=== PATIENT | male | born 1950 | race Caucasian/White ===

== ENCOUNTER 2022-07-30 10:46 | Outpatient (CLI) | payer MEDICARE, BC, SELFPAY ==
[2022-07-30 13:00] LABS: Creatinine Urine 207.1 mg/dL
[2022-07-30 13:48] LABS: Microalbumin Creatinine Ratio 200 mg/g (0-30); Microalbumin Urine 42 mg/dL
[2022-07-30 14:51] LABS: Albumin* 3.8 g/dL (3.3-5.0); Chloride* 105 mmol/L (96-114); Sodium* 141 mmol/L (135-149)
[2022-07-30 14:52] LABS: Iron* 67 ug/dL (49-181)
[2022-07-30 14:53] LABS: Carbon Dioxide* 25 mmol/L (20-32); Cholesterol* 152 mg/dL (90-199); Creatinine* 1.4 mg/dL (0.5-1.5); Estimated Glomerular Filt Rate 53 ml/min
[2022-07-30 14:54] LABS: Alanine Aminotransferase* 35 U/L (4-50); Aspartate Amino Transferase* 30 U/L (12-35); Blood Urea Nitrogen* 26 mg/dL (7-30); Glucose* 149 mg/dL (60-115); Phosphorus* 2.9 mg/dL (2.5-4.5); Triglycerides* 275 mg/dL (40-149); Uric Acid* 10.1 mg/dL (2.2-8.4)
[2022-07-30 14:55] LABS: HDL Cholesterol* 28 mg/dL (>=40); LDL Cholesterol Calculated 69 mg/dL (<100)
[2022-07-30 15:09] LABS: Total Iron Binding Capacity 321 ug/dL (261-462)
[2022-07-30 15:33] LABS: Ferritin* 91.8 ng/mL (17.9-464.0)
[2022-07-30 15:57] LABS: Percent Iron Saturation 21 % (20-50)
== END 2022-07-30 10:47 | disposition home or self-care (01) ==
PROVIDERS: PCP Family Medicine; Visit Provider Internal Medicine Nephrology
DX: I10 Essential (primary) hypertension (principal); M10.9 Gout, unspecified; N18.9 Chronic kidney disease, unspecified
CPT/HCPCS: 80061; 80069; 82043; 82310; 82570; 82728; 83540; 83550; 83970; 84450; 84460; 84550

== ENCOUNTER 2022-10-16 10:52 | Outpatient (CLI) | payer MEDICARE, BC, SELFPAY ==
--- OUTSIDE RECORDS SUMMARY | 2022-10-16 10:55 | XMS_ITS | Encounter Summary ---
:1950 Author Organization [facility] Address [address] [place] [address] Care Team Providers Name Role Phone Unavailable Primary Care Provider Unavailable Reason for Visit Appointment Request (Routine) - Closed Specialty Diagnoses / Procedures Referred By Contact Refer red To Contact Nephrology and Hypertension Referral ID Status Reason Start Date Expiration Date Visits Requ ested Visits Authorized [id number] Closed 07/19/2022 07/19/2023 1 Encounter Details Date Type Department Care Team Description 07/30/2022 External Division of María, Chronic Kidney Disease (CKD), Stage 3a Glomerular Filtration Rate (GFR) 45 To 59 (HCC) (Primary Dx); Outreach Nephrology and Kyle Tirado Jr., Hypertensive Chronic Kidney Disease (CKD) Stage 3a Glomerular Filtration Rate (GFR) 45 To 59 (HCC); Hypertension in D.O. Atrial Fibrillation Unspecified; [place], [facility] Hyperparathyroidism Renal Secondary (HCC ) [place], [place] [address] [place] [address] [place], [place] [phone] (Work) [phone] Social History Tobacco Use Types Packs/Day Years Used Date Smoking Tobacco: Never Smokeless Tobacco: Never Sex Assigned at Date Recorded Not on file documented as of this encounter Last Filed Vital Signs Vital Sign Reading Time Taken Comments Blood Pressure 142/90 07/30/2022 11:17 AM CDT Pulse 76 07/30/2022 11:17 AM CDT Temperature - - Respiratory Rate - - Oxygen Saturation - - Inhaled Oxygen Concentration - - Weight 143 kg (315 lb 14.7 oz) 07/30/2022 11:17 AM CDT Height 177.8 cm (5' 10) 07/30/2022 11:17 AM CDT Body Mass Index 45.33 07/30/2022 11:17 AM CDT documented in this encounter Progress Notes Kyle Daniel Jr., D.O. - 07/30/2022 10:30 AM CDT Referring Provider: No primary care provider on file. SUBJECTIVE REASON FOR VISIT [facility] out reach [facility] Follow-up regards CKD HISTORY OF PRESENT ILLNESS Mr. Forte is a 71 y.o. 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 He has done well overall from the blood pressure perspective. He is hampered however by his severe knee pain, for which she is trying multiple agents. Specifically currently is requiring narcotic analgesics. He has had no orthostatic issues, his lower extremities remain swollen he is investigating new compressive devices. No complications from his oral anticoagulation fortunately. He is noting some substantial fatigue, we are looking forward to getting his labs today. His most recent serum creatinine was 2.3 mg/dL. He is had no chest pain shortness of breath. History reviewed. No pertinent past medical history. Current Outpatient Medications: allopurinoL (ZYLOPRIM) 100 mg tablet, Take 1 tablet (100 mg total) by mouth daily., Disp: 90 tablet, Rfl: 3 apixaban (ELIQUIS) 5 mg tablet, Take 5 mg by mouth 2 (two) times a day., Disp: , Rfl: biotin 300 mcg tablet, Take 300 mcg by mouth daily., Disp: , Rfl: cloNIDine (CATAPRES) 0.2 mg tablet, Take 1 tablet (0.2 mg total) by mouth 2 (two) times a day. (Patient taking differently: Take 0.3 mg by mouth 2 (two) times a day.), Disp: 180 tablet, Rfl: 3 docosahexaenoic acid-epa 120-180 mg capsule, Take 1 g by mouth., Disp: , Rfl: furosemide (LASIX) 20 mg tablet, Take 1 tablet (20 mg total) by mouth as directed. On fri (Patient taking differently: Take 20 mg by mouth as needed. On fri), Disp: 90 tablet, Rfl: 3 gabapentin (NEURONTIN) 600 mg tablet, Take 600 mg by mouth 2 (two) times a day., Disp: , Rfl: irbesartan (AVAPRO) 150 mg tablet, Take 1 tablet (150 mg total) by mouth daily., Disp: 90 tablet, Rfl: 3 omeprazole (PriLOSEC) [address] capsule, , Disp: , Rfl: oxybutynin (DITROPAN-XL) 10 mg 24 hr tablet, Take 1 tablet (10 mg total) by mouth 2 (two) times a day., Disp: 180 tablet, Rfl: 0 oxyCODONE-acetaminophen (PERCOCET) 5-325 mg per tablet, , Disp: , Rfl: pravastatin (PRAVACHOL) 20 mg tablet, TK 1 T PO HS, Disp: , Rfl: pregabalin (LYRICA) 100 mg capsule, , Disp: , Rfl: sotaloL (BETAPACE) 80 mg tablet, Take 80 mg by mouth daily., Disp: , Rfl: tamsulosin (FLOMAX) 0.4 mg 24 hr capsule, Take 0.8 mg by mouth daily., Disp: , Rfl: triamterene-hydroCHLOROthiazide (DYAZIDE) 37.5-25 mg per capsule, Take 1 capsule by mouth 2 (two) times a day., Disp: 180 capsule, Rfl: 3 REVIEW OF SYSTEMS All other systems reviewed and are negative. OBJECTIVE BP 142/90 Pulse 76 Ht 177.8 cm Wt (!) 143 kg BMI 45.33 kg/m?? PHYSICAL EXAMINATION General: Awake alert oriented HEENT: BETH, EOMI, Mucous membranes moist, no oral lesions Neck: No Masses, No Bruits Lungs: Clear to ascultation, distant Heart: Regular Rate and Rhythm, No ectopy Murmurs or rubs Abdomen: Soft, Non-tender, protuberant Extremities: No cyanosis, No clubbing: Indurated [place] hard lower extremity 2+ edema Neuro: Cranial Nerves intact, gait is antalgic he uses Skin: no suspicious lesions identified Psychiatric: Normal affect DIAGNOSTICS Prior creatinine 2.3 mg/dL ASSESSMENT / PLAN #1 Chronic Kidney Disease (CKD), Stage 3a Glomerular Filtration Rate (GFR) 45 To 59 (HCC) Anxious to check his GFR today, is having labs done I will contact him later at area code [phone] Advised him on no NSAIDs Advised he could try CBD gummies for his pain Discussed that his Lyrica doses approximately maximal given his GFR Goal blood pressure less than 130/80 at home-achieved at home. I will see him back in 4 months. #2 Hypertensive Chronic Kidney Disease (CKD) Stage 3a Glomerular Filtration Rate (GFR) 45 To 59 ([facility]) Goal blood pressures as noted above, he is being careful with the sodium. I asked him to keep a log of his blood pressures. #3 Atrial Fibrillation (HCC) His heart rate was regular today as I listened, he is on oral anticoagulation his rate is well controlled. #4 Hyperparathyroidism Renal Secondary (HCC) Anxious to see his calcium phosphorus and PTH level Total time: 50 minutes Counseling Time: 40 minutes Addendum: Contacted him at his own number, reviewed his labs his creatinine is 1.4 mg/dL, hemoglobin is normal, chemistries normal, reviewed his cholesterol. He has 200 milligrams/gram microalbuminuria which is slightly improved. Trino Garay Jr..Cornelius. documented in this encounter Plan of Treatment Not on filedocumented as of this encounter Visit Diagnoses Diagnosis Chronic Kidney Disease (CKD), Stage 3a G lomerular Filtration Rate (GFR) 45 To 59 (HCC) - Primary Hypertensive Chronic Kidney Disease (CKD ) Stage 3a Glomerular Filtration Rate (GFR) 45 To 59 (HCC) Atrial Fibrillation Unspecified Hyperparathyroidism Renal Secondary (HCC ) documented in this encounter
--- OUTSIDE RECORDS SUMMARY | 2022-10-16 10:55 | XMS_ITS | Encounter Summary ---
:1950 Author Organization [facility] Address [address] [place] [address] Care Team Providers Name Role Phone Unavailable Primary Care Provider Unavailable Reason for Visit Reason Comments Med Refill Encounter Details Date Type Department Care Team Description 07/24/2022 Refill Department of Urology in Lavelle Bass M.D. Med Refill [place], [place] [address] [place] [address] [place] [address] [phone] Social History Tobacco Use Types Packs/Day Years Used Date Smoking Tobacco: Never Smokeless Tobacco: Never Sex Assigned at Date Recorded Not on file documented as of this encounter Miscellaneous Notes Telephone Encounter - Toan Stewart - 07/25/2022 2:53 PM CDT New dosage was faxed 06-27-22 Telephone Encounter - Breonna Chicas R.N. - 07/25/2022 2:[address] Covington note from 06/27/22, pt is to increase Oxybutynin from 1 time a day to twice a day. Telephone Encounter - Delfina Dasilva - 07/24/2022 5:21 PM CDT Nurse review: Unable to forward request to provider; Discrepancy; Patient Med list shows 2 times daily, pharmacy is requesting 1 time daily Primary Provider: No primary care provider on file. Requested Prescriptions Pending Prescriptions Disp Refills oxybutynin (DITROPAN-XL) 10 mg 24 hr tablet [Pharmacy Med Name: OXYBUTYNIN ER 10MG TABLETS] 90 tablet 3 Sig: TAKE 1 TABLET(10 MG) BY MOUTH AT BEDTIME Pharmacy (include location): [id number] AT [facility] documented in this encounter Plan of Treatment Not on filedocumented as of this encounter Visit Diagnoses Not on filedocumented in this encounter
--- OUTSIDE RECORDS SUMMARY | 2022-10-16 10:55 | XMS_ITS | Encounter Summary ---
:1950 Author Organization [facility] Address [address] [place] [address] Care Team Providers Name Role Phone Unavailable Primary Care Provider Unavailable Reason for Referral Outpatient (Routine) - Closed Specialty Diagnoses / Procedures Referred By Contact Refer red To Contact Urology Lav[facility]. [facility] Region [address] [place] [address] Referral ID Status Reason Start Date Expiration Date Visits Requ ested Visits Authorized [id number] Closed 08/12/2022 08/11/2025 1 1 Reason for Visit Reason Comments Follow-up URGE incontinence Outpatient (Routine) - Closed Specialty Diagnoses / Procedures Referred By Contact Refer red To Contact Urology Lavelle Covington M.D. [facility] Region [address] [place] [address] Referral ID Status Reason Start Date Expiration Date Visits Requ ested Visits Authorized [id number] Closed 06/27/2022 06/27/2023 1 1 Encounter Details Date Type Department Care Team Description 08/12/2022 Office Visit Department of Urology Lavelle Covington Uri nary Urge in [place] M.[place]. Incontinence (Primary [address]) [place] [phone] Social History Tobacco Use Types Packs/Day Years Used Date Smoking Tobacco: Never Smokeless Tobacco: Never Tobacco Cessation: Counseling Given: Not Answered Sex Assigned at Date Recorded Not on file documented as of this encounter Progress Notes Lavelle Covington M.D. - 08/12/2022 1:45 PM CDT SUBJECTIVE CHIEF COMPLAINT / REASON FOR VISIT Urinary urgency HISTORY OF PRESENT ILLNESS Herson Forte is a 71 y.o. male who has a longstanding history of urinary urgency. Recent cystoscopy demonstrated no evidence of obstruction. As a result we decreased his tamsulosin from 0.8 down to 0.4 mg a day. We also increased his oxybutynin up to 10 mg twice a day. With this combination his stream remains strong and forceful, he is having less urgency and less urge incontinence. He does describe having a few episodes of orthostatic changes. He denies dry mouth or constipation. I-PSS Urinary Symptoms Score: 9 I-PSS Quality of Life Score: 4 The following portions of the patient's history were reviewed and updated as appropriate: allergies,current medications, family history, medical history, social history, surgical history and problem list. OBJECTIVE Electronic calibrated uroflow is performed. The patient voided 261 mL of urine in 23 seconds. Peak flow is 33 mL/sec with a mean flow of 18 mL/sec. The shape of the curve is NORMAL. Bladder scan postvoid residual is estimated to be 70 mL. ASSESSMENT / PLAN #1 Urinary Urge Incontinence PLAN: Given his ongoing urinary incontinence and his demonstration of an extremely strong stream we have elected to make the following changes: 1. Discontinue tamsulosin 2. Increase the dose of oxybutynin up to 15 mg XL twice a day. Potential side effects including constipation, confusion and mental status changes are reviewed. We discussed other alternatives including adding mirabegron to be used in conjunction with the oxybutynin, or giving consideration towards intravesical Botox injections. At this time the patient is disinclined towards invasive procedures. He will return to clinic in 6 to 8 weeks to follow-up after increasing the dose of the oxybutynin and discontinuation of the tamsulosin. Lavelle Covington M.D. 08/12/22 2:15 PM CDT documented in this encounter Plan of Treatment Scheduled Referrals Name Type Priority Associated Diagnoses Order S [facility] Urology office Outpatient Referral Routine Expect ed: visit (clinic) 10/09/2022 (Approximate), Expires: 11/11/2023 documented as of this encounter Visit Diagnoses Diagnosis Urinary Urge Incontinence - Primary documented in this encounter
--- OUTSIDE RECORDS SUMMARY | 2022-10-16 10:55 | XMS_ITS | Clinical Summary ---
:1950 Author Organization [facility] Address [address] [place] [address] Care Team Providers Name Role Phone Unavailable Primary Care Provider Unavailable Source Comments Patient records contain information from all sites at [facility]. For routine questions regarding patient records, call [phone] during business hours, M-F 8:00 AM - 5:00 PM Central Time. Record requests for emergency care only can be directed to [phone] at any time.[facility] Allergies Active Allergy Reactions Severity Noted Date Comments Adhesive Tape-Silicones Rash 07/16/2021 Foam tape used for pressure wrap after the pacemaker procedure Lisinopril Cough 11/13/2017 Cough Cough Cough Medications Medication Sig Dispensed Refills Start Date End Date Status furosemide (LASIX) 20 Take 1 tablet (20 90 tablet 3 12/22/2019 Active mg tablet mg total) by mouth as directed. On fri Additional Information Patient taking differently: 20 mg oral As needed, On fri, Reported on 04/25/2022 cloNIDine (CATAPRES) 0.2 mg Take 1 tablet (0.2 mg 180 tablet 3 12/22/2019 Active tablet total) by mouth 2 (two) times a day. Additional Information Patient taking differently: 0.3 mg oral 2 times daily, Reported on 04/25/2022 triamterene-hydroCHLOROthiazide Take 1 180 capsule 3 2019 Active (DYAZIDE) 37.5-25 mg per capsule capsule by mouth 2 (two) times a day. apixaban (ELIQUIS) 5 mg tablet Take 5 mg by 0 Active mouth 2 (two) times a day. biotin 300 mcg tablet Take 300 mcg 0 Active by mouth daily. irbesartan (AVAPRO) 150 mg tablet Take 1 90 tablet 3 2020 Active tablet (150 mg total) by mouth daily. allopurinoL (ZYLOPRIM) 100 mg tablet Take 1 90 tablet 3 07/2021 Active tablet (100 mg total) by mouth daily. gabapentin (NEURONTIN) 600 mg tablet Take 600 mg 0 0 01/28/2022 Active by mouth 2 (two) times a day. docosahexaenoic acid-epa 120-180 mg Take 1 g by 0 Active capsule mouth. omeprazole (PriLOSEC) [address] 0 2 Active capsule oxyCODONE-acetaminophen (PERCOCET) 0 04/25 Active 5-325 mg per tablet pravastatin (PRAVACHOL) 20 mg tablet TK 1 T PO HS 0 09/19/2020 Active sotaloL (BETAPACE) 80 mg tablet Take 80 mg 0 022 Active by mouth daily. pregabalin (LYRICA) 100 mg capsule 0 06/26 Active oxybutynin (DITROPAN XL) 15 mg 24 hr Take 1 180 tablet 3 08/12 Active tablet tablet (15 mg total) by mouth 2 (two) times a day. cloNIDine (CATAPRES) 0.3 mg tablet Take 1 180 tablet 3 08/24 Active tablet (0.3 /3 mg total) by mouth 2 (two) times a day. Additional Information Patient not taking. 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 09/05/2022 Refill Nephrology and William, Med Refill Hypertension Lindy Kelly APRN, C.N.P., D.N.P. 08/12/2022 Office Visit Urology Lavelle Covington, Urinary Urge Incontinence Ciaran (Primary Dx) 07/30/2022 External Nephrology and [place], Chronic Kidne y Disease (CKD), Stage 3a Glomerular Filtration Rate (GFR) 45 To 59 (HCC) (Primary Dx); Outreach Hypertension Kyle Tirado Jr., Hypertensive C hronic Kidney Disease (CKD) Stage 3a Glomerular Filtration Rate (GFR) 45 To 59 (HCC); D.O. Atrial Fibrilla tion Unspecified; Hyperparathyroi dism Renal Secondary (HCC) 07/24/2022 Refill Urology Lavelle Covington Med Refill Ciaran from Last 3 Months Immunizations Name Administration Dates Next Due Td, (Adult) Unspecified 01/22/2006 Social History Tobacco Use Types Packs/Day Years Used Date Smoking Tobacco: Never Smokeless Tobacco: Never Tobacco Cessation: Counseling Given: Not Answered Sex Assigned at Date Recorded Not on file Last Filed Vital Signs Vital Sign Reading Time Taken Comments Blood Pressure 142/90 07/30/2022 11:17 AM CDT Pulse 76 07/30/2022 11:17 AM CDT Temperature 36 ??C (96.8 ??F) 06/27/2022 3:27 PM CDT Respiratory Rate - - Oxygen Saturation - - Inhaled Oxygen Concentration - - Weight 143 kg (315 lb 14.7 oz) 07/30/2022 11:17 AM CDT Height 177.8 cm (5' 10) 07/30/2022 11:17 AM CDT Body Mass Index 45.33 07/30/2022 11:17 AM CDT Plan of Treatment Health Maintenance Due Date Last Done Comments CT Colonography 1950 Cologuard 1950 Colonoscopy 1950 Colorectal Cancer Screening 1950 FIT 1950 Hepatitis C Screening 1950 COVID-19 Vaccine (#1) 03/11/1951 Hepatitis A Vaccines (1 of 2 - 1951 Risk 2-dose series) Zoster Vaccines (1 of 2) 1968 Hepatitis B Vaccines (1 of 3 - 2009 Risk 3-dose series) Depression Screening (Annual 11/24/2021 PHQ-2) Fall Risk Screen (Annual) 11/24/2021 DTaP,Tdap,and Td Vaccines (2 - Td 04/06/2022 04/06/2012, , or Tdap) 01/22/2006 Creatinine Level 07/17/2022 07/17/2021, 07/13/2021, 07/09/2021, Additional history exists Sodium Level 07/17/2022 07/17/2021, 07/13/2021, 07/09/2021, Additional history exists Influenza Vaccine (#1) 2022 11/14/2020, 09/07/2017 Office Visit for Blood Pressure 10/29/2022 07/30/2022 Check / Re-check Potassium Level 03/26/2023 03/26/2022, 07/17/2021, 07/13/2021, Additional history exists Fasting Glucose for Diabetes 07/17/2024 07/17/2021, 021, Screening 07/03/2021, Additional history exists Abdominal Aortic Aneurysm (AAA) Discontinued 03/14/2010 Screen Pneumococcal vaccine (65+ years) Completed 09/18/2021, Insurance Payer Benefit Plan Subscriber ID Effective Phone Address Typ e / Group Dates MEDICARE MEDICARE A [id number] 2015-Pre [address] Medicare AND B [facility] [place] [address] [employer] [place] [id number] 2016-Pres [phone] [address] Cost Share BLUE [employer] BLUE COST ent [phone] [place] [address]
--- OUTSIDE RECORDS SUMMARY | 2022-10-16 10:55 | XMS_ITS | Encounter Summary ---
:1950 Author Organization [facility] Address [address] [place] [address] Care Team Providers Name Role Phone Unavailable Primary Care Provider Unavailable Reason for Referral Outpatient (Routine) - Authorized Specialty Diagnoses / Procedures Referred By Contact Refer red To Contact Nephrology and Lavelle Covington M.D. [facility] [address] [place], [place] [address] [address] [facility] [address] [place] [address] Phone: Fax: Referral ID Status Reason Start Date Expiration Date Visits V isits Requested Authorized [id number] Authorized 06/27/2022 06/27/2023 1 1 utpatient (Routine) - Closed Specialty Diagnoses / Procedures Referred By Contact Refer red To Contact Urology Lavelle Covington M.D. [facility] [address] [place] [phone] Referral ID Status Reason Start Date Expiration Date Visits Requ ested Visits Authorized [id number] Closed 06/27/2022 06/27/2023 1 1 Reason for Visit Reason Comments Benign Prostatic Hypertrophy Medication is not helping like he thought it was going too.. He is still having urg ency but only droplets come out. No difference in sympto ms since last seen. Urge Urinary Incontinence Overactive Bladder Medication Return Outpatient (Routine) - Closed Specialty Diagnoses / Procedures Referred By Contact Refer red To Contact Urology Lavelle Covington M.D. [facility] [place] [address] [place] [address] Referral ID Status Reason Start Date Expiration Date Visits Requ ested Visits Authorized [id number] Closed 04/25/2022 04/25/2023 1 1 Encounter Details Date Type Department Care Team Description 06/27/2022 Office Visit Department of Urology Lavelle Covington Uri nary Urge in [place] M.D. Incontinence (Primary [address]) [place] [phone] Social History Tobacco Use Types Packs/Day Years Used Date Smoking Tobacco: Never Smokeless Tobacco: Never Tobacco Cessation: Counseling Given: Not Answered Sex Assigned at Date Recorded Not on file documented as of this encounter Last Filed Vital Signs Vital Sign Reading Time Taken Comments Blood Pressure - - Pulse - - Temperature 36 ??C (96.8 ??F) 06/27/2022 3:27 PM CDT Respiratory Rate - - Oxygen Saturation - - Inhaled Oxygen Concentration - - Weight - - Height - - Body Mass Index - - documented in this encounter Progress Notes Lavelle Covington M.D. - 06/27/2022 3:15 PM CDT SUBJECTIVE CHIEF COMPLAINT / REASON FOR VISIT Lower urinary tract symptoms HISTORY OF PRESENT ILLNESS Herson Forte is a 71 y.o. male who was originally seen by myself on April 25, 2022. He is currentlytaking and has been taking tamsulosin 0.4 mg twice daily. He would like to increase this dose. I noted to the patient, that his cystoscopy was nonobstructing and relatively short. As a result increasing the dose of tamsulosin is not indicated. Prostate specific antigen was collected on May 09, 2022 and found to be 0.85. This supports the idea that he has a small prostate. The patient has not observed any clinical improvement with adding oxybutynin ER 10 mg daily. He is tolerating the medicine well without any undue side effects. The following portions of the patient's history were reviewed and updated as appropriate: allergies,current medications, family history, medical history, social history, surgical history and problem list. OBJECTIVE VITAL SIGNS Temp 36 ??C (Temporal) Electronic calibrated uroflow is performed. The patient voided 101 mL of urine in 15 seconds. Peak flow is 11.4 mL/sec with a mean flow of 6.8 mL/sec. The shape of the curve is round. Bladder scan postvoid residual is estimated to be 12 mL. ASSESSMENT / PLAN #1 Urinary Urge Incontinence PLAN: I would like to increase the dose of oxybutynin ER to 10 mg twice daily. For the time being, we havecompromised and agreed that he can continue on the tamsulosin. Again, I am inclined to say that we should be able to wean him off of the tamsulosin once we get his overactive bladder symptoms under better control. The patient asked for an order to return to Nephrology, this was placed. We will plan to see him back in 6 to 8 weeks to review his progress on the higher dose of oxybutynin. Lavelle Covington M.D. 06/27/22 5:09 PM CDT documented in this encounter Plan of Treatment Scheduled Referrals Name Type Priority Associated Diagnoses Order S [facility] Urology office Outpatient Referral Routine Expect ed: visit (clinic) 08/12/2022 (Approximate), Expires: 09/27/2023 Return to provider Outpatient Referral Routine Ex pected: in another 06/27/2022 specialty (Approximate), Expires: 09/27/2023 documented as of this encounter Visit Diagnoses Diagnosis Urinary Urge Incontinence - Primary documented in this encounter
--- OUTSIDE RECORDS SUMMARY | 2022-10-16 10:55 | XMS_ITS | Encounter Summary ---
:1950 Author Organization [facility] Address [address] [place] [address] Care Team Providers Name Role Phone Unavailable Primary Care Provider Unavailable Reason for Visit Reason Comments Follow-up Medication review Outpatient (Routine) - Closed Specialty Diagnoses / Procedures Referred By Contact Refer red To Contact Urology Lavelle Covington M.D. [facility] Region [address] [place] [address] Referral ID Status Reason Start Date Expiration Date Visits Requ ested Visits Authorized [id number] Closed 08/12/2022 08/11/2025 1 1 Encounter Details Date Type Department Care Team Description 10/09/2022 [facility] [place] [place] David DALEY [address] [place] [address] [place] [address] [phone] (Wo rk) Social History Tobacco Use Types Packs/Day Years Used Date Smoking Tobacco: Never Smokeless Tobacco: Never Sex Assigned at Date Recorded Not on file documented as of this encounter Plan of Treatment Not on filedocumented as of this encounter Visit Diagnoses Not on filedocumented in this encounter
--- OUTSIDE RECORDS SUMMARY | 2022-10-16 10:55 | XMS_ITS | Encounter Summary ---
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 [place] [address] [place] [address] Social History Tobacco Use Types Packs/Day Years Used Date Smoking Tobacco: Never Smokeless Tobacco: Never Sex Assigned at Date Recorded Not on file documented as of this encounter Plan of Treatment Not on filedocumented as of this encounter Visit Diagnoses Not on filedocumented in this encounter
--- OUTSIDE RECORDS SUMMARY | 2022-10-16 10:56 | XMS_ITS | Encounter Summary ---
:1950 Author Organization [facility] Address [address] [place] [address] Care Team Providers Name Role Phone Unavailable Primary Care Provider Unavailable Reason for Visit Reason Comments Medication Question Encounter Details Date Type Department Care Team Description 03/02/2020 Clinical Division of Zina Daniel Nephrology and Kyle Tirado Jr., Hypertension in .[place], [place] [address] [facility] [address] [place] [phone] [phone] Social History Tobacco Use Types Packs/Day Years Used Date Smoking Tobacco: Never Assessed Sex Assigned at Date Recorded Not on file documented as of this encounter Plan of Treatment Not on filedocumented as of this encounter Visit Diagnoses Not on filedocumented in this encounter
--- OUTSIDE RECORDS SUMMARY | 2022-10-16 10:56 | XMS_ITS | Encounter Summary ---
:1950 Author Organization [facility] Address [address] [place] [address] Care Team Providers Name Role Phone Unavailable Primary Care Provider Unavailable Reason for Visit Reason Comments Med Refill Encounter Details Date Type Department Care Team Description 12/15/2020 Refill Division of Nephrology and María, Valeriy Tirado Jr., Med Refill Hypertension in [facility] [address] [facility] [address] [place] [address] [place] [address] [phone] Social History Tobacco Use Types Packs/Day Years Used Date Smoking Tobacco: Never Assessed Sex Assigned at Date Recorded Not on file documented as of this encounter Miscellaneous Notes Telephone Encounter - Priya Catalan - 12/15/2020 11:59 AM CST Med refill request for Irbesartan 150 MG tab. Forwarded to nurses. 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
--- OUTSIDE RECORDS SUMMARY | 2022-10-16 10:56 | XMS_ITS | Encounter Summary ---
:1950 Author Organization [facility] Address [address] [place] [address] Care Team Providers Name Role Phone Unavailable Primary Care Provider Unavailable Reason for Visit Appointment Request (Routine) - Closed Specialty Diagnoses / Procedures Referred By Contact Refer red To Contact Nephrology and Trung Tucker, Hypertension [place] [address] [place] [address] Referral ID Status Reason Start Date Expiration Date Visits Requ ested Visits Authorized [id number] Closed 12/08/2019 12/07/2020 Encounter Details Date Type Department Care Team Description 12/22/2019 External Outreach Division of María, Grant Ki dney Disease Stage 3 Glomerular Filtration Rate 30 To 59 (HCC) (Primary Dx); Nephrology and Kyle Tirado Jr., Hypertension And Chronic Kidney Disease Stage 3 (HCC); Hypertension in D.O. Osteodystrophy Renal; [place], [place] [address] [facility] Atrial Fibrillation (HCC) [address] [place] [address] [phone] Social History Tobacco Use Types Packs/Day Years Used Date Smoking Tobacco: Never Assessed Sex Assigned at Date Recorded Not on file documented as of this encounter Consult Notes Kyle Daniel Jr., D.O. - 12/22/2019 3:30 PM CST Please see scanned in note under document viewer tab for the [facility] outreach visit from this date. 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
--- OUTSIDE RECORDS SUMMARY | 2022-10-16 10:56 | XMS_ITS | Encounter Summary ---
:1950 Author Organization [facility] Address [address] [place] [address] Care Team Providers Name Role Phone Unavailable Primary Care Provider Unavailable Encounter Details Date Type Department Care Team Description 05/09/2022 Hospital Encounter Department of Sneiders, Urinary Urge Laboratory Medicine Benoit Valderrama. Incontinence in [place], [address] [place] [phone] Social History Tobacco Use Types Packs/Day Years Used Date Smoking Tobacco: Never Smokeless Tobacco: Never Sex Assigned at Date Recorded Not on file documented as of this encounter Medications at Time of Discharge Medication Sig Dispensed Refills Start Date End Date allopurinoL (ZYLOPRIM) 100 Take 1 tablet 90 tablet 3 2020 mg tablet (100 mg total) by mouth daily. apixaban (ELIQUIS) 5 mg Take 5 mg by 0 tablet mouth 2 (two) times a day. biotin 300 mcg tablet Take 300 mcg by 0 mouth daily. cloNIDine (CATAPRES) 0.2 Take 1 tablet 180 tablet 3 12/22/19 20 mg tablet (0.2 mg total) by mouth 2 (two) times a day. docosahexaenoic acid-epa Take 1 g by 0 11/13/2017 120-180 mg capsule mouth. furosemide (LASIX) 20 mg Take 1 tablet (20 90 tablet 3 11/25 tablet mg total) by mouth as directed. On fri gabapentin (NEURONTIN) 600 Take 600 mg by 0 01/28 mg tablet mouth 2 (two) times a day. omeprazole (PriLOSEC) 20 0 04/19/[address] capsule oxyCODONE-acetaminophen 0 04/25/2022 (PERCOCET) 5-325 mg per tablet pravastatin (PRAVACHOL) 20 TK 1 T PO HS 0 020 mg tablet sotaloL (BETAPACE) 80 mg Take 80 mg by 0 03/02/20 22 tablet mouth daily. triamterene-hydroCHLOROthi Take 1 capsule by 180 capsule 3 0 12/22/2019 azide (DYAZIDE) 37.5-25 mg mouth 2 (two) per capsule times a day. oxybutynin (DITROPAN-XL) Take 1 tablet (10 90 tablet 0 01/202206/27/2022 10 mg 24 hr tablet mg total) by mouth at bedtime. tamsulosin (FLOMAX) 0.4 mg Take 0.8 mg by 0 01/2708/12/2022 24 hr capsule mouth daily. documented as of this encounter Plan of Treatment Not on filedocumented as of this encounter Procedures Procedure Name Priority Date/Time Associated Diagnosis Comme nts CYTOLOGY NON-C APPLICATION DEVELOPER Routine 05/09/2022 2:51 PM Urinary Urge Resul ts for this (SCHEDULED) CDT Incontinence procedure are i n the results section. documented in this encounter Results Cytology Non-C APPLICATION DEVELOPER (Scheduled) (05/09/2022 2:51 PM CDT) Component Value Ref Test Analysis Performed At [facility] gist Range Method Time Signature 05/10/2022 [facility] 10:39 AM CDT Report Marcus Perdomo MD 05/10/2022 [facility] electronically 10:39 AM signed by CDT I verify that I have examined all relevant slides/materials for the specimen(s) and rendered or confirmed the diagnosis. Gross Description Received 80 05/10/2022 [facility] ml of yellow 10:39 AM alcohol fixed CDT fluid. Source A. Urine, 05/10/2022 [facility] voided 10:39 AM CDT Interpretation A. Urine, voided (cytospin): Negative for High-Grade 05/10/2022 [facility] Urothelial Carcinoma. 10:39 AM CDT Specimen Anatomical Collection Method Collection Time Receive d Time (Source) Location / / Volume Laterality Varies (Urine, 05/09/2022 2:51 PM 022 7:32 Clean Catch) CDT AM CDT Narrative This result has an attachment that is no t available. Lavelle Covington M.D. LAB SURG PATH ORDERABLES Performing Organization Address City/State/[facility] Code Phon e Number [facility] [address] CYTOLOGY [facility] [address] Cytology [facility] documented in this encounter Visit Diagnoses Diagnosis Urinary Urge Incontinence documented in this encounter
--- OUTSIDE RECORDS SUMMARY | 2022-10-16 10:56 | XMS_ITS | Encounter Summary ---
:1950 Author Organization [facility] Address [address] [place] [address] Care Team Providers Name Role Phone Unavailable Primary Care Provider Unavailable Reason for Visit Reason Comments Irbesartan RX Encounter Details Date Type Department Care Team Description 12/19/2020 Clinical Communication Division of Nephrology María Irbesartan RX and Hypertension in [place], [place] D.O. [address] [facility] [address] [place] [phone] Social History Tobacco Use Types Packs/Day Years Used Date Smoking Tobacco: Never Assessed Sex Assigned at Date Recorded Not on file documented as of this encounter Miscellaneous Notes Telephone Encounter - Priya Vargas - 12/19/2020 10:54 AM CST Patient called and needs his prescription for Irbesartan 150 mg, quantity 90 and would like a year supply. He has two days left. He would like it sent to: [id number] - [place] [address] AT [facility] [place] [address] [facility] [address] ?? If you need to call him, his number is [phone]. 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
--- OUTSIDE RECORDS SUMMARY | 2022-10-16 10:56 | XMS_ITS | Encounter Summary ---
:1950 Author Organization [facility] Address [address] [place] [address] Care Team Providers Name Role Phone Unavailable Primary Care Provider Unavailable Reason for Referral Outpatient (Routine) - Closed Specialty Diagnoses / Procedures Referred By Contact Refer red To Contact Urology Lavelle Covington M.D. [facility] [address] [place] [address] Referral ID Status Reason Start Date Expiration Date Visits Requ ested Visits Authorized [id number] Closed 04/25/2022 04/25/2023 1 1 Reason for Visit Reason Comments Consult Urinary Frequency Nocturia Appointment Request (Routine) - Closed Specialty Diagnoses / Procedures Referred By Contact Refer red To Contact Urology Referral ID Status Reason Start Date Expiration Date Visits Requ ested Visits Authorized [id number] Closed 04/25/2022 04/25/2023 1 1 Encounter Details Date Type Department Care Team Description 04/25/2022 Comprehensive Visit Department of Ad[place], Benign Prostatic Hyperplasia Hypertrophy With Obstruction (Primary Dx); Urology in Lavelle Espinal M.D. Urinary Urge Incontinence; [place] [address] Overactive Bladder [address] [place] [phone] Social History Tobacco Use Types Packs/Day Years Used Date Smoking Tobacco: Never Smokeless Tobacco: Never Sex Assigned at Date Recorded Not on file documented as of this encounter Procedure Notes Lavelle Covington M.D. - 04/25/2022 3:15 PM CDT CHIEF COMPLAINT / REASON FOR VISIT Cystoscopy. The patient was appropriately identified with at least two separate identifiers and the correct procedure was confirmed. Verbal consent was obtained. INDICATION: Lower urinary tract symptoms not responsive to medical management INSTRUMENT: Flexible cystourethroscope. ANESTHESIA: 2% aqueous lidocaine jelly introduced into the urethra. PROCEDURE: The patient was placed in a supine position. The genitalia were prepped and draped sterilely. The urethra was anesthetized with 2% aqueous lidocaine jelly. The cystoscope was advanced into the urethra. FINDINGS: Meatus: Normal. Urethra: notable for wide bore urethral stricture not requiring dilation. Prostate: Length: 2.5 cm. Lateral Lobes: Mild hypertrophy with no visual obstruction. Middle Lobe: absent. Bladder Neck: Elevated median bar - mild. Residual Urine: Minimal (< 75 ml). Ureteral Orifices: Singular bilaterally, normal position on the trigone, slit- like in configuration and with clear efflux of urine noted bilaterally. Trabeculation: mild. Tumors: No tumors, exophytic lesions, foreign bodies or calculi. The procedure was well tolerated by the patient. Post cystoscopy uroflow: Electronic calibrated uroflow is performed. The patient voided 239 mL of urine in 25.5 seconds. Peak flow is 20.5 mL/sec with a mean flow of 11 mL/sec. The shape of the curve is normal. Bladder scan postvoid residual is estimated to be 75 mL. He was discharged from the office in satisfactory condition. Post-cystoscopy instructions were reviewed with him. IMPRESSION: Overactive bladder PLAN: See separate dictation of today's date. Lavelle Covington M.D. 04/25/22 4:46 PM CDT documented in this encounter Consult Notes Lavelle Covington M.D. - 04/25/2022 3:15 PM CDT SUBJECTIVE CHIEF COMPLAINT / REASON FOR VISIT Lower urinary tract symptoms HISTORY OF PRESENT ILLNESS This is a 71-year-old male who is complaining of significant lower urinary tract symptoms. His main concern is frequency, urgency and urge incontinence. He has nocturia several times a night. He will usually start leaking when he stands up to go to the bathroom, either during the day or at night. He does not leak when he sitting still or laying down. He he does not describe stress incontinence. Thereis no known family history of prostate cancer or lower urinary tract symptoms. The patient gets the majority of his care at an outside facility, where the results are not available in care everywhere. It is unknown whether he has had a prior prostate specific antigen. The patient has been taking tamsulosin 0.4 mg twice daily for at least 12 months, and had been on lower dose for a while before that. MEDICAL HISTORY 1. Chronic kidney disease 2. Cardiomyopathy 3. Venous insufficiency 4. Peripheral vascular disease with abdominal aortic aneurysm 5. Peripheral neuropathy 6. Chronic lymphedema 7. Gout 8. Hyperlipidemia 9. Atrial fibrillation with rapid ventricular response 10. Heart failure 11. Chronic anticoagulation for history of atrial fibrillation and coagulopathy 12. History of DVT and pulmonary emboli 13. Pacemaker placement FAMILY HISTORY Negative for urological disease SOCIAL HISTORY Social History Tobacco Use ??? Smoking status: Never Smoker ??? Smokeless tobacco: Never Used Substance Use Topics ??? Alcohol use: Not on file REVIEW OF SYSTEMS Please see personal history form dated April 25, 2022 CURRENT MEDICATIONS Current Outpatient Medications Medication Sig Dispense Refill ??? allopurinoL (ZYLOPRIM) 100 mg tablet Take 1 tablet (100 mg total) by mouth daily. 90 tablet 3 ??? cloNIDine (CATAPRES) 0.2 mg tablet Take 1 tablet (0.2 mg total) by mouth 2 (two) times a day. (Patient taking differently: Take 0.3 mg by mouth 2 (two) times a day.) 180 tablet 3 ??? docosahexaenoic acid-epa 120-180 mg capsule Take 1 g by mouth. ??? furosemide (LASIX) 20 mg tablet Take 1 tablet (20 mg total) by mouth as directed. On fri(Patient taking differently: Take 20 mg by mouth as needed. On fri) 90 tablet 3 ??? gabapentin (NEURONTIN) 600 mg tablet Take 600 mg by mouth 2 (two) times a day. ??? irbesartan (AVAPRO) 150 mg tablet Take 1 tablet (150 mg total) by mouth daily. 90 tablet 3 ??? omeprazole (PriLOSEC) [address] capsule ??? oxybutynin (DITROPAN-XL) 10 mg 24 hr tablet Take 1 tablet (10 mg total) by mouth at bedtime. 60 tablet 0 ??? oxyCODONE-acetaminophen (PERCOCET) 5-325 mg per tablet ??? pravastatin (PRAVACHOL) 20 mg tablet TK 1 T PO HS ??? sotaloL (BETAPACE) 80 mg tablet Take 80 mg by mouth daily. ??? tamsulosin (FLOMAX) 0.4 mg 24 hr capsule Take 0.8 mg by mouth daily. ??? triamterene-hydroCHLOROthiazide (DYAZIDE) 37.5-25 mg per capsule Take 1 capsule by mouth 2 (two)times a day. 180 capsule 3 ??? apixaban (ELIQUIS) 5 mg tablet Take 5 mg by mouth 2 (two) times a day. ??? biotin 300 mcg tablet Take 300 mcg by mouth daily. No current facility-administered medications for this visit. ALLERGIES/ CONTRAINDICATIONS Allergies Allergen Reactions ??? Adhesive Tape-Silicones Rash Foam tape used for pressure wrap after the pacemaker procedure ??? Lisinopril Cough Cough Cough Cough OBJECTIVE PHYSICAL EXAMINATION General: Adult obese male using a walking stick Head: No abnormality of appearance. No facial abnormalities. No neck masses. Heart: No peripheral cyanosis or edema. Lungs: Normal respiratory movements. No shortness of breath. Abdomen: Flat and nondistended. No guarding. No tenderness. No ascites. No hepatosplenomegaly. Kidneys are not palpable. Bladder size is normal. There are no ventral hernias. There are no inguinal hernias. Rectum: Perirectal Region: Unremarkable without evidence of condyloma, skin tags or other lesions. Rectal sphincter tone is normal. There are no rectal masses. Prostate: Prostate is approximately 25 grams in size. It is smooth in consistency. It is symmetrical. Prostate is without nodules or tenderness. Seminal vesicles are normal. Genitalia: Penis: No discharge, no masses and no plaques. Meatus is normally located on the glans penis, there is no meatal scarring and it is of normal size. Penis is uncircumcised. Scrotum: No rashes. No hydroceles or spermatoceles are present. No palpable varicocele is noted. Testes: Both testes are descended. They are without masses or tenderness. Each testis is of normal size and consistency. Epididymides: Each epididymis is of normal size, without masses, without tenderness or signs of epididymitis. Both the right and left vas deferens are palpable. Perineum: Unremarkable. There are no obvious skin tags, condyloma or other lesions. Spine: No spinal tenderness. No costovertebral angle tenderness. DIAGNOSTICS Cystoscopy and uroflow was performed, see separate dictation. Briefly, the prostate is nonobstructing. He empties his bladder well and has a normal stream. ASSESSMENT / PLAN #1 Benign Prostatic Hyperplasia Hypertrophy With Obstruction #2 Urinary Urge Incontinence #3 Overactive Bladder Plan: 1. Add oxybutynin ER 10 mg once daily. Indications and potential side effects were reviewed. 2. Continue tamsulosin for the time being. When he returns to clinic, if he is responding favorably to the oxybutynin, would consider weaning him off of the tamsulosin. 3. Check a prostate specific antigen in a couple weeks. 4. In a few weeks, we will also check a urine cytology for the sake of completeness. 5. Behavioral changes, specifically avoidance of caffeinated, carbonated, and alcoholic beverages. Also discussed other foods, specifically acidic or particularly spicy foods that may aggravate his lower urinary tract symptoms. Lavelle Covington M.D. 04/25/22 5:12 PM CDT documented in this encounter Plan of Treatment Scheduled Referrals Name Type Priority Associated Diagnoses Order [facility] Urology office Outpatient Referral Routine Expect ed: visit (clinic) 06/25/2022 (Approximate), Expires: 07/26/2023 documented as of this encounter Results Cytology Non-COLLEGE SPORTS ASSISTANT (Scheduled) (05/09/2022 2:51 PM CDT) Component Value Ref Test Analysis Performed At [facility] Range Method Time Signature 05/10/2022 [facility] 10:39 AM CDT Report Marcus Perdomo MD 05/10/2022 [facility] electronically 10:39 AM signed by CDT I verify that I have examined all relevant slides/materials for the specimen(s) and rendered or confirmed the diagnosis. Gross Description Received 80 05/10/2022 [facility] ml of yellow 10:39 AM alcohol fixed CDT fluid. Source A. Urine, 05/10/2022 [facility] voided 10:39 AM CDT Interpretation A. Urine, voided (cytospin): Negative for High-Grade 05/10/2022 [facility] Urothelial Carcinoma. 10:39 AM CDT Specimen Anatomical Collection Method Collection Time Receive d Time (Source) Location / / Volume Laterality Varies (Urine, 05/09/2022 2:51 PM 022 7:32 Clean Catch) CDT AM CDT Narrative This result has an attachment that is no t available. Lavelle Covington M.D. LAB SURG PATH ORDERABLES Performing Organization Address City/[facility]/ZIP Code Phon e Number [facility] [address] [place] [address] [place] [address] [facility] Cytology [facility] PSA (Prostate-Specific Antigen), Diagnostic (05/09/2022 10:05 AM CDT) athologist Signature Prostate-Specif 0.85 <=6.5 ng/mL 05/09/2022 [facility] ic Ag 12:03 PM CDT Comment: ----ADDITIONAL INFORMATION---- The testing method is an electrochemilum inescence assay manufactured by [employer] and performed on the Modular or Tessie system . Values obtained with different assay met hods or kits may be different and cannot be used inte rchangeably. Test results cannot be interpreted as ab solute evidence for the presence or absence of malignant disease. Specimen Anatomical Collection Method Collection Time Receive d Time (Source) Location / / Volume Laterality Blood (Blood, 05/09/2022 10:05 05/09/2022 Venous) AM CDT 10:23 AM CDT Lavelle Covintgon M.D. LAB BLOOD ADD-ON Performing Organization Address City/[facility]/ZIP Code Phon e Number [facility]- [address] [place], [place] [address] [place] [address] [place] [address] [facility] [address] documented in this encounter Visit Diagnoses Diagnosis Benign Prostatic Hyperplasia Hypertrophy With Obstruction - Primary Urinary Urge Incontinence Overactive Bladder documented in this encounter
--- OUTSIDE RECORDS SUMMARY | 2022-10-16 10:56 | XMS_ITS | Encounter Summary ---
:1950 Author Organization [facility] Address [address] [place] [address] Care Team Providers Name Role Phone Unavailable Primary Care Provider Unavailable Reason for Visit Appointment Request (Routine) - Closed Specialty Diagnoses / Procedures Referred By Contact Refer red To Contact Nephrology and Hypertension Referral ID Status Reason Start Date Expiration Date Visits Requ ested Visits Authorized [id number] Closed 09/13/2021 09/13/2022 1 1 Encounter Details Date Type Department Care Team Description 10/02/2021 External Outreach Division of María, Chronic Ki dney Disease (CKD), Stage 3a Glomerular Filtration Rate (GFR) 45 To 59 (HCC) (Primary Dx); Nephrology and Kyle Tirado Jr., Hypertensive Chronic Kidney Disease (CKD) Stage 3a Glomerular Filtration Rate (GFR) 45 To 59 (HCC); Hypertension in D.O. Osteodystrophy Renal; [place], [place] [address] [facility] Atrial Fibrillation (HCC) [address] [place] [phone] Social History Tobacco Use Types Packs/Day Years Used Date Smoking Tobacco: Never Assessed Sex Assigned at Date Recorded Not on file documented as of this encounter Progress Notes Kyle Daniel Jr., D.O. - 10/02/2021 3:30 PM CST Please see scanned in note under document viewer tab for the [facility] [place] outreach visit from this date. [employer] documented in this encounter Plan of Treatment Not on filedocumented as of this encounter Visit Diagnoses Diagnosis Chronic Kidney Disease (CKD), Stage 3a G lomerular Filtration Rate (GFR) 45 To 59 (HCC) - Primary Hypertensive Chronic Kidney Disease (CKD ) Stage 3a Glomerular Filtration Rate (GFR) 45 To 59 (HCC) Osteodystrophy Renal Atrial Fibrillation Unspecified documented in this encounter
--- OUTSIDE RECORDS SUMMARY | 2022-10-16 10:56 | XMS_ITS | Encounter Summary ---
:1950 Author Organization [facility] Address [address] [place] [address] Care Team Providers Name Role Phone Unavailable Primary Care Provider Unavailable Encounter Details Date Type Department Care Team Description 03/02/2020 Clinical Communication Division of Nephrology Kyle Daniel and Hypertension stephanie Tirado Jr., D.O. [place], [place] [address] [facility] [address] [place] [phone] Social History Tobacco Use Types Packs/Day Years Used Date Smoking Tobacco: Never Assessed Sex Assigned at Date Recorded Not on file documented as of this encounter Miscellaneous Notes Telephone Encounter - Kyle Daniel Jr., D.O. - 03/02/2020 5:04 PM CDT Phone documentation note If tea minute call with him regards his lower extremity symptoms. Our team had reached out to him toreschedule our in person visit to a virtual visit. He let them know that he was having ???a rash?? . As we spoke on the phone and it seems as though his lower extremities have continued to be massivelyswollen, with water blisters, and are very red tender and warm. I am concerned about cellulitis. We discussed his situation, he has not started the furosemide. He was advised against this apparently by his local physician. We discussed that he needs to continue to wear the compressive socks, take the furosemide, elevate his legs. I have an appointment with him next week or I would like to see pictures of his lower extremities, and advised him to strongly consider reaching out to his primary physician regards the possibility of cellulitis. documented in this encounter Plan of Treatment Not on filedocumented as of this encounter Visit Diagnoses Not on filedocumented in this encounter
--- OUTSIDE RECORDS SUMMARY | 2022-10-16 10:56 | XMS_ITS | Encounter Summary ---
:1950 Author Organization [facility] Address [address] [place] [address] Care Team Providers Name Role Phone Unavailable Primary Care Provider Unavailable Encounter Details Date Type Department Care Team Description 04/25/2022 Ancillary Procedure Department of Urology Social History Tobacco Use Types Packs/Day Years Used Date Smoking Tobacco: Never Smokeless Tobacco: Never Sex Assigned at Date Recorded Not on file documented as of this encounter Plan of Treatment Not on filedocumented as of this encounter Procedures Procedure Name Priority Date/Time Associated Diagnosis Comme nts UROLOGY IMAGE EXAM Routine 04/25/2022 3:20 PM Res ults for this CDT procedure are i n the results section. documented in this encounter Results CYSTOSCOPY-Urology Image Exam (04/25/2022 3:20 PM CDT) Specimen (Source) Anatomical Collection Method Collection Time Re ceived Time Location / / Volume Laterality 04/25/2022 3:19 PM CDT Narrative [facility] - 04/25/2022 4:20 PM CDT This order has been created and auto-finalized to support the import of images acquired without order. The clini edel documentation to support these images can be found on the encounter jessica t produced images. Provider Not In System IMG NON RAD IMAGING PROCEDUR ES Performing Organization Address City/State/ZIP Code Phon e Number [facility] NA documented in this encounter Visit Diagnoses Not on filedocumented in this encounter
--- OUTSIDE RECORDS SUMMARY | 2022-10-16 10:56 | XMS_ITS | Encounter Summary ---
:1950 Author Organization [facility] Address [address] [place] [address] Care Team Providers Name Role Phone Unavailable Primary Care Provider Unavailable Reason for Visit Appointment Request (Routine) - Closed Specialty Diagnoses / Procedures Referred By Contact Refer red To Contact Nephrology and Hypertension Referral ID Status Reason Start Date Expiration Date Visits Requ ested Visits Authorized [id number] Closed 04/06/2021 04/06/2022 1 1 Encounter Details Date Type Department Care Team Description 05/30/2021 External Outreach Division of María, Chronic Ki dney Disease (CKD), Stage 3a Glomerular Filtration Rate (GFR) 45 To 59 (HCC) (Primary Dx); Nephrology and Kyle Tirado Jr., Hypertensive Chronic Kidney Disease (CKD) Stage 3a Glomerular Filtration Rate (GFR) 45 To 59 (HCC); [facility]; [place], [place] [address] [facility] Atrial Fibrillation (HCC) [address] [place] [phone] Social History Tobacco Use Types Packs/Day Years Used Date Smoking Tobacco: Never Assessed Sex Assigned at Date Recorded Not on file documented as of this encounter Progress Notes Kyle Daniel Jr., D.O. - 05/30/2021 11:30 AM CDT Please see scanned in note under document viewer tab for the [facility] [place] outreach visit from this date. documented in this encounter Plan of Treatment Not on filedocumented as of this encounter Visit Diagnoses Diagnosis Chronic Kidney Disease (CKD), Stage 3a G lomerular Filtration Rate (GFR) 45 To 59 (HCC) - Primary Hypertensive Chronic Kidney Disease (CKD ) Stage 3a Glomerular Filtration Rate (GFR) 45 To 59 (HCC) [place] Atrial Fibrillation Unspecified documented in this encounter
--- OUTSIDE RECORDS SUMMARY | 2022-10-16 10:56 | XMS_ITS | Encounter Summary ---
:1950 Author Organization [facility] Address [address] [place] [address] Care Team Providers Name Role Phone Unavailable Primary Care Provider Unavailable Encounter Details Date Type Department Care Team Description 05/09/2022 Hospital Encounter Department of Jd [facility] Laboratory Medicine Benoit Valderrama. Hyperplasia in [place], [address] Hypertrophy [address] Obstruction [address] [place], [place] [address] [phone] Social History Tobacco Use Types Packs/Day Years [...] Name Priority Date/Time Associated Diagnosis Comme nts PROSTATE-SPECIFIC Routine 05/09/2022 10:05 AM Benign Prostatic Results for this AG (PSA) CDT Hyperplasia procedure are i n DIAGNOSTIC, S Hypertrophy With the result s Obstruction section. documented in this encounter Results PSA (Prostate-Specific Antigen), Diagnostic (05/09/2022 10:05 AM CDT) P athologist Signature Prostate-Specif 0.85 <=6.5 ng/mL 05/09/2022 NPRG ic Ag 12:03 PM CDT Comment: ----ADDITIONAL INFORMATION---- The testing method is an electrochemilum inescence assay manufactured by [employer] and performed on the Modular or Arteris system . Values obtained with different assay [...] Venous) AM CDT 10:23 AM CDT Lavelle Covington M.D. LAB BLOOD ADD-ON Performing Organization Address City/State/ZIP Code Phon e Number [facility]- [address] [place], [place] [address] [facility] [address] [facility] [address] documented in this encounter Visit Diagnoses Diagnosis Benign Prostatic Hyperplasia Hypertrophy With Obstruction documented in this encounter
--- OUTSIDE RECORDS SUMMARY | 2022-10-16 10:56 | XMS_ITS | Encounter Summary ---
:1950 Author Organization [facility] Address [address] [place] [address] Care Team Providers Name Role Phone Unavailable Primary Care Provider Unavailable Reason for Visit Appointment Request (Routine) - Closed Specialty Diagnoses / Procedures Referred By Contact Refer red To Contact Nephrology and Hypertension Referral ID Status Reason Start Date Expiration Date Visits Requ ested Visits Authorized [id number] Closed 11/08/2020 11/08/2021 1 1 Encounter Details Date Type Department Care Team Description 12/12/2020 External Outreach Division of Grant Daniel Ki dney Disease (CKD), Stage 3a Glomerular Filtration Rate (GFR) 45 To 59 (HCC) (Primary Dx); Nephrology and Kyle Tirado Jr., Osteodystrop hy Renal; Hypertension in D.O. Atrial Fibrillation (HCC); [place], [place] [address] [place] [address] Hypertensive Chronic Kidney Disease (CKD ) Stage 3a Glomerular Filtration Rate (GFR) 45 To 59 (HCC) [address] [place] [phone] Social History Tobacco Use Types Packs/Day Years Used Date Smoking Tobacco: Never Assessed Sex Assigned at Date Recorded Not on file documented as of this encounter Progress Notes Kyle Daniel Jr., D.O. - 12/12/2020 3:00 PM CST Please see scanned in note under document viewer tab for the [facility] [place] outreach visit from this date. 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
--- OUTSIDE RECORDS SUMMARY | 2022-10-16 10:56 | XMS_ITS | Encounter Summary ---
:1950 Author Organization [facility] Address [address] [place] [address] Care Team Providers Name Role Phone Unavailable Primary Care Provider Unavailable Reason for Visit Reason Comments phone call re: giving patient Lasix? Encounter Details Date Type Department Care Team Description 04/11/2021 Clinical Division of María, phone call re: Communication Nephrology and Kyle Tirado Jr., giving antony ent Hypertension in D.O. Lasix? [place], [place] [address] [facility] [address] [place] [phone] [phone] Social History Tobacco Use Types Packs/Day Years Used Date Smoking Tobacco: Never Assessed Sex Assigned at Date Recorded Not on file documented as of this encounter Miscellaneous Notes Telephone Encounter - Kyle Daniel Jr., D.O. - 04/12/2021 5:07 PM CDT I spoke with his cardiology provider and okayed the use of loop diuretics. Telephone Encounter - Priya Vargas - 04/11/2021 12:42 PM CDT April Aguilar from the [facility] called. She saw the patient today and he si volume overloaded and is up in weight 10 pounds. She is wondering if she can give him a short course of lasix. She said he was in the ER recently. His rhythm is stable and he is in diastolic heart failure. The patient told her that you had said not to give him lasix, and she would like to discuss his care with you. Please call her cell phone at [phone] as she would like to start him on this soon.Thanks documented in this encounter Plan of Treatment Not on filedocumented as of this encounter Visit Diagnoses Not on filedocumented in this encounter
--- OUTSIDE RECORDS SUMMARY | 2022-10-16 10:56 | XMS_ITS | Encounter Summary ---
:1950 Author Organization [facility] Address [address] [place] [address] Care Team Providers Name Role Phone Unavailable Primary Care Provider Unavailable Reason for Visit Reason Comments Appointment Encounter Details Date Type Department Care Team Description 02/28/2020 Clinical Communication Division of Nephrology An Lidia coleman Appointment and Hypertension in [phone] [place], [place] (Work) [address] [place] [address] Social History Tobacco Use Types Packs/Day Years Used Date Smoking Tobacco: Never Assessed Sex Assigned at Date Recorded Not on file documented as of this encounter Plan of Treatment Not on filedocumented as of this encounter Visit Diagnoses Not on filedocumented in this encounter
--- OUTSIDE RECORDS SUMMARY | 2022-10-16 10:56 | XMS_ITS | Encounter Summary ---
:1950 Author Organization [facility] Address [address] [place] [address] Care Team Providers Name Role Phone Unavailable Primary Care Provider Unavailable Encounter Details Date Type Department Care Team Description 12/20/2020 Orders Only Division of Nephrology and Valeriy Daniel Hypertension in [place], ., D.O. [place] [address] [facility] [address] [place] [phone] (Wo rk) Social History Tobacco Use Types Packs/Day Years Used Date Smoking Tobacco: Never Assessed Sex Assigned at Date Recorded Not on file documented as of this encounter Plan of Treatment Not on filedocumented as of this encounter Visit Diagnoses Not on filedocumented in this encounter
--- OUTSIDE RECORDS SUMMARY | 2022-10-16 10:56 | XMS_ITS | Encounter Summary ---
:1950 Author Organization [facility] Address [address] [place] [address] Care Team Providers Name Role Phone Unavailable Primary Care Provider Unavailable Reason for Visit Appointment Request (Routine) - Closed Specialty Diagnoses / Procedures Referred By Contact Refer red To Contact Nephrology and Hypertension Referral ID Status Reason Start Date Expiration Date Visits Requ ested Visits Authorized [id number] Closed 03/06/2022 03/06/2023 1 Encounter Details Date Type Department Care Team Description 03/06/2022 External Outreach Division of William, Chronic K idney Disease (CKD), Stage 3a Glomerular Filtration Rate (GFR) 45 To 59 (HCC); Nephrology and Lindy Kelly APRN, Hypertensiv e Chronic Kidney Disease (CKD) Stage 3a Glomerular Filtration Rate (GFR) 45 To 59 Hypertension in C.N.P., D.N.P. [place], [place] [address] [place] [address] Social History Tobacco Use Types Packs/Day Years Used Date Smoking Tobacco: Never Assessed Sex Assigned at Date Recorded Not on file documented as of this encounter Last Filed Vital Signs Vital Sign Reading Time Taken Comments Blood Pressure 212/118 03/06/2022 3:50 PM CDT Pulse - - Temperature - - Respiratory Rate - - Oxygen Saturation - - Inhaled Oxygen Concentration - - Weight - - Height - - Body Mass Index - - documented in this encounter Progress Notes Lindy Thomas APRN, C.N.P., D.N.P. - 03/06/2022 3:15 PM CDT Subjective: History of Present Illness: Mr. Forte is a 71 y.o. male who presents for ongoing evaluation of chronic kidney disease. He was last seen by Dr. Daniel on 12/12/2020. He has a complex medical history including CKD, cardiomyopathy, venous insufficiency, AAA (2.8 on 10/2020), BPH, peripheral neuropathy, lymphedema chronic, gout, hyperlipidemia, A Fib with RVR, heart failure EF, chronic anticoag for A Fib DVTs and PE hx, pacemakerplacement. He comes in today for an acute visit not his regularly scheduled CKD follow up for complaints of worsening lower extremity edema. He denies any uremic symptoms. He has not had any recent lab work. He does not check his Bps at home and reports he does not drink any fluid at all. He sees someone for his lymphedema and will be getting a new machine for his legs. He states the swelling has increased overthe last month. He notes new weeping and blisters. He denies any concerns for possible infection. Stating his legs look like usual just blistered. He does report a recent visit with cardiology at [facility]icht[facility] they decreased his triam/hctz to QD from BID. In the cardiology note it was for orthostasis. Hedenies any orthostasis. Review of Systems Constitutional: Positive for weight loss of more than 10 pounds (states his usual weight is around 300 pounds and is up at 315 now. Weighing daily. ). Negative for fatigue. Cardiovascular: Positive for swelling in the legs or feet. Negative for chest pain, pressure or tightness, rapid or fluttering heart beat and shortness of breath when lying flat. Gastrointestinal: Negative for nausea and vomiting. Genitourinary: Positive for frequent urination. Negative for difficulty urinating and pain with urination. The following systems were negative: Respiratory Objective: Constitutional Appearance: He is obese. Cardiovascular Rate and Rhythm: Normal rate and regular rhythm. Heart sounds: Normal heart sounds. No murmur heard. Comments: Weeping blisters lower legs bilat, erythema present on right rodriguez by a crusted lesion. Nowarmth. Pulmonary Effort: Pulmonary effort is normal. Breath sounds: Normal breath sounds. Musculoskeletal Right lower le+ Pitting Edema present. Left lower le+ Pitting Edema present. Skin General: Skin is warm and dry. Neurological Mental Status: He is alert. Vitals: 03/06/22 1550 BP: (!) 212/118 Assessment/Plan: #1 Chronic kidney Disease No recent lab work to review. He will return in one month with labs and a follow up of his kidney disease. #2 CKD treatment options Not discussed. #3 Hypertension Significant hypertension. Discussed ER potential visit. He does not have any symptoms at this time. Will increase his Clonidine to 0.3 mg BID. He will start the higher dose right away. He will also increase back to his original dose of his triam/HCTZ from QD back to BID. He will return to the clinic in the next 5-7 days for a BP check. He will monitor for any headache, chest pain, vision changes and report to ER if needed. He will weight daily. Consider changing his triam/hctz to a loop diuretic or chlorthalidone next visit if swelling not improved. He will contact us sooner if swelling does not improve. Monitor legs for heat, redness, and signs of infection then report to PCP or ER for cellulitistreatment. Follow-up: Nurse BP check and creat/potassium within 5-7 days. FU in clinic on April 02 with kier boiler. documented in this encounter Plan of Treatment Not on filedocumented as of this encounter Visit Diagnoses Diagnosis Chronic Kidney Disease (CKD), Stage 3a G lomerular Filtration Rate (GFR) 45 To 59 (HCC) Hypertensive Chronic Kidney Disease (CKD ) Stage 3a Glomerular Filtration Rate (GFR) 45 To 59 (HCC) documented in this encounter
--- OUTSIDE RECORDS SUMMARY | 2022-10-16 10:56 | XMS_ITS | Encounter Summary ---
:1950 Author Organization [facility] Address [address] [place] [address] Care Team Providers Name Role Phone Unavailable Primary Care Provider Unavailable Encounter Details Date Type Department Care Team Description 03/08/2020 Abstract [facility] Provider, Mahin pro M.D. [address] [place], [place] [address] Social History Tobacco Use Types Packs/Day Years Used Date Smoking Tobacco: Never Assessed Sex Assigned at Date Recorded Not on file documented as of this encounter Plan of Treatment Not on filedocumented as of this encounter Procedures Procedure Name Priority Date/Time Associated Diagnosis Comme nts ALBUMIN, RANDOM, U Routine 03/02/2020 Results f or this procedure are i n the results section . CBC WITHOUT Routine 03/02/2020 Results for thi s DIFFERENTIAL, B procedure ar e in the results section . BASIC METABOLIC PANEL, Routine 03/02/2020 Resul ts for this S/P procedure are i n the results section . documented in this encounter Results Basic Metabolic Panel (03/02/2020) athologist Signature EXT BUN (Blood 39 EXTERNAL Urea Nitrogen) NON-INTERFACED LAB EXT Creatinine 1.5 EXTERNAL NON-INTERFACED LAB EXT Glucose 111 EXTERNAL NON-INTERFACED LAB EXT Potassium 3.9 EXTERNAL NON-INTERFACED LAB EXT Sodium 143 EXTERNAL NON-INTERFACED LAB Specimen (Source) Anatomical Location Collection Method / Collectio n Time Received Time / Laterality Volume Blood (Blood, Venous) Historical Adalberto Wagoner LAB BLOOD ADD-ON Performing Organization Address City/State/ZIP Code Phon e Number EXTERNAL NON-INTERFACED LAB [address] [place], [place] [address] Albumin, Random, Urine (03/02/2020) athologist Signature EXT 47 EXTERNAL Microalbumin-Ra NON-INTERFACED ndom, U LAB Specimen (Source) Anatomical Location Collection Method / Collectio n Time Received Time / Laterality Volume Urine (Urine, Clean Catch) Historical Provider Ciaran LAB URINE ORDERABLES Performing Organization Address [facility] Phon e Number EXTERNAL NON-INTERFACED LAB [address] [place], [place] [address] CBC without Differential (03/02/2020) athologist Signature EXT Platelet 159 EXTERNAL Count NON-INTERFACED LAB EXT Hemoglobin 13.8 EXTERNAL NON-INTERFACED LAB EXT Hematocrit 43 EXTERNAL NON-INTERFACED LAB EXT White Blood 6.0 EXTERNAL Cell (WBC) NON-INTERFACED Count LAB Specimen (Source) Anatomical Location Collection Method / Collectio n Time Received Time / Laterality Volume Blood (Blood, Venous) Historical Provider Ciaran LAB BLOOD ADD-ON Performing Organization Address [facility] Phon e Number EXTERNAL NON-INTERFACED LAB [address] [place], [place] [address] documented in this encounter Visit Diagnoses Not on filedocumented in this encounter
--- OUTSIDE RECORDS SUMMARY | 2022-10-16 10:56 | XMS_ITS | Encounter Summary ---
:1950 Author Organization [facility] Address [address] [place] [address] Care Team Providers Name Role Phone Unavailable Primary Care Provider Unavailable Reason for Visit Reason Comments Med Refill Encounter Details Date Type Department Care Team Description 04/26/2022 Refill Department of Urology in Lavelle Bass M.D. Med Refill [place], [place] [address] [place] [address] [place] [address] [phone] Social History Tobacco Use Types Packs/Day Years Used Date Smoking Tobacco: Never Smokeless Tobacco: Never Sex Assigned at Date Recorded Not on file documented as of this encounter Plan of Treatment Not on filedocumented as of this encounter Visit Diagnoses Not on filedocumented in this encounter
--- OUTSIDE RECORDS SUMMARY | 2022-10-16 10:56 | XMS_ITS | Encounter Summary ---
:1950 Author Organization [facility] Address [address] [place] [address] Care Team Providers Name Role Phone Unavailable Primary Care Provider Unavailable Reason for Visit Reason Comments Chronic Kidney Disease Hypertension Encounter Details Date Type Department Care Team Description 03/07/2020 Virtual Visit Division of Nephrology Cristobal Daniel larry Kidney Disease Stage 3 Glomerular Filtration Rate 30 To 59 (HCC) (Primary Dx); and Hypertension in Kyle Tirado Jr., Hyperte nsion And Chronic Kidney Disease Stage 3 (HCC); [place], [place] D.OAnna Osteodystrophy Renal; [address] Atrial Fibrillation (HCC); [facility] [id number] [phone] Social History Tobacco Use Types Packs/Day Years Used Date Smoking Tobacco: Never Assessed Sex Assigned at Date Recorded Not on file documented as of this encounter Last Filed Vital Signs Vital Sign Reading Time Taken Comments Blood Pressure - - Pulse - - Temperature - - Respiratory Rate - - Oxygen Saturation - - Inhaled Oxygen Concentration - - Weight 132 kg (290 lb) 03/07/2020 2:08 PM CDT Height 175.3 cm (5' 9) 03/07/2020 2:08 PM CDT Body Mass Index 42.83 03/07/2020 2:08 PM CDT documented in this encounter Progress Notes Kyle Daniel Jr., D.O. - 03/07/2020 4:00 PM CDT Subjective Nephrology HTN Phone Visit This visit took place over the phone to the patient by Dr. Kyle Daniel in [place], [place]. Chief Complaint/Reason for Visit Chief Complaint Patient presents with ??? Chronic Kidney Disease ??? Hypertension History of Present Illness: Herson Forte is a 69 y.o. male who presents for evaluation of the following concerns: Follow-up regards chronic kidney disease, following initial consultation last month. We had a chance to discuss his lower extremity swelling and pain again today. I had phoned him last week regards this matter, as this had been misinterpreted as a rash by our phone triage patient assistance team. We had discussed this in depth. He feels as though his legs have been this way for well over several months if not years. We discussed the possibility today of him having cellulitis, he has been free of fever, no chills, and the lower extremity swelling is stable. During our phone conversation last week we have discussed trying furosemide. He has taken this for 3days and has not noticed much in the way of change. Feels as though the major benefit was from him taking a [place] tablet. His blood pressures have been reasonable, he has had no orthostatic issues, no chest pain no shortness of breath. 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 His blood pressure has been in the 120s and 130s over 80s without orthostatic issues recently. He has had no change in urine character or quantity, no PND no orthopnea. He has not had any chest pain. We had a long discussion regards his lower extremities and the orthopedic issues which have both following him and the possibility of a neuropathic syndrome. Current Outpatient Medications: ??? apixaban (ELIQUIS) 5 mg tablet, Take 5 mg by mouth 2 (two) times a day., Disp: , Rfl: ??? biotin 300 mcg tablet, Take 300 mcg by mouth daily., Disp: , Rfl: ??? cloNIDine (CATAPRES) 0.2 mg tablet, Take 1 tablet (0.2 mg total) by mouth 2 (two) times a day., Disp: 180 tablet, Rfl: 3 ??? furosemide (LASIX) 20 mg tablet, Take 1 tablet (20 mg total) by mouth as directed. On fri (Patient taking differently: Take 20 mg by mouth as needed. On fri ), Disp: 90 tablet, Rfl:3 ??? irbesartan (AVAPRO) 150 mg tablet, Take 1 tablet (150 mg total) by mouth daily., Disp: 90 tablet, Rfl: 3 ??? triamterene-hydroCHLOROthiazide (DYAZIDE) 37.5-25 mg per capsule, Take 1 capsule by mouth 2 (two) times a day., Disp: 180 capsule, Rfl: 3 Review of Systems REVIEW OF SYSTEMS OBJECTIVE There were no vitals filed for this visit. Assessment/Plan: #1 Chronic Kidney Disease Stage 3 Glomerular Filtration Rate 30 To 59 (HCC) I congratulated him that his renal function is actually slightly improved, his creatinine was down to 1.5 mg/dL from his previous level of 1.8 mg/dL. Our goal will be to avoid further nephrotoxins, control his blood pressure to a goal the systolic pressure above 100, but below 150 systolic. He will avoid nephrotoxins I will see him back in 4 months. #2 Hypertension And Chronic Kidney Disease Stage 3 (HCC) He has severe resistant hypertension, is on multiple agents which now seem to well control his bloodpressure. I am quite concerned that he still has volume overload. I believe he needs to focus more on sodium restriction, and I still believe he would benefit from loop diuretics on a daily basis at accelerated doses, with thiazide type diuretics on a p.r.n. basis. He is quite comfortable with current medical regimen however, and has appropriate high georgette in Dr. I will a bony for to chronically manage him. #3 Osteodystrophy Renal Seems stable, he does not need any change #4 Atrial Fibrillation (HCC) He is on Eliquis and doing well without any bleeding. #5 Anasarca I am concerned he might also have cellulitis given his concerns of the description of very red lowerextremities. He is going to text me a picture of his lower extremities, I gave him my cell number. He wishes me to reach out to him on e-mail if possible. His e-mail: [email or web address] Total Time: 35 minutes Counseling Time: 30 minutes documented in this encounter Plan of Treatment Not on filedocumented as of this encounter Visit Diagnoses Diagnosis Chronic Kidney Disease Stage 3 Glomerula r Filtration Rate 30 To 59 (HCC) - Primary Hypertension And Chronic Kidney Disease Stage 3 (HCC) Osteodystrophy Renal Atrial Fibrillation Unspecified Anasarca documented in this encounter
--- OUTSIDE RECORDS SUMMARY | 2022-10-16 10:56 | XMS_ITS | Encounter Summary ---
:1950 Author Organization [facility] Address [address] [place] [address] Care Team Providers Name Role Phone Unavailable Primary Care Provider Unavailable Encounter Details Date Type Department Care Team Description 05/28/2022 Clinical Communication Division of Nephrology Kyle Daniel and Hypertension stephanie Tirado Jr., D.O. [place], [place] [address] [facility] [address] [place] [phone] Social History Tobacco Use Types Packs/Day Years Used Date Smoking Tobacco: Never Smokeless Tobacco: Never Sex Assigned at Date Recorded Not on file documented as of this encounter Miscellaneous Notes Telephone Encounter - Priya Vargas - 05/28/2022 9:16 AM CDT Patient has been having problems with leg pain ever since he had a torn meniscus repair done many years ago. His legs hurt on a constant basis. Gabapentin didn't help. His general practitioner put him on low-dose Lyrica one month ago,and the pharmacist told him that he needs to be on a higher dose. [facility] has a machine for legs that he uses, and that isn't helping either. He can barely keep on walking due to the pain and would like to talk to you about any recommendations you may have, I.e. different medications, seen here by a specialist, etc. Please call him back at [phone].He is not trying to go behind his GPs back, just wants your thoughts. He said there was no hurry to c all him back. Thanks documented in this encounter Plan of Treatment Not on filedocumented as of this encounter Visit Diagnoses Not on filedocumented in this encounter
--- OUTSIDE RECORDS SUMMARY | 2022-10-16 10:57 | XMS_ITS | Encounter Summary ---
:1950 [facility] Address [address], [place] [address] Care Team Providers Name Role Phone Whitney Gil MD Primary Care Provider Encounter Details Date Type Department Care Team Description 03/30/2014 Imaging [facility] Knee pain, bilateral [address] [place], [place] [address] Social History Tobacco Use Types Packs/Day Years Used Date Smoking Tobacco: Never Assessed Sex Assigned at Date Recorded Not on file documented as of this encounter Plan of Treatment Not on filedocumented as of this encounter Procedures Procedure Name Priority Date/Time Associated Diagnosis Comme nts XR KNEE RT 3 VIEWS Routine 03/30/2014 11:12 AM Knee pain, bila teral Results for this CDT procedure are i n the results section. XR KNEE LT 3 VIEWS Routine 03/30/2014 11:12 AM Knee pain, bila teral Results for this CDT procedure are i n the results section. documented in this encounter Results XR Knee Lt 3 Views (03/30/2014 11:12 AM CDT) Anatomical Region Laterality Modality Lower Extremity, Knee Other Specimen (Source) Anatomical Location Collection Method / Collectio n Time Received Time / Laterality Volume Impressions 04/04/2014 9:36 AM CDT IMPRESSION: Degenerative changes in the medial compartments, right greater than left. Narrative 04/04/2014 9:36 AM CDT COMPARISON: ??None. FINDINGS: ??Right knee: 3 views were obt ained. There is marked narrowing of the medial compartment joint space with mild marginal spurring. There is mild patellofemoral and lateral spurring. No signific ant joint effusion, fracture, or other a bnormality identified. Left knee, 3 views: There is moderate na rrowing of the medial compartment. Mild marginal spurring throughout. Joint spaces otherwise maintained. No fracture, effusion, or other abnormality identified. Procedure Note Phu Padilla MD - 05/12/2016Forma tting of this note might be different from the original. COMPARISON: None. FINDINGS: Right knee: 3 views were obtai ratna. There is marked narrowing of the medial compartment joint space with mild marginal spurring. There is mild patellofemoral and lateral spurring. No significant joint effusion, fracture, or other abnormality identified. Left knee, 3 views: There is moderate na rrowing of the medial compartment. Mild marginal spurring throughout. Joint spaces otherwise maintained. No fracture, effusion, or other abnormality identified. IMPRESSION IMPRESSION: Degenerative changes in the medial compartments, right greater than left. Delfina Marques MD RAD GD XR Knee Rt 3 Views (03/30/2014 11:12 AM CDT) Anatomical Region Laterality Modality Lower Extremity, Knee Other Specimen (Source) Anatomical Location Collection Method / Collectio n Time Received Time / Laterality Volume Impressions 04/04/2014 9:36 AM CDT IMPRESSION: Degenerative changes in the medial compartments, right greater than left. Narrative 04/04/2014 9:36 AM CDT COMPARISON: ??None. FINDINGS: ??Right knee: 3 views were obt ained. There is marked narrowing of the medial compartment joint space with mild marginal spurring. There is mild patellofemoral and lateral spurring. No signific ant joint effusion, fracture, or other a bnormality identified. Left knee, 3 views: There is moderate na rrowing of the medial compartment. Mild marginal spurring throughout. Joint spaces otherwise maintained. No fracture, effusion, or other abnormality identified. Procedure Note Phu Padilla MD - 05/12/2016Forma tting of this note might be different from the original. COMPARISON: None. FINDINGS: Right knee: 3 views were obtai ratna. There is marked narrowing of the medial compartment joint space with mild marginal spurring. There is mild patellofemoral and lateral spurring. No significant joint effusion, fracture, or other abnormality identified. Left knee, 3 views: There is moderate na rrowing of the medial compartment. Mild marginal spurring throughout. Joint spaces otherwise maintained. No fracture, effusion, or other abnormality identified. IMPRESSION IMPRESSION: Degenerative changes in the medial compartments, right greater than left. Delfina Marques MD RAD GD documented in this encounter Visit Diagnoses Diagnosis Knee pain, bilateral Pain in joint, lower leg documented in this encounter Care Teams Bit Sharpener Relationship Specialty Start Date End Date Whitney Gil MD PCP - General [address] [place] [address] documented as of this encounter
--- OUTSIDE RECORDS SUMMARY | 2022-10-16 10:57 | XMS_ITS | Encounter Summary ---
:1950 Author Organization [facility] Address [address], [place] [address] Care Team Providers Name Role Phone Whitney Gil MD Primary Care Provider Reason for Referral Procedure/Equipment (Routine) - Incomplete Specialty Diagnoses / Procedures Referred By Contact Refer red To Contact Diagnoses Pain of lower extremity, unspecified laterality Carlos Morataya MD Procedures VL US Lower Extremity Bilat Venous Reflux [address] [place], [place] [address] Referral ID Status Reason Start Date Expiration Date Visits V isits Requested Authorized [id number] Incomplete 08/10/2018 11/09/2019 1 1 Reason for Visit Reason Comments CONSULT Varicose Veins Encounter Details Date Type Department Care Team Description 08/10/2018 Initial Consult Heart & Vascular [facility] & Carlos Parada MD extremity, Vein Clinic [address] laterality (Primary [place], [place] Dx ) [address] [phone] Social History Tobacco Use Types Packs/Day Years Used Date Smoking Tobacco: Former Alcohol Use Standard Drinks/Week Comments No 0 (1 standard drink = 0.6 oz pure alcoho l) Sex Assigned at Date Recorded Not on file documented as of this encounter Last Filed Vital Signs Vital Sign Reading Time Taken Comments Blood Pressure 164/101 08/10/2018 1:21 PM CDT Pulse 82 08/10/2018 1:21 PM CDT Temperature - - Respiratory Rate - - Oxygen Saturation - - Inhaled Oxygen Concentration - - Weight - - Height - - Body Mass Index - - documented in this encounter Progress Notes Carlos Morataya MD - 09/25/2018 9:00 AM CDT NAME: KASEY CURRIE MR#: [id number] CSN: [id number] AUTHENTICATING CLINICIAN: Carlos Morataya MD CONFIRM #: [id number] LOC: 3588 CLINIC PROGRESS NOTE DATE OF VISIT: 08/10/2018 : 1950 CHIEF COMPLAINT: Varicose veins. HISTORY OF PRESENT ILLNESS: The patient is a 68-year-old gentleman who has had longstanding history of varicosities and actuallyhas had previous treatment. His medications include aspirin, Lasix, and Ultram. Previous studies with records that he is brought today include a lower extremity venous ultrasound, which showed incompetence of the right great saphenous vein and on the left great and small saphenousveins. This was performed in November of 2017, as well as documenting some edema. The plan, at that time, was that he had some lymphedema and some venous insufficiency as well as a venous stasis ulcer. The plan was to proceed with an endovenous ablation of the right lower extremity and endovenous ablation of the left lower extremity along with sclerotherapy of the varicosities on both legs as well as the phlebectomy on the right leg. The left leg was then treated in December 2017. The right leg was treated on January 22, 2018. Followup ultrasound showed a successful ablation of the left and right great saphenous veins. Followup on January 28, everything looked good. He was complaining then of some left thigh pain. On January 30, the left calf hematoma was drained on February 02 and then again on February 18. His last treatment from them was on July 22, and they planned no further treatment of these varicosities, etc. ASSESSMENT AND PLAN: The initial plan to do sclerotherapy and avulsions on the right leg and sclerotherapy on the left leg was not done, but the RFA of both legs was done, we can certainly pickle sorter his care from here. We would like an ultrasound from our own department. As explained by the patient he has still a large number of varicosities on the right leg and so the plan will be to get an ultrasound test on the right and left legs for venous insufficiency and then return to clinic to see me to make definitive plans on whether he just needs an avulsion procedure or whether he needs something more. The patient will schedule the ultrasound and return to clinic to see me. MTS:MEDQ C: CONFIRM #: [id number] Shala De Souza RN - 08/10/2018 1:15 PM CDT Patient set up to return to clinic for an US and follow up with Dr. Morataya. Appts scheduled withpatient. documented in this encounter Plan of Treatment Not on filedocumented as of this encounter Results VL US Lower Extremity Bilat Venous Reflux (09/07/2018 11:07 AM CDT) Anatomical Region Laterality Modality Vascular, Lower Extremity, Leg Ultrasoun d Specimen (Source) Anatomical Location Collection Method / Collectio n Time Received Time / Laterality Volume Impressions 09/08/2018 7:31 AM CDT There are multiple incompetent varicosit ies within the right and left lower extremities. No evidence of right or left lower extre mity deep vein thrombosis. Narrative 09/08/2018 7:31 AM CDT Indication: swelling Bilateral great saphenous vein treatment at outside facility: 2017 A duplex ultrasound study using Doppler was performed, to evaluate the right and left lower extremity veins for valvular incompetence. RIGHT LOWER EXTREMITY The great saphenous vein diameters: saph enofemoral junction: 11.8mm, proximal thigh: 4.6mm, calf: 3.6mm. The great saphenous vein is surgically absent from the mid thigh to the knee an d is competent along its remainder. There is a competent anterior accessory great saphenous vein (4.5mm) draining into the saphenofemoral junctio n. The small saphenous vein at the knee angeles sures 4.4mm. The saphenopopliteal junction is absent. The small saphenous vein is competent in its entirety. There is no evidence of incompetent perf orator veins at any level. There is evidence of multiple incompeten t varicose veins within the right lower extremity measuring 4.7mm. The leonor e of incompetence is greater than 500 milliseconds. The great and small saphenous veins are fully compressible with no evidence of thrombus. The gastrocnemius veins were segmentally visualized and are fully compressible where seen. The peroneal veins were not visualized o n today's exam. The remainder of the deep venous system is competent and free of thrombus. LEFT LOWER EXTREMITY The great saphenous vein diameters: saph enofemoral junction: 9.2mm, calf: 3.1mm. There is no evidence of blood silvio w in the treated great saphenous vein from the proximal thigh to the prox imal calf. The remainder of the great saphenous vein is competent. There is a competent anterior accessory great saphenous vein (5.6mm) draining into the saphenofemoral junctio n. The small saphenous vein at the knee angeles sures 4.0mm. The saphenopopliteal junction is absent. The small saphenous vein is competent in its entirety. There is no evidence of incompetent perf orator veins at any level. There is evidence of multiple incompeten t varicose veins within the left lower extremity measuring 4.4mm. The leonor e of incompetence is greater than 500 milliseconds. The great and small saphenous veins are fully compressible with no evidence of thrombus. The gastrocnemius veins were segmentally visualized and are fully compressible where seen. The deep venous system is competent and free of thrombus. Carlos Morataya MD [facility] VASCULAR US documented in this encounter Visit Diagnoses Diagnosis Pain of lower extremity, unspecified lat erality - Primary Pain of lower extremity, unspecified lat erality documented in this encounter Care Teams Coating Mixer Tender Relationship Specialty Start Date End Date Whitney Gil MD PCP - General [address] [place] [address] documented as of this encounter
--- OUTSIDE RECORDS SUMMARY | 2022-10-16 10:57 | XMS_ITS | Encounter Summary ---
:1950 Author Organization [facility] Address [facility] [place] [address] Care Team Providers Name Role Phone Trung Tucker Primary Care Provider Encounter Details Date Type Department Care Team Description 10/04/2021 Telephone [facility] Tessa Garrett MD Clinic [place] [address] [place] [address] [place] [address] [place] [address] [phone] Social History Tobacco Use Types Packs/Day Years Used Date Smoking Tobacco: Former Cigars Smokeless Tobacco: Never Alcohol Use Standard Drinks/Week Comments No 0 (1 standard drink = 0.6 oz pure alcoho l) Sex Assigned at Date Recorded Not on file COVID-19 Exposure Response Date Recorded In the last month, have you been in contact with No / Unsure 11/14/2021 12:56 PM HEALTH COACH someone who was confirmed or suspected to have Coronavirus / COVID-19? documented as of this encounter Miscellaneous Notes Telephone Encounter - Araseli Saldana RN - 10/04/2021 3:29 PM CST Call returned to pt. Number given to transition pharmacy to obtain the Epiceram cream. TH COACH Telephone Encounter - Zach Beckman - 10/04/2021 3:03 PM CST [facility] perry Who is the name of the provider?: Tami What is the location you see this provider at?: [place] Reason for call: Saw Dr. Garrett yesterday, 10/03. Pres[facility] non-[facility]oid [facility]. Can we leave a detailed message on this number? YES TH COACH documented in this encounter Plan of Treatment Not on filedocumented as of this encounter Visit Diagnoses Not on filedocumented in this encounter Care Teams Ux Specialist Relationship Specialty Start Date End Date Trung Tucker PCP - General Family Practice 11/13/17 [facility] [address] [place] [id number] documented as of this encounter
--- OUTSIDE RECORDS SUMMARY | 2022-10-16 10:57 | XMS_ITS | Encounter Summary ---
:1950 Author Organization [place] Address [facility] [place] [address] Care Team Providers Name Role Phone Trung Tucker Primary Care Provider Encounter Details Date Type Department Care Team Description 10/03/2021 Travel Social History Tobacco Use Types Packs/Day Years Used Date Smoking Tobacco: Former Cigars Smokeless Tobacco: Never Alcohol Use Standard Drinks/Week Comments No 0 (1 standard drink = 0.6 oz pure alcoho l) Sex Assigned at Date Recorded Not on file COVID-19 Exposure Response Date Recorded In the last month, have you been in contact with No / Unsure 10/03/2021 9:50 AM LOSS PREVENTION CONSULTANT someone who was confirmed or suspected to have Coronavirus / COVID-19? documented as of this encounter Plan of Treatment Not on filedocumented as of this encounter Visit Diagnoses Not on filedocumented in this encounter Care Teams Trick Rodeo Rider Relationship Specialty Start Date End Date Trung Tucker PCP - General Family Practice 11/13/[address] [address] documented as of this encounter
--- OUTSIDE RECORDS SUMMARY | 2022-10-16 10:57 | XMS_ITS | Encounter Summary ---
:1950 Author Organization [place] Address [facility] [place] [address] Care Team Providers Name Role Phone Trung Tucker Primary Care Provider Reason for Visit Reason Onset Date Comments WOUND CARE 12/03/2021 Encounter Details Date Type Department Care Team Description 12/03/[address] [facility] Wound Tessa Garrett MD WOUND CARE Clinic [place] [address] [place] [address] [place] [address] [place] [id number] [phone] Social History Tobacco Use Types Packs/Day Years Used Date Smoking Tobacco: Former Cigars Smokeless Tobacco: Never Alcohol Use Standard Drinks/Week Comments No 0 (1 standard drink = 0.6 oz pure alcoho l) Sex Assigned at Date Recorded Not on file COVID-19 Exposure Response Date Recorded In the last month, have you been in contact with No / Unsure 11/14/2021 12:56 PM OBSTETRICS GYN someone who was confirmed or suspected to have Coronavirus / COVID-19? documented as of this encounter Miscellaneous Notes Telephone Encounter - Apoorva Bush RN - 12/05/2021 9:12 AM CST 3rd message left. Closing encounter. ETRICS GYN Telephone Encounter - Toby Aparicio RN - 12/04/2021 10:35 AM CST 2nd call with message left if they needed any information from the [facility] for care of patient. ETRICS GYN Telephone Encounter - Toby Aparicio RN - 12/03/2021 10:31 AM CST Message left for Fady to call back with any information that they need to cover equipment needs. ETRICS GYN Telephone Encounter - Viji Talbot - 12/03/2021 8:26 AM CST Fady called from [employer] regarding the equipment request for [employer]. It was denied because they neededmore information from Dr. Garrett. It is possible it would be covered it they get the info. Fady can be reached at [phone]. ETRICS GYN documented in this encounter Plan of Treatment Not on filedocumented as of this encounter Visit Diagnoses Not on filedocumented in this encounter Care Teams Postal Mail Carrier Relationship Specialty Start Date End Date Trung Tucker PCP - General Family Practice 11/13/17 [facility] [address] [place] [address] documented as of this encounter
--- OUTSIDE RECORDS SUMMARY | 2022-10-16 10:57 | XMS_ITS | Encounter Summary ---
:1950 Author Organization [facility] Address [address], [place] [address] Care Team Providers Name Role Phone Whitney Gil MD Primary Care Provider Reason for Visit Reason Comments Provider Orders Encounter Details Date Type Department Care Team Description 08/11/2018 Notes/Orders [facility] Raffi Morataya, [facility] [address] [place] [address] [phone] Social History Tobacco Use Types Packs/Day Years Used Date Smoking Tobacco: Former Alcohol Use Standard Drinks/Week Comments No 0 (1 standard drink = 0.6 oz pure alcoho l) Sex Assigned at Date Recorded Not on file documented as of this encounter Progress Notes Shala De Souza RN - 08/11/2018 10:35 AM CDT Patient called about previously discussed medication prescription upon visit with Dr. Morataya on 08/10/18. Rx for antibiotics e-prescribed in encounter per VOR[facility] from Dr. Morataya. documented in this encounter Plan of Treatment Not on filedocumented as of this encounter Visit Diagnoses Not on filedocumented in this encounter Care Teams Rural Route Carrier Relationship Specialty Start Date End Date Whitney Gil MD PCP - General 12/06/[address] [place] [address] documented as of this encounter
--- OUTSIDE RECORDS SUMMARY | 2022-10-16 10:57 | XMS_ITS | Encounter Summary ---
:1950 Author Organization [facility] Address [address] [place] [address] Care Team Providers Name Role Phone Whitney Gil MD Primary Care Provider Encounter Details Date Type Department Care Team Description 12/31/2011 Lab Visit [facility] Achilles tendinitis [address] [place], [place] [address] Social History Tobacco Use Types Packs/Day Years Used Date Smoking Tobacco: Never Assessed Sex Assigned at Date Recorded Not on file documented as of this encounter Plan of Treatment Not on filedocumented as of this encounter Procedures Procedure Name Priority Date/Time Associated Diagnosis Comme nts HLA B27 Routine 12/31/2011 9:33 AM Achilles tendinitis Re sults for this ELECTRONICS SCALE TESTER procedure are i n the results section . documented in this encounter Results HLA B27 (12/31/2011 9:33 AM ELECTRONICS SCALE TESTER) athologist Signature HLA B27 Negative HP CONVERSION Comment: Reference range: ??Negative A positive HLA B27 is associated with an kylosing spondylitis. Note: ??This test was developed and its performance characteristics determined by [facility]. It has not been cleared or approved by the [place] and Drug administration. The FDA has determined that such clearan ce or approval is not necessary. This test is used for cli nical purposes. It should not be regarded as investigationa l or for research. Specimen Anatomical Collection Method Collection Time Receive d Time (Source) Location / / Volume Laterality 12/31/2011 9:33 AM 2 ELECTRONICS SCALE TESTER 10:53 AM ELECTRONICS SCALE TESTER Marla Recinos MD LAB_1 Performing Organization Address City/State/ZIP Code Phon e Number HP CONVERSION documented in this encounter Visit Diagnoses Diagnosis Achilles tendinitis Achilles bursitis or tendinitis documented in this encounter Care Teams Plant Hr Manager Relationship Specialty Start Date End Date Whitney Gil MD PCP - General 12/06/[address] [place] [address] documented as of this encounter
--- OUTSIDE RECORDS SUMMARY | 2022-10-16 10:57 | XMS_ITS | Encounter Summary ---
:1950 Author Organization [place] Address [facility] [place] [address] Care Team Providers Name Role Phone Trung Tucker Primary Care Provider Encounter Details Date Type Department Care Team Description 09/14/2021 Telephone [facility] Wound Tessa Garrett MD Clinic [place] [address] [place] [address] [place] [address] [place] [address] [phone] Social History Tobacco Use Types Packs/Day Years Used Date Smoking Tobacco: Former Cigars Smokeless Tobacco: Never Alcohol Use Standard Drinks/Week Comments No 0 (1 standard drink = 0.6 oz pure alcoho l) Sex Assigned at Date Recorded Not on file COVID-19 Exposure Response Date Recorded In the last month, have you been in contact with No / Unsure 11/14/2021 12:56 PM INTEGRATION TECHNICIAN someone who was confirmed or suspected to have Coronavirus / COVID-19? documented as of this encounter Miscellaneous Notes Telephone Encounter - Araseli Saldana RN - 09/14/2021 12:43 PM CDT Call returned to [facility]. They are unable to provide wound senior care care either. Will wait to hear from [facility]. Telephone Encounter - Zach Beckman - 09/14/2021 12:28 PM CDT [facility] Wound Who is the name of the provider?: Tami What is the location you see this provider at?: [place] Reason for call: Received referral for home care. Unable take, they do not provide lymphedema care. Can we leave a detailed message on this number? YES documented in this encounter Plan of Treatment Not on filedocumented as of this encounter Visit Diagnoses Not on filedocumented in this encounter Care Teams Instructional Aide Relationship Specialty Start Date End Date Trung Tucker PCP - General Family Practice 11/13/17 [facility] [address] [place] [address] documented as of this encounter
--- OUTSIDE RECORDS SUMMARY | 2022-10-16 10:57 | XMS_ITS | Encounter Summary ---
:1950 Author Organization [place] Address [facility] [place] [address] Care Team Providers Name Role Phone Trung Tucker Primary Care Provider Reason for Visit Reason Onset Date Comments WOUND CARE 09/12/2021 Encounter Details Date Type Department Care Team Description 09/12/2021 Telephone [facility] Wound Tessa Garrett MD WOUND CARE Clinic [place] [address] [place] [address] [place] [address] [place] [id number] [phone] Social History Tobacco Use Types Packs/Day Years Used Date Smoking Tobacco: Former Cigars Smokeless Tobacco: Never Alcohol Use Standard Drinks/Week Comments No 0 (1 standard drink = 0.6 oz pure alcoho l) Sex Assigned at Date Recorded Not on file COVID-19 Exposure Response Date Recorded In the last month, have you been in contact with No / Unsure 09/11/2021 12:59 PM CDT someone who was confirmed or suspected to have Coronavirus / COVID-19? documented as of this encounter Miscellaneous Notes Telephone Encounter - Araseli Saldana RN - 09/12/2021 11:29 AM CDT Home care referral faxed to [facility]. Telephone Encounter - Karmen Gallegos - 09/12/2021 10:11 AM CDT Service at [facility], unable to fulfill request for home care documented in this encounter Plan of Treatment Not on filedocumented as of this encounter Visit Diagnoses Not on filedocumented in this encounter Care Teams Stitcher Tape Controlled Machine Relationship Specialty Start Date End Date Trung Tucker PCP - General Family Practice 11/13/[address] [address] documented as of this encounter
--- OUTSIDE RECORDS SUMMARY | 2022-10-16 10:57 | XMS_ITS | Encounter Summary ---
:1950 Author [facility] Address [address] [place] [address] Care Team Providers Name Role Phone Whitney Gil MD Primary Care Provider Reason for Visit Reason Comments CONSULT Encounter Details Date Type Department Care Team Description 12/31/2011 Initial Consult Lew Shaverth N OS-l/leg (Primary Dx); Rheumatology MD Marla Achilles tendinitis [address] [address] [facility] [phone] [place], [place] [address] Social History Tobacco Use Types Packs/Day Years Used Date Smoking Tobacco: Never Assessed Sex Assigned at Date Recorded Not on file documented as of this encounter Last Filed Vital Signs Vital Sign Reading Time Taken Comments Blood Pressure 126/82 12/31/2011 8:31 AM SANDFILL OPERATOR Pulse 70 12/31/2011 8:31 AM SANDFILL OPERATOR Temperature - - Respiratory Rate - - Oxygen Saturation - - Inhaled Oxygen Concentration - - Weight 122 kg (269 lb) 12/31/2011 8:31 AM SANDFILL OPERATOR Height - - Body Mass Index - - documented in this encounter Progress Notes Marla Recinos MD - 12/31/2011 1:15 PM CST Subjective: I was consulted by Dr. Whitney Gil for an evaluation of heel pain. History of present illness: A pleasant 61-year-old male who came in for an evaluation of heel pain, possible arthritis. The patient has experienced right knee pain off-on for the past 1.5 years. He did not recall of having had a knee injury or an incident associated with an acute knee swelling. He was evaluated at [facility] and was told to have lots of arthritic changes in the knee. Conservative medical management was recommended. He continued to limp and was subsequently evaluated by an orthopedist in his home town. An MRI was performed which discovered torn medial meniscus. He underwent right meniscal surgical repair which was complicated by right LE DVT requiring warfarin treatment for 1 year, last dose of warfarin was about 4 months ago. He still has intermittently right knee pain with weight- bearing activities but otherwise has felt significant improvement since surgery. What has bothered him is bilateral retrocalcaneal and lower leg pain both sides for the past 6-7 months. Again, there has been no significant injury over these areas that he could recall. There was notdiarrhea, URI/STD within a month prior to the onset of the symptoms. Symptoms are described as stiffness in the morning and pain with walking up-down stairs. He had a recent MRI (see below) which showed right Achilles' tendinopathy with no significant articualr parthology. There is a concern if this could be related to arthritis or systemic autoimmune conditions. He currently takes piroxicam 20 mg/d and tramadol 50 mg a few times a day which both help to reduce symptoms. He has no symptoms to suggest uveitis/iritis/conjunctivitis, unusual skin rashes to suggest psoriasis/keratoderma blenoorhagicum/circinate balanitis, chronic mucus/bloody diarrhea to suggest inflammatory bowel disease, back pain symptoms to suggest inflammatory back pain. There is no family history ofspondylitis, psoriasis, uveitis/iritis, reactive arthritis or inflammatory bowel syndrome. A complete review of the systems is otherwise surprisingly unremarkable. There is no history of peptic ulcer disease/GI bleeding, current use of warfarin, significant ischemic heart disease/congestive heart failure, chronic pulmonary/cardiac disease, no liver/kidney disease. Past Medical History: History of pulmonary embolism (July 2010 after right medial arthroscopic repair, treated with warfarin for one year). Right knee pain. Obesity. Hypertension. Traumatic retinal detachment aged 9. Umbilical hernia. History of right retrocalcaneal bursitis. Family and social history: with 2 biological children and one step daughter. Nonsmoker. Nondrinker. No family history of psoriasis, uveitis/iritis, spondylitis, similar Achilles tendinopathy, inflammatory bowel disease, rheumatoid arthritis, lupus or related conditions, sarcoidosis or any known connective tissue diseases. Mother had bad hand arthritis and at 88 years old. Current medications: Please see the most updated medication lists in the EMR. These are reviewed. Adverse drug reactions: No known adverse drug reaction. Physical exams: Vital signs per flow sheet. General appearance: An overweight middle-aged male who is not in his acute physical distress. 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 Varicose veins. Trace pretibial edema on both sides. No unusual rash, tophus, nodules, open-wound ulcers, Raynaud changes, telangiectasia, sclerodermatous and dermatomyositis skin changes, psoriasis, psoriatic nail or anything suggesting vasculitis, erythema nodosum. Normal nailfold capillaries. HEENT: No psoriasis or alopecia on the scalp. No conjunctivitis, scleritis or active uveitis or synaechia. Normal extra ocular movements. No sinus tenderness. No malar rash, discoid rash, oral or nasalmucosal ulcers. No nasal septal perforation. No thyromegaly. Respiratory: Normal respiratory effort. Lungs are clear with good breath sounds. Heart: RR without audible murmurs, rubs, or gallops. Abdomen: Soft, nontender, no hepatosplenomegaly. No clinical ascites. Audible bowel sound. Musculoskeletal exams: All 4 extremities were examined. No significant synovitis/inflammatory arthritis/dactylitis/effusion in any joints. Mild tenderness over retrocalcaneal area near terminal Achilles tendon on both sides with minimal swelling without overlying erythema or warmth. No limited range of motion of both ankle joints. Crepitus of both knees without signs of inflammation or effusion. Antalgic gait. Normal muscle power and tone. Laboratory exams: Outside MRI right hindfoot on May: Achilles tendinopathy/enthesopathy with associated mild retrocalcaneal bursal thickening and mild subjacent reactive bone marrow edema of the superior aspect of the posterior calcaneal tuberosity. No convincing defined a partial or full- thickness Achilles tendon tear. Otherwise unremarkable right ankle and hindfoot with no evidence of effusion or pathological joint space narrowing. MRI of the right knee on the 26 June 2010: Torn medial meniscus, 1.8 cm into the posterior horn medial meniscus. Grade 2 and 3 chondromalacia of medial compartment. No lateral meniscal tear. Intact cruciate ligaments. Grade 2 chondromalacia of the midline cochlear groove. Small knee joint effusion with tiny popliteal cyst. Assessment and plans: 1. Achilles tendinopathy. No obvious clinical systemic autoimmune spondylitis/enthesitis. 2. Knee osteoarthritis. Pain is rated as 8. RAPID 3 score is 11.3. The patient has a definite knee osteoarthritis. The torn medial meniscus might have been related to this osteoarthritis or previously unrecognized right knee injury. There is no evidence of systemic inflammatory arthritis to suggest that the knee arthritis is part of an identifiable systemic condition. However, he has no significant right ankle or foot arthritis on examination. This impression is confirmed by the recent MRI of right ankle and hidnfoot area. Darvin's tendinopathy is mostly a local problem related to degnerative changes in the tendon and/orfrom chronic irritation from local bone spurs. Rarely,it can be part of the enthesopathy related to autoimmune conditions associated with ankylosing spondyltiis, psoriatic arthritis, reactive arthritis, inflammatory bowel disease. None of these is clinically apparent in this patient. I would recommend the followin. Obtain additional blood test for HLA B-27 and X-rays of sacroiliac joints. If the X-rays of SI joints are unremarkable, with or without HLA-B27 , the Achilles' tendinopathy is a local problem. In that case, I would recommend continuing piroxicam and tramadol for symptomatic control. I would also rec ommend avoiding stairs. If this is not helpful, I would recommend that he try wearing CAM walker boots for a few weeks before considering surgical option. 2. We discussed about diagnosis of knee osteoarthritis. Unfortunately, there is no modifying agent for this condition and medications are only for symptomatic treatment. These include acetaminophen up to 3-4 g a day and/or anti- inflammatory agent like piroxicam that he currently takes. Additional pain medication like tramadol can also be used if needed. A cortisone injection could be considered if medication does not adequately controlled her symptoms should not be provided more than 3-4 times a year. Surgical treatment will be the final option after she has failed medical treatment. Weight reduction, quadricep strengthening exercises, avoiding stairs/kneeling/squatting were discussed. Topical treatment including heating/icing, or [id number] topical cream containing salicylate or Capsaicin can also be tried. I would recommend monitoring blood pressure, transaminase, creatinine and hemoglobin every 6-12 months in a person who takes long-term anti-inflammatory agent like piroxicam. I will correspond with the patient regarding the test results and will also let him know if he needsto be followed in rheumatology clinic. Total time 60 minutes, 40 minutes counseling. CC: Whitney Gil M.D. [address] [place] [address] documented in this encounter Miscellaneous Notes Letter - 12/31/2011 12:00 AM CST Images from the original note were not included. Whitney Gil [address] [place] [address] [place], [place] [id number] [email or web address] December 31, 2011 Re: Name:Herson Forte : [address] Gil: Thank you very much for asking me to see Mr. Herson Forte, whom I had the pleasure of visiting with today. Enclosed is a copy of my chart note for your records and review. Please feel free to contact me if you have any questions or concerns. Sincerely, Marla Recinos MD Department of Rheumatology [address] [address] FILL OPERATOR documented in this encounter Plan of Treatment Not on filedocumented as of this encounter Procedures Procedure Name Priority Date/Time Associated Comments Diagnosis XR SACROILLIAC JOINTS Routine 12/31/2011 10:03 Achilles tendin itis Results for this 3+ VIEWS AM SANDFILL OPERATOR procedure are i n the results section. documented in this encounter Results XR Sacroilliac Joints 3+ Views (12/31/2011 10:03 AM SANDFILL OPERATOR) Anatomical Region Laterality Modality Pelvis Other Specimen (Source) Anatomical Location Collection Method / Collectio n Time Received Time / Laterality Volume Impressions 12/31/2011 10:23 AM SANDFILL OPERATOR IMPRESSION: Normal sacroiliac joint seri es. Narrative 12/31/2011 10:23 AM SANDFILL OPERATOR Procedure Note Ramiro Cuevas MD - 05/10/2016Format ting of this note might be different from the original. IMPRESSION IMPRESSION: Normal sacroiliac joint seri es. Marla Recinos MD RAD GD documented in this encounter Visit Diagnoses Diagnosis Osteoarthrosis, unspecified whether gene ralized or localized, lower leg - Primary Achilles tendinitis Achilles bursitis or tendinitis documented in this encounter Care Teams Shactor Relationship Specialty Start Date End Date Whitney Gil MD PCP - General 12/06/[address] [place] [address] documented as of this encounter
--- OUTSIDE RECORDS SUMMARY | 2022-10-16 10:57 | XMS_ITS | Encounter Summary ---
:1950 Author Organization [place] Address [facility] [place] [address] Care Team Providers Name Role Phone Turng Tucker Primary Care Provider Encounter Details Date Type Department Care Team Description 09/26/2021 Telephone [facility] Wound Tessa Garrett MD Clinic [place] [address] [place] [address] [place] [address] [place] [address] [phone] Social History Tobacco Use Types Packs/Day Years [...] this encounter Miscellaneous Notes Telephone Encounter - Toby Aparicio RN - 09/26/2021 11:37 AM CDT Patient called back with information provided on compression. Patient has had increased swelling since being at the [facility] related to infection, but swelling is now improving. Patient encouraged to wear compression as much as possible with understanding verbalized. Telephone Encounter - Zach Beckman - 09/26/2021 10:29 AM CDT [facility] Wound Who is the name of the provider?: Tami What is the location you see this provider at?: [place] Reason for call: Needs to get new edema sleeves. Was given mediums, they are too tight, He has difficulty getting them on and cannot tolerate them. Would like to get them today. Can we leave a detailed message on this number? YES documented in this encounter Plan of Treatment Not on filedocumented as of this encounter Visit Diagnoses Not on filedocumented in this encounter Care Teams Bass Singer Relationship Specialty Start Date End Date Trung Tucker PCP - General Family Practice 11/13/[address] [address] documented as of this encounter
--- OUTSIDE RECORDS SUMMARY | 2022-10-16 10:57 | XMS_ITS | Encounter Summary ---
:1950 Author [facility] Address [address], [place] [address] Care Team Providers Name Role Phone Whitney Gil MD Primary Care Provider Reason for Visit Reason Comments Follow-up varicose veins Encounter Details Date Type Department Care Team Description 09/07/2018 Office Visit Heart & Vascular Carlos Morataya Vari cose veins of both Center V[facility] & MD Tal lower extremities with Vein Clinic [address] complications (Primary [address] [place], [place] Dx) [place] [id number] [phone] Social History Tobacco Use Types Packs/Day Years Used Date Smoking Tobacco: Former Smokeless Tobacco: Never Alcohol Use Standard Drinks/Week Comments No 0 (1 standard drink = 0.6 oz pure alcoho l) Sex Assigned at Date Recorded Not on file documented as of this encounter Last Filed Vital Signs Vital Sign Reading Time Taken Comments Blood Pressure 126/86 09/07/2018 11:21 AM CDT Pulse 52 09/07/2018 11:21 AM CDT Temperature - - Respiratory Rate - - Oxygen Saturation - - Inhaled Oxygen Concentration - - Weight - - Height - - Body Mass Index - - documented in this encounter Progress Notes Carlos Morataya MD - 09/07/2018 1:20 PM CDT NAME: KASEY CURRIE MR#: [id number] CSN: [id number] AUTHENTICATING CLINICIAN: Carlos Morataya MD CONFIRM #: [id number] LOC: 3588 CLINIC PROGRESS NOTE DATE OF VISIT: 09/07/2018 : 1950 The patient is seen today for followup of leg swelling bilaterally. The patient had vein surgery done at an outside location 6 months ago and has had some pain and numbness of the left medial calf. This is most likely in the saphenous cutaneous nerve. I recommended that he continue to observe it and it should improve over the next year he is not having any pain, it just seems like some numbness and irritation. Ultrasound shows that the left great saphenous vein is closed. The right great saphenous vein is absent. There is no deep insufficiency or short saphenous vein insufficiency. With that, I have recommended continued use of support stockings and to follow up as necessary. MTS:MEDQ C: CONFIRM #: [id number] Carlos Rebollar RN - 09/07/2018 11:15 AM CDT RTC PRN documented in this encounter Plan of Treatment Not on filedocumented as of this encounter Visit Diagnoses Diagnosis Varicose veins of both lower extremities with complications - Primary documented in this encounter Care Teams Camera Storage Clerk Relationship Specialty Start Date End Date Whitney Gil MD PCP - General 12/[address] [place] [address] documented as of this encounter
--- OUTSIDE RECORDS SUMMARY | 2022-10-16 10:57 | XMS_ITS | Encounter Summary ---
:1950 Author Organization [place] Address [facility] [place] [address] Care Team Providers Name Role Phone Trung Tucker Primary Care Provider Reason for Referral Home Health Therapies & Aides (Routine) Specialty Diagnoses / Procedures Referred By Contact Refer red To Contact [facility] [address] [place] [phone] Referral ID Status Reason Start Date Expiration Date Visits Requ ested Visits Authorized [facility] Health Therapies & Aides (Routine) Specialty Diagnoses / Procedures Referred By Contact Refer red To Contact [facility] [address] [phone] Referral ID Status Reason Start Date Expiration Date Visits Requ ested Visits Authorized Reason for Visit Reason Comments WOUND CARE Encounter Details Date Type Department Care Team Description 09/11/2021 Hospital Encounter [facility] Byron Garrett mphedema of both Wound Clinic Stormy Zarate MD lower extremities [address] [place] [phone] Social History Tobacco Use Types Packs/Day Years [...] / COVID-19? documented as of this encounter Discharge Instructions Discharge InstructionsAraseli Saldana RN - 09/11/2021 2:41 PM CDT [facility] [address] [place] [address], [facility] [phone] Call us at [phone] if you have any questions about your wounds, have redness or swelling aroundyour wound, have a fever of 101 or greater or if you have any other problems or concerns. We answer the phone Friday through Friday 8 am to 4 pm, please leave a message as we check the voicemail frequently throughout the day. Herson Forte 1950 Medications/supplements to aid in healin. Vitamin D3 10,000 iu per day 2. Maritza C 1,000 mg take twice daily 3. Vitamin B Complex with folic acid take 1 tablet daily 4. Vitamin B 12 1000 mcg daily 5. Vein Formula 1 tablet twice daily order from [email or web address] or call [phone] Wound care recommendations to right and left lower leg: Cleanse with mild unscented soap and water. Apply a thin layer of Betamethasone Ointment to intact skin on legs. Then wrap with saran wrap for (20-60 minutes) Remove saran wrap and do not rinse ointment. Then apply moisturizing cream (Cera-Ve, Aquaphor, Eucerin, ect.) Then apply yellow stripe edemawear from toes to knee. Then apply coolflex wraps. Change three times a week. Compression: Apply clean compression coolflex first thing in the morning and remove at night before going to bed. Remove compression dressing if toes turn blue and/or start to feel numb and is not relieved by elevating the leg for one hour. Walk as much as you can. When you sit raise your ankle above your hips to promote wound healing. Karina Garrett M.D. September 11, 2021 Wound Clinic follow up in 4 weeks If you had a positive experience please indicate that on your patient satisfaction survey form that [facility] will be sending you. It was a pleasure meeting with you today. Thank you for allowing me and my team the privilege of caring for you today. YOU are the reason we are here, and I truly hope we provided you with the excellent service you deserve. Please let us know if there is anything else we can do for you so that we can be sure you are leaving completely satisfied with your care experience. If you have any billing related questions please call the [facility] Business office at [phone]. The clinic staff does not handle billing related matters. documented in this encounter Medications at Time of Discharge Medication Sig Dispensed Refills Start Date End Date aspirin 81 MG tablet Take by mouth daily 30 tablet 0 2016 betamethasone Apply topically daily 45 g 3 09/11/2021 dipropionate (DIPROSONE) 0.05 % external ointmentIndications: Lymphedema of both lower extremities cloNIDine (CATAPRES) 0.2 Take 2 tablets (0.4 180 tablet 3 MG tablet mg) by mouth 2 times daily ELIQUIS ANTICOAGULANT 5 Take 5 mg by mouth 2 0 MG tablet times daily furosemide (LASIX) 20 MG TAKE 1 TABLET BY 0 03/05 tablet MOUTH TWICE DAILY NEEDED gabapentin (NEURONTIN) 600 mg 0 05/17/2021 300 MG capsule irbesartan (AVAPRO) 150 Take 150 mg by mouth 0 MG tablet daily omega 3 1000 MG CAPS Take 1 g by mouth 90 capsule 0 11/13/20 17 daily omeprazole (PRILOSEC) 20 TK 1 C PO D PRN [address] capsule pravastatin (PRAVACHOL) TK 1 T PO HS 0 09/19/2020 20 MG tablet rivaroxaban ANTICOAGULANT Take 1 tablet (20 mg) 0 11/13/2017 (XARELTO) 20 MG TABS by mouth daily (with tablet dinner) sotalol (BETAPACE) 80 MG Take 80 mg by mouth 0 tablet tamsulosin (FLOMAX) 0.4 Take 0.4 mg by mouth 0 MG capsule daily triamterene-hydrochloroth Take 1-2 capsules by 90 capsule 3 11/13/2017 iazide (DYAZIDE) 37.5-25 mouth daily MG per capsule documented as of this encounter Progress Notes Byron Garrett MD - 09/11/2021 11:59 PM CDT Images from the original note were not included. [facility] [place] Progress Note Subject: Herson Morrison for chronic bilateral extremity lymphedema, inflammatory changes, lymphorrhea left lower extremity. Medical record reviewed. History of deep venous thromboses and pulmonary embolus in 2001, remains on chronic anticoagulation, history of hypertension, has not seen certified lymphedema therapist, not on amlodipine or Norvasc, no history of congestive heart failure, pulmonary failure, hepatic or renal dysfunction. PMH: Past Medical History: Diagnosis Date ??? History of blood clots ( PE in 2001, DVT 2014) on Xarelto since 201411/13/2017 ??? History of pulmonary embolism - 2000s 11/13/2017 ??? HTN, goal below 140/90 11/13/2017 ??? Renal cyst, right 13.8 CT 200911/13/2017 Patient Active Problem List Diagnosis ??? History of pulmonary embolism - 2000s ??? History of blood clots ( PE in 2001, DVT 2014) on Xarelto since 2014 ??? HTN, goal below 140/90 ??? Renal cyst, right 13.8 CT 2009 ??? Liver cyst ??? Achilles tendinitis ??? Anemia ??? Atrial fibrillation with rapid ventricular response (H) ??? Elevated brain natriuretic peptide (BNP) level ??? CKD (chronic kidney disease) ??? Osteoarthrosis involving lower leg ??? Shortness of breath ??? Syncope ??? Lymphedema of both lower extremities Social Hx: Social History Socioeconomic History ??? Marital status: Spouse name: Not on file ??? Number of children: Not on file ??? Years of education: Not on file ??? Highest education level: Not on file Occupational History ??? Not on file Tobacco Use ??? Smoking status: Former Smoker Types: Cigars ??? Smokeless tobacco: Never Used Substance and Sexual Activity ??? Alcohol use: No ??? Drug use: No ??? Sexual activity: Never Partners: Female Other Topics Concern ??? Parent/sibling w/ CABG, GA or angioplasty before 65F 55M? Not Asked Social History Narrative ??? Not on file Social Determinants of Health Financial Resource Strain: ??? Difficulty of Paying Living Expenses: Food Insecurity: ??? Worried About Running Out of Food in the Last Year: ??? Ran Out of Food in the Last Year: Transportation Needs: ??? Lack of Transportation (Medical): ??? Lack of Transportation (Non-Medical): Physical Activity: ??? Days of Exercise per Week: ??? Minutes of Exercise per Session: Stress: ??? Feeling of Stress : Social Connections: ??? Frequency of Communication with Friends and Family: ??? Frequency of Social Gatherings with Friends and Family: ??? Attends Sikhism Services: ??? Active Member of Clubs or Organizations: ??? Attends Club or Organization Meetings: ??? Marital Status: Intimate Partner Violence: ??? Fear of Current or Ex-Partner: ??? Emotionally Abused: ??? Physically Abused: ??? Sexually Abused: Surgical Hx: Past Surgical History: Procedure Laterality Date ??? HERNIORRHAPHY UMBILICAL 2009 - about ??? R knee arthroscopic surgery 2002 about Allergies: Allergies Allergen Reactions ??? Lisinopril Cough Cough Cough ??? Losartan cough ??? Adhesive Tape Rash Foam tape used for pressure wrap after the pacemaker procedure Medications: Current Outpatient Medications Medication ??? aspirin 81 MG tablet ??? betamethasone dipropionate (DIPROSONE) 0.05 % external ointment ??? cloNIDine (CATAPRES) 0.2 MG tablet ??? ELIQUIS ANTICOAGULANT 5 MG tablet ??? furosemide (LASIX) 20 MG tablet ??? gabapentin (NEURONTIN) 300 MG capsule ??? irbesartan (AVAPRO) 150 MG tablet ??? omega 3 1000 MG CAPS ??? omeprazole (PRILOSEC) [address] capsule ??? pravastatin (PRAVACHOL) 20 MG tablet ??? rivaroxaban ANTICOAGULANT (XARELTO) 20 MG TABS tablet ??? sotalol (BETAPACE) 80 MG tablet ??? tamsulosin (FLOMAX) 0.4 MG capsule ??? triamterene-hydrochlorothiazide (DYAZIDE) 37.5-25 MG per capsule No current facility-administered medications for this encounter. Labs: No results for input(s): ALBUMIN, HGB, INR, WBC, A1C, CRP in the last 77688 hours. Invalid input(s): PREALBUMIN, GLUCOSE, MICROBIO No results found for: CR No results found for: GFRESTIMATED No results found for: GFRESTBLACK No results found for: WBC No results found for: RBC No results found for: HGB No results found for: HCT No components found for: MCT No results found for: MCV No results found for: MCH No results found for: MCHC No results found for: RDW No results found for: PLT Nutrition requirements were discussed with patient today. Objective: There were no vitals taken for this visit. Wound (used by OP [facility] only) 09/11/21 1436 Left (Active) Thickness/Stage full thickness 09/11/21 1437 Dressing Appearance moist drainage 09/11/21 1437 Base granulating 09/11/21 1437 Periwound intact;swelling;redness 09/11/217 Periwound Temperature warm 09/11/21 1437 Periwound Skin Turgor soft 09/11/21 1437 Edges open 09/11/21 1437 Length (cm) 0.3 09/11/21 1437 Width (cm) 0.3 09/11/217 Depth (cm) 0.1 09/11/21 1437 Wound (cm^2) 0.09 cm^2 09/11/21 1437 Wound Volume (cm^3) 0.01 cm^3 09/11/21 1437 Drainage Characteristics/Odor serous 09/11/217 Drainage Amount moderate 09/11/217 Care, Wound non-select wound debridement performed 09/11/21 1437 Wound (used by OP I only) 09/11/21 1436 Right (Active) Thickness/Stage full thickness 09/11/21 1437 Dressing Appearance moist drainage 09/11/21 1437 Base granulating 09/11/217 Periwound intact;redness;swelling 09/11/211436 Periwound Temperature warm 09/11/211436 Periwound Skin Turgor soft 09/11/211436 Edges open 09/11/211436 Length (cm) 0.5 09/11/211436 Width (cm) 0.2 09/11/211436 Depth (cm) 0.1 09/11/211436 Wound (cm^2) 0.1 cm^2 09/11/211436 Wound Volume (cm^3) 0.01 cm^3 09/11/211436 Drainage Characteristics/Odor serosanguineous 09/11/211436 Drainage Amount moderate 09/11/211436 Care, Wound non-select wound debridement performed 09/11/211436 General: Patient is alert and orientated, no acute distress. Conversant Vascular: Palpable pedal pulses. Chronic inflammatory changes right and left lower extremities with lymphorrhea bilaterally, left greater than right, no cellulitis, no heel ulcerations. 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] [] Yes [] No Chronic Venous Stasis ulcers [I87.2] (non-healing despite 6 months of ongoing treatment) [x] Yes [] No SYMPTOMS: PATIENT EXHIBITS THE FOLLOWING SYMPTOMS DESPITE CONSERVATIVE THERAPY (check all that apply): [x] Hyperkeratosis [x] Hyperplasia [x] Hyperpigmentation [x] Skin breakdown with lymphorrhea (skin weeping) [] Papillomatosis [] Recurrent cellulitis [x] Fibrosis [] Elephantiasis [x] Progressive edema [x] Truncal/abdominal swelling [] Chest/axillary swelling [] Genital swelling [x] Unable to control swelling [x] Impaired ROM [x] Impaired mobility [] Pain CONSERVATIVE TREATMENT: PATIENT HAS TRIED CONSERVATIVE TREATMENTS (COMPRESSION/EXERCISE/ELEVATION): [x] Yes [] No Compression garments: [] <4 weeks [x] 1-5 months [] 6-12 months [] >1 year Bandaging: [x] <4 weeks [] 1-5 months [] 6-12 months [] >1 year Elevation: [] <4 weeks [] 1-5 months [] 6-12 months [x] >1 year Exercise: [] <4 weeks [] 1-5 months [] 6-12 months [x] >1 year TREATMENT PLAN: Patient to complete the following treatment(s): Pain certified lymphedema therapist evaluation MEASUREMENTS: Lower extremity measurements (measure the largest circumferential point of the listed area): [] Right Leg Inseam: cm Measurements Date: [] Left Leg Inseam: cm Measurements Date: Thigh ____68 cm Thigh 65____cm Knee cm Knee cm Calf 46____cm Calf ____51 cm Ankle 32____cm Ankle ____32 cm Foot 26____cm Foot 26___cm Hips 172___cm Hips cm Upper extremity measurements (measure the largest circumferential point of the listed area): [] Right Arm Inseam: cm Measurements Date: [] Left Arm Inseam: cm Measurements Date: Waist cm Waist cm Chest cm Chest cm Biceps cm Biceps cm Forearm cm Forearm cm Wrist cm Wrist cm Heel to ankle right 36 healed ankle left 38, length of instep right foot 19, left foot 19, length ofcalf right 37, right calf 37 Head and neck measurements [] Head and Neck Measurements Date: [place] of Head Circumference cm Measurement Around Back of Head From Eye to Eye cm COMMENTS: Advanced lymphedema pump [id number] indicated with receptive decompression and maximize MLD like affect, recommend Flexitouch plus given peer-reviewed data and outcomes Impression: Chronic lymphedema, primary tarda, history of deep venous thromboses and pulmonary emboli, elevated BMI Plan: We will dress the wounds with dilute Betadine paint to the legs, steroid under Saran wrap, EdemaWear, micronized purified flavonoid fraction, adjunctive micronutrients, measured for Sigvaris CoolFlex calf and foot component and to undergo trial for bands lymphedema pump, [id number] indicated for maximizing receptive decompression and MLD like impact to maximize management of lower extremity lymphedema. Certified lymphedema therapist evaluation. Patient will return to the clinic in 4 weeks time. Byron Garrett MD on 09/12/2021 at 1:08 PM Araseli Saldana RN - 09/11/2021 2:46 PM CDT Patient arrived for wound care visit. Certified Wound Care Nurse time spent evaluating patient record, completed a full evaluation and documented wound(s) & shannan-wound skin; provided recommendationbased on treatment plan. Applied dressing, reviewed discharge instructions, patient education, and discussed plan of care with appropriate medical team staff members and patient and/or family members. documented in this encounter Miscellaneous Notes Addendum Note - Araseli Saldana RN - 09/11/2021 11:59 PM CDT Encounter addended by: Araseli Saldana RN on: 09/12/2021 3:07 PM Actions taken: Order list changed, Diagnosis association updated documented in this encounter Plan of Treatment Scheduled Referrals Name Type Priority Associated Diagnoses Order S [facility] HOME CARE NURSING Referral Routine: Next Lymphedema of both Ord ered: REFERRAL available opening lower extremities 09/11 HOME CARE NURSING Referral Routine: Next Lymphedema of both Ord ered: REFERRAL available opening lower extremities 09/12 documented as of this encounter Visit Diagnoses Diagnosis Lymphedema of both lower extremities documented in this encounter Care Teams Funnel Coater Relationship Specialty Start Date End Date Trung Tucker PCP - General Family Practice 11/13/[address] [address] documented as of this encounter
--- OUTSIDE RECORDS SUMMARY | 2022-10-16 10:57 | XMS_ITS | Encounter Summary ---
:1950 Author Organization [place] Address [facility] [place] [address] Care Team Providers Name Role Phone Trung Tucker Primary Care Provider Reason for Visit Reason Onset Date Comments WOUND CARE 09/27/2021 Encounter Details Date Type Department Care Team Description 09/27/2021 Telephone [facility] Wound Tessa Garrett MD WOUND CARE Clinic Stormy [address] [place] [place] [address] [place] [phone] Social History Tobacco Use Types Packs/Day Years [...] Telephone Encounter - Araseli Saldana RN - 09/28/2021 9:18 AM CDT Returned call to pt. Directed him to go to a pharmacy to get the requested supplements. No further questions or concerns. Telephone Encounter - Karmen Gallegos - 09/27/2021 3:45 PM CDT Needs some clarification on the supplements he is supposed to be taking. He is having trouble finding them. documented in this encounter Plan of Treatment Not on filedocumented as of this encounter Visit Diagnoses Not on filedocumented in this encounter Care Teams Database Designer Relationship Specialty Start Date End Date Trung Tucker PCP - General Family Practice 11/13/17 [facility] [address] [place] [id number] documented as of this encounter
--- OUTSIDE RECORDS SUMMARY | 2022-10-16 10:57 | XMS_ITS | Encounter Summary ---
:1950 Author Organization [place] Address [facility] 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 Reason for Visit Reason Comments WOUND CARE Encounter Details Date Type Department Care Team Description 10/03/2021 Hospital Encounter [facility] Byron Garrett mphedema of both Wound Clinic Stormy Zarate MD lower extremities [address] [place] [id number] Social History Tobacco Use Types Packs/Day Years Used Date Smoking Tobacco: Former Cigars Smokeless Tobacco: Never Alcohol Use Standard Drinks/Week Comments No 0 (1 standard drink = 0.6 oz pure alcoho l) Sex Assigned at Date Recorded Not on file COVID-19 Exposure Response Date Recorded In the last month, have you been in contact with No / Unsure 10/03/2021 9:50 AM 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 documented as of this encounter Last Filed Vital Signs Vital Sign Reading Time Taken Comments Blood Pressure 152/90 10/03/2021 10:02 AM FORMING PROCESS LINE WORKER Pulse 69 10/03/2021 10:02 AM FORMING PROCESS LINE WORKER Temperature 36.3 ??C (97.3 ??F) 10/03/2021 10:02 AM FORMING PROCESS LINE WORKER Respiratory Rate 20 10/03/2021 10:02 AM FORMING PROCESS LINE WORKER Oxygen Saturation - - Inhaled Oxygen Concentration - - Weight - - Height - - Body Mass Index - - documented in this encounter Discharge Instructions Discharge InstructionsAraseli Saldana RN - 10/03/2021 10:44 AM CST Herson Forte 1950 Medications/supplements to aid in healing: Vitamin D3 10,000 iu per day Maritza C 1,000 mg take twice daily Vitamin B Complex with folic acid take 1 tablet daily Vitamin B 12 1000 mcg daily Vein Formula 1 tablet daily order from www.[employer] or call [phone] Wound care recommendations to right and left lower leg: Cleanse with mild unscented soap and water. Apply a thin layer of Betamethasone Ointment to intact skin on legs. Then wrap with saran wrap for (20-60 minutes) Remove saran wrap and do not rinse ointment. Then apply Epiceram cream. Then apply compression wraps or compression socks. Compression: Apply clean compression first thing in the morning and remove at night before going to bed. Remove compression dressing if toes turn blue and/or start to feel numb and is not relieved by elevating the leg for one hour. Walk as much as you can. When you sit raise your ankle above your hips to promote wound healing. Call [facility] to schedule lymphedema therapy appointment: [phone] Karina Garrett M.D. October 03, 2021 Call us at [phone] if you have any questions about your wounds, have redness or swelling aroundyour wound, have a fever of 101 or greater or if you have any other problems or concerns. We answer the phone Friday through Friday 8 am to 4 pm, please leave a message as we check the voicemail frequently throughout the day. If you had a positive experience please indicate that on your patient satisfaction survey form that [facility] will be sending you. It was a [...] any billing related questions please call the [facility] office at [phone]. The clinic staff does not handle billing related matters. ING PROCESS LINE WORKER documented in this encounter Medications at Time [...] tablet mg) by mouth 2 times daily Dermatological Products, Externally apply 1 450 g 11 08/2021 Misc. (EPICERAM) Applicatorful EMULIndications: topically daily Lymphedema of both lower extremities ELIQUIS ANTICOAGULANT 5 Take 5 mg by mouth 2 0 MG tablet times daily furosemide (LASIX) 20 MG TAKE 1 TABLET BY MOUTH 0 03/05/2021 tablet TWICE DAILY NEEDED gabapentin (NEURONTIN) 600 mg 0 05/17/2021 300 MG capsule irbesartan (AVAPRO) 150 Take 150 mg by mouth 0 MG tablet daily omega 3 1000 MG CAPS Take 1 g by mouth 90 capsule 0 11/13/20 17 daily omeprazole (PRILOSEC) 20 TK 1 C PO D PRN [address] capsule oxyCODONE-acetaminophen TAKE 1 TO 2 TABLETS BY 0 09/18/2021 (PERCOCET) 5-325 MG MOUTH THREE TIMES tablet DAILY NEEDED pravastatin (PRAVACHOL) TK 1 T PO HS 0 09/19/2020 20 MG tablet rivaroxaban Take 1 tablet (20 mg) 0 11/13/2017 ANTICOAGULANT (XARELTO) by mouth daily (with 20 MG TABS tablet dinner) sotalol (BETAPACE) 80 MG Take 80 mg by mouth 0 tablet tamsulosin (FLOMAX) 0.4 Take 0.4 mg by mouth 0 MG capsule daily triamterene-hydrochlorot Take 1-2 capsules by 90 capsule 3 1 01/14/2017 hiazide (DYAZIDE) mouth daily 37.5-25 MG per capsule documented as of this encounter Progress Notes Byron Garrett MD - 10/03/2021 10:25 AM CST Images from the original note were not included. [facility] [place] Progress Note Subject: Herson Tyron Forte, previous note reviewed, has not had trial of lymphedema compression pump ashas not been approved by [facility], not sure why [facility] has not approved to date as we completed all necessary paperwork, he clearly has lymphedema with lymphorrhea, wounds, draining wounds, symptomatic, lymphedema venous etiology, we would request [facility] to approve lymphedema pump trial and utilization per standard of care for management of uncontrolled lymphedema that is lifestyle altering associated with lymphorrhea and dermal ulcerations. He is obtainthe adjunct of micronutrients, micronized purified flavonoid fraction, they have been performing a steroids under Saran wrap to decrease histamine. Patient Active Problem List Diagnosis ??? History [...] Syncope ??? Lymphedema of both lower extremities Past Medical History: Diagnosis Date ??? History of blood clots ( PE in 2001, DVT 2014) on Xarelto since 201411/13/2017 ??? History of pulmonary embolism - 2000s 11/13/2017 ??? HTN, goal below 140/90 11/13/2017 ??? Renal cyst, right 13.8 CT 200911/13/2017 Exam: BP (!) 152/90 (BP Location: Left arm) Pulse 69 Temp 97.3 ??F (36.3 ??C) (Temporal) Resp 20 See photodocumentation, no cellulitis, chronic induration, chronic dermal histamine which impairs lymphangina contractility and results in hyper permeability, palpable pedal pulse. History of multiple deep venous thromboses, chronic Xarelto. History of pulmonary embolus. Impression: Lymphedema venous etiology, history of multiple deep venous thromboses, history of pulmonary embolus, on chronic Xarelto Plan: We will dress the wounds with steroids under Saran wrap, application of EpiCeram cream, trial of lymphedema pump, standard of care, would anticipate that [facility] would approve thisand do short order given that this is a standard of care and clinical best option for treatment, will follow up with certified lymphedema therapist at [facility], inelastic compression, willbe seen at the's for fitting with Sigvaris garment as a inelastic compression, either Compro flex orCoflex, micronized purified flavonoid fraction, adjunctive micronutrients.. 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
--- OUTSIDE RECORDS SUMMARY | 2022-10-16 10:57 | XMS_ITS | Clinical Summary ---
:1950 Author Organization [place] Address [facility] [place] [address] Care Team Providers Name Role Phone CeciTrung duenas Primary Care Provider Allergies Active Allergy Reactions Severity Noted Date Comments Adhesive Tape Rash Low 07/16/2021 Foam tape used for pressure wrap after the pacemaker p rocedure Lisinopril Cough 11/13/2017 Cough Cough Losartan 11/13/2017 cough Medications Medication Sig Dispensed Refills Start Date End Date Status rivaroxaban Take 1 tablet (20 0 11/13/2017 Active ANTICOAGULANT mg) by mouth daily (XARELTO) 20 MG TABS (with dinner) tablet triamterene-hydrochl Take 1-2 capsules 90 capsule 3 11/13/2017 Active orothiazide by mouth daily (DYAZIDE) 37.5-25 MG per capsule aspirin 81 MG tablet Take by mouth daily 30 tablet 0 7 Active cloNIDine (CATAPRES) Take 2 tablets (0.4 180 tablet 3 11/13/20 17 Active 0.2 MG tablet mg) by mouth 2 times daily omega 3 1000 MG CAPS Take 1 g by mouth 90 capsule 0 11/13/2017 Active daily ELIQUIS Take 5 mg by mouth 0 08/10/2021 Active ANTICOAGULANT 5 MG 2 times daily tablet gabapentin 600 mg 0 05/17/2021 Active (NEURONTIN) 300 MG capsule furosemide (LASIX) TAKE 1 TABLET BY 0 03/05/2021 Active 20 MG tablet MOUTH TWICE DAILY NEEDED omeprazole TK 1 C PO D PRN 0 09/19/2020 Ac tive (PRILOSEC) [address] capsule pravastatin TK 1 T PO HS 0 09/19/2020 Acti ve (PRAVACHOL) 20 MG tablet sotalol (BETAPACE) Take 80 mg by mouth 0 07/13/2021 Active 80 MG tablet tamsulosin (FLOMAX) Take 0.4 mg by 0 07/06/2021 Active 0.4 MG capsule mouth daily irbesartan (AVAPRO) Take 150 mg by 0 07/03/2021 Active 150 MG tablet mouth daily betamethasone Apply topically 45 g 3 09/11/2021 Active dipropionate daily (DIPROSONE) 0.05 % external ointmentIndications: Lymphedema of both lower extremities oxyCODONE-acetaminop TAKE 1 TO 2 TABLETS 0 Active hen (PERCOCET) 5-325 BY MOUTH THREE MG tablet TIMES DAILY NEEDED Dermatological Externally apply 1 450 g 11 10/03/2021 Active Products, Misc. Applicatorful (EPICERAM) topically daily EMULIndications: Lymphedema of both lower extremities Active Problems Problem Noted Date Lymphedema of both lower extremities 09/11/2021 Anemia 06/16/2021 Atrial fibrillation with rapid ventricular response Elevated brain natriuretic peptide (BNP) level 021 CKD (chronic kidney disease) 06/16/2021 Shortness of breath 06/16/2021 Syncope 06/16/2021 History of pulmonary embolism - 2000s 11/13/2017 History of blood clots ( PE in 2001, DVT 2014) on Xare lto since 201411/13/2017 HTN, goal below 140/90 11/13/2017 Renal cyst, right 13.8 CT 200911/13/2017 Liver cyst 11/13/2017 Achilles tendinitis 12/31/2011 Osteoarthrosis involving lower leg 12/31/2011 Overview: Formatting of this note might be differe nt from the original. Osteoarthrosis, unspecified whether gene ralized or localized, lower leg Immunizations Name Administration Dates Next Due Influenza (High Dose) 3 valent vaccine 09/07/2017 TDAP Vaccine (Adacel) 04/06/2012 Family History Medical History Relation Comments Deep Vein Thrombosis Brother Multiple-on Xarelto Family History Negative Mother Deep Vein Thrombosis Sister Multiple-on Xarelto Relation Status Comments Brother Alive Father (Age 48) Maternal Grandfather Maternal Grandmother Mother Paternal Grandfather Paternal Grandmother Sister Alive Social History Tobacco Use Types Packs/Day Years Used Date Smoking Tobacco: Former Cigars Smokeless Tobacco: Never Tobacco Cessation: Counseling Given: Yes Alcohol Use Standard Drinks/Week Comments No 0 (1 standard drink = 0.6 oz pure alcoho l) Sex Assigned at Date Recorded Not on file Last Filed Vital Signs Vital Sign Reading Time Taken Comments Blood Pressure 188/107 11/14/2021 1:10 PM SUPERVISOR VARNISH Pulse 67 11/14/2021 1:10 PM SUPERVISOR VARNISH Temperature 36.6 ??C (97.8 ??F) 11/14/2021 1:10 PM SUPERVISOR VARNISH Respiratory Rate 20 10/03/2021 10:02 AM SUPERVISOR VARNISH Oxygen Saturation 100% 11/18/2017 12:52 PM SUPERVISOR VARNISH Inhaled Oxygen Concentration - - Weight 114.8 kg (253 lb) 11/18/2017 12:52 PM SUPERVISOR VARNISH pt rep orted Height 173.4 cm (5' 8.25) 11/18/2017 12:52 PM SUPERVISOR VARNISH pt r eported Body Mass Index 38.19 11/18/2017 12:52 PM SUPERVISOR VARNISH Plan of Treatment Health Maintenance Due Date Last Done Comments ADVANCE CARE PLANNING 1950 ANNUAL REVIEW OF HM ORDERS 1950 CT COLONOGRAPHY 1950 FIT-DNA (Cologuard) 1950 FIT 1950 FLEX SIG 1950 HEPATITIS B IMMUNIZATION (1 1950 of 3 - 3-dose series) COVID-19 Vaccine (#1) 03/11/1951 COLONOSCOPY 1959 COLORECTAL CANCER SCREENING 1959 HEPATITIS C SCREENING 1967 LIPID 1984 LUNG CANCER SCREENING 1999 ZOSTER IMMUNIZATION (1 of 2) 1999 AORTIC ANEURYSM SCREENING 2014 (SYSTEM ASSIGNED) MEDICARE ANNUAL WELLNESS 2014 VISIT FALL RISK ASSESSMENT 11/13/2018 11/13/2017 PHQ-2 (once per calendar 11/24/2021 11/13/2017 year) DTAP/TDAP/TD IMMUNIZATION (2 04/06/2022 04/06/2012, - Td or Tdap) 01/22/2006 INFLUENZA VACCINE (#1) 2022 11/14/2020, 09/07/2017 Pneumococcal Vaccine: 65+ Completed 09/18/2021, Years 09/19/2020 IPV IMMUNIZATION Aged Out No longer eligi ble based on patient's age to complete this to pic MENINGITIS IMMUNIZATION Aged Out No longe r eligible based on patient's age to complete this to pic Insurance Payer Benefit Plan / Subscriber ID Effective Phone Address T ype Group Dates MEDICARE MEDICARE FOR HB [id number] 2015-Pres [phone] ATTN CLAIMS Medicare SUPPLEMENT ent [address] [place] [address] BCBS BCBS [place] [id number] 2016-Prese [phone] [address] [address] PPO BLUE nt [address] [place] [address] (Home) [address] [place] (Work) [address] Care Teams Railcar Mechanic Relationship Specialty Start Date End Date Trung Tucker PCP - General Family Practice 11/13/17 [facility] [address] [place] [address]
--- OUTSIDE RECORDS SUMMARY | 2022-10-16 10:57 | XMS_ITS | Encounter Summary ---
:1950 Author Organization [facility] Address [address] [place] [address] Care Team Providers Name Role Phone Whitney Gil MD Primary Care Provider Reason for Visit Reason Comments Knee Pain or Injury Encounter Details Date Type Department Care Team Description 03/30/2014 Surgical Consult [facility] Delfina Marques teoarthritis of knee (Primary Dx); [facility] MD Gina Knee pain, bilateral [address] [facility] [address] [place] [address] [phone] Social History Tobacco Use Types Packs/Day Years Used Date Smoking Tobacco: Never Assessed Sex Assigned at Date Recorded Not on file documented as of this encounter Last Filed Vital Signs Vital Sign Reading Time Taken Comments Blood Pressure - - Pulse - - Temperature - - Respiratory Rate - - Oxygen Saturation - - Inhaled Oxygen Concentration - - Weight 128.8 kg (284 lb) 03/30/2014 10:59 AM CDT Height 172.7 cm (5' 8) 03/30/2014 10:59 AM CDT Body Mass Index 43.18 03/30/2014 10:59 AM CDT documented in this encounter Patient Instructions Patient InstructionsSByron seth P - 03/30/2014 11:[address] Delfina Marques MD Sports Medicine & Pediatric Sports Medicine Mangle Feeder: Monica Rivers Please contact Pam for all administrative questions at [phone] Retail Administrative Assistant: Byron Koroma ATC Please contact Robbie for all medical questions at [phone] Medication Requests: Prescriptions are not filled on Weekends or on Weekdays after 3:00PM For all medication refills: Request a refill using [employer] or contact your Pharmacy Knee Osteoarthritis PT near home Consider Steroid injection Follow up as needed documented in this encounter Progress Notes Delfina Marques MD - 03/30/2014 1:44 PM CDT Progress Notes signed by Dlefina Marques MD at 04/01/14 1243 Author: Delfina Marques MD Service: (none) Author Type: Physician Filed: 04/01/14 124 Note Time: 03/31/14947 Status: Signed Foundry Process Engineer: Delfina Marques MD (Physician) NAME: KASEY CURRIE MR#: [id number] CSN: [id number] AUTHENTICATING CLINICIAN: Delfina Marques MD CONFIRM #: [id number] LOC: 711 CLINIC PROGRESS NOTE DATE OF VISIT: 03/30/2014 : 1950 CHIEF COMPLAINT: Bilateral knee pain. HPI: This 63-year-old male has had bilateral knee pain for many years. The right bothers him more than the left. He was initially told that he had arthritis and was told to take some ibuprofen and rest. About 4 years ago he went back and was told that he had a meniscal tear and had a meniscectomy. This wascomplicated by a DVT and pulmonary embolism. He recovered uneventfully and went to physical therapy for about 3-4 months. Unfortunately, the pain in his knees continued to get worse. He has tried viscosupplementation in the past which did not help, but he has never had steroid injections. He tried a medial chemical machine tender brace which he did not like it. He localizes pain diffusely in the knee and if he has to localize pain more discretely he points to the medial joint line. Getting in and out of the bath tub is very difficulty, bending down and flexing at the knee is hard. He feels like he has lost some range of motion in his right knee. He feels like they are swollen. He is trying to lose weight. REVIEW OF SYSTEMS: He also complains of heel pain and was diagnosed with Achilles tendinopathy and bone spurs. Completereview of systems is otherwise negative. ALLERGIES: None. MEDICATIONS: Aspirin, clonidine, furosemide, lisinopril, lisinopril/hydrochlorothiazide, piroxicam, tramadol. PREVIOUS SURGERIES: Knee arthroscopy and meniscectomy. CURRENT MEDICAL CONDITIONS: Hypertension. SOCIAL HISTORY: He lives with his . He is self-employed. He denies drug, tobacco, and alcohol use. Exercises daily and always wears his seat belt. FAMILY HISTORY: Noncontributory. EXAM: GENERAL: Alert, no apparent distress. MUSCULOSKELETAL: Knees: No obvious effusion, though difficult to tell due to body habitus. No tenderness to palpation. Range of motion +10 to 100 degrees flexion on the right, +5 to 125 degrees flexionon the left. Purnima negative. Adam negative. No pain or laxity with varus or valgus stress. Anterior and posterior drawer negative. Mild varus alignment. SKIN: No rash. NEURO: Distal neurovascular exam normal. RADIOLOGY: Bilateral knee series obtained today and independently reviewed by me reveals tricompartment degenerative changes with moderately severe narrowing of the medial joint spaces right greater than left. ASSESSMENT: Knee osteoarthritis. PLAN: 1. Discussed the diagnosis and all treatment options. 2. Recommended a referral to Physical Therapy and encouraged efforts at weight loss. 3. Offered steroid injection, but he would like to consider this. He is welcome to follow up at any time if he would like to proceed with this. 4. He has already tried viscosupplementation and a medial chemical machine tender knee brace which did not help. Ifnonoperative measures fail to improve symptoms he may wish to meet with a knee surgeon for consideration of knee replacement. However, at this time given his history of DVT and pulmonary embolism after his last knee surgery he would like to avoid any surgical intervention. HLB:MEDQ C: R:03/30/14 17:26 CONFIRM#:[id number] documented in this encounter Plan of Treatment Not on filedocumented as of this encounter Visit Diagnoses Diagnosis Osteoarthritis of knee - Primary Osteoarthrosis, unspecified whether gene ralized or localized, lower leg Knee pain, bilateral Pain in joint, lower leg documented in this encounter Care Teams Oil Field Worker Relationship Specialty Start Date End Date Whitney Gil MD PCP - General 12/06/[address] [place] [address] documented as of this encounter
--- OUTSIDE RECORDS SUMMARY | 2022-10-16 10:57 | XMS_ITS | Encounter Summary ---
:1950 Author [facility] Address [address], [place] [address] Care Team Providers Name Role Phone Whitney Gil MD Primary Care Provider Reason for Visit Reason Comments Symptoms Encounter Details Date Type Department Care Team Description 12/27/2011 Telephone [facility] No Pcp, No Pcp, Symptoms [address] [facility] [place] [address] [place] [address] Social History Tobacco Use Types Packs/Day Years Used Date Smoking Tobacco: Never Assessed Sex Assigned at Date Recorded Not on file documented as of this encounter Nursing Notes Mercedes Wood RN - 12/27/2011 5:33 PM CST Called pt. He has several issues. Has '......knee pain for 1 1/2 years from trom miniscus and arthritis. Also got blood clots and bonespurs.n Has appt for [facility] but wants to know if [facility] is the place he needs to go to. Was referred by Lora to [facility]. Wants nurse advice re this appt or what to do. Advised to keep appt with Dr Camp on Friday. NESS ECONOMIST Clau Cedillo - 12/27/2011 2:53 PM CST Non -Symptom Message from Front Line Primary Care Provider: Whitney Gil MD Message: Patient has knee pain for 1 1/2 years from trom miniscus and arthritis/ also got blood clots and bone spurs and now has appt for [facility] but wants to know if [facility] is the place he needs to go to. Was referred by Dr Gil to [facility]. Wants nurse advice re this appt or what to do. NESS ECONOMIST documented in this encounter Plan of Treatment Not on filedocumented as of this encounter Visit Diagnoses Not on filedocumented in this encounter Care Teams Analytics Leader Relationship Specialty Start Date End Date Whitney Gil MD PCP - General 12/[address] [place] [address] documented as of this encounter
--- OUTSIDE RECORDS SUMMARY | 2022-10-16 10:57 | XMS_ITS | Encounter Summary ---
:1950 Author Organization [place] Address [facility] 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 documented as of this encounter Plan of Treatment Not on filedocumented as of this encounter Visit Diagnoses Not on filedocumented in this encounter Care Teams Architectural Drafting Instructor Relationship Specialty Start Date End Date Trung Tucker PCP - General Family Practice 11/13/[address] [address] documented as of this encounter
--- OUTSIDE RECORDS SUMMARY | 2022-10-16 10:57 | XMS_ITS | Clinical Summary ---
:1950 Author Organization [facility] Address [address], [place] [address] Care Team Providers Name Role Phone Whitney Gil MD Primary Care Provider Source Comments You are receiving this document as you are listed as the primary care provider,follow-up provider, or the patient has been referred to you for consultation.This is in compliance with the Medicare and Medicaid EHR Incentive Program,which states Providers who transition their patient to another setting of careor provider of care or refers their patient to another provider of care shouldprovide summarycare record for each transition of care or referral. [employer] Allergies Active Allergy Reactions Severity Noted Date Comments Lisinopril 11/13/2017 Cough Medications Medication Sig Dispensed Refills Start Date End Date Status LISINOPRIL-HCTZ (AKA Take 1 tablet by 0 12/31/2011 Active PRINZIDE;ZESTORETIC) mouth daily (every 20-25 MG tablet 24 hours). traMADol (AKA ULTRAM) Take 50 mg by 0 12/31/2011 Active 50 MG tablet mouth every 6 hours as needed. aspirin EC 81 MG Take 81 mg by 0 12/31/2011 Active enteric coated tablet mouth daily (every 24 hours). furosemide (AKA LASIX) Take 20 mg by 0 12/31/2011 Active 20 MG tablet mouth daily (every 24 hours). cloNIDine (AKA Take 0.4 mg by 0 12/31/2011 Active CATAPRES) 0.2 MG mouth nightly. tablet LOSARTAN POTASSIUM OR 25 mg daily. 0 Active rivaroxaban (XARELTO) Take 20 mg by 0 11/13/2017 Active 20 MG tablet mouth. multivitamin with Take 1 Tablet by 0 11/13/2017 Active minerals (THERA M mouth. PLUS) tablet triamterene-hydrochlor Take 1-2 Capsules 0 7 Active othiazide (DYAZIDE) by mouth. 37.5-25 MG capsule Active Problems Problem Noted Date Osteoarthrosis involving lower leg 12/31/2011 Overview: Osteoarthrosis, unspecified whether gene ralized or localized, lower leg Achilles tendinitis 12/31/2011 Social History Tobacco Use Types Packs/Day Years [...] Mass Index 43.18 03/30/2014 10:59 AM CDT Plan of Treatment Health Maintenance Due Date Last Done Comments Colon Cancer Screening Plan 1950 Due Hep C Screening (Preventive 1950 Services) Medicare Annual Wellness 1950 Visit COVID-19 Vaccine (#1) 03/11/1951 Cholesterol 1984 Zoster/Shingles (1 of 2) 1999 Pneumococcal 65+ Yrs (2 - 09/19/2021 09/19/2020 PPSV23) DTaP/Tdap/Td (2 - Tdap) 04/06/2022 04/06/2012, 01/22/2006 Influenza (#1) 2022 11/14/2020, 09/07/2017 HepA Aged Out No longer eligib le based on patient's age to complete this to pic HepB Aged Out No longer eligib le based on patient's age to complete this to pic Hib Aged Out No longer eligib le based on patient's age to complete this to pic IPV (Polio) Aged Out No longer eligib le based on patient's age to complete this to pic MCV4 Aged Out No longer eligib le based on patient's age to complete this to [facility] Insurance Payer Benefit Plan / Subscriber ID Effective Dates Phone Addre ss Type Group MEDICARE MEDICARE [id number] 2014-[place] [phone] M don MANAGED CARE nt 64 BCBS BCBS [place] [id number] 2016-Da [phone] [address] [address] Medicare BLUE t 64 [place] [id number] Herson Forte Personal/Family Self 1950 [address] (Home) [place] [address] Care Teams Associate Programmer Relationship Specialty Start Date End Date Whitney Gil MD PCP - General 12/06/111999 [place] [address]
--- OUTSIDE RECORDS SUMMARY | 2022-10-16 10:57 | XMS_ITS | Encounter Summary ---
:1950 Author Organization [place] Address [facility] [place] [address] Care Team Providers Name Role Phone Trung Tucker Primary Care Provider Encounter Details Date Type Department Care Team Description 09/11/2021 Travel Social History Tobacco Use Types Packs/Day [...] on filedocumented in this encounter Care Teams Auto Garage Attendant Relationship Specialty Start Date End Date Trung Tucker PCP - General Family Practice 11/13/[address] [address] documented as of this encounter
--- OUTSIDE RECORDS SUMMARY | 2022-10-16 10:57 | XMS_ITS | Encounter Summary ---
:1950 Author Organization [place] Address [facility]0 [facility] [place] [address] Care Team Providers Name Role Phone Trung Tucker Primary Care Provider Reason for Visit Reason Onset Date Comments WOUND CARE 09/20/2021 Encounter Details Date Type Department Care Team Description 09/20/2021 Telephone [facility] Wound Tessa Garrett MD WOUND CARE Clinic [place] [address] [place] [address] [place] [address] [place] [phone] Social History Tobacco Use Types Packs/Day Years [...] Telephone Encounter - Araseli Saldana RN - 09/21/2021 10:45 AM CDT Returned call to pt. He reports he went to the ER on Friday for redness and weeping of his lower legs. He received antibiotics at that appointment. Discussed with pt vitamin recommendations. 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 Telephone Encounter - Karmen Gallegos - 09/20/2021 3:21 PM CDT Patient called back, still has questions and concerns on the condition of his legs. documented in this encounter Plan of Treatment Not on filedocumented as of this encounter Visit Diagnoses Not on filedocumented in this encounter Care Teams Transportation Worker Relationship Specialty Start Date End Date Trung Tucker PCP - General Family Practice 11/13/17 [facility] [address] [place] [id number] documented as of this encounter
--- OUTSIDE RECORDS SUMMARY | 2022-10-16 10:57 | XMS_ITS | Encounter Summary ---
:1950 Author Organization [place] Address [facility] [place] [place] [address] Care Team Providers Name Role Phone Trung Tucker Primary Care Provider Reason for Referral Diagnostic Imaging Ultrasound (Routine) - Closed Specialty Diagnoses / Procedures Referred By Contact Refer red To Contact Diagnoses Ulcer of lower limb, left, with unspecified severity (H) Chronic pulmonary embolism, unspecified pulmonary embolism type, unspecified whether acute cor pulmonale present (H) [facility] Procedures US Venous Competency Bilateral [address] [place] [address] Referral ID Status Reason Start Date Expiration Date Visits Requ ested Visits Authorized [id number] Closed 08/15/2021 08/15/2022 1 1 iagnostic Imaging Ultrasound (Routine) - Closed Specialty Diagnoses / Procedures Referred By Contact Refer red To Contact Diagnoses Ulcer of lower limb, left, with unspecified severity (H) Peripheral vascular disease, unspecified (H) [facility] Procedures US DION Doppler No Exercise 1-2 Levels Bilateral [address] [place] [address] Referral ID Status Reason Start Date Expiration Date Visits Requ ested Visits Authorized [id number] Closed 08/15/2021 08/15/2022 1 1 Encounter Details Date Type Department Care Team Description 08/13/2021 Telephone [facility] Wound Ceckendrai, Rocio Byrd, Clinic [place]y GRANGER [address] [facility] [address] [place] [address] [place] [address] [phone] (Wo rk) Social History Tobacco Use Types Packs/Day Years Used Date Smoking Tobacco: Former Cigars Smokeless Tobacco: Never Alcohol Use Standard Drinks/Week Comments No 0 (1 standard drink = 0.6 oz pure alcoho l) Sex Assigned at Date Recorded Not on file documented as of this encounter Miscellaneous Notes Telephone Encounter - Mercedes Ash LPN - 08/16/2021 2:51 PM CDT Scheduled with Dr. Garrett 09/11 would like to visit with Dr. Garrett before proceeding with any imaging. Telephone Encounter - Zach Beckman - 08/15/2021 10:15 AM CDT Patient following up on request for appt, referred by ortho provider. Please call: [phone] Telephone Encounter - Toby Aparicio RN - 08/13/2021 11:31 AM CDT Consult received via phone from ortho provider for ulcer of the leg. Per Standing order Patient qualifies for venous ultrasound and DION to be scheduled prior to assessment with Tami/Latisha/Zonia at [facility] [place] [facility]. Routing to legal billing coordinator Judith Rivers Or Karmen Kinsey. Telephone Encounter - Zach Beckman - 08/13/2021 10:42 AM CDT [facility] Wound Who is the name of the provider?: New What is the location you see this provider at?: [place] Reason for call: States he is being referred by ortho provider edema and leg wounds. Can we leave a detailed message on this number? YES documented in this encounter Plan of Treatment Scheduled Orders Name Type Priority Associated Diagnoses Order S chedule US DION Doppler No Imaging Routine Ulcer of lower limb, Ex pected: 08/27/2021 Exercise 1-2 Levels left, with unspecifie d (Approximate), Bilateral severity (H) Expires: 08/13/2022 Peripheral vascular disease, unspecified (H) US Venous Competency Imaging Routine Ulcer of lower limb, Expected: 08/27/2021 Bilateral left, with unspecified (Appr oximate), severity (H) Expires: 08/13/2022 Chronic pulmonary embolism, unspecified pulmonary embolism type, unspecified whether acute cor pulmonale present (H) documented as of this encounter Visit Diagnoses Diagnosis Ulcer of lower limb, left, with unspecif ied severity (H) - Primary Peripheral vascular disease, unspecified (H) Peripheral vascular disease, unspecified Chronic pulmonary embolism, unspecified pulmonary embolism type, unspecified whether acute cor pulmonale present (H) documented in this encounter Care Teams Transportation Dispatcher Relationship Specialty Start Date End Date Trung Tucker PCP - General Family Practice 11/13/[address] [address] documented as of this encounter
--- OUTSIDE RECORDS SUMMARY | 2022-10-16 10:57 | XMS_ITS | Encounter Summary ---
:1950 Author Organization [facility] Address [address] [place] [address] Care Team Providers Name Role Phone Whitney Gil MD Primary Care Provider Reason for Referral Procedure/Equipment (Routine) - Incomplete Specialty Diagnoses / Procedures Referred By Contact Refer red To Contact Diagnoses Pain of lower extremity, unspecified laterality Carlos Morataya MD Procedures VL US Lower Extremity Bilat Venous Reflux [address] [place], [place] [address] Referral ID Status Reason Start Date Expiration Date Visits V isits Requested Authorized [id number] Incomplete 08/10/2018 11/09/2019 1 1 Reason for Visit Procedure/Equipment (Routine) - Incomplete Specialty Diagnoses / Procedures Referred By Contact Refer red To Contact Diagnoses Pain of lower extremity, unspecified laterality Carlos Morataya MD Procedures VL US Lower Extremity Bilat Venous Reflux [address] [place], [place] [address] Referral ID Status Reason Start Date Expiration Date Visits V isits Requested Authorized [id number] Incomplete 08/10/2018 11/09/2019 1 1 Encounter Details Date Type Department Care Team Description 09/07/2018 Hospital Encounter [facility] Vascular Abdiel Morataya of lower Center Vascular Lab Carlos Parada MD extremity, [address] laterality [facility] [address] [phone] Social History Tobacco Use Types Packs/Day Years Used Date Smoking Tobacco: Former Smokeless Tobacco: Never Alcohol Use Standard Drinks/Week Comments No 0 (1 standard drink = 0.6 oz pure alcoho l) Sex Assigned at Date Recorded Not on file documented as of this encounter Medications at Time of Discharge Medication Sig Dispensed Refills Start Date End Date aspirin EC 81 MG enteric Take 81 mg by mouth 0 coated tablet daily (every 24 hours). cloNIDine (AKA CATAPRES) Take 0.4 mg by mouth 0 0 12/31/2011 0.2 MG tablet nightly. furosemide (AKA LASIX) 20 Take 20 mg by mouth 0 0 12/31/2011 MG tablet daily (every 24 hours). LISINOPRIL-HCTZ (AKA Take 1 tablet by 0 2 PRINZIDE;ZESTORETIC) 20-25 mouth daily (every 24 MG tablet hours). LOSARTAN POTASSIUM OR 25 mg daily. 0 multivitamin with minerals Take 1 Tablet by 0 (THERA M PLUS) tablet mouth. rivaroxaban (XARELTO) 20 Take 20 mg by mouth. 0 1 01/14/2017 MG tablet traMADol (AKA ULTRAM) 50 Take 50 mg by mouth 0 MG tablet every 6 hours as needed. triamterene-hydrochlorothi Take 1-2 Capsules by 0 11/13/2017 azide (DYAZIDE) 37.5-25 MG mouth. capsule documented as of this encounter Progress Notes Carlos Rebollar RN - 09/07/2018 1:48 PM CDT Results discussed with pt at appt on 09/07. Recommended follow-up as needed. documented in this encounter Plan of Treatment Not on filedocumented as of this encounter Procedures Procedure Name Priority Date/Time Associated Diagnosis Comme nts US LOWER Routine 09/07/2018 11:07 AM Pain of lower Results for this EXTREMITY BILAT CDT extremity, procedure ar e in VENOUS REFLUX unspecified the results laterality section. documented in this encounter Results US Lower Extremity Bilat Venous Reflux (09/07/2018 [...] great saphenous vein treatment at outside facility: 2018 A duplex ultrasound study using Doppler was [...] and free of thrombus. Carlos Morataya MD RAD VASCULAR US documented in this encounter Visit Diagnoses Diagnosis Pain of lower extremity, unspecified lat erality documented in this encounter Care Teams Equal Opportunity Assistant Relationship Specialty Start Date End Date Whitney Gil MD PCP - General 12/06/111999 [place] [address] documented as of this encounter
--- OUTSIDE RECORDS SUMMARY | 2022-10-16 10:57 | XMS_ITS | Encounter Summary ---
:1950 Author Organization [place] Address [facility] [place] [address] Care Team Providers Name Role Phone Trung Tucker Primary Care Provider Reason for Visit Reason Comments WOUND CARE Encounter Details Date Type Department Care Team Description 11/14/2021 Hospital Encounter [facility] Byron Garrett mphedema of both Wound Clinic [place] Zarate MD lower extremities [address] [place] [phone] Social History Tobacco Use Types Packs/Day Years Used Date Smoking Tobacco: Former Cigars Smokeless Tobacco: Never Alcohol Use Standard Drinks/Week Comments No 0 (1 standard drink = 0.6 oz pure alcoho l) Sex Assigned at Date Recorded Not on file COVID-19 Exposure Response Date Recorded In the last month, have you been in contact with No / Unsure 11/14/2021 12:56 PM BUSINESS BANKING SALES ASSISTANT someone who was confirmed or suspected to have Coronavirus / COVID-19? documented as of this encounter Last Filed Vital Signs Vital Sign Reading Time Taken Comments Blood Pressure 188/107 11/14/2021 1:10 PM BUSINESS BANKING SALES ASSISTANT Pulse 67 11/14/2021 1:10 PM BUSINESS BANKING SALES ASSISTANT Temperature 36.6 ??C (97.8 ??F) 11/14/2021 1:10 PM BUSINESS BANKING SALES ASSISTANT Respiratory Rate - - Oxygen Saturation - - Inhaled Oxygen Concentration - - Weight - - Height - - Body Mass Index - - documented in this encounter Discharge Instructions Discharge InstructionsApoorva Bush RN - 11/14/2021 1:30 PM CST Herson Ackerman Reanna 1950 Medications/supplements to aid in healing: Vitamin D3 10,000 iu per day Maritza C 1,000 mg take twice daily Vitamin B Complex with folic acid take 1 tablet daily Vitamin B 12 1000 mcg daily Vein Formula 1 tablet daily order from www.[employer] or call [phone] Wound care recommendations to right and left lower leg: Cleanse with mild unscented soap and water. Then apply Epiceram or CeraVe cream. Then apply compression wraps/socks. Compression: Follow Lymphedema Therapy guidelines Remove compression dressing if toes turn blue and/or start to feel numb and is not relieved by elevating the leg for one hour. Walk as much as you can. When you sit raise your ankle above your hips to promote wound healing. Karina Garrett M.D.. November 14, 2021 Call us at [phone] if you have any questions about your [...] on your patient satisfaction survey form that [facility] will be sending you. It was a [...] related questions please call the [facility] Business office at [phone]. The clinic staff does not handle billing related matters. NESS BANKING SALES ASSISTANT documented in this encounter Medications at Time [...] encounter Progress Notes Byron Garrett MD - 11/14/2021 1:14 PM CST Images from the original note were not included. [facility] [place] Progress Note Subject: Herson Forte has again been denied by [facility] for utilization of advanced proprietary lymphedema pump, we have completed paperwork, unclear why Fredo Mckeon will notapprove utilization of an advanced lymphedema pump given his severe bilateral chronic lymphorrhea, he has now been seen certified lymphedema therapist on a regular basis, utilizing micronized purified flavonoid fraction, participating in complete decongestive physiotherapy. I would request again the [facility] fascial coverings advanced lymphedema pump as needed as per protocol, standard of care and best medical management. He was measured for lymphedema pump at the original consultation on 2020 Patient Active Problem List Diagnosis ??? History [...] 201411/13/2017 ??? History of pulmonary embolism - 1999s 11/13/2017 ??? HTN, goal below 140/90 11/13/2017 ??? Renal cyst, right 13.8 CT 200911/13/2017 Exam: BP (!) 188/107 (BP Location: Left arm) Pulse 67 Temp 97.8 ??F (36.6 ??C) (Temporal) Chronic lymphedema right left lower extremities, resolution of urea, persist inflammatory changes though decreased, utilizing multilayer wraps per his certified lymphedema therapist management in addition to other standard of care maneuvers for complete decongestive physiotherapy. Impression: Chronic bilateral extremity lymphedema, history of lymphorrhea with ulcerations greater than 6 months in duration, chronic inflammatory changes Plan: Ceramide-based lotion to skin for management of dermal health chronic lymphedema and inflammatory changes, advanced proprietary lymphedema pump with receptive decompression for long-term management of bilateral extremity lymphedema with history of greater than 6 months of lymphorrhea and dermal u lcerations, lifelong utilization of micronized purified flavonoid fraction, continue to follow-up with certified lymphedema therapy at [facility], consult originally was from Dr. Rivera Patient will return to the clinic in 12 weeks time Further instructions from your care team Herson Forte 1950 Medications/supplements to aid in healin. Vitamin D3 10,000 iu per day 2. Maritza C 1,000 mg take twice daily 3. Vitamin B Complex with folic acid take 1 tablet daily 4. Vitamin B 12 1000 mcg daily 5. Vein Formula 1000mg capsule daily order from www.[employer] or call [phone] Medications/supplements to aid in healing: Vitamin D3 10,000 iu per day Maritza C 1,000 mg take twice daily Vitamin B Complex with folic acid take 1 tablet daily Vitamin B 12 1000 mcg daily Vein Formula 1 tablet daily order from www.[employer] or call [phone] Wound care recommendations to right and left [...] Call [facility] to schedule lymphedema therapy appointment: [phone] Karina Garrett M.D.. November 14, 2021 Call us at [phone] if you have any questions about your [...] on your patient satisfaction survey form that [facility] will be sending you. It was a [...] related questions please call the [facility] Business office at [phone]. The clinic staff does not handle billing related matters. Byron Garrett MD on 11/14/2021 at 1:14 PM Dictated using [email or web address] voice recognition software which may result in valve seater operator errors NESS BANKING SALES ASSISTANT documented in this encounter Plan of Treatment Not on filedocumented as of this encounter Visit Diagnoses Diagnosis Lymphedema of both lower extremities documented in this encounter Care Teams Check And Transfer Beader Relationship Specialty Start Date End Date Trung Tucker PCP - General Family Practice 11/13/[address] [address] documented as of this encounter
--- OUTSIDE RECORDS SUMMARY | 2022-10-16 10:57 | XMS_ITS | Encounter Summary ---
:1950 Author Organization [place] Address [facility] [place] [address] Care Team Providers Name Role Phone Trung Tucker Primary Care Provider Reason for Visit Reason Onset Date Comments WOUND CARE 09/17/2021 Encounter Details Date Type Department Care Team Description 09/17/[address] [facility] Wound Tessa Garrett MD WOUND CARE Clinic [place] [address] [place] [address] [place] [address] [place] [phone] Social History Tobacco Use Types Packs/Day Years [...] Telephone Encounter - Toby Aparicio RN - 09/17/2021 11:32 AM CDT Patient called back and reporting increase in redness, uncontrolled pain and a very hot leg. Patient encouraged to be seen at urgency room or ER for possible infection or DVT. Patient verbalizes understanding. Telephone Encounter - Viji Talbot - 09/17/2021 11:18 AM CDT Herson called because he said his leg has blown up, is red and very hot and wants a call back patrick. Try calling him first at [phone] and if no answer call [phone]. documented in this encounter Plan of Treatment Not on filedocumented as of this encounter Visit Diagnoses Not on filedocumented in this encounter Care Teams Associate Professor Of Forestry Relationship Specialty Start Date End Date Trung Tucker PCP - General Family Practice 11/13/17 [facility] [address] [place] [address] documented as of this encounter
--- OUTSIDE RECORDS SUMMARY | 2022-10-16 10:57 | XMS_ITS | Encounter Summary ---
:1950 Author Organization [place] Address [facility] [place] [address] Care Team Providers Name Role Phone Trung Tucker Primary Care Provider Encounter Details Date Type Department Care Team Description 09/13/2021 Telephone [facility] Byron Ruggiero MD Hospitalist Program [address] [facility] [address] [facility] [address] [place] [address] [place] [address] [phone] (Wo rk) Social History Tobacco Use Types Packs/Day Years Used Date Smoking Tobacco: Former Cigars Smokeless Tobacco: Never Alcohol Use Standard Drinks/Week Comments No 0 (1 standard drink = 0.6 oz pure alcoho l) Sex Assigned at Date Recorded Not on file COVID-19 Exposure Response Date Recorded In the last month, have you been in contact with No / Unsure 11/14/2021 12:56 PM CONSTRUCTION TECH someone who was confirmed or suspected to have Coronavirus / COVID-19? documented as of this encounter Miscellaneous Notes Telephone Encounter - Araseli Saldana RN - 09/19/2021 3:07 PM CDT Unable to find a home care agency for pt. Left voicemail for pt informing him of this. Telephone Encounter - Araseli Saldana RN - 09/13/2021 3:20 PM CDT Correct medicare number given to [facility]. They will review the information and get back with us. Telephone Encounter - Araseli Saldana RN - 09/13/2021 11:53 AM CDT Returned call to pt and received correct medicare number. Telephone Encounter - Mercedes Ash LPN - 09/13/2021 11:35 AM CDT Pt returned call. Please try to call again Telephone Encounter - Araseli Saldana RN - 09/13/2021 9:35 AM CDT Attempted to return call. Phone kept ringing with no way to leave message. Telephone Encounter - Zach Beckman - 09/13/2021 8:54 AM CDT [facility] Who is the name of the provider?: Tami What is the location you see this provider at?: [place] Reason for call: Received referral for home health: RN visits, PT and home health aide. Needs more info, frequency of each, PT details, etc. Can we leave a detailed message on this number? YES - will reroute to frontload driver, they will take a message documented in this encounter Plan of Treatment Not on filedocumented as of this encounter Visit Diagnoses Not on filedocumented in this encounter Care Teams Linecasting Machine Keyboard Operator Relationship Specialty Start Date End Date Trung Tucker PCP - General Family Practice 11/13/[address] [address] documented as of this encounter
--- OUTSIDE RECORDS SUMMARY | 2022-10-16 10:58 | XMS_ITS | Encounter Summary ---
:1950 Author Organization [place] Address [facility] [place] [address] Care Team Providers Name Role Phone Jeffery Whitney Primary Care Provider Encounter Details Date Type Department Care Team Description 12/10/2011 Office Visit Eye Clinic Marcia Norwood MD [facility] XXX RESIGNE D XXX Building [address] [facility] [address] 9th Floor, Clinic [address] [facility] [address] [place] [phone] Social History Tobacco Use Types Packs/Day Years Used Date Smoking Tobacco: Never Assessed Sex Assigned at Date Recorded Not on file documented as of this encounter Progress Notes Marcia Norwood MD - 12/28/2011 12:42 PM CHIEF ARCHITECT F ARCHITECT Marcia Norwood MD - 12/28/2011 12:42 PM CHIEF ARCHITECT F ARCHITECT Marcia Norwood MD - 12/28/2011 12:42 PM CHIEF ARCHITECT F ARCHITECT Marcia Norwood MD - 12/28/2011 12:42 PM CHIEF ARCHITECT F ARCHITECT documented in this encounter Plan of Treatment Not on filedocumented as of this encounter Visit Diagnoses Not on filedocumented in this encounter Care Teams Microsoft Systems Engineer Relationship Specialty Start Date End Date Whitney Gil PCP - General 11/06/11 11/12/17 [facility] [address] [place] [address] documented as of this encounter
--- OUTSIDE RECORDS SUMMARY | 2022-10-16 10:58 | XMS_ITS | Encounter Summary ---
:1950 Author Organization [place] Address [facility] [place] [address] Care Team Providers Name Role Phone Trung Tucker Primary Care Provider Riana Yates MD Unavailable [phone] Riana Yates MD Unavailable Reason for Visit Reason Comments Consult Venous insufficiency Encounter Details Date Type Department Care Team Description 11/18/2017 Office Visit [facility] Dennys Kulkarni (peripheral) Surgery Clinic MD Jase insufficiency (Primary [address] Dx) [address], [address] [place], [place] [address] [place] [address] (Wo rk) [address] [phone] Social History Tobacco Use Types Packs/Day Years Used Date Smoking Tobacco: Former Cigars Smokeless Tobacco: Never Tobacco Cessation: Counseling Given: Yes Alcohol Use Standard Drinks/Week Comments No 0 (1 standard drink = 0.6 oz pure alcoho l) Sex Assigned at Date Recorded Not on file documented as of this encounter Last Filed Vital Signs Vital Sign Reading Time Taken Comments Blood Pressure 138/78 11/18/2017 12:52 PM FILM SPLICER Pulse 59 11/18/2017 12:52 PM FILM SPLICER Temperature - - Respiratory Rate 16 11/18/2017 12:52 PM FILM SPLICER Oxygen Saturation 100% 11/18/2017 12:52 PM FILM SPLICER Inhaled Oxygen Concentration - - Weight 114.8 kg (253 lb) 11/18/2017 12:52 PM FILM SPLICER pt rep orted Height 173.4 cm (5' 8.25) 11/18/2017 12:52 PM FILM SPLICER pt r eported Body Mass Index 38.19 11/18/2017 12:52 PM FILM SPLICER documented in this encounter Progress Notes Dennys Kulkarni MD - 11/18/2017 2:16 PM CST REFERRING PROVIDER: Riana Yates M.D. Thank you for your very kind referral of Mr. Herson Currie. I saw him today at my [place] office of [facility]. You referred Mr. Currie to me because of bilateral complaints of lower extremity pain in association with known bilateral lower extremity edema, right greater than left. The patient has a history of recurrent venous thromboembolic events both provoked in association with Orthopedic Surgery. His first venous thromboembolic event was a calf vein DVT (per his admission, primary source records unavailable) provoked in association with Orthopedic Surgery in 2001. He stated tome that it embolized from its original location into the lungs and it was an occlusive right main pul monary artery PE and a branch pulmonary artery occlusive PE on the left. The patient took warfarin for 3 years. He then subsequently stopped warfarin at the direction of his physicians. In 2014, the patient had right knee arthroscopic surgery repeated and shortly thereafter developed a DVT. Again, I do not have the images available for review or the reports of the original records. However, the patient was placed on Xarelto at that time and has remained anticoagulated on Xarelto since 2014. He presented originally complaining of pain in his legs globally. The pain occurs both at rest and with activity. It is provoked shortly after increasing activity, although not significantly. He states that this causes him limited mobility and that he will not commonly ambulate greater than several 100 yards without stopping to rest. However, he does not have classical claudications symptoms of significant increase in pain in association with activity. He has had compressive hosiery that he has difficulty getting on due to the fact that he is obese. He has not used a donning device to assist him with this. He denies exertional chest pressure, but does not ambulate significantly. He states that he aches allover in his legs all the time. You had sent him to us to investigate the etiology of his leg aching and to ascertain whether or not there is a vascular treatment option available to him. He is faithfulin taking his Xarelto. However, he was unaware of the fact that he needs to take it with a large fatty meal. REVIEW OF SYSTEMS: Positive for bilateral leg aching as delineated above. Denies chest pain, shortness of breath, nausea, vomiting, diarrhea. Remainder of 14- point review of systems is within normal limits. PAST MEDICAL HISTORY: 1. Renal cysts 2009. 2. Hypertension. 3. History of pulmonary embolus 2001 with DVT 2001. 4. Deep venous thrombosis without pulmonary embolus 2014, both precipitated by knee arthroscopic surgery. PREVIOUS SURGICAL HISTORY: 1. Umbilical herniorrhaphy 2008. 2. Arthroscopic knee surgery 2001, 2014. FAMILY HISTORY: Notable for a brother and sister who both sustained multiple DVTs and are both taking Xarelto successfully. SOCIAL HISTORY: Notable for the fact that the patient has smoked cigars until approximately 2 weeks ago. His currently smokes. 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 MEDICATIONS: 1. Xarelto 20 mg daily. 2. Dyazide 37.5/25 mg 1-2 tabs p.o. daily. 3. Clonidine 0.4 mg p.o. b.i.d. 4. MVI 1 p.o. daily. 5. Bonanza 3 fatty acids 1 gram daily. He was prescribed Norvasc 2.5 mg daily, but is not taking that. ALLERGIES: Lisinopril and losartan, both cause a cough. PHYSICAL EXAMINATION: VITAL SIGNS: The patient has a blood pressure of 138/78, pulse 59, respiratory rate 16. Height is 5 feet 8.25 inches tall, weight is 253 pounds, body mass index is 38.19. HEENT: Oropharynx within normal limits. NECK: No JVD, thyromegaly, lymphadenopathy. LUNGS: Clear to auscultation bilaterally without rales, wheezes or rhonchi. HEART: Regular rate and rhythm, normal S1, S2, no S3, S4, murmur, gallop or rub. ABDOMEN: Normoactive bowel sounds, soft, nondistended, nontender, no pulsatile or palpable masses. EXTREMITIES: Without cyanosis or clubbing. He does, however, have C5 varicosities with evidence of lipodermatosclerosis on the right and a previously healed venous ulcer. His peripheral arterial examination reveals 3+ femoral pulse on the left, 2+ femoral pulse on the right, 2+ popliteal pulse on the r ight, 3+ popliteal pulse on the left, 3+ DP and 2+ PT pulses bilaterally. His Stemmer's sign is negative. IMPRESSION: 1. Bilateral lower extremity pain, likely multifactorial (venous, orthopedic). 2. Venous insufficiency with CEAP C5 varicosities. 3. 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 4. History of PE from initial DVT. DISCUSSION: Firstly, thank you so much for referring Mr. Currie for evaluation at [facility]. He is a very pleasant individual. He has evidence of significant venous insufficiency. Venous insufficiency is initially optimally treated with compressive hosiery in the absence of venous ulceration. I have prescribed Sigvaris compressive hosiery 20-30 mm compression with a Doff N Gio device both to the knee-high and the thigh-high location. I advised that the patient try wearing them at the knee-high location first and then if not satisfied with the improvement in his pain and lipodermatosclerosis, that he increase wearing them to the thigh-high position. If he is unable to achieve satisfactory results after 6 months or unable to wear the stockings despite a Doff N Gio device, we could then offer him surgical intervention if he would have anatomy which would be favorable to the above. Accordingly, he is to contact my office if he is unable to wear the stockings or if after 6 months of wearing them he is dissatisfied with his improvement. At that time, I will obtain bilateral venous competency studies on the patient. I will additionally make a venous vascular surgical referral if he hasanatomy which would be amenable to surgical correction. Next, by virtue of the fact that he has had a recurrent DVT when not anticoagulated, the patient should remain anticoagulated indefinitely. He does have multiple family members who have had multiple DVTs. He is, however, clinically responding well to Xarelto as tolerated for several years. As such, I do not feel that a thrombophilia evaluation is warranted as the results would not alter our management which would be to maintain anticoagulation ideally with Xarelto. He understands the above. He will contact me in 6 months if he is dissatisfied or if he has further questions at any time. Once again, thank you so much for referring this patient. Please do not hesitate to contact me if I may be of assistance regarding this or other patients moving forward into the future. Of note, greater than one-half of the 78 minutes total spent with the patient's visit were spent providing education and counseling to the patient regarding the above. DENNYS KULKARNI MD MT: [id number] Name: HERSON CURRIE Account: [id number] : 1950 Visit Date: 11/18/2017 Document: [id number] cc: Riana Yates MD SPLICER Dennys Kulkarni MD - 11/18/2017 1:00 PM CST See letter dictated to PCP for below information. Greater than one half the 78 minutes total spent on the pt's visit were spent providing education and counselling to the patient regarding the above matters. HPI ROS (Review of Systems): Cardiovascular: Positive for hypertension. Physical Exam SPLICER documented in this encounter Plan of Treatment Not on filedocumented as of this encounter Visit Diagnoses Diagnosis Venous (peripheral) insufficiency - Prim elvin Unspecified venous (peripheral) insuffic iency documented in this encounter Care Teams Coal Cutting Machine Operator Relationship Specialty Start Date End Date Trung Tucker PCP - General Family Practice 11/13/17 [facility] [address] [place] [address] Riana Yates PCP - Assigned PCP 10/23/17 01/26/19 MD [facility] [address] [place] [address] Riana Yates Assigned PCP 10/23/17 MD [facility]ana [address] [place] [address] documented as of this encounter
--- OUTSIDE RECORDS SUMMARY | 2022-10-16 10:58 | XMS_ITS | Encounter Summary ---
:1950 Author Organization [place] Address [facility] [place] [address] Care Team Providers Name Role Phone Whitney Gil Primary Care Provider Encounter Details Date Type Department Care Team Description 12/10/2011 Office Visit-[facility] DEPT Padmini Norwood MD XXX RESIGNED XXX [address] [facility] [address] [place] [address] (Wo rk) Social History Tobacco Use Types Packs/Day Years Used Date Smoking Tobacco: Never Assessed Sex Assigned at Date Recorded Not on file documented as of this encounter Progress Notes Marcia Norwood MD - 12/10/2011 1:00 PM CST Dice Manager: Marcia Norwood Status: Final - Signature Encounter: 2011-12-10 13:00:00.000 Type: EYE Letter December 15, 2011 RE: Herson Forte MR#: [id number] : 1950 Dear Doctor: Herson Forte presented in our clinic on December 10, 2011 for an evaluation for glaucoma. The patient is 61 years old and feels his vision is not very good, mostly in the morning. He saw aphysician in the community who felt that he may have glaucoma. He has no symptoms of halos and/or pain. 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 At less than 9 years of age he had a trauma with a detached retina. There is no family history of glaucoma. He is not using any current glaucoma medications. 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 PAST MEDICAL HISTORY: Significant for a history of migraine and/or Raynaud's. EXAMINATION: Visual acuity 20/20 in the right eye, 20/20 in the left eye. No afferent pupillary defect, full motility. SLIT LAMP EXAMINATION: Corneas are clear in both eyes. Anterior chamber deep and quiet. Irises normal. Lenses clear. Intraocular pressure 20 mm Hg in the right eye, 19 mm Hg in the left eye at 1:55 in the afternoon. Computer coronal tomography 573 microns in the right eye, 570 microns in the left eye (slightly thickened). GONIOSCOPY: Open angle in both eyes without any evidence of trauma and/or peripheral anterior synechia. VISUAL FIELD: The right eye shows no focal defect with good foveal threshold. Left eye similarly good foveal threshold and no focal defect. Normal visual castañeda. IMPRESSION: The patient is a low risk glaucoma suspect with some asymmetric optic nerve findings butwith otherwise healthy appearing optic nerves. Good neuroretinal rim. No family history. No history of elevated pressure. There is the history of trauma, however, at this time there is no history that this is a progressive finding. PLAN: I would repeat visual castañeda in six months, photographs in one year, and follow him every six months as a low risk glaucoma suspect. The plan is to refer him to the general clinic and/or his local gm mobile. Thank you so much in advance for help in his management and care. Sincerely, Marcia Norwood MD Professor of Ophthalmology Division of Glaucoma, [facility] Professor of Ophthalmology [facility] [place], [facility] AG:manuelito cc: Herson Forte [address] [place] [phone] Enclosure: Visual field, optic nerve photographs Job Number: [id number] Electronically signed by:Marcia Norwood M.D. Dec 27 2011 7:42AM SALES SPECIAL AGENT Author S SPECIAL AGENT documented in this encounter Plan of Treatment Not on filedocumented as of this encounter Visit Diagnoses Not on filedocumented in this encounter Care Teams Macadam Raker Relationship Specialty Start Date End Date Whitney Gil PCP - General 11/06/11 11/12/[address] [id number] documented as of this encounter
--- OUTSIDE RECORDS SUMMARY | 2022-10-16 10:58 | XMS_ITS | Encounter Summary ---
:1950 Author Organization [place] Address [facility] [place] [address] Care Team Providers Name Role Phone JefferyMendyWhitney Primary Care Provider Encounter Details Date Type Department Care Team Description 12/10/2011 Office Visit-[facility] DEPT Unknown, Provider Social History Tobacco Use Types Packs/Day Years Used Date Smoking Tobacco: Never Assessed Sex Assigned at Date Recorded Not on file documented as of this encounter Progress Notes Unknown, Provider - 12/10/2011 1:00 PM CST Last Picker: Gwendolyn Monson Status: Final Encounter: 2011-12-10 13:00:00.000 Type: Rooming Note Reason For Visit KASEY FORTE is a 61 year old male being seen in clinic for eval for glaucoma Do you have any other appointments, tests or procedures within the [place] system for this same day? No. Pain Eval Current history of pain associated with this visit is denied. Personal Hx Behavioral history: No tobacco use. Home environment: Secondhand tobacco smoke in home. Current Meds Med list offered and patient declined. Lisinopril-HCTZ 25-20 MG TABS;TAKE 1 TABLET DAILY.; RPT Lisinopril 20 MG Tablet;TAKE 1 TABLET DAILY.; RPT Atenolol TABS;TAKE 1 TABLET TWICE DAILY NEEDED.; RPT CloNIDine HCl 0.2 MG Tablet;TAKE 2 TABLETS AT BEDTIME.; RPT Aspirin 81 MG Tablet;TAKE 1 TABLET DAILY.; RPT Centrum Tablet;TAKE 1 TABLET DAILY.; RPT AAA-MED RECONCILE;; RPT. Signature Signed By: Gwendolyn Monson COA; 12/10/2011 1:27 PM PC TECH. documented in this encounter Plan of Treatment Not on filedocumented as of this encounter Visit Diagnoses Not on filedocumented in this encounter Care Teams Talent Acquisition Assistant Relationship Specialty Start Date End Date Whitney Gil PCP - General 11/06/11 11/12/17 [facility] [address] [place] [address] documented as of this encounter
--- OUTSIDE RECORDS SUMMARY | 2022-10-16 10:58 | XMS_ITS | Encounter Summary ---
:1950 Author Organization [place] Address [address] [facility] [place] [address] Care Team Providers Name Role Phone JeredmarianoryleyTrung Primary Care Provider Riana Yates MD Unavailable [phone] Reason for Visit Reason Onset Date Comments referral inquiry 06/30/2019 Encounter Details Date Type Department Care Team Description 06/30/2019 Telephone [facility] Rosa Wu, library paraprofessional inquiry Clinic [address] [place] [address] Social History Tobacco Use Types Packs/Day Years Used Date Smoking Tobacco: Former Cigars Smokeless Tobacco: Never Alcohol Use Standard Drinks/Week Comments No 0 (1 standard drink = 0.6 oz pure alcoho l) Sex Assigned at Date Recorded Not on file documented as of this encounter Miscellaneous Notes Telephone Encounter - Rosa Wu, RN - 06/30/2019 11:33 AM CDT Patient called stating his brother is seen here and has been referred by him. Patient is looking to establish care here. Patient states he has had multiple cardioversions and has seen a few providers in different locations such as [place] and [facility] but is not confident in the continuity. Patient states he feels crappy the last few months with complaints of leg pain, dyspnea with stairs but not at rest, fatigue. Patient states he feels fair today but yesterday was not a good day. Advised he go to [facility] ED for evaluation. Advised he also follow up with his PCP for his multiple issues. Patient verbalized he may go to the ED to be checked out. Was very appreciative of assistance. documented in this encounter Plan of Treatment Not on filedocumented as of this encounter Visit Diagnoses Not on filedocumented in this encounter Care Teams Supervisor Crack Off Relationship Specialty Start Date End Date Trung Tucker PCP - General Family Practice 11/13/[address] [address] Riana Yates MD Assigned PCP 10/23/17 11/18/20 [place] [address] documented as of this encounter
--- OUTSIDE RECORDS SUMMARY | 2022-10-16 10:58 | XMS_ITS | Encounter Summary ---
:1950 Author Organization [place] Address [facility] [place] [address] Care Team Providers Name Role Phone Trung Tucker Primary Care Provider Raina Yates MD Unavailable [phone] Riana Yates MD Unavailable Reason for Visit Reason Onset Date Comments Referral 11/14/2017 Encounter Details Date Type Department Care Team Description 11/14/2017 Telephone [facility] Nataliia Ponce concrete [facility] [address] [address] Social History Tobacco Use Types Packs/Day Years Used Date Smoking Tobacco: Some Days Cigars Smokeless Tobacco: Never Alcohol Use Standard Drinks/Week Comments No 0 (1 standard drink = 0.6 oz pure alcoho l) Sex Assigned at Date Recorded Not on file documented as of this encounter Miscellaneous Notes Telephone Encounter - Mary Sales RN - 11/14/2017 10:47 AM CST Pt called back and scheduled a consult appt for next Friday at 1:00pm with Dr. Ahumada at the [facility]. Gave pt the clinic location information. Pt was in agreement with appt and had no further questions. Working on getting pt's [facility] records scanned into [facility] ENSATION CONSULTING MANAGER Telephone Encounter - Mary Sales RN - 11/14/2017 10:27 AM CST Called and spoke to pt. Pt prefers to go to [place] but Tuesdays are not the best day for him so pt stated that he will give us a call back at his earliest convenience when he can figure out a day to schedule. ENSATION CONSULTING MANAGER Telephone Encounter - eLty Ponce RN - 11/14/2017 9:11 AM CST Pt referred to [facility] by for venous insufficiency. Pt needs to be scheduled for a consult with vascular medicine. Will route to scheduling to coordinate an appointment next available. Lety Ponce JET AIRCRAFT SERVICER ENSATION CONSULTING MANAGER documented in this encounter Plan of Treatment Not on filedocumented as of this encounter Visit Diagnoses Not on filedocumented in this encounter Care Teams Insurance Sales Assistant Relationship Specialty Start Date End Date Trung Tucker PCP - General Family Practice 11/13/[address] [address] Riana Yates PCP - Assigned PCP 10/23/17 01/26/19 MD [facility] [address] [place] [address] Riana Yates Assigned PCP 10/23/17 MD Ivana [address] [place] [address] documented as of this encounter
--- OUTSIDE RECORDS SUMMARY | 2022-10-16 10:58 | XMS_ITS | Encounter Summary ---
:1950 Author Organization [place] Address [facility] [address] Care Team Providers Name Role Phone Trung Tucker Primary Care Provider Riana Yates MD Unavailable [phone] Riana Yates MD Unavailable [phone] Reason for Referral Consultation - Closed Specialty Diagnoses / Procedures Referred By Contact Refer red To Contact Diagnoses Venous insufficiency Riana Yates [facility] MD YAS Heath [address] [place] [address] [place] [address] Referral ID Status Reason Start Date Expiration Date Visits Requ ested Visits Authorized [id number] Closed 11/13/2017 11/13/2018 1 1 ehab Therapy Integrated Services - Closed Specialty Diagnoses / Procedures Referred By Contact Refer red To Contact Diagnoses Bilateral leg edema [facility] [address] [place], [place] [address] Phone: Fax: Referral ID Status Reason Start Date Expiration Date Visits V isits Requested Authorized [facility]/OT/PHOTOGRAPH MOUNTER Closed 11/14/2017 11/23/2017 365 [id number] ([id number]) E STOCK HELP Reason for Visit Reason Comments Establish Care Encounter Details Date Type Department Care Team Description 11/13/2017 Office Visit [facility], HTN, go al below 140/90 (Primary Dx); [facility] [place] Riana Heath MD Bilateral leg edema; [address] Venous insufficiency; [place], [place] Renal cyst, right 13.8 CT 20 10; [place] [address] Liver cyst; [address] History of pulmonary embolism - 1999s; [phone] History o f blood clots ( PE in 2001, DVT 2014) on Xarelto since 2014 Social History Tobacco Use Types Packs/Day Years Used Date Smoking Tobacco: Some Days Cigars Smokeless Tobacco: Never Alcohol Use Standard Drinks/Week Comments No 0 (1 standard drink = 0.6 oz pure alcoho l) Sex Assigned at Date Recorded Not on file documented as of this encounter Last Filed Vital Signs Vital Sign Reading Time Taken Comments Blood Pressure 142/78 11/13/2017 3:49 PM STORE STOCK HELP Pulse 63 11/13/2017 3:49 PM STORE STOCK HELP Temperature 37.2 ??C (99 ??F) 11/13/2017 3:49 PM STORE STOCK HELP Respiratory Rate - - Oxygen Saturation 95% 11/13/2017 3:49 PM STORE STOCK HELP Inhaled Oxygen Concentration - - Weight 115 kg (253 lb 8 oz) 11/13/2017 3:49 PM STORE ST[facility] HELP Height 173.4 cm (5' 8.25) 11/13/2017 3:49 PM STORE STOCK HELP Body Mass Index 38.26 11/13/2017 3:49 PM STORE STOCK HELP documented in this encounter Patient Instructions Patient InstructionsRiana Yates MD - 11/13/2017 3:20 PM STORE STOCK HELP Plan: 1. Compression socks, keeps legs elevated when at rest 2. Vascular clinic referral -- vascular [facility] Services 3. Lymphedema clinic referral - please call [phone] 4. Add Amlodipine 2.5 mg daily - for the blood pressure 5. Continue the other meds, same doses for now. 6. Please make a lab appointment for fasting labs In a month 7. Please make an appointment few days after the labs to discuss about the results. E STOCK HELP documented in this encounter Progress Notes Riana Yates MD - 11/13/2017 3:20 PM CST Patient's instructions / PLAN: Plan: 1. Compression socks, keeps legs elevated when at rest 2. Vascular clinic referral -- vascular Child Nurse Services 3. Lymphedema clinic referral - please call [phone] 4. Add Amlodipine 2.5 mg daily - for the blood pressure 5. Continue the other meds, same doses for now. 6. Please make a lab appointment for fasting labs In a month 7. Please make an appointment few days after the labs to discuss about the results. ASSESSMENT & PLAN: (I10) HTN, goal below 140/90 (primary encounter diagnosis) Comment: Not controlled Plan: amLODIPine (NORVASC) 2.5 MG tablet, CBC with platelets, Comprehensive metabolic panel, Lipid panel reflex to direct LDL Fasting, TSH with free T4 reflex, Albumin Random Urine Quantitative with Creat Ratio (R60.0) Bilateral leg edema Comment: Plan: LYMPHEDEMA THERAPY REFERRAL, CBC with platelets, Comprehensive metabolic panel, Lipid panel reflex to direct LDL Fasting, TSH with free T4 reflex, Albumin Random Urine Quantitative with Creat Ratio (I87.2) Venous insufficiency Comment: Plan: VASCULAR SURGERY REFERRAL (N28.1) Renal cyst, right 13.8 CT 2009 (K76.89) Liver cyst Comment: No symptoms Plan: f/u (Z86.711) History of pulmonary embolism - (Z86.718) History of blood clots ( PE in 2001, DVT 2014) on Xarelto since 2014 Comment: Plan: Continue Xarelto Chief Complaint: Follow up chronic medical problems SUBJECTIVE: History of present illness History of PE ( 2001 aprox) on Coumadin for 1.5 y. Then R leg DVT 2014, on Xarelto since then. HTN. Developed hernia from coughing while on Losartan and Lisinopril. On CLonidine for 10 y. Takes Dyazide also Dec 2016 admitted with flutter started on metoprolol. Not on it now. He doesn't remember why Chr vv insuf, chr stasis dermatitis R leg bigger ( hx of DVT) Has compression socks. Redness on the ant shins, but not cellulitis ( no warm no tender) ROS: ROS: negative for fever, chills, cough, wheezes, chest pain, shortness of breath, vomiting, abdominal pain, positive for chronic leg swelling A 10-point review of systems was obtained.?? Those pertinent are above and in the in the Subjective section.?? The rest of the systems are negative. ?? OBJECTIVE: Physical Exam : Blood pressure 160/90, pulse 63, temperature 99 ??F (37.2 ??C), temperature source Oral, height 5' 8.25 (1.734 m), weight 253 lb 8 oz (115 kg), SpO2 95 %. NAD, appears comfortable Skin: no rashes HEENT: PERRLA, EOMI, pink conjunctiva, anicteric sclerae, bilateral tympanic membranes are clinically normal, oropharynx is normal color Neck: supple, no JVD, n No thyroidmegaly. Lymph nodes nonpalpable cervical and supraclavicular. Chest: clear to auscultation bilaterally, good respiratory effort Heart: S1 S2, RRR, no mgr appreciated Abdomen: soft, not tender, no hepatosplenomegaly or masses appreciated, no abdominal bruit, present bowel sounds Extremities: + 1 edema, Chr vv insuf, chr stasis dermatitis R leg bigger Neurologic: A, Ox3, no focal signs appreciated Past Medical History: Diagnosis Date ??? History of blood clots ( PE in 2001, DVT 2014) on Xarelto since 201411/13/2017 ??? History of pulmonary embolism - 1999s 11/13/2017 ??? HTN, goal below 140/90 11/13/2017 ??? Renal cyst, right 13.8 CT 200911/13/2017 PSHx: reviewed History reviewed. No pertinent surgical history. / Current Outpatient Prescriptions Medication Sig Dispense Refill ??? rivaroxaban ANTICOAGULANT (XARELTO) 20 MG TABS tablet Take 1 tablet (20 mg) by mouth daily (withdinner) ??? triamterene-hydrochlorothiazide (DYAZIDE) 37.5-25 MG per capsule Take 1-2 capsules by mouth daily 90 capsule 3 ??? aspirin 81 MG tablet Take by mouth daily 30 tablet ??? cloNIDine (CATAPRES) 0.2 MG tablet Take 2 tablets (0.4 mg) by mouth 2 times daily 180 tablet 3 ??? multivitamin, therapeutic with minerals (MULTI-VITAMIN) TABS tablet Take 1 tablet by mouth tablet 3 ??? omega 3 1000 MG CAPS Take 1 g by mouth daily 90 capsule ??? amLODIPine (NORVASC) 2.5 MG tablet Take 1 tablet (2.5 mg) by mouth daily (Patient not taking: Reported on 11/18/2017) 30 tablet 1 Soc Hx: reviewed Fam Hx: reviewed Riana Antunez MD Internal Medicine E STOCK HELP documented in this encounter Nursing Notes Hedy Lawrence CMA - 11/13/2017 3:20 PM CST Chief Complaint Patient presents with ??? Establish Care Initial BP 160/90 (BP Location: Right arm, Patient Position: Chair, Cuff Size: Adult Large) Pulse 63 Temp 99 ??F (37.2 ??C) (Oral) Ht 5' 8.25 (1.734 m) Wt 253 lb 8 oz (115 kg) SpO2 95% BMI38.26 kg/m2 Estimated body mass index is 38.26 kg/(m^2) as calculated from the following: Height as of this encounter: 5' 8.25 (1.734 m). Weight as of this encounter: 253 lb 8 oz (115 kg). Medication Reconciliation: complete Hedy Lawrence CMA E STOCK HELP documented in this encounter Plan of Treatment Scheduled Referrals Name Type Priority Associated Diagnoses Order S chedule LYMPHEDEMA THERAPY Referral Routine Bilateral leg edema Or dered: 11/13/2017 REFERRAL VASCULAR SURGERY REFERRAL Referral Routine Venous insuffic iency Ordered: 11/13/2017 documented as of this encounter Visit Diagnoses Diagnosis HTN, goal below 140/90 - Primary Unspecified essential hypertension Bilateral leg edema Edema Venous insufficiency Unspecified venous (peripheral) insuffic iency Renal cyst, right 13.8 CT 2009 Unspecified congenital cystic kidney dis ease Liver cyst Other specified disorders of liver History of pulmonary embolism - Personal history of pulmonary embolism History of blood clots ( PE in 2001, DVT 2014) on Xarelto since 2014 Personal history of venous thrombosis an d embolism documented in this encounter Care Teams Hospital Technician Relationship Specialty Start Date End Date Caitlin Trung PCP - General Family Practice 11/13/[address] [address] Riana Yates PCP - Assigned PCP 10/23/17 01/26/19 MD Ivana [address] [place] [address] Riana Yates Assigned PCP 10/23/17 MD Ivana [address] [place] [address] documented as of this encounter
[2022-10-16 13:57] LABS: Albumin* 3.9 g/dL (3.3-5.0); Chloride* 106 mmol/L (96-114)
[2022-10-16 13:58] LABS: Potassium* 4.4 mmol/L (3.6-5.1); Sodium* 142 mmol/L (135-149)
[2022-10-16 14:00] LABS: Carbon Dioxide* 29 mmol/L (20-32); Cholesterol* 141 mg/dL (90-199); Creatinine* 1.3 mg/dL (0.5-1.5); Estimated Glomerular Filt Rate 58 ml/min
[2022-10-16 14:01] LABS: Alanine Aminotransferase* 36 U/L (4-50); Alkaline Phosphatase* 120 U/L (40-150); Aspartate Amino Transferase* 31 U/L (12-35); Bilirubin Total* 0.7 mg/dL (0.1-1.5); Blood Urea Nitrogen* 28 mg/dL (7-30); Calcium* 9.1 mg/dL (8.4-10.6); Glucose* 151 mg/dL (60-115); HDL Cholesterol* 30 mg/dL (>=40); LDL Cholesterol Calculated 46 mg/dL (<100); Total Protein* 6.8 g/dL (6.0-8.3); Triglycerides* 325 mg/dL (40-149)
[2022-10-16 22:00] LABS: PSA Screen* 2.39 ng/mL (0.10-4.00)
== END 2022-10-16 10:53 | disposition home or self-care (01) ==
LOC: NFLDREF 10:52
PROVIDERS: PCP Family Medicine; Visit Provider Family Medicine
DX: E78.5 Hyperlipidemia, unspecified (principal); N40.0 Benign prostatic hyperplasia without lower urinary tract symptoms; Z12.5 Encounter for screening for malignant neoplasm of prostate
CPT/HCPCS: 80053; 80061; 84153

== ENCOUNTER 2023-02-05 14:05 | Outpatient (CLI) | payer MEDICARE, BC, SELFPAY ==
--- OUTSIDE RECORDS SUMMARY | 2023-02-07 12:54 | XMS_ITS | Continuity of Care Document ---
:1950 Author Organization [facility] Address [address] [facility] [place] [address] Phone Care Team Providers Name Role Phone Will Jase HAWK Unavailable Unavailable Medications Medication Instructions Dosage Effective Dates Status Comment s (start - stop) Eliquis 2.5 mg tablet take 1 tablet by oral 2.5 MG - Act chu route 2 times every day Procedures Procedure Date OFFICE/OUTPATIENT VISIT, NEW Advance Directives Directive Yes / No Effective Date File Name No Information Encounters Encounter Practice Location Reason(s) Diagnoses Date Provider Provide rs Description For Visit Copied on Encounter [facility] No Information [facility] Jase. [facility] [place] [address] [facility], [place], [address] [facility], [place], [place], [place], [place], [id number], , [place]. [place] tel:+ tel:[phone] [facility] Myalgia, other [facility] site Ed. [facility] [place] [address] [facility] [address] [facility] [address] [place], [address], [place], [place], [place] [id number], [place], [place], [place] [id number] tel:+ , [place]. [id number] tel:+ [phone] OFFICE/OUTPAT [facility] Widespread Chronic pain [facility] pain (chief syndromePain Ed. Provider: NEW [facility] [place] complaint) in right 1 [address] [facility], [facility], [address] [place], in right [address], [place], [place], [place], shoulder [place] [id number], [place], [place], [place], [place], [place] [id number] tel: , . . [id number] tel: tel: [phone] Family History Family Member Type Diagnosis Age At Onset No Information Payers Payer name Insurance type Covered libertarian ID Authorization(s ) Medicare [id number] Social History Type Description Quantity Date Captured Comments Sex Male Smoking Status No Information Chief Complaint And Reason For Visit No Information Reason For Referral Reason For Referral No Information Plan Of Treatment Date Type Action Status No Information History Of Present Illness Encounter Date Complaint History Of Present I llness Widespread pain Duration: chronic. L ocation of the pain is knee and shoulder. T he patient describes it as sharp, achy and b urning. It occurs persistently. The pr oblem is stable. Symptom is aggravate d by bending, walking upstairs, walking do wnstairs, sitting and standing. Relieving factors include rest, heat and cold. Perti nent negatives include diarrhea, dyspnea, f ever and incontinence (urinary). Widespread pain (comments) Herson is a 70 y/o male here for with chronic widespread p ain most bothersome in his R shoulder and B L knees. Pain has been going on for over 20 years. He had a history of R meniscu s repair surgery about 15 years ago. He was told he is not a surgical candidate f or knee replacement by [facility] recently. However, he is constantly in ross n and it interferes with completing his ADLs and taking care of his who recentl y had surgery. Reports an increase in falls lately. [facility] to ambulate around his house and by [facility] time he is able to walk without a devic e. 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 He will be trialling an injecti on later today at [facility]. Imaging was last com pleted at [facility].He is curre ntly manged gabapentin 300mg four times a d ay and occasional percocet 5/325mg. He trialled CBD pills which provided no re lief.He is interested in pain management o ptions. Functional Status Date Functional Assessment No Information Instructions Date Instruction Additional Informati on No Information Assessments Type Assessment Date No Information Patient Care Teams Name Effective Dates (start - stop) Status M silvano No Information
== END 2023-02-05 14:06 | disposition home or self-care (01) ==
LOC: NFLDREF 02-07 12:52
PROVIDERS: PCP Family Medicine; Referring Provider Family Medicine; Visit Provider Internal Medicine Nephrology
DX: D64.9 Anemia, unspecified (principal); E78.5 Hyperlipidemia, unspecified; G57.90 Unspecified mononeuropathy of unspecified lower limb; I10 Essential (primary) hypertension; N18.9 Chronic kidney disease, unspecified; I42.9 Cardiomyopathy, unspecified; I50.9 Heart failure, unspecified; E11.9 Type 2 diabetes mellitus without complications
CPT/HCPCS: 80061; 80069; 82043; 82310; 82570; 82728; 83540; 83550; 83970; 84450; 84460; 84550; 86140

== ENCOUNTER 2023-03-06 07:52 | Outpatient (CLI) | payer MEDICARE, BC, SELFPAY ==
--- OUTSIDE RECORDS SUMMARY | 2023-03-06 07:55 | XMS_ITS | Continuity of Care Document ---
Author Name Unknown Organization [facility] Address [address] [place] [address] [place] [address] Phone Care Team Providers Care Retail Leasing Agent Name Role Phone Will MD BONE, Jase Unavailable Unavailabl e Medications Medication Instructions Dosage Effective Dates (start - stop) Status Comments Eliquis 2.5 mg tablet take 1 tablet by o ral route 2 times every day 2.5 MG - Active Procedures Procedure Date OFFICE/OUTPATIENT VISIT, [facility] Advance Directives Directive Yes / No Effective Date File Name No Information Encounters Encounter Description Practice Location Reason(s) For Visit Diagnoses Date Provider Providers Copied on Encounter [facility], [address] [place] [address], [id number], [place] tel:[phone] [facility] No Information b- 2 Will Jase. [address] [facility], [place], [id number] , [place]. [phone] [facility], [address] [place] [address], [id number], [place] tel:[phone] [facility] Myalgia, other site [address] [facility] [facility] [address], [place], [id number] , [place]. tel:[phone] OFFICE/OUTPAT IENT VISIT, [facility] Pain [facility], [address] [place] [address] [place], [id number], [place] tel:[phone] [facility] Widespread pain (chief complaint) Chronic pain syndromePain in right kneePain in left kneePain in right shoulder [address] [facility] [address], [place], [id number] , [place]. tel:[phone] Referring Provider: Jase Ackerman, [address] [facility] [place], [address] . tel:[phone] Family History Family Member Type Diagnosis Age At Onset No Information Payers Payer name Insurance type Covered constitution party ID Authoriza tion(s) Medicare [id number] Social History Type Description Quantity Date Captured Comments Sex Male Smoking Status No Information Chief Complaint And Reason For Visit No Information Reason For Referral Reason For Referral No Information Plan Of Treatment Date Type Action Status No Information History Of Present Illness Encounter Date Complaint History Of Prese nt Illness Widespread pain (comments) Herson is a 70 y/o male here for with chronic widespread pain most bothersome in his R shoulder and BL knees. Pain has been going on for over 20 years. He had a history of R meniscus repair surgery about 15 years ago. He was told he is not a surgical candidate for knee replacement by [facility] recently. However, he is constantly in pain and it interferes with completing his ADLs and taking care of his who recently had surgery. Reports an increase in falls lately. He will use a walker in the morning to ambulate around his house and by lunch time he is able to walk without a device. 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 He will be trialling an injection later today at [facility]. Imaging was last completed at [facility].He is currently manged gabapentin 300mg four times a day and occasional percocet 5/325mg. He trialled CBD pills which provided no relief.He is interested in pain management options. Widespread pain Duration: chroni c. Location of the pain is knee and shoulder. The patient describes it as sharp, achy and burning. It occurs persistently. The problem is stable. Symptom is aggravated by bending, walking upstairs, walking downstairs, sitting and standing. Relieving factors include rest, heat and cold. Pertinent negatives include diarrhea, dyspnea, fever and incontinence (urinary). Functional Status Date Functional Assessmen t No Information Instructions Date Instruction Additional Infor mation No Information Assessments Type Assessment Date No Information Patient Care Teams Name Effective Dates (start - stop) Status Members No Information
== END 2023-03-06 07:53 | disposition home or self-care (01) ==
PROVIDERS: PCP Family Medicine; Visit Provider Nurse Practitioner Family
DX: I87.313 Chronic venous hypertension (idiopathic) with ulcer of bilateral lower extremity (principal); E11.622 Type 2 diabetes mellitus with other skin ulcer; L97.812 Non-pressure chronic ulcer of other part of right lower leg with fat layer exposed; L97.822 Non-pressure chronic ulcer of other part of left lower leg with fat layer exposed; Z79.84 Long term (current) use of oral hypoglycemic drugs
CPT/HCPCS: 97602; 99213

== ENCOUNTER 2023-03-11 10:52 | Outpatient (CLI) | payer MEDICARE, BC, SELFPAY ==
--- OUTSIDE RECORDS SUMMARY | 2023-03-11 10:54 | XMS_ITS | Continuity of Care Document ---
Author Name Unknown Organization [facility] Address [address] [place] [address] [place] [address] Phone Care Team Providers Care Newspaper Or Periodical Editor Name Role Phone Will MD BONE, Jase Unavailable Unavailabl e Medications Medication Instructions Dosage Effective Dates (start - stop) Status Comments Eliquis 2.5 mg tablet take 1 tablet by o ral route 2 times every day 2.5 MG - Active Procedures Procedure Date OFFICE/OUTPATIENT VISIT, [facility] Advance Directives Directive Yes / No Effective Date File Name No Information Encounters Encounter Description Practice Location Reason(s) For Visit Diagnoses Date Provider Providers Copied on Encounter [facility], [address] [place] [address], [id number], [place] tel:[phone] [facility] No Information b- 2 Will Jase. [address] [facility] [place], [place], [id number] , [place]. [phone] [facility], [address] [place] [address], [id number], [place] tel:[phone] [facility] Myalgia, other site [address] [facility] [facility] [address], [place], [id number] , [place]. tel:[phone] OFFICE/OUTPAT IENT VISIT, [facility], [address] [place] [address] [place], [id number], [place] tel:[phone] [facility] Widespread pain (chief complaint) Chronic pain syndromePain in right kneePain in left kneePain in right shoulder [address] [facility] [address], [place], [id number] , [place]. tel:[phone] Referring Provider: Jase Ackerman, [address] [facility] [place], [id number] . tel:[phone] Family History Family Member Type Diagnosis Age At Onset No Information Payers Payer name Insurance type Covered libertarian ID Authoriza tipema(s) Medicare [id number] Social History Type Description Quantity Date Captured Comments Sex Male Smoking Status No Information Chief Complaint And Reason For Visit No Information Reason For Referral Reason For Referral No Information Plan Of Treatment Date Type Action Status No Information History Of Present Illness Encounter Date Complaint History Of Prese nt Illness Widespread pain Duration: chroni c. Location of the pain is knee and shoulder. The patient describes it as sharp, achy and burning. It occurs persistently. The problem is stable. Symptom is aggravated by bending, walking upstairs, walking downstairs, sitting and standing. Relieving factors include rest, heat and cold. Pertinent negatives include diarrhea, dyspnea, fever and incontinence (urinary). Widespread pain (comments) Herson is a 70 y/o male here for with chronic widespread pain most bothersome in his R shoulder and BL knees. Pain has been going on for over 20 years. He had a history of R meniscus repair surgery about 15 years ago. He was told he is not a surgical candidate for knee replacement by [facility] recently. However, he is constantly in pain [...] be trialling an injection later today at [facility]. Imaging was last completed at [facility].He is currently manged gabapentin 300mg four times a day and occasional percocet 5/325mg. He trialled CBD pills which provided no relief.He is interested in pain management options. Functional Status Date Functional Assessmen t No Information Instructions Date Instruction Additional Infor mation No Information Assessments Type Assessment Date No Information Patient Care Teams Name Effective Dates (start - stop) Status Members No Information
== END 2023-03-11 10:53 | disposition home or self-care (01) ==
LOC: WOUND 10:52
PROVIDERS: PCP Family Medicine; Visit Provider Nurse Practitioner Family
DX: I87.331 Chronic venous hypertension (idiopathic) with ulcer and inflammation of right lower extremity (principal); E11.622 Type 2 diabetes mellitus with other skin ulcer; L97.812 Non-pressure chronic ulcer of other part of right lower leg with fat layer exposed; Z79.84 Long term (current) use of oral hypoglycemic drugs
CPT/HCPCS: 11042

== ENCOUNTER 2023-03-11 13:10 | Outpatient (CLI) | payer MEDICARE, BC, SELFPAY ==
--- OUTSIDE RECORDS SUMMARY | 2023-03-14 13:55 | XMS_ITS | Continuity of Care Document ---
Author Name Unknown Organization [facility] Address [address] [place] [address] [place] [address] Phone Care Team Providers Care Avionics Mechanic Name Role Phone Will MD BONE, Jase Unavailable Unavailabl e Medications Medication Instructions Dosage Effective Dates (start - stop) Status Comments Eliquis 2.5 mg tablet take 1 tablet by o ral route 2 times every day 2.5 MG - Active Procedures Procedure Date OFFICE/OUTPATIENT VISIT, [facility] Advance Directives Directive Yes / No Effective Date File Name No Information Encounters Encounter Description Practice Location Reason(s) For Visit Diagnoses Date Provider Providers Copied on Encounter [facility], [address] [place] [address], [id number], [place] tel:[phone] [facility] No Information b- 2 Will Jase. [address] [facility] [place], [place], [id number] , [place]. [phone] [facility], [address] [place] [address], [id number], [place] tel:[phone] [facility], other site [address] [facility] [facility] [address], [place], [id number] , [place]. tel:[phone] OFFICE/OUTPAT IENT VISIT, [facility], [address] [place] [address] [place], [id number], [place] tel:[phone] [facility] Widespread pain (chief complaint) Chronic pain syndromePain in right kneePain in left kneePain in right shoulder [address] [facility] [address] [facility] [address], [place], [id number] , [place]. tel:[phone] Referring Provider: Jase Ackerman, [address] [facility] Eleanor [place], [id number] . tel:[phone] Family History Family Member Type Diagnosis Age At Onset No Information Payers Payer name Insurance type Covered green party ID Authoriza tion(s) Medicare [id number] Social History Type Description Quantity Date Captured [...] a surgical candidate for knee replacement by [facility] recently. However, he is constantly in pain [...] be trialling an injection later today at [facility]. Imaging was last completed at [facility].He is currently manged gabapentin 300mg four times [...]
== END 2023-03-11 13:11 | disposition home or self-care (01) ==
LOC: NFLDREF 03-14 13:48
PROVIDERS: PCP Family Medicine; Referring Provider Family Medicine; Visit Provider Family Medicine
DX: E11.9 Type 2 diabetes mellitus without complications (principal); E66.01 Morbid (severe) obesity due to excess calories; D64.9 Anemia, unspecified; I10 Essential (primary) hypertension; M10.9 Gout, unspecified; E78.5 Hyperlipidemia, unspecified; N18.9 Chronic kidney disease, unspecified
CPT/HCPCS: 82043; 82570

== ENCOUNTER 2023-03-18 10:39 | Outpatient (CLI) | payer MEDICARE, BC, SELFPAY ==
--- OUTSIDE RECORDS SUMMARY | 2023-03-18 10:41 | XMS_ITS | Continuity of Care Document ---
Author Name Unknown Organization [facility] Address [address] [place] [address] [place] [address] Phone Care Team Providers Care Financial Management Analyst Name Role Phone Will MD BONE, Jase Unavailable Unavailabl e Medications Medication Instructions Dosage Effective Dates (start - stop) Status Comments Eliquis 2.5 mg tablet take 1 tablet by o ral route 2 times every day 2.5 MG - Active Procedures Procedure Date OFFICE/OUTPATIENT VISIT, [facility] Advance Directives Directive Yes / No Effective Date File Name No Information Encounters Encounter Description Practice Location Reason(s) For Visit Diagnoses Date Provider Providers Copied on Encounter [facility], [address] [place] [address], [id number], [place] tel:[phone] [facility] No Information b- 2 Will Jase. [address] [facility] [place], [place], [id number] , [place]. [phone] [facility], [address] [place] [address], [id number], [place] tel:[phone] [facility] Pain [facility] Myalgia, other site [address] [facility] [facility] [address], [place], [id number] , [place]. tel:[phone] OFFICE/OUTPAT IENT VISIT, [facility], [address] [place] [address] [place], [id number], [place] tel:[phone] [facility] Widespread pain (chief complaint) Chronic pain syndromePain in right kneePain in left kneePain in right shoulder [address] [facility] [address], [place], [id number] , [place]. tel:[phone] Referring Provider: Jase Ackerman, [address] [facility] Eleanor Weiner [place], [id number] . tel:[phone] Family History Family Member Type Diagnosis Age At Onset No Information Payers Payer name Insurance type Covered democrat ID Authoriza tipema(s) Medicare [id number] Social History Type Description Quantity Date Captured [...] a surgical candidate for knee replacement by [facility] recently. However, he is constantly in pain [...] be trialling an injection later today at [facility]. Imaging was last completed at [facility].He is currently manged gabapentin 300mg four times [...]
== END 2023-03-18 10:40 | disposition home or self-care (01) ==
LOC: WOUND 10:39
PROVIDERS: PCP Family Medicine; Visit Provider Nurse Practitioner Family
DX: E11.622 Type 2 diabetes mellitus with other skin ulcer (principal); L97.812 Non-pressure chronic ulcer of other part of right lower leg with fat layer exposed; I87.2 Venous insufficiency (chronic) (peripheral); I89.0 Lymphedema, not elsewhere classified; Z79.84 Long term (current) use of oral hypoglycemic drugs
CPT/HCPCS: 97597

== ENCOUNTER 2023-03-25 10:43 | Outpatient (CLI) | payer MEDICARE, BC, SELFPAY ==
--- OUTSIDE RECORDS SUMMARY | 2023-03-25 12:35 | XMS_ITS | Continuity of Care Document ---
Author Name Unknown Organization [facility] Address [address] [place] [address] [place] [address] Phone Care Team Providers Care President & Ceo Name Role Phone Will Jase HAWK Unavailable Unavailabl e Medications Medication Instructions Dosage Effective Dates (start - stop) Status Comments Eliquis 2.5 mg tablet take 1 tablet by o ral route 2 times every day 2.5 MG - Active Procedures Procedure Date OFFICE/OUTPATIENT VISIT, [facility] Advance Directives Directive Yes / No Effective Date File Name No Information Encounters Encounter Description Practice Location Reason(s) For Visit Diagnoses Date Provider Providers Copied on Encounter [facility], [address] [place] [address], [id number], [place] tel:[phone] [facility] No Information 2 Will Jase. [address] [facility] [place], [place], [id number] , [place]. [phone] [facility], [address] [place] [address], [id number], [place] tel:[phone] [facility] Myalgia, other site [address] [facility] [facility] [address], [place], [id number] , [place]. tel:[phone] OFFICE/OUTPAT IENT VISIT, [facility], [address] [place] [address] [place], [id number], [place] tel:[phone] [facility] Widespread pain (chief complaint) Chronic pain syndromePain in right kneePain in left kneePain in right shoulder [address] [facility] [address] [address], [place], [id number] , [place]. tel:[phone] Referring Provider: Jase Ackerman, [address] [facility] Eleanor [place], [id number] . tel:[phone] Family History Family Member Type Diagnosis Age At Onset No Information Payers Payer name Insurance type Covered constitution party ID Authoriza tipema(s) Medicare [id number] Social History Type Description Quantity Date Captured [...] a surgical candidate for knee replacement by [facility] recently. However, he is constantly in [...] be trialling an injection later today at [facility]. Imaging was last completed at [facility].He is currently manged gabapentin 300mg four [...]
== END 2023-03-25 10:44 | disposition home or self-care (01) ==
PROVIDERS: PCP Family Medicine; Visit Provider Nurse Practitioner Family
DX: E11.622 Type 2 diabetes mellitus with other skin ulcer (principal); L97.812 Non-pressure chronic ulcer of other part of right lower leg with fat layer exposed; Z79.84 Long term (current) use of oral hypoglycemic drugs
CPT/HCPCS: 99212

== ENCOUNTER 2023-07-09 11:41 | Outpatient (CLI) | payer MEDICARE, BC, SELFPAY ==
--- OUTSIDE RECORDS SUMMARY | 2023-07-10 08:34 | XMS_ITS | Continuity of Care Document ---
Author Name Unknown Organization [facility] Address [address] [place] [address] [place] [address] Phone Care Team Providers Care Youth Ministry Director Name Role Phone Will MD BONE, Jase Unavailable Unavailabl e Medications Medication Instructions Dosage Effective Dates (start - stop) Status Comments Eliquis 2.5 mg tablet take 1 tablet by o ral route 2 times every day 2.5 MG - Active Procedures Procedure Date OFFICE/OUTPATIENT VISIT, [facility] Advance Directives Directive Yes / No Effective Date File Name No Information Encounters Encounter Description Practice Location Reason(s) For Visit Diagnoses Date Provider Providers Copied on Encounter [facility], [address] [place] [address], [id number], [place] tel:[phone] [facility] No Information b- 2 Will Jase. [address] [facility] [place], [place], [id number] , [place]. [phone] [facility], [address] [place] [address], [id number], [place] tel:[phone] [facility] Myalgia, other site [address] [facility] [facility] [facility] [address], [place], [id number] , [place]. tel:[phone] OFFICE/OUTPAT IENT VISIT, [facility], [address] [place] [address] [place], [place], [id number], [place] tel:[phone] [facility] Widespread pain (chief complaint) Chronic pain syndromePain in right kneePain in left kneePain in right shoulder [address], [place], [id number] , [place]. tel:[phone] Referring Provider: Jase Ackerman, [address] [facility] [place], [id number] . tel:[phone] Family History Family Member Type Diagnosis Age At Onset No Information Payers Payer name Insurance type Covered constitution party ID Authoriza tipema(s) Medicare MB [id number] Social History Type Description Quantity Date Captured Comments Sex Male Smoking Status No Information Chief Complaint And Reason For Visit No Information Reason For Referral Reason For Referral No Information History Of Present Illness Encounter [...] trialling an injection later today at [facility]. Imaging [facility] completed at [facility] [...]
== END 2023-07-09 11:42 | disposition home or self-care (01) ==
LOC: NFLDREF 07-10 08:32
PROVIDERS: PCP Family Medicine; Referring Provider Family Medicine; Visit Provider Internal Medicine Nephrology
DX: E11.9 Type 2 diabetes mellitus without complications (principal); D64.9 Anemia, unspecified; E78.5 Hyperlipidemia, unspecified; N18.9 Chronic kidney disease, unspecified
CPT/HCPCS: 80061; 80069; 82043; 82570; 84450; 84460; 84550

== ENCOUNTER 2023-08-04 13:45 | Outpatient (RCR) | payer MEDICARE, BC, SELFPAY ==
--- NOTE | 2023-03-18 18:13 | OT.OPLE ---
OT Outpatient Lymphedema Eval OT Outpatient Lymphedema Eval Start: 03/18/23 17:31 Freq: Status: Active Protocol: Document 03/18/23 17:31 ALFREDITON (Rec: 03/18/23 18:13 LCN [id number]) E-signed By Faith Hurst, OTR/L, CLT OT Outpatient Evaluation Details Type Type Eval Complexity Low OT OP Lymphedema Evaluation Insurance Information Insurance Information Medicare B Current Condition/Medical Diagnosis Referring Provider Angie Beckman. 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 He had an episode on DVT's after and has had increasing gradual edema in R LE. Has chronic L knee pain also 8/10 daily, not able to get a TKA with his blood clot risk, DM and obesity. He was seeing wound care at [facility] in the past for lymphorrhea, chonic wounds. Was with his attending to her large skin tear wounds from her Thanksgiving and [place] falls this year. Wound care staff had him return for care of his newest bout of mild to moderate lymphorrhea in R rodriguez middle 11/26. L lower /4 was open lymphoceles and is now scabbed over, thanks to the new Sigvaris compression velcro sleeves, wound dressing and tubigrip layers via Wound care clinic. Edema is hard and brawny at B shins. distended firm around his knees, and has thick hard abdomen. He has been seen at [facility] for lymphedema care ( mostly massage and compression stockings and trial of lymphedema pumps, most recent was Sep 2022. He is not able to self apply per his trunk girth, knee pain). Is able to self db his compression sleeves. Medical History Medical History DVT,Depression,Obesity, Abdominal Surgery,Cellulitis/ Infection,Slow Healing Wound, DM,Renal Disease,Allergies ( Latex or Other) Medical History Comments Recent diagnosis of DM after snacking hard this winter. Has now lost 20+ pounds with home dieting, working with Nutrition Dept/April Coker. Hoping to get continuous blood glucose monitoring in place. Saw Nephrology Stage 3a CKD . Sees again 06/02/23. Takes furosemide 3x/week 20 mg MWF. Daily Eliquis. Most recent bout of gout 2 weeks ago in L foot. Returning to lower dose of metformin. 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 R TKA~ 2007. Meniscus repair, both complicated by DVT. Living Situation Current Living Situation Home With Spouse Or SO Current Living Situation Comments Has 5 levels to his home. Patient Difficulties Difficulties With Any Of The Following Reaching Feet & Toes Exercise History Does Patient Exercise Regularly No Exercise Comments Limited most by knee pain, but open to HEP in sitting Pain Pain Yes Pain Comments Chronic B knee pain 07/03, taking oxycodone/acetaminophen for it. 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 Can repeat 3-4 intervals per day. Previous Treatment Previous Treatment For Swelling/ MLD,Compression Pump, Lymphedema Compression Garment,Exercise, Elevation Previous Treatment/Current Home Program Has been mostly focussing on wearing compression stockings since last MLD series with TCO fall of 2022. Newer Sigvaris sleeves seem to be containing his lymph girth better, but skin is hard, rough and fragile, returns to lymphoceles easily if he is standing too much. Has two pneumatic pumps, but both having velcro straps for foot/ ankle/rodriguez that he can not reach. has a bad back. They work together to apply his velcro sleeves with legs elevated on recliner. Compression History Does Patient Currently Wear Compression Yes During Daytime Does Patient Currently Wear Compression Yes At Night Current Swelling (Location/Pitting/Texture) Pitting Scale: 0 = No pitting 1+ Tissue returns to normal almost immediately 2+ Tissue returns after 15-30 seconds 3+ Tissue returns after 1-1/2 minutes 4+ Tissue returns after 2-3 minutes N/A Tissue no longer pits due to induration Tissue texture: Soft or indurated Clinical Presentation Area Edema is hard and brawny at B shins. distended firm around his knees, and has thick hard abdomen. Clinical Presentation Pitting 0 pitting, firm brawny warty appearance red/brown hemosiderin staining for middle 2/3 of B shins. Spongy , firm edema at B toes, arches , ankles. Wound area of R rodriguez now under 3 cm gel absorptive dressing (recently d/c medihoney). Lymphedema/Lipedema/CVI dorsal pedal pulse difficult to palpate; Capillary return is brisk Triggering Event & Start Date of 2007 R TKA with DVT Swelling/Lymphedema complications Type of Swelling Secondary Staging Staging Stage 2 Positive Stemmer's Sign Yes Circumferential Measurements Lower Extremity Left Lower Extremity MPT 25.5 Arch 27.5 Calcaneous 36.7 10cm 27.5 20cm 34.5 30cm 43.5 40cm 43 50cm 49 Total 287.2 Right Lower Extremity MPT 25.5 Arch 28 Calcaneous 37 10cm 30.3 20cm 37.3 30cm 46.5 40cm 46.5 50cm 52.7 Total 303.8 Assessment Assessment Herson has had an exacerbation of his B LE lymphedema with return of lymphoceles/open wound areas and would benefit from skilled OT to support longer term mgmt of his B LE lymphedema including review of skin care/precautions, graduated compression bandaging progressing to final compression garments with appropriate adaptations, MLD and home exercise program possible adaptations to his current lymph pump system. Impairments Impairments Loss of Mobility,Difficulties With ADLs,Limb Heaviness,Poor Clothing Fit Impairments Comments difficulty donning shoes per girth. Difficulty lifting legs up into car and up into bed. Problem List Problem List Limited Knowledge of Skin Care & Infection Precautions,Does Not Have a HEP,Does Not Know How To Bandage For Limb Reduction,Does Not Have Appropriate Compression Garments For LT Management, Presents With Impaired Mobility/ROM Patient Goals Short Term Goals (# of Weeks) 6 Click To Default Short Term Goals Standard Goals Short Term Goals Goal 1: Patient and or caregiver will understand lymphedema precautions to decrease risk of infection and further lymphedema related complications Goal 2: Patient will develop a tolerance for wearing foam layers under his velcro leg sleeves to manage indurated tissues and improve skin integrity and facilitate limb decongestion Goal 3: Patient will perform HEP with minimal assistance in order to improve lymphatic flow and venous return Goal 5: Patient will perform self MLD protocol with minimal assistance to help reduce swelling and improve ROM and mobility Click To Default Shelter Goals Standard Goals Carton Maker Goals Goal 1: Patient will experience increased ROM and mobility in order to improve safety and independence with transfers and mobility Goal 2 : Patient will be independent with donning and doffing of compression garments which will enable regular daily garment wear Goal 3: Patient will achieve a specific reduction of 500 mL volume girth loss for BLE to enable functional improvements such as fitting into standard sized clothing and shoes, return to a prior level of functional mobility, improved balance, and reduced risk of falling. Goal 4: Patient and/or caregiver will be independent with HEP and lymphedema management to reduce risk for edema relapse and to reduce risk for infection Treatment Plan Treatment Plan Evaluation,Edema Control, Manual Therapy,Therapeutic Exercise,Self-Care/Home Management,Education Expected Frequency 1-2x Week Expected Duration 8-10 Weeks Certification Certification I Certify That: Therapy Services Provided, Therapy Plan Established, Therapy Plan Reviewed Recertification Information Recertification Information Initial Certification Date 03/18/23 Recertification Due Date 06/16/23 Provider Signature Shows Agreement With POC & Medical Necessity Physician Comment/Change Comment or Changes Physician NPI Number #
--- NOTE | 2023-08-04 15:47 | OT.OPLDN ---
OT Outpatient Lymphedema Daily Note OT Outpatient Lymphedema Daily Note Start: 03/18/23 17:31 Freq: Status: Active Protocol: Document 08/04/23 15:25 DOMINGO (Rec: 08/04/23 15:47 LCN [id number]) E-signed By Faith Hurst, OTR/L, CLT OT OP Lymphedema Daily/Progress Note Note Type Note Type Daily,Discharge Note,Note To MD Visit Number 17 Insurance Information Insurance Information Medicare B Current Condition/Medical Diagnosis Referring Provider Angie Beckman. 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 Estimates his weight at 304# . Still w continued concern of leg heaviness with sharp onset with exertion. Pt did not tolerate trial of using 30x 30 cm chip squares on shins, not able to fit under his current compression wraps, too hot for noc/HS with his restless leg syndrome. Feeling good about the strategies he is using at home to keep swelling managed ( daily compression wear with velcro wraps and 15-20 mmHG liners, 80% of the days), elevating LE 1 hour 2x/day, and doing his lymph node facilitation points with pumping exercise 5x/week. Home Program Compliant To Home Program Yes Home Program Specifics 04/01/23-- Self MLD with abdominal breaths, MLD of axillas, terminal nodes, groin and trunk twist pumping, towel based oscillations in sections of below knee, knee and above knee, ankle pumping. 04/01/23-- Sigvaris Transition Binders re-sized, now Large Tall (currently has XLT for BLE) Circumferential Measurements Lower Extremity Left Lower Extremity MPT 23.8 Arch 25.5 Calcaneous 35 10cm 28.7 20cm 35 30cm 46.8 40cm 46 50cm 52.7 Total 293.5 Difference 6.9 Right Lower Extremity MPT 24 Arch 27 Calcaneous 36.9 10cm 30 20cm 37.5 30cm 51.7 40cm 50 50cm 57 Total 314.1 Difference 2.3 Treatment Manual Therapy OTR completes MLD sequence (as needed for increased tissue mobility, ROM and decreased lymph girth) with LN facilitation at TDL, terminus, suboccipital to SCM lines, with lymph sweeping distal to proximal x 5-7 strokes each plane, with 2-3 sets at congested areas. Cont LN facilitation at abd with diaphragmatic breath, 4 abd quadrants, beltline, lateral trunk and ING > AX?to support watershed flow. Segmental decongestive MLD at lateral hip,?lateral thigh bundles, middle thigh, TFL to lateral trunk and calf in 3 segments, foot and ankle areas with toe web space facilitation, x 10 reps each area. MFR/ adhesion mgmt techniques to spongy fibrous edema at B rodriguez and circumferential calf to achilles areas. Finishing lymph sweep from distal LE to proximal?trunk, AX and TN areas. Pumping exercises with gluteal squeezes and heel slides/knee flexion x 10 rep. Kinesiotaping applied to give support to muscle groups, reduce edema and off load painful areas. Applied crossed fan taping of B anterior shins, R posterior medial calf ( still pink, warm) with paper off tension. Reapplied Eucerin to skin, liners 15-20 mmHG stockings with Added soft rodaisal 15 cm foam ankle to mid rodriguez to help break down fibrosis. Guided to watch for itchiness/can remove if needed. Sigvaris velcro leg binder below knee levels. Reviewed skin care strategies, signs for when to call MD and reviewed home program lymph facilitation and pumping exercise sequences and pt returns with good alaina hqniue from visual aide. Manual Therapy Minutes (minutes) 58 Assessment Improved skin integrity at B shins, wounds now closed. Fading color on fibrosis, still warty in texture. Pt engaging well with his HEP and continued daily compression use 80% of the time. Has large increase of edema girth between visits in R LE, ate more salt and went without his compression today, appointment in afternoon. Herson has had an exacerbation of his B LW lymphedema with return of lymphoceles/open wound areas and would benefit from skilled OT to support longer term mgmt of his B LE lymphedema including review of skin care/precautions, graduated compression bandaging progressing to final compression garments with appropriate adaptations, MLD and home exercise program possible adaptations to his current lymph pump system. Impairments Loss of Mobility,Difficulties With ADLs,Limb Heaviness,Poor Clothing Fit Impairments Comments difficulty donning shoes per girth. Difficulty lifting legs up into car and up into bed. Problem List Limited Knowledge of Skin Care & Infection Precautions,Does Not Have a HEP,Does Not Know How To Bandage For Limb Reduction,Does Not Have Appropriate Compression Garments For LT Management, Presents With Impaired Mobility/ROM Patient Goals Patient Goals TO manage my leg swelling on my own and not need the wound care clinic. Short Term Goals (# of Weeks) 6 Short Term Goals Goal 1: Patient and or caregiver will understand lymphedema precautions to decrease risk of infection and further lymphedema related complications Goal 2: Patient will develop a tolerance for wearing foam layers under his velcro leg sleeves to manage indurated tissues and improve skin integrity and facilitate limb decongestion Goal 3: Patient will perform HEP with minimal assistance in order to improve lymphatic flow and venous return Goal 5: Patient will perform self MLD protocol with minimal assistance to help reduce swelling and improve ROM and mobility Short Term Goals Comments GOALS MET 06/04/23 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 Sitting with legs down at 90 degree seated position makes edema worse)Goal 2: Patient will be independent with donning and doffing of compression garments which will enable regular daily garment wear (PROGRESS 08/04/23 -- GOAL MET) Goal 3: Patient will achieve a specific reduction of 500 mL volume girth loss for BLE to enable functional improvements such as fitting into standard sized clothing and shoes, return to a prior level of functional mobility, improved balance, and reduced risk of falling. ( (PROGRESS 08/04/23--Pt's edema girth is larger today than usual. Had been steady in size through most of his treatments since 03/18/23. Pt had the most progress with respect to the improved skin integrity and skin mobility, reduction in thickness, improved skin disopcolroation from deep red to milder cocoa pink. Has been able to bump shins on garage items without rupturing open, needing wound care or having cellulitis in the past 20 weeks). Goal 4: Patient and/or caregiver will be independent with HEP and lymphedema management to reduce risk for edema relapse and to reduce risk for infection (PROGRESS 08/04/23-- GOAL MET) Treatment Plan Treatment Plan Evaluation,Edema Control, Manual Therapy,Therapeutic Exercise,Self-Care/Home Management,Education Expected Frequency 1-2x Week Expected Duration 8-10 Weeks Daily Plan of Care Continue Per POC Treatment Minutes Timed Treatment Minutes 58 Total Timed Treatment Minutes 58 Occupational Therapy Billing Units Billing Units Manual Therapy 4 Certification Certification I Certify That: Therapy Services Provided, Therapy Plan Established, Therapy Plan Reviewed Recertification Information Recertification Information Initial Certification Date 03/18/23 Recertification Due Date 06/16/23 Provider Signature Shows Agreement With POC & Medical Necessity Physician Comment/Change Comment or Changes Physician NPI Number # Discharge Note Discharge Note Discharge Summary Pt's goals progress noted per above. Pt feels great about the skin improvements he has seen in his legs in OT. (less sensitive, no infections in the last 20 weeks, even after bumping shins, legs are staying closed) Unfortunately still having leg cramping, twitching sx that do improve when he is elevating, worse when he is walking and limit his tanding endurance to 20 minutes at a time. Working on these issues further with Dr. Gillette. Date of First Visit for Therapy 03/18/23 Date of Last Visit for Therapy 08/04/23 Initial Primary Functional Limitations/ Blase Reanna is a pleasant 72 Concerns y/o male who has struggled with B LE lymphedema since having his R knee repaired 15 yrs ago. He had an episode on DVT's after and has had increasing gradual edema in R LE. Has chronic L knee pain also 8/10 daily, not able to get a TKA with his blood clot risk, DM and obesity. He was seeing wound care at [facility] in the past for lymphorrhea, chonic wounds. Was with his attending to her large skin tear wounds from her Thanksgiving and [place] falls this year. Wound care staff had him return for care of his newest bout of mild to moderate lymphorrhea in R rodriguez middle 11/26. L lower 11/27 was open lymphoceles and is now scabbed over, thanks to the new Sigvaris compression velcro sleeves, wound dressing and tubigrip layers via Wound care clinic. Edema is hard and brawny at B shins. distended firm around his knees, and has thick hard abdomen. He has been seen at [facility] for lymphedema care ( mostly massage and compression stockings and trial of lymphedema pumps, most recent was Sep 2022. He is not able to self apply per his trunk girth, knee pain). Is able to self db his compression sleeves. Initial Pain Level 7 Pain Level at Discharge 4 Interventions Provided During Treatment Manual Therapy,Therapeutic Exercise,Self Care/Home Management Recommendations/Reason for Discharge Progress Cont w/HEP,Progress Reached Plateau Discharge Instructions Cont HEP per above.
== END 2023-08-04 15:58 | disposition home or self-care (01) ==
PROVIDERS: PCP Family Medicine; Visit Provider Family Medicine
DX: I89.0 Lymphedema, not elsewhere classified (principal); I89.8 Other specified noninfective disorders of lymphatic vessels and lymph nodes; Z51.89 Encounter for other specified aftercare
CPT/HCPCS: 80061; 80069; 84450; 84460; 84550; 97140; 97165; 97597

== ENCOUNTER 2023-09-01 16:21 | Outpatient (CLI) | payer MEDICARE, BC, SELFPAY ==
--- OUTSIDE RECORDS SUMMARY | 2023-09-03 12:53 | XMS_ITS | Continuity of Care Document ---
Author Name Unknown Organization [facility] Address [address] [place] [address] [place] [address] Phone Care Team Providers Care Lead Pourer Name Role Phone Will MD BONE, Jase Unavailable Unavailabl e Medications Medication Instructions Dosage Effective Dates (start - stop) Status Comments Eliquis 2.5 mg tablet take 1 tablet by o ral route 2 times every day 2.5 MG - Active Procedures Procedure Date OFFICE/OUTPATIENT VISIT, [facility] Advance Directives Directive Yes / No Effective Date File Name No Information Encounters Encounter Description Practice Location Reason(s) For Visit Diagnoses Date Provider Providers Copied on Encounter [facility], [address] [place] [address], [id number], [place] tel:[phone] [facility] No Information b- 2 Will Jase. [address] [facility] [place], [place], [id number] , [place]. [phone] [facility], [address] [place] [address], [id number], [place] tel:[phone] [facility] Myalgia, other site [address] [facility], [place], [id number] , [place]. tel:[phone] OFFICE/OUTPAT IENT VISIT, [facility], [address] [place] [address] [place], [id number], [place] tel:[phone] [facility] Widespread pain (chief complaint) Chronic pain syndromePain in right kneePain in left kneePain in right shoulder [address], [place], [id number] , [place]. tel:[phone] Referring Provider: Jase Ackerman, [address] [facility] [address] [place], [id number] . tel:[phone] Family History Family Member Type Diagnosis Age At Onset No Information Payers Payer name Insurance type Covered constitution party ID Authoriza tipema(s) Medicare MB [id number] Social History Type Description Quantity Date Captured [...] a surgical candidate for knee replacement by [facility] recently. However, he is constantly in [...] be trialling an injection later today at [facility]. Imaging was last completed at [facility].He is currently manged gabapentin 300mg four [...]
== END 2023-09-01 16:22 | disposition home or self-care (01) ==
LOC: NFLDREF 09-03 12:51
PROVIDERS: PCP Family Medicine; Referring Provider Family Medicine; Visit Provider Internal Medicine Nephrology
DX: D64.9 Anemia, unspecified (principal); E11.9 Type 2 diabetes mellitus without complications; I10 Essential (primary) hypertension; N18.9 Chronic kidney disease, unspecified; I42.9 Cardiomyopathy, unspecified; M10.9 Gout, unspecified
CPT/HCPCS: 80069; 82043; 82570; 82728; 83540; 83550; 84550; 86140

== ENCOUNTER 2023-09-02 09:42 | Outpatient (CLI) | payer MEDICARE, BC, SELFPAY | END 2023-09-02 09:43 | disposition home or self-care (01) | LOC: NFLDREF 09-04 05:24 | PROVIDERS: PCP Family Medicine; Referring Provider Family Medicine; Visit Provider Internal Medicine Nephrology | DX: I13.0 Hypertensive heart and chronic kidney disease with heart failure and stage 1 through stage 4 chronic kidney disease, or unspecified chronic kidney disease (principal); E11.22 Type 2 diabetes mellitus with diabetic chronic kidney disease; N18.31 Chronic kidney disease, stage 3a; I50.9 Heart failure, unspecified; E66.01 Morbid (severe) obesity due to excess calories; D64.9 Anemia, unspecified; N25.81 Secondary hyperparathyroidism of renal origin | CPT/HCPCS: 82043; 82570; 87086 ==

== ENCOUNTER 2023-12-16 14:56 | Outpatient (CLI) | payer MEDICARE, BC, SELFPAY ==
--- OUTSIDE RECORDS SUMMARY | 2023-12-17 12:12 | XMS_ITS | Encounter Summary ---
Author Name Unknown Organization [facility] Address [address] [place] [address] Care Team Providers Care Gas Operation Manager Name Role Phone Unavailable Primary Care Provider Unavailabl e Reason for Referral * Outpatient (Routine) - Closed Specialty Diagnoses / Procedures Referred By Keila rey Referred To Contact Diagnoses Chronic Kidney Disease (CKD), Stage 3a Glomerular Filtration Rate (GFR) 45 To 59 (HCC) Hypertensive Chronic Kidney Disease (CKD) Stage 3a Glomerular Filtration Rate (GFR) 45 To 59 (HCC) Atrial Fibrillation Unspecified (HCC) Hyperparathyroidism Renal Secondary (HCC) Diabetes Mellitus Type 2 (HCC) 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) Procedures Lower Extremity Arterial (DION) - Exercise (Claudication) Kyle Daniel Jr., D.OAnna [address] [place] [phone] [facility] Referral ID Status Reason Start Date Expiration Date Visits Re quested Visits Authorized [id number] Closed 06/02/2023 06/01/2024 1 1 Reason for Visit * Outpatient (Routine) - Closed Specialty Diagnoses / Procedures Referred By Keila rey Referred To Contact Diagnoses Chronic Kidney Disease (CKD), Stage 3a Glomerular Filtration Rate (GFR) 45 To 59 (HCC) Hypertensive Chronic Kidney Disease (CKD) Stage 3a Glomerular Filtration Rate (GFR) 45 To 59 (HCC) Atrial Fibrillation Unspecified (HCC) Hyperparathyroidism Renal Secondary (HCC) Diabetes Mellitus Type 2 (HCC) 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 [address] [place] [address] [facility] Referral ID Status Reason Start Date Expiration Date Visits Re quested Visits Authorized [id number] Closed 06/02/2023 06/01/2024 1 1 Encounter Details Date Type Department Care Team (Latest Contact Info) Description 09/11/2023 7:05 AM CDT - 09/11/2023 11:59 PM CDT Hospital Encounter Department of Vascular Medicine in [place], [place] [address] [place] [address] Kyle Daniel Jr., D.OAnna 200 [place] [phone] Chronic Kidney Disease (CKD), Stage 3a Glomerular Filtration Rate (GFR) 45 To 59 (HCC); Hypertensive Chronic Kidney Disease (CKD) Stage 3a Glomerular Filtration Rate (GFR) 45 To 59 (HCC); Atrial Fibrillation Unspecified (HCC); Hyperparathyroidism Renal Secondary (HCC); Diabetes Mellitus Type 2 (HCC); 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 Not hard at all 09/05/2023 Exercise Vital Sign Answer Date Recorde d On average, how many days pe r week do you engage in moderate to strenuous exercise (like a brisk walk)? 0 days 09/05/2023 On average, how many minutes do you engage in exercise at this level? 0 min 09/05/2023 Hunger Vital Sign Answer Date Recorded Within the past 12 months, y ou worried that your food would run out before you got the money to buy more. Never true 09/05/20 23 Within the past 12 months, t he food you bought just didn't last and you didn't have money to get more. Never true 09/05/2023 PRAPARE - Transportation Answer Date Re corded In the past 12 months, has l ack of transportation kept you from medical appointments or from getting medications? No 08/24 In the past 12 months, has l ack of transportation kept you from meetings, work, or from getting things needed for daily living? No 09/05/2023 Nutrition Answer Date Recorded Nutrition: EVOO Fat Source Unknown 09/05 On average, how many serving s of fruits and vegetables do you eat per day (serving size is equal to 1 cup or approximately the size of a tennis ball)? 3-5 09/05/2023 Dental Answer Date Recorded Dental: Regular Dentist Yes 09/05/20 Employment Answer Date Recorded Employment status Retired 09/05/2023 Housing Stability Answer Date Recorded What is your living situation today? I have a [facility] place to live 09/05/2023 Sex and Gender Information Value Date Recorded Sex Assigned at Male 09/05/2023 2:59 PM CDT Gender Identity Male 09/05/2023 2:59 PM CDT Sexual Orientation Straight 09/05/2023 2: 59 PM CDT documented as of this encounter Medications at Time of Discharge Medication Sig Dispensed Refills Start Date End Date apixaban (ELIQUIS) 5 mg tablet Take 1 tablet (5 mg total) by mouth 2 (two) times a day. 180 tablet 3 06/02/2023 06/01/2024 biotin 300 mcg tablet Take 300 mcg by mouth daily. 0 colchicine (COLCRYS) 0.6 mg tablet Take 1 tablet (0.6 mg total) by mouth 2 (two) times a day. When having gout 30 tablet 3 03/17/2023 docosahexaenoic acid-epa 120-180 mg capsule Take 1 g by mouth. 0 11/13/2017 fesoterodine (TOVIAZ) 4 mg 24 hr tablet Take 1 tablet (4 mg total) by mouth daily. 90 tablet 3 2023 metFORMIN XR (GLUCOPHAGE-XR) 500 mg 24 hr tablet Take 500 mg by mouth every evening. 0 07/14/2023 omeprazole (PriLOSEC) [address] capsule 0 04/19/2022 oxyCODONE-acetaminophen (PERCOCET) 5-325 mg per tablet 0 04/25/2022 pravastatin (PRAVACHOL) 20 mg tablet Take 20 mg by mouth daily. 0 09/19/2020 pregabalin (LYRICA) 100 mg capsule Take 100 mg by mouth 3 (three) times a day. 0 06/26/2022 sotaloL (BETAPACE) 80 mg tablet Take 80 mg by mouth daily. 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 Normal at all levels evaluated. ?? Resting Index: ? DION (PT)- ??1.22 ?DION (DP)- ??1.18 ?TBI- ??0.82 ?? Post- exercise DION: ? 1.12 Left: Doppler Waveforms: ? Normal at all levels evaluated. ?? Resting Index: ? DION (PT)- ??1.17 ?DION (DP)- ??1.14 ?TBI- ??0.86 ?? Post- exercise DION: ? 1.18 General: Patient performed 50 heel lifts. ??(Standard protocol: ??50 heel lifts). Onset of symptoms at 27 heel lifts. ??Heel lifts performed instead of treadmill testing due to Unsteady gait and elevated blood pressure. Heel lifts terminated at completion of protocol. ?? Conclusions: Normal lower extremity arterial study. Heel lifts done as an alternative to treadmill exercise due to unsteady gait/mobility difficulties. Nothing to suggest peripheral arterial disease as the etiology of noted symptoms. ?? Unchanged from prior study. Procedure Note Oswaldo Hernandez M.D. - 09/11/2023 Right: Doppler Waveforms: Normal at all levels evaluated. RestingIndex: DION (PT)- 1.22 DION (DP)- 1.18 TBI- 0.82Post-exercise DION: 1.12 Left: Doppler Waveforms: Normal at all levels evaluated. RestingIndex: DION (PT)- 1.17 DION (DP)- 1.14 TBI- 0.86Post-exercise DION: 1.18 General: Patient performed 50 heel lifts. (Standard protocol: 50 heellifts). Onset of symptoms at 27 heel lifts. Heel lifts performed insteadof treadmill testing due to Unsteady gait and elevated blood pressure.Heel lifts terminated at completion of protocol. Conclusions: Normal lower extremity arterial study. Heel lifts done as analternative to treadmill exercise due to unsteady gait/mobilitydifficulties. Nothing to suggest peripheral arterial disease as theetiology of noted symptoms. Unchanged from prior study. 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
--- OUTSIDE RECORDS SUMMARY | 2023-12-17 12:12 | XMS_ITS | Encounter Summary ---
Author Name Unknown Organization [facility] Address [address] [place] [address] Care Team Providers Care Database Operator Name Role Phone Unavailable Primary Care Provider Unavailabl e Reason for Referral * Outpatient (Routine) - Authorized Specialty Diagnoses / Procedures Referred By Keila t Referred To Contact Urology Jacque Marino APRN, C.N.P. [address] [phone] [facility] Referral ID Status Reason Start Date Expiration Date V isits Requested Visits Authorized [id number] Authorized 2023 09/09/2026 1 1 Reason for Visit * Reason Comments Follow-up Med Management Encounter Details Date Type Department Care Team (Late st Contact Info) Description 2023 11:00 AM CDT Office Visit Department of Urology in [place], [place] [address] [phone] Jacque Marino APRN, C.N.P. [address] [phone] Overactive Bladder (Primary Dx) Social History Tobacco Use Types Packs/Day Years [...] money to buy more. Never true 09/05/20 Within the past 12 months, t he [...] your living situation today? I have a [facility] place to live 09/05/2023 Sex and Gender Information Value Date Recorded Sex Assigned at Male 09/05/2023 2:59 PM CDT Gender Identity Male 09/05/2023 2:59 PM CDT Sexual Orientation Straight 09/05/2023 2: 59 PM CDT documented as of this encounter Progress Notes * Jacque Marino, EDI, C.N.P. - 2023 11:00 AM CDT SUBJECTIVE CHIEF COMPLAINT/REASON FOR VISIT Chief Complaint Patient presents with Follow-up Med Management HISTORY OF PRESENT ILLNESS Herson is a pleasant 73 year old male here today for follow-up for overactive bladder. He has been taking Toviaz 4 mg daily with fairly good results. He takes the medication at bedtime and notices that it starts to wear off between 2 and 5 pm. During that time he will move from his chair and leak onto his pad. He typically drinks about 2 gal of water each day, he occasionally has some coffee. He was newly diagnosed with diabetes. Six months ago his A1c was 9.6, most recently 7.5. He does not check his blood sugars as he has some neuropathy his fingers. He typically does not sleep very much. Hepossibly snores at times, historically he has refused to have a sleep study or discuss wearing a CPAP. I-PSS Urinary Symptoms Score: 7 I-PSS Quality of Life Score: 3 The following portions of the patient's history were reviewed and updated as appropriate: allergies, current medications, family history, medical history, social history, surgical history, and problem list. REVIEW OF SYSTEMS Gastrointestinal: - Negative for constipation and diarrhea. Genitourinary: Positive for incontinence, urgency and frequent urination. - Negative for difficulty urinating, pain with urination and blood in urine. OBJECTIVE There were no vitals filed for this visit. PHYSICAL EXAM Vitals and nursing note reviewed. General: Well developed, well nourished, well groomed male in no acute distress. Neurological: Alert, cooperative, oriented x3. Appropriate mood and affect. Abdomen: Soft, non-tender, non-distended, obese Extremities: Warm, without edema or ulcerations. DIAGNOSTIC Postvoid residual by bladder scan 36 mL. ASSESSMENT / PLAN 1. Overactive Bladder He will start taking his Toviaz in the morning to see if this helps with his late afternoon symptoms. We did discuss that sleep apnea can cause more trips to the bathroom in the night, this may be something to consider for the future. If changing the time that he takes his Toviaz does not help, he can contact us and we can discuss increasing to 8 mg daily. We will otherwise plan to see him in 1 year. Signed by: Jacque Marino APRN, C.N.P. 2023 11:47 AM CDT documented in this encounter Plan of Treatment Scheduled Referrals Name Type Priority Associated Diagnoses Orde r Schedule Urology office visit (clinic) Outpatient Referral Routine Expected: 2024 (Approximate), Expires: 12/11/2024 documented as of this encounter Visit Diagnoses Diagnosis Overactive Bladder- Primary documented in this encounter
--- OUTSIDE RECORDS SUMMARY | 2023-12-17 12:12 | XMS_ITS | Encounter Summary ---
Author Name Unknown Organization [facility] Address [address] [place] [address] Care Team Providers Care Pin Chaser Name Role Phone Unavailable Primary Care Provider Unavailabl e Reason for Visit * Appointment Request (Routine) - Closed Specialty Diagnoses / Procedures Referred By Keila t Referred To Contact Nephrology and Hypertension Referral ID Status Reason Start Date Expiration Date Visits Re quested Visits Authorized [id number] Closed 10/24/2023 10/23/2024 1 1 Encounter Details Date Type Department Care Team (Latest Contact Info) Description 12/16/2023 3:00 PM LOSS PREVENTION OPERATIONS MANAGER External Outreach Division of Nephrology and Hypertension in [place], [place] [address] [place] [address] Kyle Daniel Jr., D.O. [address] [place] [address] Chronic Kidney Disease (CKD), Stage 3a Glomerular Filtration Rate (GFR) 45 To 59 (HCC) (Primary Dx); Diabetes Mellitus Type 2 With Diabetic Chronic Kidney Disease (HCC); Hypertensive Chronic Kidney Disease (CKD) Stage 3a Glomerular Filtration Rate (GFR) 45 To 59 (HCC); Hyperparathyroidism Renal Secondary (HCC); Anemia; Failure Heart (HCC); Venous Insufficiency Chronic Peripheral; Other Pulmonary Embolism Without Acute Cor Pulmonale (HCC); Atrial Fibrillation Unspecified (HCC); Morbid Obesity (HCC); Cellulitis Social History Tobacco Use Types Packs/Day Years [...] your living situation today? I have a [facility] place to live 09/05/2023 Sex and Gender Information Value Date Recorded Sex Assigned at Male 09/05/2023 2:59 PM CDT Gender Identity Male 09/05/2023 2:59 PM CDT Sexual Orientation Straight 09/05/2023 2: 59 PM CDT documented as of this encounter Last Filed Vital Signs Vital Sign Reading Time Taken Comments Blood Pressure 180/90 12/16/2023 3:08 PM LOSS PREVENTION OPERATIONS MANAGER Pulse 74 12/16/2023 3:08 PM LOSS PREVENTION OPERATIONS MANAGER Temperature - - Respiratory Rate - - Oxygen Saturation - - Inhaled Oxygen Concentration - - Weight 141 kg (310 lb 13.6 oz) 12/16/2023 3:08 P M LOSS PREVENTION OPERATIONS MANAGER Height 176.5 cm (5' 9.49) 12/16/2023 3:08 PM CS T Body Mass Index 45.26 12/16/2023 3:08 PM LOSS PREVENTION OPERATIONS MANAGER documented in this encounter Progress Notes * Kyle Daniel Jr., Alina. - 12/16/2023 3:00 PM CST Referring Provider: No primary care provider on file. SUBJECTIVE REASON FOR VISIT [facility] Follow-up regards CKD, diabetes mellitus, lower extremity swelling HISTORY OF PRESENT ILLNESS Mr. Forte is a 73 y.o. male who presents with a history of thromboembolic disease, recently worsening lower extremity lymphedema and venous insufficiency with bilateral lower extremity pain. I appreciate the input from our vascular center in [facility], they have advised a venous insufficiency rehab approach, which he has been doing. He has gained a fair amount of weight despite caloric restriction, and has lower extremity massive swelling. Provides images of his legs showing beefyred bilateral lower extremities. He has been doing his best to avoid sodium but spends much of his day working on the Internet with his legs down. He has had no chest pain no shortness of breath no other constitutional complaints. He has not check his blood pressure frequently. He does not check his blood sugar frequently. His metformin extended-release is working well for him, he has not had side effects from this. No past medical history on file. Current Outpatient Medications: allopurinoL (ZYLOPRIM) 100 mg tablet, Take 1 tablet (100 mg total) by mouth daily., Disp: 90 tablet, Rfl: 3 apixaban (ELIQUIS) 5 mg tablet, Take 1 tablet (5 mg total) by mouth 2 (two) times a day., Disp: 180tablet, Rfl: 3 biotin 300 mcg tablet, Take 300 mcg by mouth daily., Disp: , Rfl: cephalexin (KEFLEX) 250 mg capsule, Take 1 capsule (250 mg total) by mouth 3 (three) times a day for 7 days., Disp: 21 capsule, Rfl: 0 colchicine (COLCRYS) 0.6 mg tablet, Take 1 tablet (0.6 mg total) by mouth 2 (two) times a day. Whenhaving gout (Patient taking differently: Take 0.6 mg by mouth 2 (two) times a day as needed for muscle/joint pain. When having gout), Disp: 30 tablet, Rfl: 3 docosahexaenoic acid-epa 120-180 mg capsule, Take 1 g by mouth., Disp: , Rfl: fesoterodine (TOVIAZ) 4 mg 24 hr tablet, Take 1 tablet (4 mg total) by mouth daily., Disp: 90 tablet, Rfl: 3 furosemide (LASIX) 20 mg tablet, Take 1 tablet (20 mg total) by mouth as directed. One daily for 5 days then qod if legs still swollen, Disp: , Rfl: irbesartan (AVAPRO) 150 mg tablet, Take 1 tablet (150 mg total) by mouth daily., Disp: 90 tablet, Rfl: 3 metFORMIN XR (GLUCOPHAGE-XR) 500 mg 24 hr tablet, Take 500 mg by mouth every evening., Disp: , Rfl: omeprazole (PriLOSEC) [address] capsule, , Disp: , Rfl: oxyCODONE-acetaminophen (PERCOCET) 5-325 mg per tablet, , Disp: , Rfl: pravastatin (PRAVACHOL) 20 mg tablet, Take 20 mg by mouth daily., Disp: , Rfl: pregabalin (LYRICA) 100 mg capsule, Take 100 mg by mouth 3 (three) times a day., Disp: , Rfl: sotaloL (BETAPACE) 80 mg tablet, Take 80 mg by mouth daily., Disp: , Rfl: triamterene-hydroCHLOROthiazide (DYAZIDE) 37.5-25 mg per capsule, Take 1 capsule by mouth 2 (two) times a day., Disp: 180 capsule, Rfl: 3 REVIEW OF SYSTEMS All other systems reviewed and are negative. OBJECTIVE BP (!) 180/90 Pulse 74 Ht 176.5 cm Wt (!) 141 kg BMI 45.26 kg/m?? PHYSICAL EXAMINATION General: Awake alert oriented HEENT: BETH, EOMI, Mucous membranes moist, no oral lesions Neck: No Masses, No Bruits Lungs: Clear to ascultation Heart: Regular Rate and Rhythm, No ectopy Murmurs or rubs Abdomen: Soft, Non-tender Extremities: Massive lower extremity swelling, with compressive garments on bilateral lower extremities, images display bilateral beefy red erythema with warmth Neuro: Cranial Nerves intact, Gait is antalgic strength grossly normal Skin: no suspicious lesions identified Psychiatric: Normal affect DIAGNOSTICS CBC normal normal white count other labs pending ASSESSMENT / PLAN #1 Chronic Kidney Disease (CKD), Stage 3a Glomerular Filtration Rate (GFR) 45 To 59 (HCC) His GFR has remained relatively stable, he is volume overloaded however and there may be some hemodilution at play. Going forward: 1. Goal glycosylated hemoglobin less than 8%-achieved 2. Goal systolic pressures less than 140, questionably achieved I have asked him to check his bloodpressures at home 3. Low-sodium diet less than 2000 mg sodium per day 4. I have asked him to keep his legs elevated 5. Given his massive swelling of his lower extremities I am going to ask him to use furosemide 20 mg orally daily for 5 days, then every other day until his weight is down by 10 lb. #2 Diabetes Mellitus Type 2 With Diabetic Chronic Kidney Disease ([facility]) His hemoglobin A1c is 7.7% members heard today, he will continue on his oral hypoglycemic agents. #3 Hypertensive Chronic Kidney Disease (CKD) Stage 3a Glomerular Filtration Rate (GFR) 45 To 59 ([facility]) Blood pressure well above goals today, we are going to mitigate this by getting rid of the excess volume as mentioned above. #4 Hyperparathyroidism Renal Secondary ([facility]) Monitoring his calcium phosphorus and PTH going forward, I will see him again in 3 months. #5 Anemia This is resolved #6 Failure Heart ([facility]) Has cor pulmonale, and some degree of diastolic heart failure. Please see the plan above as to add some furosemide and low-sodium diet. #7 Venous Insufficiency Chronic Peripheral Agree with compressive garments, we need to have him raises lower extremities in double his effortswith respect to sodium restriction. #8 Other Pulmonary Embolism Without Acute Cor Pulmonale ([facility]) He will continue on his apixaban, and note the suggestions to eventually investigate whether he hasobstructive sleep apnea. #9 Atrial Fibrillation Unspecified ([facility]) He is on oral anticoagulation #10 Morbid Obesity ([facility]) He is doing well with weight loss and currently has a massive fluid overload circumstance. #11 Cellulitis I will prescribe Keflex 250 mg t.i.d. for 7 days. Total time: 45 minute Counseling Time: 30 minutes Kyle Daniel Jr., D.O. PREVENTION OPERATIONS MANAGER documented in this encounter Plan of Treatment Not on file documented as of this encounter Visit Diagnoses Diagnosis Chronic Kidney Disease (CKD), Stage 3a Glomerular Filtration Rate (GFR) 45 To 59 (HCC)- Primary Diabetes Mellitus Type 2 With Diabetic Chronic Kidney Disease (HCC) Hypertensive Chronic Kidney Disease (CKD) Stage 3a Glomerular Filtration Rate (GFR) 45 To 59 (HCC) Hyperparathyroidism Renal Secondary (HCC) Anemia Failure Heart (HCC) Venous Insufficiency Chronic Peripheral Other Pulmonary Embolism Without Acute Cor Pulmonale (HCC) Atrial Fibrillation Unspecified (HCC) Morbid Obesity (HCC) Cellulitis documented in this encounter
--- OUTSIDE RECORDS SUMMARY | 2023-12-17 12:12 | XMS_ITS | Encounter Summary ---
Author Name Unknown Organization [facility] Address [address] [place] [address] Care Team Providers Care Android Software Engineer Name Role Phone Unavailable Primary Care Provider Unavailabl e Encounter Details Date Type Department Care Team (Latest Contact Info) Description 2023 11:41 AM CDT - 2023 11:59 PM CDT Hospital Encounter Department of Laboratory Medicine in [place], [place] [address] [place] [address] Kyle Daniel Jr., D.O. [address] [place] [address] Chronic Kidney Disease (CKD), Stage 3a Glomerular [...] your living situation today? 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 Results * (ABNORMAL) CBC with Differential, Blood (2023 11:57 AM CDT) Hemoglobin 13.1(L) 13.2 - 16.6 g/dL 2023 12:06 PM CDT OWAT Hematocrit 41.9 38.3 - 48.6 % 2023 12:06 PM CDT OWAT Erythrocytes 4.68 4.35 - 5.65 x10(12)/L 2023 12:06 PM CDT OWAT MCV 89.5 78.2 - 97.9 fL 2023 12:06 PM CDT OWAT RBC Distrib Width 16.2(H) 11.8 - 14.5 % 2023 12:06 PM CDT OWAT Platelet Count 188 135 - 317 x10(9)/L 2023 12:06 PM CDT OWAT Leukocytes 5.6 3.4 - 9.6 x10(9)/L 2023 12:06 PM CDT OWAT Neutrophils 3.72 1.56 - 6.45 x10(9)/L 2023 12:06 PM CDT OWAT Lymphocytes 1.25 0.95 - 3.07 x10(9)/L 2023 12:06 PM CDT OWAT Monocytes 0.49 0.26 - 0.81 x10(9)/L 2023 12:06 PM CDT OWAT Eosinophils 0.08 0.03 - 0.48 x10(9)/L 2023 12:06 PM CDT OWAT Basophils <0.03 0.01 - 0.08 x10(9)/L 2023 12:06 PM CDT OWAT Blood (Blood, Venous) 2023 11:57 AM CDT 2023 12:02 PM CDT Gifty Mojica Jr.OAnna LAB BLOOD AD D-ON [facility] [address] [place] [id number], [facility] in [place] [address] [place] [id number] documented in this encounter Visit Diagnoses Diagnosis [...]
--- OUTSIDE RECORDS SUMMARY | 2023-12-17 12:12 | XMS_ITS | Clinical Summary ---
Author Name Unknown Organization [facility] Address [address] [place] [address] Care Team Providers Care Checkout Supervisor Name Role Phone Unavailable Primary Care Provider Unavailabl e Source Comments Patient records contain information from all sites at [facility]. For routine questions regarding patient records, call [phone] during business hours, M-F 8:00 AM - 5:00 PM Central Time. Record requests for emergency care only can be directed to [phone] at any time.[facility] Allergies Active Allergy Reactions Criticality Noted Date Comments Adhesive Tape-Silicones Rash 07/16/2021 Foam tape used for pressure wrap after the pacemaker procedure Lisinopril Cough 11/13/2017 Cough Cough Cough Medications Medication Sig Dispensed Refills Start Date End Date Status triamterene-hydro CHLOROthiazide (DYAZIDE) 37.5-25 mg per capsule Take 1 capsule by mouth 2 (two) times a day. 180 capsule 3 12/22/2019 Active biotin 300 mcg tablet Take 300 mcg by mouth daily. 0 Active irbesartan (AVAPRO) 150 mg tablet Take 1 tablet (150 mg total) by mouth daily. 90 tablet 3 12/20/2020 Active allopurinoL (ZYLOPRIM) 100 mg tablet Take 1 tablet (100 mg total) by mouth daily. 90 tablet 3 10/02/2021 Active docosahexaenoic acid-epa 120-180 mg capsule Take 1 g by mouth. 0 11/13/2017 Active omeprazole (PriLOSEC) [address] capsule 0 04/19/2022 Active oxyCODONE-acetami nophen (PERCOCET) 5-325 mg per tablet 0 04/25/2022 Active pravastatin (PRAVACHOL) 20 mg tablet Take 20 mg by mouth daily. 0 09/19/2020 Active sotaloL (BETAPACE) 80 mg tablet Take 80 mg by mouth daily. 0 03/02/2022 Active pregabalin (LYRICA) 100 mg capsule Take 100 mg by mouth 3 (three) times a day. 0 06/26/2022 Active colchicine (COLCRYS) 0.6 mg tablet Take 1 tablet (0.6 mg total) by mouth 2 (two) times a day. When having gout 30 tablet 3 03/17/2023 Active Additional Information Patient taking differently:0.6 mg oral2 times daily PRN, muscle/joint pain, When having gout, Reported on 2023 apixaban (ELIQUIS) 5 mg tablet Take 1 tablet (5 mg total) by mouth 2 (two) times a day. 180 tablet 3 06/02/2023 06/01/2024 Active metFORMIN XR (GLUCOPHAGE-XR) 500 mg 24 hr tablet Take 500 mg by mouth every evening. 0 07/14/2023 Active fesoterodine (TOVIAZ) 4 mg 24 hr tablet Take 1 tablet (4 mg total) by mouth daily. 90 tablet 3 2023 Active cephalexin (KEFLEX) 250 mg capsule Take 1 capsule (250 mg total) by mouth 3 (three) times a day for 7 days. 21 capsule 0 12/16/2023 12/23/2023 Active furosemide (LASIX) 20 mg tablet Take 1 tablet (20 mg total) by mouth as directed. One daily for 5 days then qod if legs still swollen 0 12/16/2023 12/15/2024 Active Active Problems Problem Noted Date Diagnosed Date Cellulitis 12/16/2023 Venous Insufficiency Chronic Peripheral 09/10/20 23 Rash 2023 Pain Knee Right 2023 Pain Arm Right 2023 Other Pruritus 2023 Morbid Obesity 2023 End Maker (Current) Anticoagulant Treatment 08/24 Gout 2023 Gastroesophageal Reflux Disease NOS 2023 Failure Heart 2023 Dyslipidemia 2023 Cervical Disc Disorder With Radiculopathy Unspecified Cervical Region 2023 Cardiomyopathy 2023 Abdominal Aortic Aneurysm Without Rupture Unspec ified 2023 Neuropathy Peripheral 2023 Overactive Bladder 2023 Atherosclerosis Arterioscler osis Obliterans Lower Extremity With Claudication 06/02/2023 Diabetes Mellitus Type 2 02/17/2023 Hyperparathyroidism Renal Secondary 07/30/2022 Lymphedema 09/11/2021 Syncope 06/16/2021 Shortness Of Breath 06/16/2021 Other Specified Abnormal Findings Of Blood Chemi stry 06/16/2021 Diabetes Mellitus Type 2 Wit h Diabetic Chronic Kidney Disease 06/16/2021 Anemia 06/16/2021 Anasarca 03/07/2020 Chronic Kidney Disease (CKD) , Stage 3a Glomerular Filtration Rate (GFR) 45 To 59 12/22/2019 Osteodystrophy Renal 12/22/2019 Hypertensive Chronic Kidney Disease (CKD) Stage 3a Glomerular Filtration Rate (GFR) 45 To 59 12/22/2019 Atrial Fibrillation Unspecified 12/22/2019 Other Specified Diseases Of Liver 11/13/2017 Tendonitis Achilles Left 12/31/2011 Other Pulmonary Embolism Without Acute Cor Pulmo nale 08/03/2010 Cyst Of Kidney Acquired 08/03/2010 Encounters Date Type Department Care Team Description 12/16/2023 3:00 PM SENIOR MILITARY ANALYST External Outreach Division of Nephrology and Hypertension in [place], [place] [address] [place] [address] Kyle Daniel Jr., D.O. Chronic Kidney Disease (CKD), Stage 3a Glomerular [...] Fibrillation Unspecified (HCC); Morbid Obesity (HCC); Cellulitis from Last 3 Months Immunizations Name Administration Dates Next Due Influenza high dose QV(65 years or older) (PF) 1 01/15/2020 PCV13 09/19/2020 PPSV23 09/18/2021 Td (Adult), adsorbed 01/22/2006 Td, (Adult) Unspecified 01/22/2006 Tdap 04/06/2012 influenza high dose (65 years or older) (PF) 10/ influenza vaccine quad (FLUZ ONE/FLUARIX) (6 months and older)(PF) 09/07/2017 Social History Tobacco Use Types Packs/Day Years Used Date Smoking Tobacco: Never Smokeless Tobacco: Never Tobacco Cessation:Counseling Given: Not Answered Overall Financial Resource Strain (CARDIA) Answe r [...] your living situation today? I have a [facility] place to live 09/05/2023 Sex and Gender Information Value Date Recorded Sex Assigned at Male 09/05/2023 2:59 PM CDT Gender Identity Male 09/05/2023 2:59 PM CDT Sexual Orientation Straight 09/05/2023 2: 59 PM CDT Last Filed Vital Signs Vital Sign Reading Time Taken Comments Blood Pressure 180/90 12/16/2023 3:08 PM SENIOR MILITARY ANALYST Pulse 74 12/16/2023 3:08 PM SENIOR MILITARY ANALYST Temperature 36 ??C (96.8 ??F) 06/27/2022 3:27 PM CDT Respiratory Rate - - Oxygen Saturation - - Inhaled Oxygen Concentration - - Weight 141 kg (310 lb 13.6 oz) 12/16/2023 3:08 P M SENIOR MILITARY ANALYST Height 176.5 cm (5' 9.49) 12/16/2023 3:08 PM CS T Body Mass Index 45.26 12/16/2023 3:08 PM SENIOR MILITARY ANALYST Plan of Treatment Health Maintenance Due Date Last Done Comments CT Colonography 1949 Cologuard 1950 Colonoscopy 1949 Colorectal Cancer Screening 1950 Diabetic Office Visit with F oot Exam 1949 Dilated Eye Exam 1949 FIT 1949 Hemoglobin A1C 1949 Hepatitis C Screening 1949 Lipid (Cholesterol) Screening 1949 COVID-19 Vaccine (#1) 03/11/1950 Zoster Vaccines (1 of 2) 1968 Hepatitis B Vaccines (1 of 3 - Risk 3-dose series) 2009 Urine Albumin 03/02/2021 03/02/2020 DTaP,Tdap,and Td Vaccines (2 - Td or Tdap) 04/06/2022 04/06/2012, 01/22/2006, 01/22/2006 Sodium Level 07/17/2022 07/17/2021, 06/25, 07/09/2021, Additional history exists Creatinine Level (Kidney Fun ction Test) 03/26/2023 03/26/2022, 07/17/2021, 07/13/2021, Additional history exists Potassium Level 03/26/2023 03/26/2022, 06/25, 07/13/2021, Additional history exists Depression Screening (Annual PHQ-2) 11/24/2023 Fall Risk Screen (Annual) 11/24/2023 Office Visit for Blood Press ure Check / Re-check 03/16/2024 12/16/2023 Abdominal Aortic Aneurysm (A AA) Screen Discontinued 03/14/2010 Pneumococcal vaccine (65+ years) Completed 09/18/20, 09/19/2020 Influenza Vaccine Completed 09/29/2023, , 09/07/2017, Additional history exists
--- OUTSIDE RECORDS SUMMARY | 2023-12-17 12:12 | XMS_ITS | Encounter Summary ---
Author Name Unknown Organization [facility] Address [address] [place] [address] Care Team Providers Care Mold Breaker Name Role Phone Unavailable Primary Care Provider Unavailabl e Encounter Details Date Type Department Care Team (Late st Contact Info) Description 09/11/2023 11:05 AM CDT Ancillary Procedure Department of Vascular Social History Tobacco Use Types Packs/Day Years [...] your living situation today? I have a [facility] place to live 09/05/2023 Sex and Gender Information Value Date Recorded Sex Assigned at Male 09/05/2023 2:59 PM CDT Gender Identity Male 09/05/2023 2:59 PM CDT Sexual Orientation Straight 09/05/2023 2: 59 PM CDT documented as of this encounter Plan of Treatment Not on file documented as of this encounter Procedures Procedure Name Priority Date/Time Associated Diagnosis Comments VASCULAR IMAGE EXAM Routine 09/11/2023 1 1:04 AM CDT documented in this encounter Results * Legs-Vascular Image Exam (09/11/2023 11:04 AM CDT) 09/11/2023 11:0 2 AM CDT Narrative IIMS - 09/11/2023 11:04 AM CDT This order has been created and auto-finalized to support the import of images acquired without order. The clinical documentation to support these images can be found on the encounter that produced images. Provider Not In System IMG NON RAD IMAGI NG PROCEDURES IIMS NA documented in this encounter Visit Diagnoses Not on filedocumented in this encounter
--- OUTSIDE RECORDS SUMMARY | 2023-12-17 12:12 | XMS_ITS | Encounter Summary ---
Author Name Unknown Organization [facility] Address [address] [place] [address] Care Team Providers Care Section Hand Helper Name Role Phone Unavailable Primary Care Provider Unavailabl e Reason for Visit * Reason Onset Date Celso Burroughs 09/12/2023 Encounter Details Date Type Department Care Team (Late st Contact Info) Description 09/12/2023 Clinical Communication Department of Vascular Medicine in [place], [place] [address] [place] [address] Tata Burroughs D.O. [address] [place] [address] Manjeet Social History Tobacco Use Types Packs/Day Years [...] your living situation today? I have a [facility] place to live 09/05/2023 Sex and Gender Information Value Date Recorded Sex Assigned at Male 09/05/2023 2:59 PM CDT Gender Identity Male 09/05/2023 2:59 PM CDT Sexual Orientation Straight 09/05/2023 2: 59 PM CDT documented as of this encounter Plan of Treatment Not on file documented as of this encounter Visit Diagnoses Not on filedocumented in this encounter
--- OUTSIDE RECORDS SUMMARY | 2023-12-17 12:12 | XMS_ITS | Encounter Summary ---
Author Name Unknown Organization [facility] Address [address] [place] [address] Care Team Providers Care Seat Nailer Name Role Phone Unavailable Primary Care Provider Unavailabl e Reason for Referral * Physical Therapy (Routine) - Authorized Specialty Diagnoses / Procedures Referred By Contac t Referred To Contact Diagnoses Insufficiency Venous Procedures PT or OT eval and treat (first available) Tata Burroughs D.O. [address] [place] [address] [facility] Referral ID Status Reason Start Date Expiration Date V isits Requested Visits Authorized [id number] Authorized 09/11/2023 2024 99 99 * Outpatient (Routine) - Authorized Specialty Diagnoses / Procedures Referred By Contac t Referred To Contact Diagnoses Insufficiency Venous Procedures Venous Lower Extremity - Hemodynamic Study Tata Burroughs D.O. [address] [place] [address] [facility] Referral ID Status Reason Start Date Expiration Date V isits Requested Visits Authorized [id number] Authorized 09/11/2023 2024 1 1 Reason for Visit * Outpatient (Routine) - Closed Specialty Diagnoses / Procedures Referred By Contac t Referred To Contact Vascular Medicine Diagnoses Chronic Kidney Disease (CKD), Stage 3a Glomerular Filtration Rate (GFR) 45 To 59 (HCC) Hypertensive Chronic Kidney Disease (CKD) Stage 3a Glomerular Filtration Rate (GFR) 45 To 59 (HCC) Atrial Fibrillation Unspecified (HCC) Hyperparathyroidism Renal Secondary (HCC) Diabetes Mellitus Type 2 (HCC) 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 [address] [place] [address] [facility] Referral ID Status Reason Start Date Expiration Date Visits Re quested Visits Authorized [id number] Closed 06/02/2023 06/01/2024 1 1 Encounter Details Date Type Department Care Team (Latest Contact Info) Description 09/11/2023 10:00 AM CDT Comprehensive Visit Department of Vascular Medicine in [place], [place] [address] [place] [phone] Tata Burroughs D.O. 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 I have a [facility] place to live 09/05/2023 Sex and Gender Information Value Date Recorded Sex Assigned at Male 09/05/2023 2:59 PM CDT Gender Identity Male 09/05/2023 2:59 PM CDT Sexual Orientation Straight 09/05/2023 2: 59 PM CDT documented as of this encounter Last Filed Vital Signs Vital Sign Reading Time Taken Comments Blood Pressure 165/107 09/11/2023 10:06 AM CDT Pulse 72 09/11/2023 10:06 AM CDT Temperature - - Respiratory Rate - - Oxygen Saturation - - Inhaled Oxygen Concentration - - Weight 138 kg (305 lb 1.9 oz) 09/11/2023 9:59 AM CDT Height 176.7 cm (5' 9.57) 09/11/2023 9:59 AM CD T Body Mass Index 44.33 09/11/2023 9:59 AM CDT documented in this encounter Consult Notes * Tata Burroughs D.O. - 09/11/2023 10:00 AM CDT VASCULAR MEDICINE CONSULT NOTE SUBJECTIVE REASON FOR CONSULT: Peripheral arterial disease HISTORY OF PRESENT ILLNESS Mr. Forte is a 73 y.o. male who presents to Vascular Medicine today for evaluation of peripheral arterial disease. 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 He presents today for 15 year duration of bilateral lower extremity pain. His symptoms are more notable in the right compared to the left; described as ???burning?? in the anterior rodriguez, similar to rodriguez splints. He reports he is only able to walk short distances prior to symptoms beginning. He denies positional changes to be exacerbating or relieving to his symptoms. Denies nocturnal pain or symptom worsening with leg elevation. He uses a cane at baseline ambulate. He also notes a history of lower extremity swelling, worse on the right. He did undergo vein stripping about 8 years ago bilaterally which did not improve his symptoms. He uses mild compression sockswith Velcro wraps daily to minimize his edema. He has longstanding skin changes on the anterior portion of his distal lower extremities which are red and prone to ulceration. No current open wounds. DION testing was completed which did not reveal any evidence of hemodynamically significant arterialocclusive disease bilaterally. Prior ECHO demonstrated a mildly dilated aortic root [4.4 cm] and ascending aorta [4.2 cm] in February2023. LVEF estimated 60-65%. Normal RV size and global function without significant valvular abnormalities. I have reviewed and updated the following: allergies, current medications, medications, family history, medical history, social history, surgical history and problem list. REVIEW OF SYSTEMS Pertinent items are noted in HPI; all other review of systems as below or negative. OBJECTIVE BP (!) 165/107 (BP Location: Left arm, Patient Position: Sitting) Pulse 72 Ht 176.7 cm Wt (!)138 kg BMI 44.33 kg/m?? PHYSICAL EXAM GENERAL: Calm, cooperative, no acute distress HEAD AND NECK: No carotid artery bruits. No scleral icterus. Pupils equal/round. HEART: S1, S2 appreciated with regular rate and rhythm; no significant murmurs/rubs or gallops noted. LUNGS: Clear to auscultation throughout in all castañeda, no use of accessory muscles. No audible wheezing/ rales or rhonchi. ABDOMEN: Soft, no appreciable abdominal aortic bruits. VESSELS: Carotid: 4/4 pulses bilaterally, no appreciable bruits Brachial: 4/4 pulses bilaterally Radial: 4/4 pulses bilaterally Popliteal: 4/4 pulses bilaterally Dorsalis pedis: 4/4 pulses bilaterally Posterior tibialis: 4/4 pulses bilaterally SKIN: Warm, well-perfused. Lower extremities with skin changes consistent with lipodermatosclerosis. Reticular veins are noted. Swimmer's sign is negative. EXTREMITIES: + bilateral lower extremity edema. MUSCULOSKELETAL: Limited mobility. NEURO: Moves all extremities spontaneously and purposefully. PSYCH: Appropriate mood, non-tangential in speech and thought process DIAGNOSTICS I have reviewed pertinent laboratory and imaging studies. Labs and images studies of note include: Lower Extremity Arterial (DION) - Exercise (Claudication) Result Date: 09/11/2023 Right: Doppler Waveforms: Normal at all levels evaluated. Resting Index: DION (PT)- 1.22 DION (DP)- 1.18 TBI- 0.82 Post-exercise DION: 1.12 Left: Doppler Waveforms: Normal at all levels evaluated. Resting Index: DION (PT)- 1.17 DION (DP)- 1.14 TBI- 0.86 Post-exercise DION: 1.18 General: Patient [id number] heel lifts. (Standard protocol: 50 heel lifts). Onset of symptoms at 27 heel lifts. Heel lifts performed instead of treadmill testing due to Unsteady gait and elevated blood pressure. Heel lifts terminated at completion of protocol. Conclusions: Normal lower extremity arterial study. Heel lifts done as an alternative to treadmill exercise due to unsteady gait/mobility difficulties. Nothing to suggest peripheral arterial disease as the etiology of noted symptoms. Unchanged from prior study. ASSESSMENT / PLAN Chronic venous insufficiency History of DVT/PE in the right lower extremity History of atrial fibrillation status post ablation and PPM for sinus node dysfunction Long-term use of anticoagulation Obesity, BMI 44 Mildly dilated aortic root [4.4 cm] and ascending aorta [4.2 cm] Mr. Forte is a 73 y.o. male with prior DVT/PE, atrial fibrillation s/p ablation, sinus node dysfunction status post PPM, and obesity presenting today for bilateral lower extremity pain with ambulation. Vascular Medicine has been consulted for consideration of arterial occlusive disease as an etiology. DINO study is normal, pulses are palpable on exam, and therefore I do not think that his symptoms are attributable to peripheral arterial disease. He does however have significant history of chronic venous disease with associated skin changes andprior history of wounds due to this. He is encouraged to continue to use compression, including hisVelcro wraps, daily. He previously reports an improvement in his lower extremity pain after undergoing care with the lymphedema clinic several years ago; as his edema improved, so did his symptoms. Unfortunately, his insurance stopped paying for this and he was no longer able to obtain therapy. We recommend a repeat referral for his local lymphedema team; this was offered in [place] however this would be not feasible for the patient. Additionally, we discussed that obstructive sleep apnea and obesity can significantly increase venous hypertension. I recommend that he undergoes sleep apnea testing which he will pursue locally. He understands the importance of diet modification and weight loss as this will additionally impact hislower extremity swelling. RECOMMENDATIONS 1. No evidence of peripheral arterial disease as etiology of symptoms. 2. Recommend repeat evaluation at his local Lymphedema Clinic to address his longstanding edema; his symptoms previously improved significantly with lymphedema therapy. 3. Evaluation for obstructive sleep apnea locally. 4. Continue to utilize your compression stockings 20-30 mmHg daily; or Velcro wraps as an alternative. It was a pleasure to meet Mr. Forte today. All questions were answered. If further questions arise, please do not hesitate to contact our team. documented in this encounter Plan of Treatment Scheduled Orders Name Type Priority Associated Diagnoses Order Schedule Venous Lower Extremity - Hemodynamic Study Vascular Ultrasound Routine Insufficiency Venous Expected: 09/11/2023 (Approximate), Expires: 09/11/2024 documented as of this encounter Visit Diagnoses Diagnosis Insufficiency Venous- Primary Chronic Kidney Disease (CKD), Stage 3a Glomerular Filtration Rate (GFR) 45 To 59 (HCC) Hypertensive Chronic Kidney Disease (CKD) Stage 3a Glomerular Filtration Rate (GFR) 45 To 59 (HCC) Atrial Fibrillation Unspecified (HCC) Hyperparathyroidism Renal Secondary (HCC) Diabetes Mellitus Type 2 (HCC) 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
--- OUTSIDE RECORDS SUMMARY | 2023-12-17 12:12 | XMS_ITS | Encounter Summary ---
Author Name Unknown Organization [facility] Address [address] [place] [address] Care Team Providers Care Junior Legal Secretary Name Role Phone Unavailable Primary Care Provider Unavailabl e Reason for Visit * Appointment Request (Routine) - Closed Specialty Diagnoses / Procedures Referred By Keila t Referred To Contact Nephrology and Hypertension Referral ID Status Reason Start Date Expiration Date Visits Re quested Visits Authorized [id number] Closed 08/21/2023 08/20/2024 1 1 Encounter Details Date Type Department Care Team (Latest Contact Info) Description 09/02/2023 9:30 AM CDT External Outreach Division of Nephrology and Hypertension in [place], [place] [address] [place] [address] Kyle Daniel Jr., D.O. 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); Atrial Fibrillation Unspecified (HCC) Social History Tobacco Use Types Packs/Day Years Used Date Smoking Tobacco: Never Smokeless Tobacco: Never Nutrition Answer Date Recorded Nutrition: EVOO Fat Source Unknown 01/25 Nutrition: Servings of Fruits/Vegetables per Day Not on file 01/25/2021 Dental Answer Date Recorded Dental: Regular Dentist Unknown 01/26/20 21 Sex and Gender Information Value Date Recorded Sex Assigned at Male 09/05/2023 2:59 PM CDT Gender Identity Male 09/05/2023 2:59 PM CDT Sexual Orientation Straight 09/05/2023 2: 59 PM CDT documented as of this encounter Last Filed Vital Signs Vital Sign Reading Time Taken Comments Blood Pressure 138/88 09/02/2023 10:27 AM CDT Pulse 84 09/02/2023 9:52 AM CDT Temperature - - Respiratory Rate - - Oxygen Saturation - - Inhaled Oxygen Concentration - - Weight 140 kg (307 lb 15.7 oz) 09/02/2023 9:52 A M CDT Height 176.5 cm (5' 9.49) 09/02/2023 9:52 AM CD T Body Mass Index 44.84 09/02/2023 9:52 AM CDT documented in this encounter Progress Notes * Kyle Daniel Jr., D.O. - 09/02/2023 9:30 AM CDT Referring Provider: No primary care provider on file. SUBJECTIVE REASON FOR VISIT [facility] Follow-up regards CKD, hypertension, diabetes mellitus, and cardiovascular disease HISTORY OF PRESENT ILLNESS Mr. Forte is a 72 y.o. male who presents with the above matters. He is still struggling with what sounds like claudication. He struggles to walk more than a block without a sense that there is tremendous heaviness in his legs, as though someone is grabbing and squeezing them. It is not relieved by leaning on a shopping cart. He uses a cane, and his balance has become quite suspect. He is set for the vascular evaluation in approximately 2 weeks. He is history of thromboembolic phenomenon, and is fully anticoagulated on the background of paroxysmal atrial arrhythmias as well for which he underwent ablation, and now has a pacemaker placed. He is doing well with his obstructive sleep apnea, no gout flares, no active lesions. His blood pressure at home has been reasonable, in the 130s over 80s without orthostatic issues. Heis cautious with salt, he does the cooking his plans his meals for him. His glycemic control has been excellent he continues to lose weight steadily, his hemoglobin A1c has improved further to 7.3%. He has had no hypoglycemic events. Overall he is doing relatively well, with the exception of his vascular issues. Issues as well with passing his urine freely and he is visiting with Urology coming up towards the end of the month as well. History reviewed. No pertinent past medical history. Current Outpatient Medications: allopurinoL (ZYLOPRIM) 100 mg tablet, Take 1 tablet (100 mg total) by mouth daily., Disp: 90 tablet, Rfl: 3 apixaban (ELIQUIS) 5 mg tablet, Take 5 mg by mouth 2 (two) times a day., Disp: , Rfl: apixaban (ELIQUIS) 5 mg tablet, Take 1 tablet (5 mg total) by mouth 2 (two) times a day., Disp: 180tablet, Rfl: 3 biotin 300 mcg tablet, Take 300 mcg by mouth daily., Disp: , Rfl: colchicine (COLCRYS) 0.6 mg tablet, Take 1 tablet (0.6 mg total) by mouth 2 (two) times a day. Whenhaving gout, Disp: 30 tablet, Rfl: 3 docosahexaenoic acid-epa [...] systems reviewed and are negative. OBJECTIVE BP 138/88 Pulse 84 Ht 176.5 cm Wt (!) 140 kg BMI 44.84 kg/m?? PHYSICAL EXAMINATION General: Awake alert oriented HEENT: BETH, EOMI, Mucous membranes moist, no oral lesions Neck: No Masses, No Bruits Lungs: Clear to ascultation Heart: Regular Rate and Rhythm, No ectopy Murmurs or rubs Abdomen: Soft, Non-tender Extremities: No cyanosis, No clubbing: He has lower extremity compressive garments in place he has nonpitting +2 to +3 edema Neuro: Cranial Nerves intact, Gait is antalgic broad-based unsteady, difficulty arising out of the chair Skin: no suspicious lesions identified Psychiatric: Normal affect DIAGNOSTICS Note serum creatinine level 1.1 mg/dL, hemoglobin A1c 7 point 5% microalbumin to creatinine ratio pending, usually between 42 and 82 milligrams/gram please see documents viewer regards outside labs ASSESSMENT / PLAN #1 Chronic Kidney Disease (CKD), Stage 3a Glomerular Filtration Rate (GFR) 45 To 59 ([facility]) He is nephrosclerosis, on the background of multifactorial issues including diabetic nephrosclerosis and likely hypertensive ischemic issues. I am satisfied that his renal functions remain gratifyingly stable, his creatinine level supports that it would be acceptable if necessary that he undergo angiography regarding his vascular disease. Going forward: 1. Goal blood pressure less than 135/85 2. No NSAIDs or Corrigan 2 inhibitors 3. Goal glycosylated hemoglobin level less than 7.5% 4. Plenty of hydration, at least 40-50 oz of water per day 5. Return to clinic in 4 months. #2 Hypertensive Chronic Kidney Disease (CKD) Stage 3a Glomerular Filtration Rate (GFR) 45 To 59 ([facility]) Goal blood pressures as mentioned above, he is on an extensive regimen we will continue. He will continue to avoid sodium as best as possible and NSAIDs, he is adherent to his CPAP regimen. #3 Hyperparathyroidism Renal Secondary ([facility]) Satisfied with his calcium and phosphorus in fact he is slightly hypophosphatemic. #4 Diabetes Mellitus Type 2 ([facility]) Excellent glycemic control, he has been liberated from his insulin, and is using long-acting metformin with good effect. 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 He has classic symptoms of claudication, I am looking forward to his vascular evaluation, and the opinion and help from our teammates. #6 Atrial Fibrillation Unspecified (HCC) He is fully anticoagulated, rate is well controlled on beta blockade with sotalol. He has a pacemaker implanted as well. Total time: 35 minute Counseling Time: 30 minutes Kyle Daniel Jr., D.O. 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
--- OUTSIDE RECORDS SUMMARY | 2023-12-17 12:12 | XMS_ITS | Encounter Summary ---
Author Name Unknown Organization [facility] Address [address] [place] [address] Care Team Providers Care Flight Engineer Instructor Name Role Phone Unavailable Primary Care Provider [...] (DION) - Exercise (Claudication) Kyle Daniel Jr., Trino.OAnna [address] [place] [phone] 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 [address] [place] [address] [facility] Referral ID Status Reason Start Date Expiration Date Visits Re quested Visits Authorized [id number] Closed 06/02/2023 06/01/2024 1 1 Scheduling Instructions Please schedule Wed or Thurs Reason for Visit * Appointment Request (Routine) - Closed Specialty Diagnoses / Procedures Referred By Keila t Referred To Contact Nephrology and Hypertension Referral ID Status Reason Start Date Expiration Date Visits Re quested Visits Authorized [id number] Closed 05/02/2023 05/01/2024 1 1 Encounter Details Date Type Department Care Team (Latest Contact Info) Description 06/02/2023 4:30 PM CDT External Outreach Division of Nephrology and Hypertension in [place], [place] [address] [place] [address] Kyle Daniel Jr., D.O. 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 - 06/02/2023 4:30 PM CDT Referring Provider: No primary care provider on file. SUBJECTIVE REASON FOR VISIT [facility] [facility] Follow-up regards CKD, diabetes mellitus, hypertension, and diabetes mellitus type 2 HISTORY OF PRESENT ILLNESS Mr. Forte is a 72 y.o. male who presents with the above issues, we would seen each other 2 months ago, and he was in the process of losing tremendous weight with dietary manipulations and I am assisting with management of his diabetes, hypertension and other medical complications. Extremely gratifying to see his hemoglobin A1c improved so dramatically. Current level is 7.5%, after having been 8.2% in January of 2023. He is done this with a dietary restriction regimen. His ability to exercise is severely compromised-see below. His makes all his meals for him. He is unfortunately however not checking his sugars. He is going to see the dietitian this week andwill be set up with a monitoring program. He admits to several episodes of lightheaded spells whichseem to improve as he takes in some sugar at his 's discretion. He is not had any significant changes in mental status or other prolonged episodes of diaphoresis sweating etc.. His blood pressure has also come under better management currently. Appreciate that he is not experiencing orthostatic changes. He is no cardiovascular complaints, specifically no chest pain. He is however easily winded. He does not have PND nor orthopnea. Wears compressive lower extremity garments-smooth toe compression socks. His most recent pacemaker check is apparent and shows intermittent paroxysmal atrial fibrillation. His most recent EF was 65% performed in February. He has been having care done at [facility], where he sees a primary care physician, and through [facility]-as he visits with myself and others. His ongoing and worsening issues involve lower extremity pain. He has had difficulties with his knees for quite some time, but the discomfort he describes occurs as he ambulates more than approximately a block. He then gets a heavy sensation like toddlers are grasping his legs. He is unable to movethem, and then develops disabling cramps and pain. As he stops pain decreases and he is able to move again. This is irrespective of him leaning on a shopping cart, relates this issue to me as he was recently at the local [employer] store[employer]. No GI disturbances no fevers no chills, his weight has now stabilized he actually gained 4 lb sincehis last visit. Past medical history: 1. Diabetes mellitus type 2 2. Hypertension 3. CKD stage IIIA 4. Obstructive sleep apnea 5. Gout 6. Peripheral vascular disease 7. Microalbuminuria 8. Heart failure with preserved ejection fraction 9. Paroxysmal atrial fibrillation 10. Lower extremity neuropathy 11. Pulmonary embolism July 2010 12. Hypertension 13. Oral anticoagulation with apixaban Current Outpatient Medications: allopurinoL (ZYLOPRIM) 100 mg [...] systems reviewed and are negative. OBJECTIVE BP 128/62 Pulse 66 Ht 176.5 cm Wt (!) 140 kg BMI 44.94 kg/m?? PHYSICAL EXAMINATION General: Awake alert oriented HEENT: BETH, EOMI, Mucous membranes moist, no oral lesions Neck: No Masses, No Bruits Lungs: Clear to ascultation, but very distant breath sounds Heart: Regular rhythm, occasional ectopy, 2/6 systolic ejection murmur left sternal edge Abdomen: Soft, Non-tender, distended large pannus Extremities: [place] massive non pitting indurated lower extremity swelling, hemosiderin deposition and erythema particularly of the left rodriguez Neuro: Cranial Nerves intact, he utilizes a cane for ambulation, he is extremely antalgic gait Skin: no suspicious lesions identified Psychiatric: Normal affect DIAGNOSTICS: From [place]-see documents browser Hemoglobin A1c 7.5% serum creatinine 1.4 mg/dL urine microalbumin to creatinine ratio 200 milligrams/gram total cholesterol 151, LDL 73, HDL 36, triglycerides 208 C-reactive protein 1.6 normal CBC, hemoglobin 13.4 ASSESSMENT / PLAN #1 Chronic Kidney Disease (CKD), Stage 3a Glomerular Filtration Rate (GFR) 45 To 59 (HCC) His GFR is relatively stable, with a creatinine of 1.3 mg/dL. I will have this rechecked prior to his upcoming visits as are discussed below. Going forward: 1. Goal blood pressure less than 120/80 2. No NSAIDs or Corrigan 2 inhibitors 3. Goal glycosylated hemoglobin less than 7.5% 4. Low-sodium diet less than 2500 mg sodium per day 5. Continue with weight loss efforts 6. Return to clinic in 2 months for repeat chemistries and results review 7. Strongly encouraged continuous glucose monitor #2 Diabetes Mellitus Type 2 (HCC) His hemoglobin A1c is gratifyingly improved, however he is inadequately monitoring his blood sugarsI am concerned regards his episodes of lightheaded spells. We are working towards shared decision-making here and he we visiting with a dietitian in [place] regards this matter. #3 Hypertensive Chronic Kidney Disease (CKD) Stage 3a Glomerular Filtration Rate (GFR) 45 To 59 (HCC) Goal blood pressures of met please see above discussion #4 Atrial Fibrillation Unspecified (HCC) He is on oral anticoagulation, and doing well He is a pacemaker, this seems to be functioning well. 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 Specifically, I wonder whether this is neurogenic versus vascular claudication. Whether further diagnostic interventions would be necessary including MR angiography would be appreciated. #7 Anasarca Continue to balance his volume issues on the background of previous peripheral vascular disease andperipheral venous stripping done early in life. Total time: 40 minutes Counseling Time: 30 minutes Kyle Daniel Jr., D.O. 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) Expected: 06/02/2023 (Approximate), Expires: 06/02/2024 Lipid Panel Lab Routine Chronic Kidney Disease (CKD), Stage 3a Glomerular Filtration Rate (GFR) 45 To 59 (HCC) Hypertensive Chronic Kidney Disease (CKD) Stage 3a Glomerular Filtration Rate (GFR) 45 To 59 (HCC) Atrial Fibrillation Unspecified (HCC) Hyperparathyroidism Renal Secondary (HCC) Diabetes Mellitus Type 2 (HCC) 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) Expected: 06/02/2023 (Approximate), Expires: 09/02/2024 Scheduled Referrals Name Type Priority Associated Diagnoses Orde r Schedule Vascular Medicine - PAD / claudication / ischemia consult (clinic) Outpatient Referral Routine Chronic Kidney Disease (CKD), Stage 3a Glomerular Filtration Rate (GFR) 45 To 59 (HCC) Hypertensive Chronic Kidney Disease (CKD) Stage 3a Glomerular Filtration Rate (GFR) 45 To 59 (HCC) Atrial Fibrillation Unspecified Hyperparathyroidism Renal Secondary (HCC) Diabetes Mellitus Type 2 (HCC) 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 Kyle Daniel Jr., D.O. CV VASCULAR PROCEDURES * (ABNORMAL) CBC with Differential, Blood (2023 [...] Gifty Mojica Jr.OAnna LAB BLOOD AD D-ON [facility] [address] [place] [id number], [facility] [place] [address], [place] [address] documented in this encounter Visit Diagnoses Diagnosis Chronic Kidney Disease (CKD), Stage 3a Glomerular Filtration Rate (GFR) 45 To 59 (HCC)- Primary Diabetes Mellitus Type 2 (HCC) Hypertensive Chronic Kidney Disease (CKD) Stage 3a Glomerular Filtration Rate (GFR) 45 To 59 (HCC) Atrial Fibrillation Unspecified (HCC) Hyperparathyroidism Renal Secondary (HCC) 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
--- OUTSIDE RECORDS SUMMARY | 2023-12-17 12:12 | XMS_ITS | Encounter Summary ---
Author Name Unknown Organization [facility] Address [address] [place] [address] Care Team Providers Care Shot Peening Operator Name Role Phone Unavailable Primary Care Provider Unavailabl e Encounter Details Date Type Department Care Team (Latest Contact Info) Description 05/14/2023 10:00 AM CDT - 05/14/2023 11:59 PM CDT Hospital Encounter Department of Cardiovascular Diseases in [place], [place] [address] [place] [address] Baldo Cristina M.D. [address] [phone] Aftercare Cardiac Pacemaker Discharge Disposition: Home or Self Care Social [...] Sig Dispensed Refills Start Date End Date biotin 300 mcg tablet Take 300 mcg by mouth daily. 0 colchicine (COLCRYS) 0.6 mg tablet Take 1 tablet (0.6 mg total) by mouth 2 (two) times a day. When having gout 30 tablet 3 03/17/2023 docosahexaenoic acid-epa 120-180 mg capsule Take 1 g by mouth. 0 11/13/2017 omeprazole (PriLOSEC) [address] capsule 0 04/19/2022 oxyCODONE-acetaminophen (PERCOCET) 5-325 mg per tablet 0 04/25/2022 pravastatin (PRAVACHOL) 20 mg tablet Take 20 mg by mouth daily. 0 09/19/2020 pregabalin (LYRICA) 100 mg capsule Take 100 mg by mouth 3 (three) times a day. 0 06/26/2022 sotaloL (BETAPACE) 80 mg tablet Take 80 mg by mouth daily. 0 03/02/2022 apixaban (ELIQUIS) 5 mg tablet Take 5 mg by mouth 2 (two) times a day. 0 2023 fesoterodine (TOVIAZ) 4 mg 24 hr tablet Take 1 tablet (4 mg total) by mouth daily. 90 tablet 3 11/04/2022 2023 furosemide (LASIX) 20 mg tablet Take 1 tablet (20 mg total) by mouth as directed. On fri 90 tablet 3 12/22/2019 2023 gabapentin (NEURONTIN) 600 mg tablet Take 600 mg by mouth 2 (two) times a day. 0 01/28/2022 2023 documented as of this encounter Plan of Treatment Not on file documented as of this encounter Procedures Procedure Name Priority Date/Time Associated Diagnosis Comments PACER DUAL CHAMBER INTERROGATION WITH PROGRAMMING Routine 05/14/2023 2:42 PM CDT Aftercare Cardiac Pacemaker documented in this encounter Results * PACER DUAL CHAMBER INTERROGATION WITH PROGRAMMING (05/14/2023 2:42 PM CDT) Narrative CV OPTIMA - 05/19/2023 3:40 PM CDT This study was read by an external provider and scanned to the patient's chart. Please launch the scanned document link to view the full report. Baldo Cristina M.D. CV IMPLANTABLE CARD IAC DEVICE CV OPTIMA NA documented in this encounter Visit Diagnoses Diagnosis Aftercare Cardiac Pacemaker documented in this encounter
--- OUTSIDE RECORDS SUMMARY | 2023-12-17 12:12 | XMS_ITS ---
Author Name Unknown Organization [facility] Address [address] [place] [address] Care Team Providers Care Live In Caregiver Name Role Phone Unavailable Unavailable Unavailable Surgery Details Not on file Complications Check Surgery Details section. Procedure Estimated Blood Loss Check Surgery Details section. Procedure Findings Check Surgery Details section. Procedure Specimens Taken Check Surgery Details section.
--- OUTSIDE RECORDS SUMMARY | 2023-12-17 12:12 | XMS_ITS | Referral Summary ---
Author Name Unknown Organization [facility] Address [address] [place] [address] Care Team Providers Care Direct Care Provider Name Role Phone Unavailable Primary Care Provider Unavailabl e Source Comments Patient records contain information from all sites at [facility]. For routine questions regarding patient records, call [phone] during business hours, M-F 8:00 AM - 5:00 PM Central Time. Record requests for emergency care only can be directed to [phone] at any time.[facility] Encounters Date Type Department Care Team Description 12/16/2023 3:00 PM INTERNET SOURCER External Outreach Division of Nephrology and Hypertension in [place], [place] [address] [place] [address] Kyle Daniel Jr., D.O. 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 I have a [facility] place to live 09/05/2023 Sex and Gender Information Value Date Recorded Sex Assigned at Male 09/05/2023 2:59 PM CDT Gender Identity Male 09/05/2023 2:59 PM CDT Sexual Orientation Straight 09/05/2023 2: 59 PM CDT Last Filed Vital Signs Vital Sign Reading Time Taken Comments Blood Pressure 180/90 12/16/2023 3:08 PM INTERNET SOURCER Pulse 74 12/16/2023 3:08 PM INTERNET SOURCER Temperature 36 ??C (96.8 ??F) 06/27/2022 3:27 PM CDT Respiratory Rate - - Oxygen Saturation - - Inhaled Oxygen Concentration - - Weight 141 kg (310 lb 13.6 oz) 12/16/2023 3:08 P M INTERNET SOURCER Height 176.5 cm (5' 9.49) 12/16/2023 3:08 PM CS T Body Mass Index 45.26 12/16/2023 3:08 PM INTERNET SOURCER Plan of Treatment Not on file
--- OUTSIDE RECORDS SUMMARY | 2023-12-17 12:13 | XMS_ITS | Encounter Summary ---
Author Name Unknown Organization [facility] Address [address] [place] [address] Care Team Providers Care Assignment Desk Assistant Name Role Phone Unavailable Primary Care Provider Unavailabl e Reason for Visit * Appointment Request (Routine) - Closed Specialty Diagnoses / Procedures Referred By Keila t Referred To Contact Nephrology and Hypertension Referral ID Status Reason Start Date Expiration Date Visits Re quested Visits Authorized [id number] Closed 01/30/2023 01/30/2024 1 Encounter Details Date Type Department Care Team (Latest Contact Info) Description 02/17/2023 1:00 PM CDT External Outreach Division of Nephrology and Hypertension in [place], [place] [address] [place] [address] Kyle Daniel Jr., D.O. [address] [place] [address] Chronic Kidney Disease (CKD), Stage 3a Glomerular Filtration Rate (GFR) 45 To 59 (HCC) (Primary Dx); Hypertensive Chronic Kidney Disease (CKD) Stage 3a Glomerular Filtration Rate (GFR) 45 To 59 (HCC); Atrial Fibrillation Unspecified; Hyperparathyroidism Renal Secondary (HCC); Diabetes Mellitus Type 2 (HCC) Social History Tobacco Use Types Packs/Day [...] Sign Reading Time Taken Comments Blood Pressure 122/70 02/17/2023 12:55 PM CDT Pulse 62 02/17/2023 12:55 PM CDT Temperature - - Respiratory Rate - - Oxygen Saturation - - Inhaled Oxygen Concentration - - Weight 135 kg (298 lb 11.6 oz) 02/17/2023 12:55 PM CDT Height 176 cm (5' 9.29) 02/17/2023 12:55 PM CDT Body Mass Index 43.74 02/17/2023 12:55 PM CDT documented in this encounter Progress Notes * Kyle Daniel Jr., D.O. - 02/17/2023 1:00 PM CDT Referring Provider: No primary care provider on file. SUBJECTIVE REASON FOR VISIT [facility] out reach [facility] Follow-up regards hypertension and CKD-new diagnosis of diabetes mellitus HISTORY OF PRESENT ILLNESS Mr. Forte is a 72 y.o. male who presents with a history of ischemic nephrosclerosis, on the background of prior hypertension, NSAID use, DJD, and thromboembolic phenomenon. Since our last visit he admits that he is not been paying very close attention to his diet and was found to have hemoglobin A1c at 9.6%. Was initiated on metformin, it made him desperately ill. He issince been able to restrict his diet, become more conscious of eating healthy foods, and his weighthas dropped by over 20 lb since earlier this month. He is set to visit with the dietitian, he will continue on his educational journey regards his new diagnosis of diabetes mellitus. He is hopeful that he be able to avoid medications eventually. He is also noticing that his blood pressure has decreased, he has been cutting his Catapres in half, taking 1.5 mg twice daily. Home blood pressures have been in the 120s over 80s. He is not used any NSAIDs, he is not had any urine habit changes. No chest pain no shortness of breath. No neuropathic changes. He has been struggling a bit, as his took 2 separate falls both at [facility] and at [facility], both of which resulting in substantial lacerations. He is hoping she will continue to heal. History reviewed. No pertinent past medical history. [...] a day.), Disp: 180 tablet, Rfl: 3 cloNIDine (CATAPRES) 0.3 mg tablet, Take 1 tablet (0.3 mg total) by mouth 2 (two) times a day. (Patient not taking: Reported on 10/09/2022), Disp: 180 tablet, Rfl: 3 docosahexaenoic acid-epa [...] systems reviewed and are negative. OBJECTIVE BP 122/70 Pulse 62 Ht 176 cm Wt 135 kg BMI 43.74 kg/m?? PHYSICAL EXAMINATION General: Awake alert oriented HEENT: BETH, EOMI, Mucous membranes moist, no oral lesions Neck: No Masses, No Bruits Lungs: Clear to ascultation Heart: Regular Rate and Rhythm, No ectopy Murmurs or rubs Abdomen: Soft, Non-tender Extremitie nonpitting lower extremity edema he is compression hose in place Neuro: Cranial Nerves intact, gait is antalgic, he is able to arise out of the exam chair without challenge. Uses a cane for ambulation Skin: no suspicious lesions identified Psychiatric: Normal affect DIAGNOSTICS Note creatinine 1.4 mg/dL, hemoglobin A1c is 9.6% normal hemoglobin normal chemistries otherwise, microalbumin to creatinine ratio elevated 200 milligrams/gram ASSESSMENT / PLAN #1 Chronic Kidney Disease (CKD), Stage 3a Glomerular Filtration Rate (GFR) 45 To 59 (HCC) I congratulated him on the stability of his renal function, his proteinuria has worsened slightly, I am very impressed with his blood pressure. Going forward: 1. Goal blood pressure less than 125/85-achieved 2. I believe we can begin to taper off the clonidine given his weight loss. 3. Goal glycosylated hemoglobin less than 7.5% 4. Continue to avoid NSAIDs and Corrigan 2 inhibitors 5. Continue to stay well hydrated 6. I will see him back in 6 months. #2 Hypertensive Chronic Kidney Disease (CKD) Stage 3a Glomerular Filtration Rate (GFR) 45 To 59 (HCC) His goal blood pressures have been achieved I congratulated him. Particularly, I congratulated him on his weight loss which is on the background of lower sodium diet, and lower complex carbohydrates. He will taper the clonidine as follows: He will take 1/2 of a 0.3 mg for the rest of the week 2. Will go to 1/2 tablet of 0.3 mg for 5 more days, then this continue 3. He will monitor his blood pressure regularly, he will get back to me if his blood pressures are above 130 systolic. #3 Atrial Fibrillation Unspecified His heart rate is regular currently is on oral anticoagulation. #4 Hyperparathyroidism Renal Secondary (HCC) His calcium and phosphorus are acceptable. #5. Diabetes mellitus type 2-new diagnosis He had a very untoward reaction to the metformin, I have asked him to continue on his diet, I will ask for another hemoglobin A1c in a month and will coordinate care with his primary care team. He may do well on glipizide, or an SG LT 2 inhibitor. Total time: 45 minutes Counseling Time: 30 minutes Kyle Daniel [...] Secondary (HCC) Diabetes Mellitus Type 2 (HCC) documented in this encounter
--- OUTSIDE RECORDS SUMMARY | 2023-12-17 12:13 | XMS_ITS | Encounter Summary ---
Author Name Unknown Organization [facility] Address [address] [place] [address] Care Team Providers Care Wet Process Technician Name Role Phone Unavailable Primary Care Provider Unavailabl e Reason for Visit * Appointment Request (Routine) - Closed Specialty Diagnoses / Procedures Referred By Keila t Referred To Contact Nephrology and Hypertension Referral ID Status Reason Start Date Expiration Date Visits Re quested Visits Authorized [id number] Closed 02/27/2023 02/27/2024 1 Encounter Details Date Type Department Care Team (Latest Contact Info) Description 03/17/2023 3:30 PM CDT External Outreach Division of Nephrology and Hypertension in [place], [place] [address] [place] [address] Kyle Daniel Jr., D.O. [address] [place] [address] Chronic Kidney Disease (CKD), Stage 3a Glomerular Filtration Rate (GFR) 45 To 59 (HCC) (Primary Dx); Hypertensive Chronic Kidney Disease (CKD) Stage 3a Glomerular Filtration Rate (GFR) 45 To 59 (HCC); Diabetes Mellitus Type 2 (HCC); Hyperparathyroidism Renal Secondary (HCC) Social History Tobacco Use Types Packs/Day [...] Sign Reading Time Taken Comments Blood Pressure 148/80 03/17/2023 3:37 PM CDT Pulse 65 03/17/2023 3:37 PM CDT Temperature - - Respiratory Rate - - Oxygen Saturation - - Inhaled Oxygen Concentration - - Weight 137 kg (302 lb 14.6 oz) 03/17/2023 3:37 P M CDT Height 176.5 cm (5' 9.49) 03/17/2023 3:37 PM CD T Body Mass Index 44.11 03/17/2023 3:37 PM CDT documented in this encounter Progress Notes * Kyle Daniel Jr., Trino.O. - 03/17/2023 3:30 PM CDT Referring Provider: No primary care provider on file. SUBJECTIVE REASON FOR VISIT [facility] out reach [facility] Follow-up regards CKD, hypertension, diabetes mellitus HISTORY OF PRESENT ILLNESS Mr. Forte is a 72 y.o. male who presents with follow-up of his progress since our last visit. He is doing well overall plenty of energy, no recent falls, he continues to lose weight, losing another 4 kg since our last visit. He is on long-acting metformin now, but has not actually picked thisup yet. As he resume 500 mg of standard metformin he is no longer having diarrhea. His hemoglobin A1c has improved dramatically from 9.6-8.2%. Home blood pressures have been in the 130s and 140s systolic without orthostatic issues excepting for over the weekend. Had an episode where he noted that he was somewhat lightheaded. This was associated with polyuria and a sense that he needed to take quite large breaths. Does not describe actually being short of breath. Interestingly today, his cardiac monitoring team called his home letting him know he was in atrial fibrillation. We discussed the phenomenon of A.N.P. He is had no change in urine character or quantity. He wanted his colchicine renewed, in a tablet form. This was done. Additionally he wanted a updated pneumococcal vaccine, we discussed using the Prevnar form. History reviewed. No pertinent past medical history. [...] systems reviewed and are negative. OBJECTIVE BP 148/80 Pulse 65 Ht 176.5 cm Wt (!) 137 kg BMI 44.11 kg/m?? PHYSICAL EXAMINATION General: Awake alert oriented HEENT: BETH, EOMI, Mucous membranes moist, no oral lesions Neck: No Masses, No Bruits Lungs: Clear to ascultation Heart: Regular Rate and Rhythm, No ectopy Murmurs or rubs Abdomen: Soft, Non-tender Extremities: No cyanosis, No clubbing: No edema Neuro: Cranial Nerves intact, Gait is normal, strength grossly normal Skin: no suspicious lesions identified Psychiatric: Normal affect DIAGNOSTICS Note normal serum creatinine hemoglobin A1c now 8.2% microalbumin to creatinine ratio at 390 milligrams/gram, slightly increased from previous ASSESSMENT / PLAN #1 Chronic Kidney Disease (CKD), Stage 3a Glomerular Filtration Rate (GFR) 45 To 59 (HCC) His GFR remained stable, I congratulated him. I will see him back in 3 months. Going forward: 1. Goal glycosylated hemoglobin between 6.5 and 7.5% 2. Goal blood pressure less than 130/80 3. Plenty of hydration 4. No NSAIDs or Corrigan 2 inhibitors 5. Return to clinic in 3 months #2 Hypertensive Chronic Kidney Disease (CKD) Stage 3a Glomerular Filtration Rate (GFR) 45 To 59 (HCC) Goal blood pressure seem reasonable although in clinic today his blood pressure was above target. #3 Diabetes Mellitus Type 2 (HCC) Glycemic control still not at goal, he has been switched to a long-acting form of metformin which he will be initiating. #4 Hyperparathyroidism Renal Secondary (HCC) I am satisfied with his calcium phosphorus. We will recheck these in May. Total time: 30 minutes Counseling Time: 25 minutes Trino Garay Jr..O. documented in this encounter Plan of Treatment Not on file documented as of this encounter Visit Diagnoses Diagnosis Chronic Kidney Disease (CKD), Stage 3a Glomerular Filtration Rate (GFR) 45 To 59 (HCC)- Primary Hypertensive Chronic Kidney Disease (CKD) Stage 3a Glomerular Filtration Rate (GFR) 45 To 59 (HCC) Diabetes Mellitus Type 2 (HCC) Hyperparathyroidism Renal Secondary (HCC) documented in this encounter
--- OUTSIDE RECORDS SUMMARY | 2023-12-17 12:13 | XMS_ITS | Clinical Summary ---
Author Name Unknown Organization [facility] Address [address] [place] [address] Care Team Providers Care Media Aid Name Role Phone Whitney Gil MD Primary Care Provider [phone] Source Comments You are receiving this document as you are listed as the primary care provider,follow-up provider, or the patient has been referred to you for consultation.This is in compliance with the Medicare and[facility] Hospital[facility] EHR Incentive Program,which states Providers who transition their patient to another setting of careor provider of care or refers their patient to another provider of care shouldprovide summary care record for each transition of care or referral. [facility] Allergies Active Allergy Reactions Criticality Noted Date Comments Lisinopril 11/13/2017 Cough Medications Medication Sig Dispensed Refills Start Date End Date Status LISINOPRIL-HCTZ (AKA PRINZIDE;ZESTORETIC) 20-25 MG tablet Take 1 tablet by mouth daily (every 24 hours). 0 12/31/2011 Active traMADol (AKA ULTRAM) 50 MG tablet Take 50 mg by mouth every 6 hours as needed. 0 12/31/2011 Active aspirin EC 81 MG enteric coated tablet Take 81 mg by mouth daily (every 24 hours). 0 12/31/2011 Active furosemide (AKA LASIX) 20 MG tablet Take 20 mg by mouth daily (every 24 hours). 0 12/31/2011 Active cloNIDine (AKA CATAPRES) 0.2 MG tablet Take 0.4 mg by mouth nightly. 0 12/31/2011 Active LOSARTAN POTASSIUM OR 25 mg daily. 0 A ctive rivaroxaban (XARELTO) 20 MG tablet Take 20 mg by mouth. 0 11/13/2017 Active multivitamin with minerals (THERA M PLUS) tablet Take 1 Tablet by mouth. 0 11/13/2017 Active triamterene-hydrochlo rothiazide (DYAZIDE) 37.5-25 MG capsule Take 1-2 Capsules by mouth. 0 11/13/2017 Active Active Problems Problem Noted Date Diagnosed Date Osteoarthrosis involving lower leg 12/31/2011 Overview: Osteoarthrosis, unspecified whether generalized or localized, lower leg Achilles tendinitis 12/31/2011 Social History Tobacco Use Types Packs/Day Years Used Date Smoking Tobacco: Former Smokeless Tobacco: Never Alcohol Use Standard Drinks/Week Comments No 0 (1 standard drink = 0.6 oz pur e alcohol) Sex and Gender Information Value Date Recorded Sex Assigned at Not on file Gender Identity Not on file Sexual Orientation Not on file Last Filed Vital Signs [...] Last Done Comments Colon Cancer Screening Plan Due 1950 Hep C Screening (Preventive Services) 1950 Medicare Annual Wellness Visit 1950 COVID-19 Vaccine (#1) 03/11/1950 Cholesterol 1984 Zoster/Shingles (1 of 2) 1999 Pneumococcal 65+ Yrs (2 - PPSV23 or PCV20) 09/19/2021 09/19/2020 DTaP/Tdap/Td (2 - Tdap) 04/06/2022 04/06/20 12, 01/22/2006 Influenza (#1) 2023 11/14/2020, 09/07/2017 HepA Aged Out No longer eligi ble based on patient's age to complete this topic HepB Aged Out No longer eligi ble based on patient's age to complete this topic Hib Aged Out No longer eligi ble based on patient's age to complete this topic IPV (Polio) Aged Out No longer eligi ble based on patient's age to complete this topic MCV4 Aged Out No longer eligi ble based on patient's age to complete this topic Care Teams Media Aid Relationship Specialty Start Date End Date Whitney Gil MD [address] [place] [address] PCP - General 12/06/11
--- OUTSIDE RECORDS SUMMARY | 2023-12-17 12:13 | XMS_ITS | Clinical Summary ---
Author Name Unknown Organization [facility] Address [address] [place], [place] [address]. [place], [place] Care Team Providers Care Stopperer Assembler Name Role Phone Trung Tucker MD Primary Care Provider [phone] Allergies Active Allergy Reactions Criticality Noted Date Comments Adhesive Tape Rash Low 07/16/2021 Foam tape used for pressure wrap after the pacemaker procedure Lisinopril Cough 11/13/2017 Cough Cough Losartan 11/13/2017 cough Medications Medication Sig Dispensed Refills Start Date End Date Status rivaroxaban ANTICOAGULANT (XARELTO) 20 MG TABS tablet Take 1 tablet (20 mg) by mouth daily (with dinner) 0 11/13/2017 Active triamterene-hydroch lorothiazide (DYAZIDE) 37.5-25 MG per capsule Take 1-2 capsules by mouth daily 90 capsule 3 11/13/2017 Active aspirin 81 MG tablet Take by mouth daily 30 tablet 0 11/13/2017 Active cloNIDine (CATAPRES) 0.2 MG tablet Take 2 tablets (0.4 mg) by mouth 2 times daily 180 tablet 3 11/13/2017 Active omega 3 1000 MG CAPS Take 1 g by mouth daily 90 capsule 0 11/13/2017 Active ELIQUIS ANTICOAGULANT 5 MG tablet Take 5 mg by mouth 2 times daily 0 08/10/2021 Active gabapentin (NEURONTIN) 300 MG capsule 600 mg 0 05/17/2021 Active furosemide (LASIX) 20 MG tablet TAKE 1 TABLET BY MOUTH TWICE DAILY NEEDED 0 03/05/2021 Active omeprazole (PRILOSEC) [address] capsule TK 1 C PO D PRN 0 09/19/2020 Active pravastatin (PRAVACHOL) 20 MG tablet TK 1 T PO HS 0 09/19/2020 Active sotalol (BETAPACE) 80 MG tablet Take 80 mg by mouth 0 07/13/2021 Act chu tamsulosin (FLOMAX) 0.4 MG capsule Take 0.4 mg by mouth daily 0 07/06/2021 Active irbesartan (AVAPRO) 150 MG tablet Take 150 mg by mouth daily 0 07/03/2021 Active betamethasone dipropionate (DIPROSONE) 0.05 % external ointmentIndications :Lymphedema of both lower extremities Apply topically daily 45 g 3 09/11/2021 Active oxyCODONE-acetamino phen (PERCOCET) 5-325 MG tablet TAKE 1 TO 2 TABLETS BY MOUTH THREE TIMES DAILY NEEDED 0 09/18/2021 Active Dermatological Products, Misc. (EPICERAM) EMULIndications:Lym phedema of both lower extremities Externally apply 1 Applicatorful topically daily 450 g 11 10/03/2021 Active Active Problems Problem Noted Date Diagnosed Date Lymphedema of both lower extremities 09/11/2021 Anemia 06/16/2021 Atrial fibrillation with rapid ventricular respo nse 06/16/2021 Elevated brain natriuretic peptide (BNP) level 0 06/16/2021 CKD (chronic kidney disease) 06/16/2021 Shortness of breath 06/16/2021 Syncope 06/16/2021 History of pulmonary embolism - 2000s 11/13/2017 History of blood clots ( PE in 2001, DVT 2014) on Xarelto since 201411/13/2017 HTN, goal below 140/90 11/13/2017 Renal cyst, right 13.8 CT 200911/13/2017 Liver cyst 11/13/2017 Achilles tendinitis 12/31/2011 Osteoarthrosis involving lower leg 12/31/2011 Overview: Osteoarthrosis, unspecified whether generalized or localized, lower leg Immunizations Name Administration Dates Next Due Influenza (High Dose) 3 valent vaccine 7 TDAP Vaccine (Adacel) 04/06/2012 Family History Medical History Relation Comments Deep Vein Thrombosis Brother Multiple-on Xarelto Family History Negative Mother Deep Vein Thrombosis Sister Multiple-on Xarelto Relation Status Comments Brother Alive Father (Age 48) Maternal Grandfather Maternal Grandmother Mother Paternal Grandfather Paternal Grandmother Sister Alive Social History Tobacco Use Types Packs/Day Years Used Date Smoking Tobacco: Former Cigars Smokeless Tobacco: Never Tobacco Cessation:Counseling Given: Yes Alcohol Use Standard Drinks/Week Comments No 0 (1 standard drink = 0.6 oz pur e alcohol) PHQ-2 Answer Date Recorded PHQ-2 Score 0 12/01/2018 Adolescent Education Answer Date Record ed Getting School Help Needed Not on file 08/30 Sex and Gender Information Value Date Recorded Sex Assigned at Not on file Gender Identity Not on file Sexual Orientation Not on file Last Filed Vital Signs Vital Sign Reading Time Taken Comments Blood Pressure 188/107 11/14/2021 1:10 PM WIDE LOAD ESCORT Pulse 67 11/14/2021 1:10 PM WIDE LOAD ESCORT Temperature 36.6 ??C (97.8 ??F) 11/14/2021 1:10 PM CS T Respiratory Rate 20 10/03/2021 10:02 AM WIDE LOAD ESCORT Oxygen Saturation 100% 11/18/2017 12:52 PM WIDE LOAD ESCORT Inhaled Oxygen Concentration - - Weight 114.8 kg (253 lb) 11/18/2017 12:52 PM WIDE LOAD ESCORT pt reported Height 173.4 cm (5' 8.25) 11/18/2017 12:[address] pt reported Body Mass Index 38.19 11/18/2017 12:52 PM WIDE LOAD ESCORT Plan of Treatment Health Maintenance Due Date Last Done Comments ADVANCE CARE PLANNING 1950 ANNUAL REVIEW OF HM ORDERS [address] COLONOGRAPHY 1950 FIT 1949 FLEX SIG 1950 LIPID 1950 MICROALBUMIN 1949 sDNA (Cologuard) 1950 COVID-19 Vaccine (#1) 03/11/1950 URINALYSIS 1950 COLONOSCOPY 1959 COLORECTAL CANCER SCREENING 1959 HEPATITIS C SCREENING 1967 LUNG CANCER SCREENING 1999 ZOSTER IMMUNIZATION (1 of 2) 1999 RSV VACCINE ( & 60+ ) (1 - 1-dose 60+ series) 2009 AORTIC ANEURYSM SCREENING (SYSTEM ASSIGNED) 2014 MEDICARE ANNUAL WELLNESS VISIT 2014 FALL RISK ASSESSMENT 11/13/2018 11/13/2017 DTAP/TDAP/TD IMMUNIZATION (2 - Td or Tdap) 04/06/2022 04/06/2012, 01/22/2006 INFLUENZA VACCINE (#1) 2023 0, 09/07/2017 PHQ-2 (once per calendar year) 2023 11/13/2017 Pneumococcal Vaccine: 65+ Years Completed 09/18/2021, 09/19/2020 HPV IMMUNIZATION Aged Out No longer e ligible based on patient's age to complete this topic IPV IMMUNIZATION Aged Out No longer e ligible based on patient's age to complete this topic MENINGITIS IMMUNIZATION Aged Out No l onger eligible based on patient's age to complete this topic RSV MONOCLONAL ANTIBODY Aged Out No l onger eligible based on patient's age to complete this topic Care Teams Stopperer Assembler Relationship Specialty Start Date End Date Trung Tucker MD PCP - General Family Practice 11/13/17
--- OUTSIDE RECORDS SUMMARY | 2023-12-17 12:13 | XMS_ITS | Encounter Summary ---
Author Name Unknown Organization [place] Address [facility] [place] [address] Care Team Providers Care Php Engineer Name Role Phone Trung Tucker MD Primary Care Provider [phone] Reason for Visit * Reason Onset Date Comments WOUND CARE 09/20/2021 Encounter Details Date Type Department Care Team (Late st Contact Info) Description 09/20/[address] [facility] [place] [address] [place] [phone] Byron Garrett MD [address] [place] [address] WOUND CARE Social History Tobacco Use Types Packs/Day Years Used Date Smoking Tobacco: Former Cigars Smokeless Tobacco: Never Alcohol Use Standard Drinks/Week Comments No 0 (1 standard drink = 0.6 oz pur e alcohol) PHQ-2 Answer Date Recorded PHQ-2 Score 0 12/01/2018 Sex and Gender Information Value Date Recorded Sex Assigned at Not on file Gender Identity Not on file Sexual Orientation Not on file COVID-19 Exposure Response Date Recorded In the last month, have you been in contact with someone who was confirmed or suspected to have Coronavirus / COVID-19? No / Unsure 09/11/2021 12:59 PM CDT documented as of this encounter Miscellaneous Notes * Telephone Encounter - Araseli Saldana RN - 09/21/2021 10:45 AM CDT Returned call to pt. He reports he went to the ER on Friday for redness and weeping of his lower legs. He received antibiotics at that appointment. Discussed with pt vitamin recommendations. 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 * Telephone Encounter - Karmen Gallegos - 09/20/2021 3:21 PM CDT Patient called back, still has questions and concerns on the condition of his legs. documented in this encounter Plan of Treatment Not on file documented as of this encounter Visit Diagnoses Not on filedocumented in this encounter Care Teams Php Engineer Relationship Specialty Start Date End Date Trung Tucker MD PCP - General Family Practice 11/13/17 documented as of this encounter
--- OUTSIDE RECORDS SUMMARY | 2023-12-17 12:13 | XMS_ITS | Encounter Summary ---
Author Name Unknown Organization [facility] Address [address] [place] [address] Care Team Providers Care Leisure Studies Professor Name Role Phone Unavailable Primary Care Provider Unavailabl e Reason for Referral * Outpatient (Routine) - Closed Specialty Diagnoses / Procedures Referred By Keila rey Referred To Contact Diagnoses Atrial Fibrillation Unspecified (HCC) Dyspnea Procedures Echo Transthoracic (TTE) Baldo Cristina M.D. [address] [place] [phone] [facility] Referral ID Status Reason Start Date Expiration Date Visits Re quested Visits Authorized [id number] Closed 01/28/2023 01/28/2024 1 1 Reason for Visit * Outpatient (Routine) - Closed Specialty Diagnoses / Procedures Referred By Keila rey Referred To Contact Diagnoses Atrial Fibrillation Unspecified (HCC) Dyspnea Procedures Echo Transthoracic (TTE) Baldo Cristina M.D. [address] [place] [phone] [facility] Region Referral ID Status Reason Start Date Expiration Date Visits Re quested Visits Authorized [id number] Closed 01/28/2023 01/28/2024 1 1 Encounter Details Date Type Department Care Team (Latest Contact Info) Description 03/04/2023 7:37 AM CDT - 03/04/2023 11:59 PM CDT Hospital Encounter Department of Cardiovascular Diseases in [address] [phone] Baldo Cristina M.D. [address] , [facility] [address] [place] [phone] Atrial Fibrillation Unspecified; Dyspnea Discharge Disposition: Home or Self Care Social History Tobacco Use Types Packs/Day Years Used Date Smoking Tobacco: Never Smokeless Tobacco: Never Nutrition Answer Date Recorded Nutrition: EVOO Fat Source Unknown 01/25 Nutrition: Servings of Fruits/Vegetables per Day Not on file 01/25/2021 Dental Answer Date Recorded Dental: Regular Dentist Unknown 01/26/20 Sex and Gender Information Value Date Recorded Sex Assigned at Male 09/05/2023 2:59 PM CDT Gender Identity Male 09/05/2023 2:59 PM CDT Sexual Orientation Straight 09/05/2023 2: 59 PM CDT documented as of this encounter Medications at Time of Discharge Medication Sig Dispensed Refills Start Date End Date biotin 300 mcg tablet Take 300 mcg by mouth daily. 0 docosahexaenoic acid-epa 120-180 mg capsule Take 1 [...] 2 (two) times a day. 0 2023 cloNIDine (CATAPRES) 0.2 mg tablet Take 1 tablet (0.2 mg total) by mouth 2 (two) times a day. 180 tablet 3 12/22/2019 03/17/2023 cloNIDine (CATAPRES) 0.3 mg tablet Take 1 tablet (0.3 mg total) by mouth 2 (two) times a day. 180 tablet 3 2022 03/17/2023 fesoterodine (TOVIAZ) 4 mg 24 hr tablet [...] Procedure Name Priority Date/Time Associated Diagnosis Comments (TTE) 2D ECHO DOPPLER COLOR Routine 03/04/2023 9:39 AM CDT Atrial Fibrillation Unspecified Dyspnea documented in this encounter Results * (TTE) 2D ECHO DOPPLER COLOR (03/04/2023 9:39 AM CDT) Narrative [facility] - 03/13/2023 1:38 PM CDT This study was read by an external provider and scanned to the patient's chart. Please launch the scanned document link to view the full report. Baldo Cristina M.D. CV ECHO PROCEDURES [facility] NA documented in this encounter Visit Diagnoses Diagnosis Atrial Fibrillation Unspecified (HCC) Dyspnea documented in this encounter
--- OUTSIDE RECORDS SUMMARY | 2023-12-17 12:13 | XMS_ITS | Encounter Summary ---
Author Name Unknown Organization [place] Address [facility] [place] [address] Care Team Providers Care Reference Test Clerk Name Role Phone Trung Tucker MD Primary Care Provider [phone] Reason for Visit * Reason Onset Date Comments WOUND CARE 09/27/2021 Encounter Details Date Type Department Care Team (Late st Contact Info) Description 09/27/2021 Telephone [facility] [place] [address] [place] [phone] Byron Garrett MD [address] [place] [address] WOUND CARE Social History Tobacco [...] requested supplements. No further questions or concerns. * Telephone Encounter - Karmen Gallegos - 09/27/2021 3:45 PM CDT Needs some clarification on the supplements he is supposed to be taking. He is having trouble finding them. documented in this encounter Plan of Treatment Not on file documented as of this encounter Visit Diagnoses Not on filedocumented in this encounter Care Teams Reference Test Clerk Relationship Specialty Start Date End Date Trung Tucker MD PCP - General Family Practice 11/13/17 documented as of this encounter
--- OUTSIDE RECORDS SUMMARY | 2023-12-17 12:13 | XMS_ITS | Encounter Summary ---
Author Name Unknown Organization [facility] Address [address] [place] [address] Care Team Providers Care Bench Boring Machine Operator Name Role Phone Unavailable Primary Care Provider Unavailabl e Reason for Visit * Reason Onset Date Comments Med Question 12/23/2022 Encounter Details Date Type Department Care Team (Late st Contact Info) Description 12/23/2022 Clinical Communication Department of Urology in [place], [place] [address] [phone] Jacque Marino, EDI, C.N.P. [address] [phone] Med Question Social History Tobacco Use Types Packs/Day Years [...] encounter Miscellaneous Notes * Telephone Encounter - Mel Gaston, RAnnaN. - 12/24/2022 11:27 AM DEAD MAIL CHECKER OW Uro RN called patient back. Patient states he started taking it as soon as I got it mid October. Patient is going to get a refill, continue to monitor and contact urology or make an appointmentwith worsening or further concerns. MAIL CHECKER * Telephone Encounter - Mel Gaston R.N. - 12/23/2022 5:00 PM CST Patient states his urinary symptoms haven't improved too significantly, standing, I lose urine and I've been reading the label and the past 3 weeks have been terrible with my knees, they're killing me; I have bone on bone but pain seems worse in the past 3 weeks, I can't even sleep and constipation, I have a bowel movement about every 3 days and it's a large amount, uncontrolled flatus I can't control it, and man does it smell, like rotten eggs. Patient mentions dry tongue too. Patient inquiring if an alternative medication would be available. MAIL CHECKER documented in this encounter Plan of Treatment Not on file documented as of this encounter Visit Diagnoses Not on filedocumented in this encounter
--- OUTSIDE RECORDS SUMMARY | 2023-12-17 12:13 | XMS_ITS | Continuity of Care Document ---
Author Name Unknown Organization [facility] Address [address] [place] [address] [place] [address] Phone Care Team Providers Care Coke Crane Operator Name Role Phone Will MD BONE, Jase Unavailable Unavailabl e Medications Medication Instructions Dosage Effective Dates (start - stop) Status Comments Eliquis 2.5 mg tablet take 1 tablet by o ral route 2 times every day 2.5 MG - Active Procedures Procedure Date OFFICE/OUTPATIENT VISIT, [facility] Advance Directives Directive Yes / No Effective Date File Name No Information Encounters Encounter Description Practice Location Reason(s) For Visit Diagnoses Date Provider Providers Copied on Encounter [facility], [address] [place] [address], [id number], [place] tel:[phone] [facility] No Information b- 2 Will Jase. [address] [facility] [place], [place], [id number] , [place]. [phone] [facility], [address] [place] [address], [id number], [place] tel:[phone] [facility] Myalgia, other site [address] [facility] [facility] [address], [place], [id number] , [place]. tel:[phone] OFFICE/OUTPAT IENT VISIT, [facility], [address] [place] [address] [place], [id number], [place] tel:[phone] [facility] Widespread pain (chief complaint) Chronic pain syndromePain in right kneePain in left kneePain in right shoulder [address] [facility] [address] [facility] [address], [place], [id number] , [place]. tel:[phone] Referring Provider: Jase Ackerman, [address] [facility] [address] [place], [address] . tel:[phone] Family History Family Member Type Diagnosis Age At Onset No Information Payers Payer name Insurance type Covered democrat ID Authoriza tipema(s) Medicare MB [id number] Social History Type Description Quantity Date Captured [...] a surgical candidate for knee replacement by [facility] recently. However, he is constantly in [...] be trialling an injection later today at [facility]. Imaging was last completed at [facility].He is currently manged gabapentin 300mg four [...]
--- OUTSIDE RECORDS SUMMARY | 2023-12-17 12:13 | XMS_ITS | Referral Summary ---
Author Name Unknown Organization [place] Address [address] [place], [place] [address]. [place] [address] Care Team Providers Care Automobile Technician Name Role Phone Trung Tucker MD Primary Care Provider [phone] Allergies Active Allergy Reactions Criticality Noted Date [...] valent vaccine 7 TDAP Vaccine (Adacel) 04/06/2012 Social History Tobacco Use Types Packs/Day Years [...] Comments Blood Pressure 188/107 11/14/2021 1:10 PM FISH BAIT PROCESSING SUPERVISOR Pulse 67 11/14/2021 1:10 PM FISH BAIT PROCESSING SUPERVISOR Temperature 36.6 ??C (97.8 ??F) 11/14/2021 1:10 PM CS T Respiratory Rate 20 10/03/2021 10:02 AM FISH BAIT PROCESSING SUPERVISOR Oxygen Saturation 100% 11/18/2017 12:52 PM FISH BAIT PROCESSING SUPERVISOR Inhaled Oxygen Concentration - - Weight 114.8 kg (253 lb) 11/18/2017 12:52 PM FISH BAIT PROCESSING SUPERVISOR pt reported Height 173.4 cm (5' 8.25) 11/18/2017 12:[address] pt reported Body Mass Index 38.19 11/18/2017 12:52 PM FISH BAIT PROCESSING SUPERVISOR Plan of Treatment Not on file Care Teams Automobile Technician Relationship Specialty Start Date End Date Trung Tucker MD PCP - General Family Practice 11/13/17
--- OUTSIDE RECORDS SUMMARY | 2023-12-17 12:13 | XMS_ITS | Clinical Summary ---
Author Name Unknown Organization [facility] Address [place], [place] [address] Care Team Providers Care Em Physician Name Role Phone Trung Tucker MD Primary Care Provider [phone] Allergies Active Allergy Reactions Criticality Noted Date Comments Adhesive Tape-Silicones Rash 07/16/2021 Foam tape used for pressure wrap after the pacemaker procedure Amlodipine Edema 11/27/2021 Lisinopril Cough 11/13/2017 Cough Medications Medication Sig Dispensed Refills Start Date End Date Status clonidine HCl (CLONIDINE ORAL) Take 0.2 mg by mouth 2 times daily. 0 Active irbesartan (AVAPRO) 150 mg tablet Take 150 mg by mouth once daily. 0 Active oxyCODONE-acetaminop hen (PERCOCET) 5-325 mg per tabletIndications:St atus post placement of cardiac pacemaker Take 1 Tablet by mouth every 6 hours if needed for Moderate to Severe pain. Max acetaminophen dose: 4000mg in 24 hrs. 8 Tablet 0 07/13/2021 Active allopurinoL (ZYLOPRIM) 100 mg tablet 0 10/02/2021 Active triamterene-hydrochl orothiazide, 37.5-25 mg, (MAXZIDE-25) 37.5-25 mg tabletIndications:HT N (hypertension) Take 1 Tablet by mouth 2 times daily. 90 Tablet 3 03/26/2022 Active sotaloL (BETAPACE) 80 mg tabletIndications:Pa roxysmal atrial fibrillation (HC) Take 1 Tablet (80 mg) by mouth every 24 hours. 90 Tablet 2 03/26/2022 Active apixaban (ELIQUIS) 5 mg tabletIndications:pr event thromboembolism in chronic atrial fibrillation Take 1 Tablet (5 mg) by mouth 2 times daily. 60 tablet. 8 03/26/2022 Active omeprazole (PRILOSEC) 20 mg Delayed-Release capsule TAKE 1 CAPSULE BY MOUTH DAILY NEEDED 0 12/17/2022 Active Active Problems Problem Noted Date Diagnosed Date Shortness of breath 06/16/2021 Anemia 06/16/2021 CKD (chronic kidney disease) 06/16/2021 Syncope 06/16/2021 Atrial fibrillation with rapid ventricular respo nse 06/16/2021 Elevated brain natriuretic peptide (BNP) level 0 06/16/2021 Atrial fibrillation Resolved Problems Problem Noted Date Diagnosed Date Resolved Date CATHERINE (acute kidney injury) 06/16/2021 Family History Medical History Relation Name Comments No Known Problems Mother Relation Name Status Comments Mother Social History Tobacco Use Types Packs/Day Years Used Date Smoking Tobacco: Former Cigarettes Q uit: 08/24/2019 Smokeless Tobacco: Never Alcohol Use Standard Drinks/Week Comments Not Currently 0 (1 standard drink = 0.6 oz pur e alcohol) PHQ-2 Answer Date Recorded PHQ-2 TOTAL SCORE 0 06/16/2021 Social Connections Answer Date Recorded Frequency of Communication with Friends and Fami ly Not on file 11/24/2021 Financial Resource Strain Answer Date R ecorded Difficulty of Paying Living Expenses Not on file 11/24/2021 Difficulty of Paying Living Expenses Not on file 11/24/2021 Sex and Gender Information Value Date Recorded Sex Assigned at Not on file Gender Identity Not on file Sexual Orientation Not on file Obstetrics History Last Filed Vital Signs Vital Sign Reading Time Taken Comments Blood Pressure 110/70 01/22/2023 2:21 PM WAREHOUSE PERSON Pulse 70 01/22/2023 2:21 PM WAREHOUSE PERSON Temperature 36.2 ??C (97.2 ??F) 07/13/2021 3:30 PM CD T Respiratory Rate 18 07/13/2021 3:30 PM CDT Oxygen Saturation 94% 01/22/2023 2:21 PM WAREHOUSE PERSON Inhaled Oxygen Concentration - - Weight 146.5 kg (323 lb) 01/22/2023 2:21 PM WAREHOUSE PERSON Height 177.8 cm (5' 10) 01/22/2023 2:21 PM WAREHOUSE PERSON Body Mass Index 46.35 01/22/2023 2:21 PM WAREHOUSE PERSON Plan of Treatment Upcoming Encounters Date Type Department Care Team (Late st Contact Info) Description 01/13/2024 Cardiac Device Check [facility] [phone] Health Maintenance Due Date Last Done Comments COVID-19 vaccine series (#1) 03/11/1950 Tdap 1960 Hepatitis C screening for ag e 18-79 1967 Tetanus booster 1969 Colonoscopy through age 75 1994 Lipids for age 45-75 1994 Zoster (shingles) series for age 50+ (1 of 2) 1999 Medicare Wellness for age 65+ 2014 Pneumococcal series for age 65+ (1 of 1 - PCV) 2014 Depression screening for age 12+ 06/20/2022 06/20/2021, 06/18/2021, 06/16/2021, Additional history exists Influenza for age 65+ 07/25/2023 BMI (ht and wt on same day) for age 18+ 01/23/2024 01/22/2023, 03/26/2022, 10/10/2021, Additional history exists Advance Directives Latest Code Status on File Code Status Date Activated Date Inactivated Comments Full Code 07/13/2021 10:01 AM 07/13/2021 8:44 PM Question Answer Comments Code Status Discussion: Per Advance Care Plan Code Status History Code Status Date Activated Date Inactivated Comments Full Code 06/16/2021 3:29 PM 06/17/2021 3:49 PM Question Answer Comments Code Status Discussion: Discussed Full Code 09/27/2019 1:51 PM 09/28/2019 4:16 PM Full Code 03/03/2019 11:17 AM 03/03/2019 6:10 PM Full Code 03/03/2019 11:17 AM 03/03/2019 11:17 AM Care Teams Em Physician Relationship Specialty Start Date End Date Trung Tucker MD [address] [place] [address] PCP - General 12/22/18
--- OUTSIDE RECORDS SUMMARY | 2023-12-17 12:13 | XMS_ITS | Encounter Summary ---
Author Name Unknown Organization [place] Address [facility] [place] [address] Care Team Providers Care Cultural Anthropology Professor Name Role Phone Trung Tucker MD Primary Care Provider [phone] Reason for Visit * Reason Onset Date Comments WOUND CARE 09/12/2021 Encounter Details Date Type Department Care Team (Late st Contact Info) Description 09/12/[address] [facility] [place] [address] [place] [phone] Byron Garrett MD [address] [place] [address] WOUND CARE Social History Tobacco [...] AM CDT Home care referral faxed to [facility]. * Telephone Encounter - Karmen Gallegos - 09/12/2021 10:11 AM CDT Service at [facility], unable to fulfill request for home care documented in this encounter Plan of Treatment Not on file documented as of this encounter Visit Diagnoses Not on filedocumented in this encounter Care Teams Cultural Anthropology Professor Relationship Specialty Start Date End Date Trung Tucker MD PCP - General Family Practice 11/13/17 documented as of this encounter
== END 2023-12-16 14:57 | disposition home or self-care (01) ==
LOC: NFLDREF 12-17 12:10
PROVIDERS: PCP Family Medicine; Referring Provider Family Medicine; Visit Provider Internal Medicine Nephrology
DX: E11.9 Type 2 diabetes mellitus without complications (principal); D64.9 Anemia, unspecified; E78.5 Hyperlipidemia, unspecified; I10 Essential (primary) hypertension; Z79.84 Long term (current) use of oral hypoglycemic drugs
CPT/HCPCS: 80061; 80069; 82043; 82310; 82570; 82728; 83540; 83550; 83970; 84450; 84460; 84550

== ENCOUNTER 2024-02-19 14:16 | Outpatient (CLI) | payer MEDICARE, BC, SELFPAY | END 2024-02-19 14:17 | disposition home or self-care (01) | LOC: NFLDREF 02-20 06:46 | PROVIDERS: PCP Family Medicine; Referring Provider Family Medicine; Visit Provider Internal Medicine Nephrology | DX: D64.9 Anemia, unspecified (principal); E11.9 Type 2 diabetes mellitus without complications; E78.5 Hyperlipidemia, unspecified; I10 Essential (primary) hypertension; N18.9 Chronic kidney disease, unspecified | CPT/HCPCS: 80061; 80069; 82043; 82310; 82570; 83970; 84450; 84460; 84550; 86140 ==

== ENCOUNTER 2024-04-20 09:41 | Outpatient (CLI) | payer MEDICARE, BC, SELFPAY ==
--- OUTSIDE RECORDS SUMMARY | 2024-04-21 17:08 | XMS_ITS | Encounter Summary ---
Author Organization [facility] Address [address] [place] [address] Care Team Providers Care Director Fixed Income Name Role Phone Unavailable Primary Care Provider Unavailabl e Encounter Details Date Type Department Care Team (Latest Contact Info) Description 04/14/2024 10:56 AM CDT - 04/14/2024 11:59 PM CDT Hospital Encounter Department of Cardiovascular Diseases in [place], [place] [address] [place] [address] Baldo Cristina M.D. [address] [facility] [address] [place] [address] Aftercare Cardiac Pacemaker Discharge Disposition: Home or [...] your living situation today? I have a [facility] place to live 09/05/2023 Sex [...] tablet Take 300 mcg by mouth daily. colchicine (COLCRYS) 0.6 mg tablet Take 1 tablet (0.6 mg total) by mouth 2 (two) times a day. When having gout 30 tablet 3 03/17/2023 docosahexaenoic acid-epa 120-180 mg capsule Take 1 g by mouth. 11/13/2017 fesoterodine (TOVIAZ) 4 mg 24 hr tablet Take 1 tablet (4 mg total) by mouth daily. 90 tablet 3 2023 furosemide (LASIX) 20 mg tablet Take 1 tablet (20 mg total) by mouth as directed. One daily for 5 days then qod if legs still swollen 12/16/2023 12/15/2024 metFORMIN XR (GLUCOPHAGE-XR) 500 mg 24 hr tablet Take 500 mg by mouth every evening. 07/14/2023 omeprazole (PriLOSEC) [address] capsule 04/19/2022 oxyCODONE-acetaminophen (PERCOCET) 5-325 mg per tablet 04/25/2022 pravastatin (PRAVACHOL) 20 mg tablet Take 20 mg by mouth daily. 09/19/2020 pregabalin (LYRICA) 100 mg capsule Take 100 mg by mouth 3 (three) times a day. 06/26/2022 sotaloL (BETAPACE) 80 mg tablet Take 80 mg by mouth daily. 03/02/2022 documented as of this encounter Plan of Treatment Not on file documented as of this encounter Procedures Procedure Name Priority Date/Time Associated Diagnosis Comments PACER DUAL CHAMBER INTERROGATION WITH PROGRAMMING Routine 04/14/2024 1:41 PM CDT Aftercare Cardiac Pacemaker documented in this encounter Results * PACER DUAL CHAMBER INTERROGATION WITH PROGRAMMING (04/14/2024 1:41 PM CDT) Narrative ANKITA HYMAN - 04/15/2024 1:20 PM CDT This study was read by an external provider and scanned to the patient's chart. Please launch the scanned document link to view the full report. Baldo Cristina M.D. CV IMPLANTABLE CARD IAC DEVICE AURELIA HYMAN NA documented in this encounter Visit Diagnoses Diagnosis Aftercare Cardiac Pacemaker documented in this encounter
--- OUTSIDE RECORDS SUMMARY | 2024-04-21 17:08 | XMS_ITS | Clinical Summary ---
Author Organization [facility] Address [address] [place] [address] Care Team Providers Care Drain Cleaner Name Role Phone Unavailable Primary Care Provider Unavailabl e Source Comments Patient records contain information from all sites at [facility]. For routine questions regarding patient records, call [phone] during business hours, M-F 8:00 AM - 5:00 PM Central Time. Record requests for emergency care only can be directed to [phone] at any time.[facility] Allergies Active Allergy Reactions Criticality Noted Date [...] tablet Take 300 mcg by mouth daily. Active irbesartan (AVAPRO) 150 mg tablet Take 1 tablet (150 mg total) by mouth daily. 90 tablet 3 12/20/2020 Active allopurinoL (ZYLOPRIM) 100 mg tablet Take 1 tablet (100 mg total) by mouth daily. 90 tablet 3 10/02/2021 Active docosahexaenoic acid-epa 120-180 mg capsule Take 1 g by mouth. 11/13/2017 Active omeprazole (PriLOSEC) [address] capsule 04/19/2022 Active oxyCODONE-acetami nophen (PERCOCET) 5-325 mg per tablet 04/25/2022 Active pravastatin (PRAVACHOL) 20 mg tablet Take 20 mg by mouth daily. 09/19/2020 Active sotaloL (BETAPACE) 80 mg tablet Take 80 mg by mouth daily. 03/02/2022 Active pregabalin (LYRICA) 100 mg capsule Take 100 mg by mouth 3 (three) times a day. 06/26/2022 Active colchicine (COLCRYS) 0.6 mg tablet [...] 500 mg by mouth every evening. 07/14/2023 Active fesoterodine (TOVIAZ) 4 mg 24 hr tablet Take 1 tablet (4 mg total) by mouth daily. 90 tablet 3 2023 Active furosemide (LASIX) 20 mg tablet Take 1 tablet (20 mg total) by mouth as directed. 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 Aftercare Cardiac Pacemaker Discharge Disposition: Home or Self Care 02/24/2024 3:00 PM CDT External Outreach Division of Nephrology and Hypertension in [place], [place] [address] [place] [address] Kyle Daniel Jr., D.O. Hypertensive Chronic Kidney Disease (CKD) Stage 3a Glomerular Filtration Rate (GFR) 45 To 59 (HCC) (Primary Dx); Diabetes Mellitus Type 2 With Diabetic Chronic Kidney Disease (HCC); Hyperparathyroidism Renal Secondary (HCC); Atrial Fibrillation Unspecified (HCC); Failure Heart (HCC); Venous Insufficiency Chronic Peripheral; Hypokalemia from Last 3 Months Immunizations Name Administration Dates Next Due Influenza high dose QV(65 years or older) (PF) 1 01/15/2020 PCV13 09/19/2020 PPSV23 09/18/2021 Td (Adult), adsorbed 01/22/2006 Td, (Adult) Unspecified 01/22/2006 Tdap 04/06/2012 influenza high dose (65 years or older) (PF) influenza vaccine quad (FLUZ ONE/FLUARIX) (6 months [...] your living situation today? [facility] a [facility] place to live 09/05/2023 Sex and Gender Information Value Date Recorded Sex Assigned at Male 09/05/2023 2:59 PM CDT Gender Identity Male 09/05/2023 2:59 PM CDT Sexual Orientation Straight 09/05/2023 2: 59 PM CDT Last Filed Vital Signs Vital Sign Reading Time Taken Comments Blood Pressure 140/90 02/24/2024 3:16 PM CDT Pulse 74 02/24/2024 3:16 PM CDT Temperature 36 ??C (96.8 ??F) 06/27/2022 3:27 PM CDT Respiratory Rate - - Oxygen Saturation - - Inhaled Oxygen Concentration - - Weight 143 kg (316 lb 5.8 oz) 02/24/2024 3:16 PM CDT Height 176.5 cm (5' 9.49) 02/24/2024 3:16 PM CD T Body Mass Index 46.06 02/24/2024 3:16 PM CDT Plan of Treatment Health Maintenance Due Date Last Done Comments CT Colonography 1950 Cologuard 1950 Colonoscopy 1950 Colorectal Cancer Screening 1950 Diabetic Office Visit with F oot Exam 1950 Dilated Eye Exam 1949 FIT 1949 Hemoglobin A1C 1949 Hepatitis C Screening 1949 Lipid (Cholesterol) Screening 1949 Zoster Vaccines (1 of 2) 1968 Hepatitis [...] 03/26/2023 03/26/2022, 06/25, 07/13/2021, Additional history exists COVID-19 Vaccine ( - 2022-2 4 season) 2023 Depression Screening (Annual PHQ-2) 11/24/2023 Fall Risk Screen (Annual) 11/24/2023 Office Visit for Blood Press ure Check / Re-check 05/25/2024 02/24/2024 Abdominal Aortic Aneurysm (A AA) Screen Discontinued 03/14/2010 Pneumococcal vaccine (65+ years) Completed 09/18/20, 09/19/2020 Influenza Vaccine Completed 09/29/2023, , 09/07/2017, Additional history exists Procedures Procedure Name Priority Date/Time Associated Diagnosis Comments PACER DUAL CHAMBER INTERROGATION WITH PROGRAMMING Routine 04/14/2024 1:41 PM CDT Aftercare Cardiac Pacemaker EXTI POTASSIUM, S/P Routine 03/26/2022 1 :52 PM CDT EXTI CREATININE WITH EGFR, S/P Routine 03/26/2022 1:52 PM CDT EXTI BASIC METABOLIC PANEL, S/P Routine 07/17/2021 11:46 AM CDT ALBUMIN, RANDOM, U Routine 03/02/2020 CT ABDOMEN PELVIS WITH IV CONTRAST Routine 03/14/2010 1:54 PM CDT from Last 3 Months or Most Recently Relevant to Health Maintenance Results * PACER DUAL CHAMBER INTERROGATION WITH PROGRAMMING (04/14/2024 1:41 PM CDT) Narrative CV OPTIMA - 04/15/2024 1:20 PM CDT This study was read by an external provider and scanned to the patient's chart. Please launch the scanned document link to view the full report. Baldo Cristina M.D. CV IMPLANTABLE CARD IAC DEVICE Performing Organization Address [facility]/ZIP Co de Phone Number CV OPTIMA NA * Albumin, Random, Urine (03/02/2020) EXT Microalbumin-Ra ndom, U 47 EXTERNAL NON-INTERFACED LAB Urine (Urine, Clean Catch) Zenaida Provider [facility] LAB URINE ORDER ELIF Performing Organization Address City/[facility]/ZIP Co de Phone Number EXTERNAL NON-INTERFACED LAB [address] [place] [address] * CT Abdomen Pelvis with IV Contrast (03/14/2010 1:54 PM CDT) Anatomical Region Laterality Modality Abdomen, Pelvis N/A Computed Tomogra phy 03/14/2010 1:54 PM CDT Impressions 03/14/2010 3:49 PM CDT No findings to explain the patient's symptoms. FINDINGS: Bilateral renal cysts, the largest of which is located within the upper pole of the right kidney measuring approximately 14 cm in greatest diameter. Scattered bone islands in the spine. Abdomen and pelvis are otherwise negative. ?? [id number] Electronically signed by: ?? Karina Smiley MD [phone] ([id number]) 14-Mar-2010 15:49 ?Linh Sellers M.D. ??80 14-Mar-2010 15:49 Narrative 03/14/2010 3:49 PM CDT 14-Mar-2010 13:54:00 ??Exam: CT ABDOMEN w & PELVIS w Indications: abd/pel- con per rad, edema ORIGINAL REPORT - 14-Mar-2010 15:49:00 EXAM: CT of the abdomen pelvis with intravenous and oral contrast. No comparison available. CONCLUSION/ Procedure Note Willard Sellers M.D. - 02/22/2018 14-Mar-2010 13:54:00 Exam: CT ABDOMEN w & PELVIS w Indications: abd/pel- con per rad, edema ORIGINAL REPORT - 14-Mar-2010 15:49:00 EXAM: CT of the abdomen pelvis with intravenous and oral contrast. Nocomparison available. CONCLUSION/IMPRESSION: No findings to explain the patient's symptoms. FINDINGS: Bilateral renal cysts, the largest of which is located withinthe upper pole of the right kidney measuring approximately 14 cm ingreatest diameter. Scattered bone islands in the spine. Abdomen and pelvisare otherwise negative. [id number] Electronically signed by: Karina Smiley MD [phone] ([id number]) 14-Mar-2010 15:49 Linh Sellers M.D.[id number] 14-Mar-2010 15:49 Александр Novoa Jr., M.D. IMG CT MO OCEDURES from Last 3 Months or Most Recently Relevant to Health Maintenance
--- OUTSIDE RECORDS SUMMARY | 2024-04-21 17:08 | XMS_ITS | Referral Summary ---
Author Organization [facility] Address [address] [place] [address] Care Team Providers Care Brick Kiln Burner Name Role Phone Unavailable Primary Care Provider Unavailabl e Source Comments Patient records contain information from all sites at [facility]. For routine questions regarding patient records, call [phone] during business hours, M-F 8:00 AM - 5:00 PM Central Time. Record requests for emergency care only can be directed to [phone] at any time.[facility] Encounters Date Type Department Care Team Description 04/14/2024 10:56 AM CDT - 04/14/2024 11:59 PM CDT Hospital Encounter Department of Cardiovascular Diseases in [place], [place] [address] [place] [phone] Baldo Cristina M.D. Aftercare Cardiac Pacemaker Discharge Disposition: Home or Self Care 02/24/2024 3:00 PM CDT External Outreach Division of Nephrology and Hypertension in [place], [place] [address] [place] [address] Kyle Daniel Jr., D.O. Hypertensive Chronic Kidney Disease (CKD) Stage 3a Glomerular Filtration Rate (GFR) 45 To 59 (HCC) (Primary Dx); Diabetes Mellitus Type 2 With Diabetic Chronic Kidney Disease (HCC); Hyperparathyroidism Renal Secondary (HCC); Atrial Fibrillation Unspecified (HCC); Failure Heart (HCC); Venous Insufficiency Chronic Peripheral; Hypokalemia from Last 3 Months Allergies Active Allergy [...] 2023 Other Pruritus 2023 Morbid Obesity 2023 [employer] Consultant (Current) Anticoagulant Treatment 08/24 Gout 2023 Gastroesophageal [...] living situation today? I have a [facility] place to live 09/05/2023 Sex and [...] 02/24/2024 3:16 PM CDT Plan of Treatment Not on file Procedures Procedure Name Priority Date/Time Associated Diagnosis [...] IMPLANTABLE CARD IAC DEVICE CV OPTIMA NA * Albumin, Random, Urine (03/02/2020) EXT Microalbumin-Ra ndom, U 47 EXTERNAL NON-INTERFACED LAB Urine (Urine, Clean Catch) Historical Provider C[facility]an LAB URINE ORDER ELIF EXTERNAL NON-INTERFACED LAB [address] [place] [address] * CT Abdomen Pelvis with IV Contrast [...] Electronically signed by: ?? Karina Smiley MD [phone] ([id number]) 14-Mar-2010 15:49 ?Linh Sellers M.D. ??[id number] 14-Mar-2010 15:49 Narrative 03/14/2010 3:49 PM CDT [...] [id number] Electronically signed by: Karina Smiley MD [phone] ([id number]) 14-Mar-2010 15:49 Linh Sellers M.D.[id number] 14-Mar-2010 15:49 Александр Novoa Jr., M.D. IMG CT DE OCEDURES from Last 3 Months or Most Recently Relevant to Health Maintenance
--- OUTSIDE RECORDS SUMMARY | 2024-04-21 17:08 | XMS_ITS ---
Author Organization [facility] Address [address] [place] [address] Care Team Providers Care Lead Atg Developer Name Role Phone Unavailable Unavailable Unavailable Surgery Details Not on file Complications Check Surgery Details section. Procedure Estimated Blood Loss Check Surgery Details section. Procedure Findings Check Surgery Details section. Procedure Specimens Taken Check Surgery Details section.
--- OUTSIDE RECORDS SUMMARY | 2024-04-21 17:08 | XMS_ITS | Continuity of Care Document ---
Author Organization [facility] Address [address] [place] [address] [place] [address] Phone Care Team Providers Care Clay Mixer Name Role Phone Will Jase HAWK Unavailable [...] Diagnoses Date Provider Providers Copied on Encounter [facility], [address] [place] [address], [id number], [place] tel:[phone] [facility] No Information b- 2 Will Jase. [address] [facility] [place], [place], [id number] , [place]. tel:[phone] [facility], [address] [place] [address], [id number], [place] tel:[phone] [facility] Myalgia, other site Dec- [address] [facility], [place], [id number] , [place]. tel:[phone] OFFICE/OUTPAT IENT VISIT, [facility] Pain [facility], [address] [place] [address] [place], [place], [id number], [place] tel:[phone] [facility] [place] Widespread pain (chief complaint) Chronic pain syndromePain in right kneePain in left kneePain in right shoulder [address], [place], [id number] , [place]. tel:[phone] Referring Provider: Jase Ackerman, [address] [facility] [place], [address] . tel:[phone] Family History Family Member Type Diagnosis Age At Onset No Information Payers Payer name Insurance type Covered democrat ID Authoriza tipema(s) Medicare [id number] Social History Type Description Quantity Date Captured [...] a surgical candidate for knee replacement by [facility] recently. However, he is constantly [...] be trialling an injection later today at [facility]. Imaging was last completed at [facility].He is currently manged gabapentin 300mg four [...]
--- OUTSIDE RECORDS SUMMARY | 2024-04-21 17:09 | XMS_ITS | Clinical Summary ---
Author Organization [facility] Address [address] [place], [place] [address]. [place] [address] Care Team Providers Care Treasury Assistant Name Role Phone Trung Tucker MD Primary Care Provider Allergies Active Allergy Reactions Criticality Noted Date Comments Adhesive Tape Rash Low 07/16/2021 Foam tape used for pressure wrap after the pacemaker procedure Lisinopril Cough 11/13/2017 Cough Cough Losartan 11/13/2017 cough Medications Medication Sig Dispensed Refills Start Date End Date Status rivaroxaban ANTICOAGULANT (XARELTO) 20 MG TABS tablet Take 1 tablet (20 mg) by mouth daily (with dinner) 11/13/2017 Active triamterene-hydroch lorothiazide (DYAZIDE) 37.5-25 MG per capsule Take 1-2 capsules by mouth daily 90 capsule 3 11/13/2017 Active aspirin 81 MG tablet Take by mouth daily 30 tablet 11/13/2017 Active cloNIDine (CATAPRES) 0.2 MG tablet Take 2 tablets (0.4 mg) by mouth 2 times daily 180 tablet 3 11/13/2017 Active omega 3 1000 MG CAPS Take 1 g by mouth daily 90 capsule 11/13/2017 Active ELIQUIS ANTICOAGULANT 5 MG tablet Take 5 mg by mouth 2 times daily 08/10/2021 Active gabapentin (NEURONTIN) 300 MG capsule 600 mg 05/17/2021 Active furosemide (LASIX) 20 MG tablet TAKE 1 TABLET BY MOUTH TWICE DAILY NEEDED 03/05/2021 Active omeprazole (PRILOSEC) [address] capsule TK 1 C PO D PRN 09/19/2020 Active pravastatin (PRAVACHOL) 20 MG tablet TK 1 T PO HS 09/19/2020 Active sotalol (BETAPACE) 80 MG tablet Take 80 mg by mouth 07/13/2021 Act chu tamsulosin (FLOMAX) 0.4 MG capsule Take 0.4 mg by mouth daily 07/06/2021 Active irbesartan (AVAPRO) 150 MG tablet Take 150 mg by mouth daily 07/03/2021 Active betamethasone dipropionate (DIPROSONE) 0.05 % external ointmentIndications :Lymphedema of both lower extremities Apply topically daily 45 g 3 09/11/2021 Active oxyCODONE-acetamino phen (PERCOCET) 5-325 MG tablet TAKE 1 TO 2 TABLETS BY MOUTH THREE TIMES DAILY NEEDED 09/18/2021 Active Dermatological Products, Misc. (EPICERAM) EMULIndications:Lym [...] Comments Blood Pressure 188/107 11/14/2021 1:10 PM GRANULATOR Pulse 67 11/14/2021 1:10 PM GRANULATOR Temperature 36.6 ??C (97.8 ??F) 11/14/2021 1:10 PM CS T Respiratory Rate 20 10/03/2021 10:02 AM GRANULATOR Oxygen Saturation 100% 11/18/2017 12:52 PM GRANULATOR Inhaled Oxygen Concentration - - Weight 114.8 kg (253 lb) 11/18/2017 12:52 PM GRANULATOR pt reported Height 173.4 cm (5' 8.25) 11/18/2017 12:[address] pt reported Body Mass Index 38.19 11/18/2017 12:52 PM GRANULATOR Plan of Treatment Health Maintenance Due Date Last Done Comments ADVANCE CARE PLANNING 1950 ANNUAL REVIEW OF HM ORDERS [address] COLONOGRAPHY 1949 FIT 1949 FLEX SIG 1950 GLUCOSE 1949 LIPID 1949 MICROALBUMIN 1949 sDNA (Cologuard) 1950 URINALYSIS 1950 COLONOSCOPY 1959 COLORECTAL CANCER SCREENING 1959 HEPATITIS C SCREENING 1967 LUNG CANCER SCREENING 1999 ZOSTER IMMUNIZATION (1 of 2) 1999 RSV VACCINE ( & 60+ ) (1 - 1-dose 60+ series) 2009 MEDICARE ANNUAL WELLNESS VISIT 2014 FALL RISK ASSESSMENT 11/13/2018 11/13/2017 DTAP/TDAP/TD IMMUNIZATION (2 - Td or Tdap) 04/06/2022 04/06/2012, 01/22/2006 COVID-19 Vaccine (2022-2 4 season) 2023 PHQ-2 (once per calendar year) 2023 11/13/2017 INFLUENZA VACCINE (Season Ended) 2024 11/14/2020, 09/07/2017 Pneumococcal Vaccine: 65+ Years Completed 09/18/2021, 09/19/2020 [...] age to complete this topic Care Teams Treasury Assistant Relationship Specialty Start Date End Date Trung Tucker MD PCP - General Family Practice 11/13/17
--- OUTSIDE RECORDS SUMMARY | 2024-04-21 17:09 | XMS_ITS | Referral Summary ---
Author Organization [facility] Address [address] [place], [place] [address]. [place] [address] Care Team Providers Care Linen Room Custodian Name Role Phone Trung Tucker MD Primary Care Provider [phone] Allergies Active Allergy Reactions Criticality Noted Date [...] Comments Blood Pressure 188/107 11/14/2021 1:10 PM DIALYSIS CLINICAL MANAGER Pulse 67 11/14/2021 1:10 PM DIALYSIS CLINICAL MANAGER Temperature 36.6 ??C (97.8 ??F) 11/14/2021 1:10 PM CS T Respiratory Rate 20 10/03/2021 10:02 AM DIALYSIS CLINICAL MANAGER Oxygen Saturation 100% 11/18/2017 12:52 PM DIALYSIS CLINICAL MANAGER Inhaled Oxygen Concentration - - Weight 114.8 kg (253 lb) 11/18/2017 12:52 PM DIALYSIS CLINICAL MANAGER pt reported Height 173.4 cm (5' 8.25) 11/18/2017 12:[address] pt reported Body Mass Index 38.19 11/18/2017 12:52 PM DIALYSIS CLINICAL MANAGER Plan of Treatment Not on file Care Teams Linen Room Custodian Relationship Specialty Start Date End Date Trung Tucker MD PCP - General Family Practice 11/13/17
--- OUTSIDE RECORDS SUMMARY | 2024-04-21 17:09 | XMS_ITS | Clinical Summary ---
Author Organization [facility] Address [address] [place] [address] Care Team Providers Care Dye Padder Operator Name Role Phone Whitney Gil MD Primary Care Provider [phone] Source Comments You are receiving this document as you are listed as the primary care provider,follow-up provider, or the patient has been referred to you for consultation.This is in compliance with the Medicare and[facility] Cent[facility] EHR Incentive Program,which states Providers who transition their patient to another setting of careor provider of care or refers their patient to another provider of care shouldprovide summary care record for each transition of care or referral. [employer] Allergies Active Allergy Reactions Criticality Noted Date Comments Lisinopril 11/13/2017 Cough Medications Medication Sig Dispensed Refills Start Date End Date Status LISINOPRIL-HCTZ (AKA PRINZIDE;ZESTORETIC) 20-25 MG tablet Take 1 tablet by mouth daily (every 24 hours). 12/31/2011 Active traMADol (AKA ULTRAM) 50 MG tablet Take 50 mg by mouth every 6 hours as needed. 12/31/2011 Active aspirin EC 81 MG enteric coated tablet Take 81 mg by mouth daily (every 24 hours). 12/31/2011 Active furosemide (AKA LASIX) 20 MG tablet Take 20 mg by mouth daily (every 24 hours). 12/31/2011 Active cloNIDine (AKA CATAPRES) 0.2 MG tablet Take 0.4 mg by mouth nightly. 12/31/2011 Active LOSARTAN POTASSIUM OR 25 mg daily. A ctive rivaroxaban (XARELTO) 20 MG tablet Take 20 mg by mouth. 11/13/2017 Active multivitamin with minerals (THERA M PLUS) tablet Take 1 Tablet by mouth. 11/13/2017 Active triamterene-hydrochlo rothiazide (DYAZIDE) 37.5-25 MG capsule Take 1-2 Capsules by mouth. 11/13/2017 Active Active Problems Problem Noted Date [...] Services) 1950 Medicare Annual Wellness Visit 1950 Cholesterol 1984 Zoster/Shingles (1 of 2) 1999 Pneumococcal 65+ Yrs (2 - PPSV23 or PCV20) 09/19/2021 09/19/2020 DTaP/Tdap/Td (2 - Tdap) 04/06/2022 04/06/20 12, 01/22/2006 COVID-19 Vaccine (1 - 2022-2 4 season) 2023 Influenza (Season Ended) 2024 020, 09/07/2017 HepA Aged Out No longer eligi [...] age to complete this topic Care Teams Dye Padder Operator Relationship Specialty Start Date End Date Whitney Gil MD [address] [place] [address] PCP - General 12/06/11
--- OUTSIDE RECORDS SUMMARY | 2024-04-21 17:09 | XMS_ITS | Encounter Summary ---
Author Organization [facility] Address [facility] [address] Care Team Providers Care Barrel Handler Name Role Phone Trung Tucker MD Primary Care Provider [phone] Reason for Visit * Reason Onset Date Comments WOUND CARE 09/12/2021 Encounter Details Date Type Department Care Team (Late st Contact Info) Description 09/12/[address] [facility] [place] [address] [place] [phone] Byron Garrett MD [address] [place] [address] WOUND CARE Social History Tobacco [...] AM CDT Home care referral faxed to [facility]. * Telephone Encounter - Karmen Gallegos - 09/12/2021 10:11 AM CDT Service at [facility], unable to fulfill request for home care documented in this encounter Plan of Treatment Not on file documented as of this encounter Visit Diagnoses Not on filedocumented in this encounter Care Teams Barrel Handler Relationship Specialty Start Date End Date Trung Tucker MD PCP - General Family Practice 11/13/17 documented as of this encounter
--- OUTSIDE RECORDS SUMMARY | 2024-04-21 17:09 | XMS_ITS | Encounter Summary ---
Author Organization [facility] Address [address] [place] [address] Care Team Providers Care Office Employee Name Role Phone Unavailable Primary Care Provider Unavailabl e Reason for Visit * Appointment Request (Routine) - Closed Specialty Diagnoses / Procedures Referred By Keila rey Referred To Contact Nephrology and Hypertension Referral ID Status Reason Start Date Expiration Date Visits Re quested Visits Authorized [id number] Closed 01/22/2024 01/21/2025 1 1 Encounter Details Date Type Department Care Team (Latest Contact Info) Description 02/24/2024 3:00 PM CDT External Outreach Division of Nephrology and Hypertension in [place], [place] [address] [place] [address] Kyle Daniel Jr., D.O. [address] [place] [address] Hypertensive Chronic Kidney Disease (CKD) Stage 3a Glomerular Filtration Rate (GFR) 45 To 59 (HCC) (Primary Dx); Diabetes Mellitus Type 2 With Diabetic Chronic Kidney Disease (HCC); Hyperparathyroidism Renal Secondary (HCC); Atrial Fibrillation Unspecified (HCC); Failure Heart (HCC); Venous Insufficiency Chronic Peripheral; Hypokalemia Social History Tobacco Use Types Packs/Day Years [...] your living situation today? I have a [facility] place to live 09/05/2023 Sex and Gender Information Value Date Recorded Sex Assigned at Male 09/05/2023 2:59 PM CDT Gender Identity Male 09/05/2023 2:59 PM CDT Sexual Orientation Straight 09/05/2023 2: 59 PM CDT documented as of this encounter Last Filed Vital Signs Vital Sign Reading Time Taken Comments Blood Pressure 140/90 02/24/2024 3:16 PM CDT Pulse 74 02/24/2024 3:16 PM CDT Temperature - - Respiratory Rate - - Oxygen Saturation - - Inhaled Oxygen Concentration - - Weight 143 kg (316 lb 5.8 oz) 02/24/2024 3:16 PM CDT Height 176.5 cm (5' 9.49) 02/24/2024 3:16 PM CD T Body Mass Index 46.06 02/24/2024 3:16 PM CDT documented in this encounter Progress Notes * Kyle Daniel Jr., D.O. - 02/24/2024 3:00 PM CDT Referring Provider: No primary care provider on file. SUBJECTIVE REASON FOR VISIT [place] out reach CKD Clinic Follow-up regards CKD on the background of diabetes hypertension and nephrosclerosis HISTORY OF PRESENT ILLNESS Mr. Forte is a 73 y.o. male who presents with a history of CKD, secondary to hypertension, diabetes and ischemic nephrosclerosis. Since our last visit he is unfortunately continued to gain some weight. Attributes this to snackingquite a bit. However, he and his are quite careful to take in plenty of vegetables. 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 He has had no orthostatic issues no falls his blood pressure is not been checked at home terribly regularly. Note today's blood pressure in clinic is in the 130s over 80s and 90s. No constitutional complaints, although he is quite fatigued in the morning and does not sleep well.His sleep patterns are variable. He will often take a prolonged nap in the evening, then be up tillquite early in the morning and then sleep fitfully until mid morning, or counting machine operator. No fevers no chills no change in bowel or bladder habits. He has been going to the lymphedema area, he wears compressive lower extremity garments, which are velcro based. This has been quite effective for him. We discussed the higher doses of diuretics, andsodium avoidance. Has been doing well with the sodium avoidance, but I note that his weight has increased. Please see above. He feels that there have been no lower extremity wounds and that the swelling has improved. He attributes the weight gain to too many calories. He has not had any hypoglycemic events, but his hemoglobin A1c is increased dramatically to 8.3% from 7.7%. Past medical history: Hypertension 2. Diabetes mellitus type 2 3. 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 OBJECTIVE BP 140/90 Pulse 74 Ht 176.5 cm Wt (!) 143 kg BMI 46.06 kg/m?? PHYSICAL EXAMINATION General: Awake alert oriented HEENT: BETH, EOMI, Mucous membranes moist, no oral lesions Neck: No Masses, No Bruits Lungs: Clear to ascultation Heart: Regular Rate and Rhythm, No ectopy Murmurs or rubs Abdomen: Soft, Non-tender Extremities: No cyanosis, No clubbing: velcro base compressive garments on his lower extremities Neuro: Cranial Nerves intact, Gait is antalgic, he uses a cane strength grossly normal, although hehad difficulties arising out of the exam chair Skin: no suspicious lesions identified Psychiatric: Normal affect DIAGNOSTICS Note creatinine 1.1 mg/dL, C-reactive peptide slightly elevated at 1.5, hemoglobin A1c 8.3%, hemoglobin 12.7, microalbumin to creatinine ratio 1610 milligrams/gram ASSESSMENT / PLAN #1 Hypertensive Chronic Kidney Disease (CKD) Stage 3a Glomerular Filtration Rate (GFR) 45 To 59 (HCC) I am concerned that his blood pressure may be inadequately controlled. I have asked him to redoublehis efforts at checking his blood pressure at home. I will see him back in 3 months. Going forward: Goal blood pressures less than 130s over 80s 2. Goal glycosylated hemoglobin levels less than 8.0% No NSAIDs or Corrigan 2 inhibitors Plenty of hydration Low-sodium diet I proved him to have a higher potassium diet given his mild hypokalemia, wrote out these agents-seebelow #2 Diabetes Mellitus Type 2 With Diabetic Chronic Kidney Disease (HCC) His diabetes is inadequately controlled. He had Decreased his metformin to 500 mg orally daily we may need to increase this He recognizes tremendous opportunities to improve his diet and focus again on weight loss which hadmade dramatic benefit in the past for him. #3 Hyperparathyroidism Renal Secondary ([facility]) This seems to be within arrange which we would expect with his degree of CKD, we will continue to monitor. He does not need vitamin-D therapy nor phosphorus binders. #4 Atrial Fibrillation Unspecified ([facility]) He continues on oral anticoagulation and beta blockade with excellent control, today's rhythm seemed normal and regular in clinic. #5 Failure Heart ([facility]) He is diastolic heart failure, and we are dealing with cardiorenal aspects of his care as well. We will continue to work towards weight loss, sodium restriction, and continued optimization of his blood pressure control. Please see above. He will continue on his irbesartan, beta blockade, diuretic therapy. He is currently using triamterene / HCTZ at 37.5/25 mg as well as furosemide 20 mg orally daily. #6 Venous Insufficiency Chronic Peripheral I am glad that he is using compressive lower extremity garments. He has also been careful with sodium, and elevating his legs as he can. #7 Hypokalemia Outlined high potassium foods, the challenge can be that is many these are high in carbohydrates. Discussed tomatoes, potatoes, strawberries, melons, and salt substitutes as ways forward to avoid having to supplement potassium with oral medications. We do have on a potassium-sparing diuretic and an ARB agent to counter balanced the potassium loss from his loop diuretic. Total time: 45minutes Counseling Time: 25 Kyle Daniel Jr., D.O. documented in this encounter Plan of Treatment Not on file documented as of this encounter Visit Diagnoses Diagnosis Hypertensive Chronic Kidney Disease (CKD) Stage 3a Glomerular Filtration Rate (GFR) 45 To 59- Primary Diabetes Mellitus Type 2 With Diabetic Chronic Kidney Disease (HCC) Hyperparathyroidism Renal Secondary (HCC) Atrial Fibrillation Unspecified (HCC) Failure Heart (HCC) Venous Insufficiency Chronic Peripheral Hypokalemia documented in this encounter
--- OUTSIDE RECORDS SUMMARY | 2024-04-21 17:09 | XMS_ITS | Encounter Summary ---
Author Organization [place] Address [facility] [place] [address] Care Team Providers Care Ordnance Truck Installation Supervisor Name Role Phone Trung Tucker MD Primary Care Provider [phone] Reason for Visit * Reason Onset Date Comments WOUND CARE 09/27/2021 Encounter Details Date Type Department Care Team (Late st Contact Info) Description 09/27/2021 Telephone [facility] [place] [address] [place] [phone] Byron Garrett MD [address] [place] [address] WOUND CARE Social History Tobacco Use [...] on filedocumented in this encounter Care Teams Ordnance Truck Installation Supervisor Relationship Specialty Start Date End Date Trung Tucker MD PCP - General Family Practice 11/13/17 documented as of this encounter
--- OUTSIDE RECORDS SUMMARY | 2024-04-21 17:09 | XMS_ITS | Clinical Summary ---
Author Organization [facility] Address [place], [place] [address] Care Team Providers Care Patient Sitter Name Role Phone Trung Tucker MD Primary Care Provider [phone] Allergies Active Allergy Reactions Criticality Noted Date Comments Adhesive Tape-Silicones Rash 07/16/2021 Foam tape used for pressure wrap after the pacemaker procedure Amlodipine Edema 11/27/2021 Lisinopril Cough 11/13/2017 Cough Medications Medication Sig Dispensed Refills Start Date End Date Status clonidine HCl (CLONIDINE ORAL) Take 0.2 mg by mouth 2 times daily. Active irbesartan (AVAPRO) 150 mg tablet Take 150 mg by mouth once daily. Active oxyCODONE-acetaminop hen (PERCOCET) 5-325 mg per tabletIndications:St atus post placement of cardiac pacemaker Take 1 Tablet by mouth every 6 hours if needed for Moderate to Severe pain. Max acetaminophen dose: 4000mg in 24 hrs. 8 Tablet 07/13/2021 Active allopurinoL (ZYLOPRIM) 100 mg tablet 10/02/2021 Active triamterene-hydrochl orothiazide, 37.5-25 mg, (MAXZIDE-25) [...] TAKE 1 CAPSULE BY MOUTH DAILY NEEDED 12/17/2022 Active Active Problems Problem Noted Date [...] Comments Blood Pressure 110/70 01/22/2023 2:21 PM NANOTECHNOLOGY ENGINEERING TECHNOLOGIST Pulse 70 01/22/2023 2:21 PM NANOTECHNOLOGY ENGINEERING TECHNOLOGIST Temperature 36.2 ??C (97.2 ??F) 07/13/2021 3:30 PM CD T Respiratory Rate 18 07/13/2021 3:30 PM CDT Oxygen Saturation 94% 01/22/2023 2:21 PM NANOTECHNOLOGY ENGINEERING TECHNOLOGIST Inhaled Oxygen Concentration - - Weight 146.5 kg (323 lb) 01/22/2023 2:21 PM NANOTECHNOLOGY ENGINEERING TECHNOLOGIST Height 177.8 cm (5' 10) 01/22/2023 2:21 PM NANOTECHNOLOGY ENGINEERING TECHNOLOGIST Body Mass Index 46.35 01/22/2023 2:21 PM NANOTECHNOLOGY ENGINEERING TECHNOLOGIST Plan of Treatment Upcoming Encounters Date Type Department Care Team (Late st Contact Info) Description 08/10/2024 Cardiac Device Check [facility] [phone] 08/11/2024 4:00 PM CDT Office Visit [facility] [address] [place] [address] Baldo Cristina MD [address] [place] [address] Health Maintenance Due Date Last Done Comments Tdap 1960 Hepatitis C screening for ag e 18-79 1967 Tetanus booster 1969 Colonoscopy through age 75 1994 Lipids for age 45-75 1994 Zoster (shingles) series for age 50+ (1 of 2) 1999 Medicare Wellness for age 65+ 2014 Pneumococcal series for age 65+ (1 of 1 - PCV) 2014 Depression screening for age 12+ 06/20/2022 06/20/2021, 06/18/2021, 06/16/2021, Additional history exists COVID-19 vaccine series ( - season) 2023 BMI (ht and wt on same day) for age 18+ 01/23/2024 01/22/2023, 03/26/2022, 10/10/2021, Additional history exists Influenza for age 65+ 07/25/2024 Advance Directives * Full Code (Latest Code Status on File) Date Activated Date Inactivated Comments 07/13/2021 10:01 AM 07/13/2021 8:44 PM Question Answer Comments Code Status Discussion: Per Advance Care Plan * Full Code Date Activated Date Inactivated Comments 06/16/2021 3:29 PM 06/17/2021 3:49 PM Question Answer Comments Code Status Discussion: Discussed * Full Code Date Activated Date Inactivated Comments 09/27/2019 1:51 PM 09/28/2019 4:16 PM * Full Code Date Activated Date Inactivated Comments 03/03/2019 11:17 AM 03/03/2019 6:10 PM * Full Code Date Activated Date Inactivated Comments 03/03/2019 11:17 AM 03/03/2019 11:17 AM Care Teams Patient Sitter Relationship Specialty Start Date End Date Trung Tucker MD [address] [place] [address] PCP - General 12/22/18
--- OUTSIDE RECORDS SUMMARY | 2024-04-21 17:09 | XMS_ITS | Encounter Summary ---
Author Organization [place] Address [facility] [place] [address] Care Team Providers Care Clothes Designer Name Role Phone Trung Tucker MD Primary Care Provider [phone] Reason for Visit * Reason Onset Date Comments WOUND CARE 09/20/2021 Encounter Details Date Type Department Care Team (Late st Contact Info) Description 09/20/2021 Telephone [facility] W[facility] [place] [address] [place] [phone] Byron Garrett MD [address] [place] [address] WOUND CARE Social History Tobacco Use [...] on filedocumented in this encounter Care Teams Clothes Designer Relationship Specialty Start Date End Date Trung Tucker MD PCP - General Family Practice 11/13/17 documented as of this encounter
== END 2024-04-20 09:42 | disposition home or self-care (01) ==
LOC: NFLDREF 04-21 17:06
PROVIDERS: PCP Family Medicine; Referring Provider Family Medicine; Visit Provider Family Medicine
DX: R35.0 Frequency of micturition (principal)
CPT/HCPCS: 82947; 87086

== ENCOUNTER 2024-04-21 10:00 | Outpatient (CLI) | payer MEDICARE, BC, SELFPAY ==
--- OUTSIDE RECORDS SUMMARY | 2024-04-23 11:55 | XMS_ITS | Encounter Summary ---
Author Organization [facility] Address [address] [place] [address] Care Team Providers Care Clothes Shaker Name Role Phone Unavailable Primary Care Provider Unavailabl e Encounter Details Date Type Department Care Team (Latest Contact Info) Description 04/14/2024 10:56 AM CDT - 04/14/2024 11:59 PM CDT Hospital Encounter Department of Cardiovascular Diseases in [place], [place] [address] [place] [address] Baldo Cristina M.D. [address] [facility] [address] [place] [address] Aftercare Cardiac Pacemaker Discharge Disposition: [...] your living situation today? I have a [facility] place to live 09/05/2023 Sex and [...]
--- OUTSIDE RECORDS SUMMARY | 2024-04-23 11:55 | XMS_ITS | Continuity of Care Document ---
Author Organization [facility] Address [address] [place] [address] [place] [address] Phone Care Team Providers Care Manager Switch Name Role Phone Will Jase HAWK Unavailable Unavailabl e Medications Medication Instructions Dosage Effective Dates (start - stop) Status Comments Eliquis 2.5 mg tablet take 1 tablet by o ral route 2 times every day 2.5 MG - Active Procedures Procedure Date OFFICE/OUTPATIENT VISIT, [facility] Advance Directives Directive Yes / No Effective Date File Name No Information Encounters Encounter Description Practice Location Reason(s) For Visit Diagnoses Date Provider Providers Copied on Encounter [facility], [address] [place] [address], [id number], [place] tel:[phone] [facility] No Information b- 2 Will Jase. [address] [facility] [place], [place], [id number] , [place]. tel:[phone] [facility], [address] [place] [address], [id number], [place] tel:[phone] [facility] Myalgia, other site Dec- [address] [facility], [place], [id number] , [place]. tel:[phone] OFFICE/OUTPAT IENT VISIT, [facility], [address] [place] [address] [place], [id number], [place] tel:[phone] [facility] [place] Widespread pain (chief complaint) Chronic pain syndromePain in right kneePain in left kneePain in right shoulder [address], [place], [id number] , [place]. tel:[phone] Referring Provider: Jase Ackerman, [address] [facility] [address] [place], [address] . tel:[phone] Family History Family Member Type Diagnosis Age At Onset No Information Payers Payer name Insurance type Covered constitution party ID Authoriza tipema(s) Medicare [id number] Social History Type Description Quantity Date Captured [...] a surgical candidate for knee replacement by [facility] recently. However, he is constantly in [...] be trialling an injection later today at [facility]. Imaging was last completed at [facility].He is currently manged gabapentin 300mg four [...]
--- OUTSIDE RECORDS SUMMARY | 2024-04-23 11:55 | XMS_ITS | Referral Summary ---
Author Organization [facility] Address [address] [place] [address] Care Team Providers Care Fashion Buying Internship Name Role Phone Unavailable Primary Care Provider Unavailabl e Source Comments Patient records contain information from all sites at [facility]. For routine questions regarding patient records, call [phone] during business hours, M-F 8:00 AM - 5:00 PM Central Time. Record requests for emergency care only can be directed to [phone] at any time.[facility] Encounters Date Type Department Care Team Description 04/14/2024 10:56 AM CDT - 04/14/2024 11:59 PM CDT Hospital Encounter Department of Cardiovascular Diseases in [place], [place] [address] [place] [phone] Baldo Cristina M.D. Aftercare Cardiac Pacemaker Discharge Disposition: Home or Self Care 02/24/2024 3:00 PM CDT External Outreach Division of Nephrology and Hypertension in [place], [place] [address] [place] [address] Kyle Daniel Jr., D.O. 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 I have a [facility] place to live 09/05/2023 Sex [...] ELIF EXTERNAL NON-INTERFACED LAB [address] [place] [address] * CT Abdomen Pelvis with IV Contrast [...] Electronically signed by: ?? Karina Smiley MD [phone] ([id number]) 14-Mar-2010 15:49 ?Linh Sellers M.D. ??8- [...] [id number] Electronically signed by: Karina Smiley MD [phone] ([id number]) 14-Mar-2010 15:49 Linh Sellers M.D.[id number] 14-Mar-2010 15:49 Александр Novoa Jr., M.D. IMG CT [place] OCEDURES from Last 3 Months or Most Recently Relevant to Health Maintenance
--- OUTSIDE RECORDS SUMMARY | 2024-04-23 11:55 | XMS_ITS | Clinical Summary ---
Author Organization [facility] Address [address] [place] [address] Care Team Providers Care Cargo Broker Name Role Phone Unavailable Primary Care Provider Unavailabl e Source Comments Patient records contain information from all sites at [facility]. For routine questions regarding patient records, call [phone] during business hours, M-F 8:00 AM - 5:00 PM Central Time. Record requests for emergency care only can be directed to [phone] at any time.[facility] Allergies Active Allergy Reactions Criticality Noted [...] 2023 Other Pruritus 2023 Morbid Obesity 2023 Discharge Specialist (Current) Anticoagulant Treatment 08/24 Gout 2023 Gastroesophageal [...] Hospital Encounter Department of Cardiovascular Diseases in [place], [place] [address] [place] [address] Baldo Cristina M.D. Aftercare Cardiac Pacemaker Discharge Disposition: Home or Self Care 02/24/2024 3:00 PM CDT External Outreach Division of Nephrology and Hypertension in [place], [place] [address] [place] [address] Kyle Daniel Jr., D.O. Hypertensive Chronic Kidney [...] living situation today? I have a [facility] place to live 09/05/2023 Sex and [...] IMPLANTABLE CARD IAC DEVICE Performing Organization Address [facility]/ZIP Co de Phone Number CV OPTIMA NA * Albumin, Random, Urine (03/02/2020) EXT Microalbumin-Ra ndom, U 47 EXTERNAL NON-INTERFACED LAB Urine (Urine, Clean Catch) Zenaida Provider Ciaran LAB URINE ORDER ELIF Performing Organization Address City/[facility] [address] [facility]/ZIP Co de Phone Number EXTERNAL NON-INTERFACED LAB [address] [place] [address] * CT Abdomen Pelvis with IV Contrast [...] Electronically signed by: ?? Karina Smiley MD [phone] ([id number]) 14-Mar-2010 15:49 ?Linh Sellers M.D. ??80 14-Mar-2010 [...] [id number] Electronically signed by: Karina Smiley MD [phone] ([id number]) 14-Mar-2010 15:49 Linh Sellers M.D.[id number] 14-Mar-2010 15:49 Александр Novoa Jr., M.D. IMG CT [place] OCEDURES from Last 3 Months or Most Recently Relevant to Health Maintenance
--- OUTSIDE RECORDS SUMMARY | 2024-04-23 11:55 | XMS_ITS | Encounter Summary ---
Author Organization [facility] Address [address] [place] [address] Care Team Providers Care Director Mobile Name Role Phone Unavailable Primary Care Provider Unavailabl e Reason for Visit * Appointment Request (Routine) - Closed Specialty Diagnoses / Procedures Referred By Keila rey Referred To Contact Nephrology and Hypertension Referral ID Status Reason Start Date Expiration Date Visits Re quested Visits Authorized [id number] Closed 01/22/2024 01/21/2025 1 1 Encounter Details Date Type Department Care Team (Latest Contact Info) Description 02/24/2024 3:00 PM CDT External Outreach Division of Nephrology and Hypertension in [place], [place] [address] [place] [address] Kyle Daniel Jr., D.O. [address] [place] [address] Hypertensive Chronic Kidney Disease (CKD) Stage 3a [...] your living situation today? I have a [facility] place to live 09/05/2023 Sex and [...] on file. SUBJECTIVE REASON FOR VISIT [place] out reach CKD Clinic Follow-up regards CKD [...] vegetables. 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 No fevers no chills no change in [...] past for him. #3 Hyperparathyroidism Renal Secondary ([facility]) This seems to be within arrange which we would expect with his degree of CKD, we will continue to monitor. He does not need vitamin-D therapy nor phosphorus binders. #4 Atrial Fibrillation Unspecified ([facility]) He continues on oral anticoagulation and beta blockade with excellent control, today's rhythm seemed normal and regular in clinic. #5 Failure Heart ([facility]) He is diastolic heart failure, and we [...]
--- OUTSIDE RECORDS SUMMARY | 2024-04-23 11:55 | XMS_ITS ---
Author Organization [facility] Address [address] [place] [address] Care Team Providers Care Documentation Liaison Name Role Phone Unavailable Unavailable Unavailable Surgery Details Not on file Complications Check Surgery Details section. Procedure Estimated Blood Loss Check Surgery Details section. Procedure Findings Check Surgery Details section. Procedure Specimens Taken Check Surgery Details section.
--- OUTSIDE RECORDS SUMMARY | 2024-04-23 11:56 | XMS_ITS | Clinical Summary ---
Author Organization [facility] Address [address] [place] [address] Care Team Providers Care Management Professor Name Role Phone Whitney Gil MD Primary Care Provider [phone] Source Comments You are receiving this document as you are listed as the primary care provider,follow-up provider, or the patient has been referred to you for consultation.This is in compliance with the Medicare and[facility] EHR Incentive Program,which states Providers who transition their patient to another setting of careor provider of care or refers their patient to another provider of care shouldprovide summary care record for each transition of care or referral. DocuTAP Allergies Active Allergy Reactions Criticality Noted Date [...] age to complete this topic Care Teams Management Professor Relationship Specialty Start Date End Date Whitney Gil MD [address] [place] [address] PCP - General 12/06/11
--- OUTSIDE RECORDS SUMMARY | 2024-04-23 11:56 | XMS_ITS | Clinical Summary ---
Author Organization [place] Address [address] [place], [place] [address]. [place] [address] Care Team Providers Care Tower Attendant Name Role Phone Trung Tucker MD Primary Care Provider [phone] Allergies Active Allergy Reactions Criticality Noted Date [...] Comments Blood Pressure 188/107 11/14/2021 1:10 PM SAP SECURITY ARCHITECT Pulse 67 11/14/2021 1:10 PM SAP SECURITY ARCHITECT Temperature 36.6 ??C (97.8 ??F) 11/14/2021 1:10 PM CS T Respiratory Rate 20 10/03/2021 10:02 AM SAP SECURITY ARCHITECT Oxygen Saturation 100% 11/18/2017 12:52 PM SAP SECURITY ARCHITECT Inhaled Oxygen Concentration - - Weight 114.8 kg (253 lb) 11/18/2017 12:52 PM SAP SECURITY ARCHITECT pt reported Height 173.4 cm (5' 8.25) 11/18/2017 12:[address] pt reported Body Mass Index 38.19 11/18/2017 12:52 PM SAP SECURITY ARCHITECT Plan of Treatment Health Maintenance Due Date [...] age to complete this topic Care Teams Tower Attendant Relationship Specialty Start Date End Date Trung Tucker MD PCP - General Family Practice 11/13/17
--- OUTSIDE RECORDS SUMMARY | 2024-04-23 11:56 | XMS_ITS | Encounter Summary ---
Author Organization [place] Address [facility] [place] [address] Care Team Providers Care Telecommunications Manager Name Role Phone Trung Tucker MD Primary Care Provider [phone] Reason for Visit * Reason Onset Date Comments WOUND CARE 09/12/2021 Encounter Details Date Type Department Care Team (Late st Contact Info) Description 09/12/2021 Telephone [facility] [place] [address] [place] [phone] Byron Garrett MD [address] [place] [address] WOUND CARE Social History Tobacco [...] AM CDT Home care referral faxed to [facility]. * Telephone Encounter - Karmen Gallegos - 09/12/2021 10:11 AM CDT Service at [facility], unable to fulfill request for home care documented in this encounter Plan of Treatment Not on file documented as of this encounter Visit Diagnoses Not on filedocumented in this encounter Care Teams Telecommunications Manager Relationship Specialty Start Date End Date Trung Tucker MD PCP - General Family Practice 11/13/17 documented as of this encounter
--- OUTSIDE RECORDS SUMMARY | 2024-04-23 11:56 | XMS_ITS | Referral Summary ---
Author Organization [place] Address [address] [place], [place] [address]. [place] [address] Care Team Providers Care Sql Ssrs Ssis Developer Name Role Phone Trung Tucker MD Primary Care Provider [phone] Allergies Active Allergy Reactions Criticality Noted Date [...] Comments Blood Pressure 188/107 11/14/2021 1:10 PM DOUGHNUT ICER Pulse 67 11/14/2021 1:10 PM DOUGHNUT ICER Temperature 36.6 ??C (97.8 ??F) 11/14/2021 1:10 PM CS T Respiratory Rate 20 10/03/2021 10:02 AM DOUGHNUT ICER Oxygen Saturation 100% 11/18/2017 12:52 PM DOUGHNUT ICER Inhaled Oxygen Concentration - - Weight 114.8 kg (253 lb) 11/18/2017 12:52 PM DOUGHNUT ICER pt reported Height 173.4 cm (5' 8.25) 11/18/2017 12:[address] pt reported Body Mass Index 38.19 11/18/2017 12:52 PM DOUGHNUT ICER Plan of Treatment Not on file Care Teams Sql Ssrs Ssis Developer Relationship Specialty Start Date End Date Trung Tucker MD PCP - General Family Practice 11/13/17
--- OUTSIDE RECORDS SUMMARY | 2024-04-23 11:56 | XMS_ITS | Encounter Summary ---
Author Organization [place] Address [facility] [place] [address] Care Team Providers Care Local Hazmat Driver Name Role Phone Trung Tucker MD Primary Care Provider [phone] Reason for Visit * Reason Onset Date Comments WOUND CARE 09/27/2021 Encounter Details Date Type Department Care Team (Late st Contact Info) Description 09/27/[address] [facility] [place] [address] [place] [phone] Byron Garrett MD [address] [place] [address] WOUND CARE Social History Tobacco Use [...] on filedocumented in this encounter Care Teams Local Hazmat Driver Relationship Specialty Start Date End Date Trung Tucker MD PCP - General Family Practice 11/13/17 documented as of this encounter
--- OUTSIDE RECORDS SUMMARY | 2024-04-23 11:56 | XMS_ITS | Encounter Summary ---
Author Organization [place] Address [facility] [place] [address] Care Team Providers Care Head Rigger Name Role Phone Trung Tucker MD Primary Care Provider [phone] Reason for Visit * Reason Onset Date Comments WOUND CARE 09/20/2021 Encounter Details Date Type Department Care Team (Late st Contact Info) Description 09/20/2021 Telephone [facility] [place] [address] [place] [phone] Byron Garrett MD [address] [place] [address] WOUND CARE Social History Tobacco Use [...] on filedocumented in this encounter Care Teams Head Rigger Relationship Specialty Start Date End Date Trung Tucker MD PCP - General Family Practice 11/13/17 documented as of this encounter
--- OUTSIDE RECORDS SUMMARY | 2024-04-23 11:56 | XMS_ITS | Clinical Summary ---
Author Organization [facility] Address [place], [place] [address] Care Team Providers Care Hand Ii Tube Bender Name Role Phone Trung Tucker MD Primary Care Provider [phone] Allergies Active Allergy Reactions Criticality Noted Date [...] Comments Blood Pressure 110/70 01/22/2023 2:21 PM MATERIAL HANDLING WAREHOUSE SUPERVISOR Pulse 70 01/22/2023 2:21 PM MATERIAL HANDLING WAREHOUSE SUPERVISOR Temperature 36.2 ??C (97.2 ??F) 07/13/2021 3:30 PM CD T Respiratory Rate 18 07/13/2021 3:30 PM CDT Oxygen Saturation 94% 01/22/2023 2:21 PM MATERIAL HANDLING WAREHOUSE SUPERVISOR Inhaled Oxygen Concentration - - Weight 146.5 kg (323 lb) 01/22/2023 2:21 PM MATERIAL HANDLING WAREHOUSE SUPERVISOR Height 177.8 cm (5' 10) 01/22/2023 2:21 PM MATERIAL HANDLING WAREHOUSE SUPERVISOR Body Mass Index 46.35 01/22/2023 2:21 PM MATERIAL HANDLING WAREHOUSE SUPERVISOR Plan of Treatment Upcoming Encounters Date Type Department Care Team (Late st Contact Info) Description 08/10/2024 Cardiac Device Check [facility] [phone] 08/11/2024 4:00 PM CDT Office Visit [facility] [address] [place] [address] Baldo Cristina MD [address] [place] [address] Health Maintenance Due Date Last Done Comments [...] 11:17 AM 03/03/2019 11:17 AM Care Teams Hand Ii Tube Bender Relationship Specialty Start Date End Date Trung Tucker MD [address] [place] [address] PCP - General 12/22/18
== END 2024-04-21 10:01 | disposition home or self-care (01) ==
LOC: NFLDREF 04-23 11:54
PROVIDERS: PCP Family Medicine; Referring Provider Family Medicine; Visit Provider Internal Medicine Nephrology
DX: E11.9 Type 2 diabetes mellitus without complications (principal); I10 Essential (primary) hypertension; N18.9 Chronic kidney disease, unspecified; R82.90 Unspecified abnormal findings in urine
CPT/HCPCS: 82043; 82570; 82947; 87086

== ENCOUNTER 2024-05-18 08:20 | Outpatient (CLI) | payer MEDICARE, SELFPAY ==
--- OUTSIDE RECORDS SUMMARY | 2024-05-21 08:06 | XMS_ITS | Encounter Summary ---
Author Organization [place] Address [facility] [place] [address] Care Team Providers Care Milk Runner Name Role Phone Trung Tucker MD Primary Care Provider [phone] Reason for Visit * Reason Onset Date Comments WOUND CARE 09/27/2021 Encounter Details Date Type Department Care Team (Late st Contact Info) Description 09/27/2021 Telephone [facility] [place] [address] [place] [phone] Byron Garrett MD [address] [place] [address] WOUND CARE Social History Tobacco [...] on filedocumented in this encounter Care Teams Milk Runner Relationship Specialty Start Date End Date Trung Tucker MD PCP - General Family Practice 11/13/17 documented as of this encounter
--- OUTSIDE RECORDS SUMMARY | 2024-05-21 08:06 | XMS_ITS | Clinical Summary ---
Author Organization [facility] Address [place], [place] [address] Care Team Providers Care College Instructor Name Role Phone Trung Tucker MD Primary Care Provider [phone] Allergies Active Allergy Reactions Criticality Noted Date [...] Comments Blood Pressure 110/70 01/22/2023 2:21 PM MANAGEMENT DEVELOPER Pulse 70 01/22/2023 2:21 PM MANAGEMENT DEVELOPER Temperature 36.2 ??C (97.2 ??F) 07/13/2021 3:30 PM CD T Respiratory Rate 18 07/13/2021 3:30 PM CDT Oxygen Saturation 94% 01/22/2023 2:21 PM MANAGEMENT DEVELOPER Inhaled Oxygen Concentration - - Weight 146.5 kg (323 lb) 01/22/2023 2:21 PM MANAGEMENT DEVELOPER Height 177.8 cm (5' 10) 01/22/2023 2:21 PM MANAGEMENT DEVELOPER Body Mass Index 46.35 01/22/2023 2:21 PM MANAGEMENT DEVELOPER Plan of Treatment Upcoming Encounters Date Type Department Care Team (Late st Contact Info) Description 08/10/2024 Cardiac Device Check [facility] [phone] 08/11/2024 4:00 PM CDT Office Visit [facility] [address] [place] [address] Baldo Cristina MD [address] [place] [address] Health Maintenance Due Date Last Done Comments [...] 11:17 AM 03/03/2019 11:17 AM Care Teams College Instructor Relationship Specialty Start Date End Date Trung Tucker MD [address] [place] [address] PCP - General 12/22/18
--- OUTSIDE RECORDS SUMMARY | 2024-05-21 08:06 | XMS_ITS | Encounter Summary ---
Author Organization [facility] Address [address] [place] [address] Care Team Providers Care Office Workforce Planner Name Role Phone Unavailable Primary Care Provider Unavailabl e Reason for Visit * Appointment Request (Routine) - Closed Specialty Diagnoses / Procedures Referred By Keila rey Referred To Contact Nephrology and Hypertension Referral ID Status Reason Start Date Expiration Date Visits Re quested Visits Authorized [id number] Closed 01/22/2024 01/21/2025 1 1 Encounter Details Date Type Department Care Team (Latest Contact Info) Description 02/24/2024 3:00 PM CDT External Outreach Division of Nephrology and Hypertension in [place], [place] [address] [place] [address] Kyle Daniel Jr., D.O. [address] [place] [address] Hypertensive Chronic Kidney Disease (CKD) Stage 3a [...] your living situation today? I have a [facility] children's place to live 09/05/2023 Sex and Gender [...] provider on file. SUBJECTIVE REASON FOR VISIT [place] out reach CKD Clinic Follow-up regards CKD [...] vegetables. 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 No fevers no chills no change in [...] past for him. #3 Hyperparathyroidism Renal Secondary ([facility]) This seems to be within arrange which we would expect with his degree of CKD, we will continue to monitor. He does not need vitamin-D therapy nor phosphorus binders. #4 Atrial Fibrillation Unspecified ([facility]) He continues on oral anticoagulation and beta blockade with excellent control, today's rhythm seemed normal and regular in clinic. #5 Failure Heart ([facility]) He is diastolic heart [...]
--- OUTSIDE RECORDS SUMMARY | 2024-05-21 08:06 | XMS_ITS ---
Author Organization [facility] Address [address] [place] [address] Care Team Providers Care Survival Specialist Name Role Phone Unavailable Unavailable Unavailable Surgery Details Not on file Complications Check Surgery Details section. Procedure Estimated Blood Loss Check Surgery Details section. Procedure Findings Check Surgery Details section. Procedure Specimens Taken Check Surgery Details section.
--- OUTSIDE RECORDS SUMMARY | 2024-05-21 08:06 | XMS_ITS | Clinical Summary ---
Author Organization [place] Address [address] [place], [place] [address]. [place] [address] Care Team Providers Care Studio Hand Name Role Phone Trung Tucker MD Primary Care Provider [phone] Allergies Active Allergy Reactions Criticality Noted Date [...] Comments Blood Pressure 188/107 11/14/2021 1:10 PM DUST MILL OPERATOR Pulse 67 11/14/2021 1:10 PM DUST MILL OPERATOR Temperature 36.6 ??C (97.8 ??F) 11/14/2021 1:10 PM CS T Respiratory Rate 20 10/03/2021 10:02 AM DUST MILL OPERATOR Oxygen Saturation 100% 11/18/2017 12:52 PM DUST MILL OPERATOR Inhaled Oxygen Concentration - - Weight 114.8 kg (253 lb) 11/18/2017 12:52 PM DUST MILL OPERATOR pt reported Height 173.4 cm (5' 8.25) 11/18/2017 12:[address] pt reported Body Mass Index 38.19 11/18/2017 12:52 PM DUST MILL OPERATOR Plan of Treatment Health Maintenance Due Date [...] age to complete this topic Care Teams Studio Hand Relationship Specialty Start Date End Date Trung Tucker MD PCP - General Family Practice 11/13/17
--- OUTSIDE RECORDS SUMMARY | 2024-05-21 08:06 | XMS_ITS | Encounter Summary ---
Author Organization [place] Address [facility] [place] [address] Care Team Providers Care Mgmt Consultant Name Role Phone Trung Tucker MD Primary Care Provider Reason for Visit * Reason Onset Date Comments WOUND CARE 09/20/2021 Encounter Details Date Type Department Care Team (Late st Contact Info) Description 09/20/2021 Telephone [facility] [place] [address] [place] [phone] Byron Garrett MD [address] [place] [address] WOUND CARE Social History Tobacco [...] on filedocumented in this encounter Care Teams Mgmt Consultant Relationship Specialty Start Date End Date Trung Tucker MD PCP - General Family Practice 11/13/17 documented as of this encounter
--- OUTSIDE RECORDS SUMMARY | 2024-05-21 08:06 | XMS_ITS | Clinical Summary ---
Author Organization [facility] Address [address] [place] [address] Care Team Providers Care Shoe Lay Out Planner Name Role Phone Unavailable Primary Care Provider Unavailabl e Source Comments Patient records contain information from all sites at [facility]. For routine questions regarding patient records, call [phone] during business hours, M-F 8:00 AM - 5:00 PM Central Time. Record requests for emergency care only can be directed to [phone] at any time.[facility] Allergies Active Allergy Reactions Criticality Noted [...] 2023 Other Pruritus 2023 Morbid Obesity 2023 Nursing Home (Current) Anticoagulant Treatment 08/24 Gout 2023 Gastroesophageal [...] Hospital Encounter Department of Cardiovascular Diseases in [place], [place] [address] [place] [address] Baldo Cristina M.D. Aftercare Cardiac Pacemaker Discharge Disposition: Home or Self Care 02/24/2024 3:00 PM CDT External Outreach Division of Nephrology and Hypertension in [place], [place] [address] [place] [address] Kyle Daniel Jr., D.O. Hypertensive Chronic Kidney [...] your living situation today? I have a [facility] place to live 09/05/2023 Sex and Gender [...] Screening 1950 Zoster Vaccines (1 of 2) 1999 Hepatitis B Vaccines (1 of 3 - [...] IMPLANTABLE CARD IAC DEVICE Performing Organization Address [facility]/ZIP Co de Phone Number CV OPTIMA NA * Albumin, Random, Urine (03/02/2020) EXT Microalbumin-Ra ndom, U 47 EXTERNAL NON-INTERFACED LAB Urine (Urine, Clean Catch) Zenaida Provider Ciaran LAB URINE ORDER LEIF Performing Organization Address City/[facility]/ZIP Co de Phone Number EXTERNAL NON-INTERFACED LAB [address] [place] [address] * CT Abdomen Pelvis with IV Contrast [...] Electronically signed by: ?? Karina Smiley MD [phone] ([id number]) 14-Mar-2010 15:49 ?Linh Sellers M.D. ??80 14-Mar-2010 [...] [id number] Electronically signed by: Karina Smiley MD [phone] ([id number]) 14-Mar-2010 15:49 Linh Sellers M.D.[id number] 14-Mar-2010 15:49 Александр Novoa Jr., M.D. IMG CT [place] OCEDURES from Last 3 Months or Most Recently Relevant to Health Maintenance
--- OUTSIDE RECORDS SUMMARY | 2024-05-21 08:06 | XMS_ITS | Referral Summary ---
Author Organization [facility] Address [address] [place], [place] [address]e. [place] [address] Care Team Providers Care Insurance Sales Specialist Name Role Phone Trung Tucker MD Primary Care Provider [phone] Allergies Active Allergy Reactions Criticality Noted Date [...] Comments Blood Pressure 188/107 11/14/2021 1:10 PM DECORATOR STORE Pulse 67 11/14/2021 1:10 PM DECORATOR STORE Temperature 36.6 ??C (97.8 ??F) 11/14/2021 1:10 PM CS T Respiratory Rate 20 10/03/2021 10:02 AM DECORATOR STORE Oxygen Saturation 100% 11/18/2017 12:52 PM DECORATOR STORE Inhaled Oxygen Concentration - - Weight 114.8 kg (253 lb) 11/18/2017 12:52 PM DECORATOR STORE pt reported Height 173.4 cm (5' 8.25) 11/18/2017 12:[address] pt reported Body Mass Index 38.19 11/18/2017 12:52 PM DECORATOR STORE Plan of Treatment Not on file Care Teams Insurance Sales Specialist Relationship Specialty Start Date End Date Trung Tucker MD PCP - General Family Practice 11/13/17
--- OUTSIDE RECORDS SUMMARY | 2024-05-21 08:06 | XMS_ITS | Clinical Summary ---
Author Organization [facility] Address [address] [place] [address] Care Team Providers Care Identity Access Management Architect Name Role Phone Whitney Gil MD Primary Care Provider [phone] Source Comments You are receiving this document as you are listed as the primary care provider,follow-up provider, or the patient has been referred to you for consultation.This is in compliance with the Medicare and[facility] EHR Incentive Program,which states Providers who transition their patient to another setting of careor provider of care or refers their patient to another provider of care shouldprovide summary care record for each transition of care or referral. [employer] Allergies Active Allergy Reactions Criticality Noted Date [...] age to complete this topic Care Teams Identity Access Management Architect Relationship Specialty Start Date End Date Whitney Gil MD [address] [place] [address] PCP - General 12/06/11
--- OUTSIDE RECORDS SUMMARY | 2024-05-21 08:06 | XMS_ITS | Encounter Summary ---
Author Organization [facility] Address [address] [place] [address] Care Team Providers Care Online Media Buyer Name Role Phone Unavailable Primary Care Provider Unavailabl e Encounter Details Date Type Department Care Team (Latest Contact Info) Description 04/14/2024 10:56 AM CDT - 04/14/2024 11:59 PM CDT Hospital Encounter Department of Cardiovascular Diseases in [place], [place] [address] [place] [address] Baldo Cristina M.D. [address] [facility] [address] [place] [address] Aftercare Cardiac Pacemaker Discharge Disposition: [...] your living situation today? I have a [facility] place to live 09/05/2023 Sex [...]
--- OUTSIDE RECORDS SUMMARY | 2024-05-21 08:06 | XMS_ITS | Referral Summary ---
Author Organization [facility] Address [address] [place] [address] Care Team Providers Care Costume Seamstress Name Role Phone Unavailable Primary Care Provider Unavailabl e Source Comments Patient records contain information from all sites at [facility]. For routine questions regarding patient records, call [phone] during business hours, M-F 8:00 AM - 5:00 PM Central Time. Record requests for emergency care only can be directed to [phone] at any time.[facility] Encounters Date Type Department Care Team Description 04/14/2024 10:56 AM CDT - 04/14/2024 11:59 PM CDT Hospital Encounter Department of Cardiovascular Diseases in [place], [place] [address] [place] [phone] Baldo Cristina M.D. Aftercare Cardiac Pacemaker Discharge Disposition: Home or Self Care 02/24/2024 3:00 PM CDT External Outreach Division of Nephrology and Hypertension in [place], [place] [address] [place] [address] Kyle Daniel Jr., D.O. 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 I have a [facility] place to live 09/05/2023 Sex and [...] ELIF EXTERNAL NON-INTERFACED LAB [address] [place] [address] * CT Abdomen Pelvis with IV Contrast [...] Electronically signed by: ?? Karina Smiley MD [phone] ([id number]) 14-Mar-2010 15:49 ?Linh Sellers M.D. ??8- [...] [id number] Electronically signed by: Karina Smiley MD [phone] ([id number]) 14-Mar-2010 15:49 Linh Sellers M.D.[id number] 14-Mar-2010 15:49 Александр Novoa Jr., M.D. IMG CT [place] OCEDURES from Last 3 Months or Most Recently Relevant to Health Maintenance
--- OUTSIDE RECORDS SUMMARY | 2024-05-21 08:07 | XMS_ITS | Encounter Summary ---
Author Organization [place] Address [facility] [place] [address] Care Team Providers Care Rn L And D Name Role Phone Trung Tucker MD Primary Care Provider [phone] Reason for Visit * Reason Onset Date Comments WOUND CARE 09/12/2021 Encounter Details Date Type Department Care Team (Late st Contact Info) Description 09/12/2021 Telephone [facility] [place] [address] [place] [phone] Byrno Garrett MD [address] [place] [address] WOUND CARE Social History Tobacco [...] AM CDT Home care referral faxed to [facility]. * Telephone Encounter - Karmen Gallegos - 09/12/2021 10:11 AM CDT [facility], unable to fulfill request for home care documented in this encounter Plan of Treatment Not on file documented as of this encounter Visit Diagnoses Not on filedocumented in this encounter Care Teams Rn L And D Relationship Specialty Start Date End Date Trung Tucker MD PCP - General Family Practice 11/13/17 documented as of this encounter
== END 2024-05-18 08:21 | disposition home or self-care (01) ==
LOC: NFLDREF 05-21 08:04
PROVIDERS: PCP Family Medicine; Referring Provider Family Medicine; Visit Provider Family Medicine
DX: R35.0 Frequency of micturition (principal); E11.9 Type 2 diabetes mellitus without complications
CPT/HCPCS: 87086

== ENCOUNTER 2024-06-23 14:50 | Outpatient (CLI) | payer MEDICARE, BC, SELFPAY ==
--- OUTSIDE RECORDS SUMMARY | 2024-06-24 03:23 | XMS_ITS | Referral Summary ---
Author Organization [facility] Address [address] [place], [place] [address]. [place] [address] Care Team Providers Care Steam Plant Records Clerk Name Role Phone Trung Tucker MD Primary Care Provider [phone] Allergies Active Allergy Reactions Criticality Noted Date [...] Comments Blood Pressure 188/107 11/14/2021 1:10 PM DIRECTOR OF REGIONAL SALES Pulse 67 11/14/2021 1:10 PM DIRECTOR OF REGIONAL SALES Temperature 36.6 ??C (97.8 ??F) 11/14/2021 1:10 PM CS T Respiratory Rate 20 10/03/2021 10:02 AM DIRECTOR OF REGIONAL SALES Oxygen Saturation 100% 11/18/2017 12:52 PM DIRECTOR OF REGIONAL SALES Inhaled Oxygen Concentration - - Weight 114.8 kg (253 lb) 11/18/2017 12:52 PM DIRECTOR OF REGIONAL SALES pt reported Height 173.4 cm (5' 8.25) 11/18/2017 12:[address] pt reported Body Mass Index 38.19 11/18/2017 12:52 PM DIRECTOR OF REGIONAL SALES Plan of Treatment Not on file Care Teams Steam Plant Records Clerk Relationship Specialty Start Date End Date Trung Tucker MD PCP - General Family Practice 11/13/17
--- OUTSIDE RECORDS SUMMARY | 2024-06-24 03:23 | XMS_ITS | Clinical Summary ---
Author Organization [facility]ending [facility] Address [address] [place] [address] Care Team Providers Care Entertainment Director Name Role Phone Whitney Gil MD Primary Care Provider [phone] Source Comments You are receiving this document as you are listed as the primary care provider,follow-up provider, or the patient has been referred to you for consultation.This is in compliance with the Medicare and[facility] EHR Incentive Program,which states Providers who transition their patient to another setting of careor provider of care or refers their patient to another provider of care shouldprovide summary care record for each transition of care or referral. M2G Allergies Active Allergy Reactions Criticality Noted Date [...] (1 - 2022-2 4 season) 2023 Influenza (#1) 2024 11/14/2020, 09/07/2017 HepA Aged Out No longer [...] age to complete this topic Care Teams Entertainment Director Relationship Specialty Start Date End Date Whitney Gil MD [address] [place] [address] PCP - General 12/06/11
--- OUTSIDE RECORDS SUMMARY | 2024-06-24 03:23 | XMS_ITS | Continuity of Care Document ---
Author Organization [facility] Address [address] [place] [address] [place] [address] Phone Care Team Providers Care Home Care Associate Name Role Phone Will Jase HAWK Unavailable Unavailabl e Medications Medication Instructions Dosage Effective Dates (start - stop) Status Comments Eliquis 2.5 mg tablet take 1 tablet by o ral route 2 times every day 2.5 MG - Active Procedures Procedure Date OFFICE/OUTPATIENT VISIT, [facility] Advance Directives Directive Yes / No Effective Date File Name No Information Encounters Encounter Description Practice Location Reason(s) For Visit Diagnoses Date Provider Providers Copied on Encounter [facility], [address] [place] [address], [id number], [place] tel:[phone] [facility] No Information b- 2 Will Jase. [address] [facility] [place], [place], [id number] , [place]. tel:[phone] [facility], [address] [place] [address], [id number], [place] tel:[phone] [facility] Myalgia, other site Dec- [address] [facility] [facility] [address], [place], [id number] , [place]. tel:[phone] OFFICE/OUTPAT IENT VISIT, [facility], [address] [place] [address] [place], [place], [id number], [place] tel:[phone] [facility] [place] Widespread pain (chief complaint) Chronic pain syndromePain in right kneePain in left kneePain in right shoulder [address], [place], [id number] , [place]. tel:[phone] Referring Provider: Jaes Ackerman, [address] [facility] [place], [address] . tel:[phone] Family History Family Member Type Diagnosis Age At Onset No Information Payers Payer name Insurance type Covered republican ID Authoriza tipema(s) Medicare [id number] Social History Type Description Quantity Date Captured [...] a surgical candidate for knee replacement by [facility] recently. However, he is constantly in pain [...] be trialling an injection later today at [facility]. Imaging was last completed at [facility].He is currently manged gabapentin 300mg four times [...]
--- OUTSIDE RECORDS SUMMARY | 2024-06-24 03:23 | XMS_ITS | Encounter Summary ---
Author Organization [place] Address [facility] [facility] [place] [address] Care Team Providers Care Nylon Mender Name Role Phone Trung Tucker MD Primary Care Provider [phone] Reason for Visit * Reason Onset Date Comments WOUND CARE 09/20/2021 Encounter Details Date Type Department Care Team (Late st Contact Info) Description 09/20/2021 Telephone [facility] [place] [address] [place] [phone] Byron Garrett MD [address] [place] [address] WOUND CARE Social History Tobacco [...] on filedocumented in this encounter Care Teams Nylon Mender Relationship Specialty Start Date End Date Trung Tucker MD PCP - General Family Practice 11/13/17 documented as of this encounter
--- OUTSIDE RECORDS SUMMARY | 2024-06-24 03:23 | XMS_ITS | Clinical Summary ---
Author Organization [facility] Address [place], [place] [address] Care Team Providers Care Home And Family Living Professor Name Role Phone Trung Tucker MD Primary Care Provider [phone] Allergies Active Allergy Reactions Criticality Noted Date [...] Comments Blood Pressure 110/70 01/22/2023 2:21 PM MACHINE FILLER Pulse 70 01/22/2023 2:21 PM MACHINE FILLER Temperature 36.2 ??C (97.2 ??F) 07/13/2021 3:30 PM CD T Respiratory Rate 18 07/13/2021 3:30 PM CDT Oxygen Saturation 94% 01/22/2023 2:21 PM MACHINE FILLER Inhaled Oxygen Concentration - - Weight 146.5 kg (323 lb) 01/22/2023 2:21 PM MACHINE FILLER Height 177.8 cm (5' 10) 01/22/2023 2:21 PM MACHINE FILLER Body Mass Index 46.35 01/22/2023 2:21 PM MACHINE FILLER Plan of Treatment Upcoming Encounters Date Type Department Care Team (Late st Contact Info) Description 08/10/2024 Cardiac Device Check [facility] [phone] 08/11/2024 4:00 PM CDT Office Visit [facility] [address] [place] [address] Baldo Cristina MD [address] [place] [address] Health Maintenance Due Date Last Done Comments [...] 11:17 AM 03/03/2019 11:17 AM Care Teams Home And Family Living Professor Relationship Specialty Start Date End Date Trung Tucker MD [address] [place] [address] PCP - General 12/22/18
--- OUTSIDE RECORDS SUMMARY | 2024-06-24 03:23 | XMS_ITS | Encounter Summary ---
Author Organization [place] Address [facility] [place] [address] Care Team Providers Care Burglar Alarm Operator Name Role Phone Trung Tucker MD Primary Care Provider [phone] Reason for Visit * Reason Onset Date Comments WOUND CARE 09/27/2021 Encounter Details Date Type Department Care Team (Late st Contact Info) Description 09/27/2021 Telephone [facility] [place] [address] [place] [phone] Byron Garrett MD [address] [place] [address] WOUND CARE Social History Tobacco [...] on filedocumented in this encounter Care Teams Burglar Alarm Operator Relationship Specialty Start Date End Date Trung Tucker MD PCP - General Family Practice 11/13/17 documented as of this encounter
--- OUTSIDE RECORDS SUMMARY | 2024-06-24 03:23 | XMS_ITS | Clinical Summary ---
Author Organization [facility] Address [address] [place], [place] [address]. [place] [address] Care Team Providers Care Thermal Cutting Machine Operator Name Role Phone Trung Tucker MD Primary Care Provider [phone] Allergies Active Allergy Reactions Criticality Noted Date [...] Comments Blood Pressure 188/107 11/14/2021 1:10 PM CAMPAIGN ANALYST Pulse 67 11/14/2021 1:10 PM CAMPAIGN ANALYST Temperature 36.6 ??C (97.8 ??F) 11/14/2021 1:10 PM CS T Respiratory Rate 20 10/03/2021 10:02 AM CAMPAIGN ANALYST Oxygen Saturation 100% 11/18/2017 12:52 PM CAMPAIGN ANALYST Inhaled Oxygen Concentration - - Weight 114.8 kg (253 lb) 11/18/2017 12:52 PM CAMPAIGN ANALYST pt reported Height 173.4 cm (5' 8.25) 11/18/2017 12:[address] pt reported Body Mass Index 38.19 11/18/2017 12:52 PM CAMPAIGN ANALYST Plan of Treatment Health Maintenance Due [...] or Tdap) 04/06/2022 04/06/2012, 01/22/2006 COVID-19 Vaccine ( - 2022-2 4 season) 2023 PHQ-2 (once per calendar year) 2023 11/13/2017 INFLUENZA VACCINE (#1) 2024 0, 09/07/2017 Pneumococcal Vaccine: 65+ Years Completed 09/18/2021, [...] age to complete this topic Care Teams Thermal Cutting Machine Operator Relationship Specialty Start Date End Date Trung Tucker MD PCP - General Family Practice 11/13/17
--- OUTSIDE RECORDS SUMMARY | 2024-06-24 03:23 | XMS_ITS | Encounter Summary ---
Author Organization [place] Address [facility] [place] [address] Care Team Providers Care Leaf Sucker Operator Name Role Phone Trung Tucker MD Primary Care Provider [phone] Reason for Visit * Reason Onset Date Comments WOUND CARE 09/12/2021 Encounter Details Date Type Department Care Team (Late st Contact Info) Description 09/12/2021 Telephone [facility] [place] [address] [place] [phone] Byron Garrett MD [address] [place] [address] WOUND CARE Social History Tobacco [...] AM CDT Home care referral faxed to [employer] [facility]. * Telephone Encounter - Karmen Gallegos - 09/12/2021 10:11 AM CDT Service at [facility], unable to fulfill request for home care documented in this encounter Plan of Treatment Not on file documented as of this encounter Visit Diagnoses Not on filedocumented in this encounter Care Teams Leaf Sucker Operator Relationship Specialty Start Date End Date Trung Tucker MD PCP - General Family Practice 11/13/17 documented as of this encounter
== END 2024-06-23 14:51 | disposition home or self-care (01) ==
LOC: NFLDREF 06-24 03:21
PROVIDERS: PCP Family Medicine; Referring Provider Family Medicine; Visit Provider Internal Medicine Nephrology
DX: E11.9 Type 2 diabetes mellitus without complications (principal); N18.9 Chronic kidney disease, unspecified; I10 Essential (primary) hypertension; D64.9 Anemia, unspecified; M10.9 Gout, unspecified; E78.5 Hyperlipidemia, unspecified; E66.01 Morbid (severe) obesity due to excess calories; Z79.01 Long term (current) use of anticoagulants
CPT/HCPCS: 80069; 82728; 83540; 83550; 83970; 84550

== ENCOUNTER 2024-08-04 13:07 | Outpatient (CLI) | payer MEDICARE, BC, SELFPAY ==
--- OUTSIDE RECORDS SUMMARY | 2024-08-04 13:11 | XMS_ITS | Referral Summary ---
Author Organization [facility] Address [address] [place] [address] Care Team Providers Care Snack Foods Mixer Operator Name Role Phone Unavailable Primary Care Provider Unavailabl e Source Comments Patient records contain information from all sites at [facility]. For routine questions regarding patient records, call [phone] during business hours, M-F 8:00 AM - 5:00 PM Central Time. Record requests for emergency care only can be directed to [phone] at any time.[facility] Encounters Date Type Department Care Team Description 07/07/2024 Clinical Communication Department of Urology in [place], [place] [address] [place] [address] Jacque Marino, EDI, C.N.P. 06/23/2024 3:00 PM CDT External Outreach Division of Nephrology and Hypertension in [place], [place] [address] [place] [address] Kyle Daniel Jr., D.O. Hypertensive Chronic Kidney Disease With Stage 1 Through Stage 4 Chronic Kidney Disease, Or Unspecified Chronic Kidney Disease (Primary Dx); Diabetes Mellitus Type 2 With Diabetic Chronic Kidney Disease (HCC); Atrial Fibrillation Unspecified (HCC); Cardiomyopathy (HCC); Hyperparathyroidism Renal Secondary (HCC); Anemia from Last 3 Months Allergies Active Allergy Reactions Criticality Noted Date Comments Adhesive Tape-Silicones Rash 07/16/2021 Foam tape used for pressure wrap after the pacemaker procedure Lisinopril Cough 11/13/2017 Cough Cough Cough Medications Medication Sig Dispensed Refills Start Date End Date Status triamterene-hydroC HLOROthiazide (DYAZIDE) 37.5-25 mg per capsule Take 1 [...] (PriLOSEC) [address] capsule 04/19/2022 Active oxyCODONE-acetamin ophen (PERCOCET) 5-325 mg per tablet 04/25/2022 Active [...] times a day. 180 tablet 3 06/02/2023 Active metFORMIN XR (GLUCOPHAGE-XR) 500 mg 24 hr tablet Take 500 mg by mouth every evening. 07/14/2023 Active fesoterodine (Toviaz) 4 mg 24 hr tablet Take 1 tablet (4 mg total) by mouth daily. 90 tablet 3 06/23/2024 Active Active Problems Problem Noted Date Diagnosed Date Hypokalemia 02/24/2024 Cellulitis 12/16/2023 Venous Insufficiency Chronic Peripheral 09/10/20 Rash 2023 Pain Knee Right 2023 Pain Arm Right 2023 Other Pruritus 2023 Morbid Obesity 2023 Cosmetology Educator (Current) Anticoagulant Treatment 08/24 Gout 2023 Gastroesophageal [...] Osteodystrophy Renal 12/22/2019 Hypertensive Chronic Kidney Disease With Stage 1 Through Stage 4 Chronic Kidney Disease, Or Unspecified Chronic Kidney Disease 12/22/2019 Atrial Fibrillation Unspecified 12/22/2019 Other Specified Diseases Of Liver 11/13/2017 Tendinitis Achilles Left 12/31/2011 Other Pulmonary Embolism Without Acute Cor Pulmo nale 08/03/2010 Cyst Of Kidney Acquired 08/03/2010 Immunizations Name Administration Dates Next Due Influenza high dose QV(65 years or older) (PF) 1 01/15/2020 PCV13 09/19/2020 PPSV23 09/18/2021 Td (Adult), adsorbed 01/22/2006 Td, (Adult) Unspecified 01/22/2006 Tdap 04/06/2012 influenza trivalent high dose (HD)(PF) 7 influenza vaccine quad (FLUZ ONE/FLUARIX) (6 months [...] your living situation today? I have a [facility] place to live 09/05/2023 Sex and Gender Information Value Date Recorded Sex Assigned at Male 09/05/2023 2:59 PM CDT Gender Identity Male 09/05/2023 2:59 PM CDT Sexual Orientation Straight 09/05/2023 2: 59 PM CDT Last Filed Vital Signs Vital Sign Reading Time Taken Comments Blood Pressure 150/81 06/23/2024 3:01 PM CDT Pulse 62 06/23/2024 3:01 PM CDT Temperature 36 ??C (96.8 ??F) 06/27/2022 3:27 PM CDT Respiratory Rate - - Oxygen Saturation - - Inhaled Oxygen Concentration - - Weight 138 kg (303 lb 5.7 oz) 06/23/2024 3:01 PM CDT Height 176.5 cm (5' 9.49) 06/23/2024 3:01 PM CD T Body Mass Index 44.17 06/23/2024 3:01 PM CDT Plan of Treatment Not on file Procedures Procedure Name Priority Date/Time Associated Diagnosis Comments ALBUMIN, RANDOM, U Routine 03/02/2020 BASIC METABOLIC PANEL, S/P Routine 03/02/2020 CT ABDOMEN PELVIS WITH IV CONTRAST Routine 03/14/2010 1:54 PM CDT from Last 3 Months or Most Recently Relevant to Health Maintenance Results * Albumin, Random, Urine (03/02/2020) Pathologist [facility] EXT Microalbumin-Ra ndom, U 47 EXTERNAL NON-INTERFACED LAB Urine (Urine, Clean Catch) Historical Provider Ciaran LAB URINE ORDER ELIF Performing Organization Address [facility] de Phone Number EXTERNAL NON-INTERFACED LAB [address] [place] [address] * Basic Metabolic Panel (03/02/2020) EXT BUN (Blood Urea Nitrogen) 39 EXTERNAL NON-INTERFACED LAB EXT Creatinine 1.5 EXTER NAL NON-INTERFACED LAB EXT Glucose 111 EXTERNAL NON-INTERFACED LAB EXT Potassium 3.9 PUBLISHING DIRECTOR AL NON-INTERFACED LAB EXT Sodium 143 EXTERNAL NON-INTERFACED LAB Blood (Blood, Venous) Historical Provider MMaria M LAB BLOOD ADD-O N Performing Organization Address [facility] de Phone Number EXTERNAL NON-INTERFACED LAB [address] [place] [address] * CT Abdomen Pelvis with IV Contrast [...] Electronically signed by: ?? Karina Smiley MD [phone] ([id number]) 14-Mar-2010 15:49 ?Linh Sellers M.D. ??[phone] [...] [id number] Electronically signed by: Karina Smiley MD [phone] ([id number]) 14-Mar-2010 15:49 Linh Sellers M.D.14-Mar-2010 15:49 Александр Novoa Jr., M.D. IMG CT IN OCEDURES from Last 3 Months or Most Recently Relevant to Health Maintenance
--- OUTSIDE RECORDS SUMMARY | 2024-08-04 13:11 | XMS_ITS | Encounter Summary ---
Author Organization [facility] Address [address] [place] [address] Care Team Providers Care Education Officer Name Role Phone Unavailable Primary Care Provider Unavailabl e Encounter Details Date Type Department Care Team (Late st Contact Info) Description 07/07/2024 Clinical Communication Department of Urology in [place], [place] [address] [address] Jacque Marino APRN, C.N.P. [address] [address] Social History Tobacco Use Types Packs/Day Years [...] your living situation today? I have a [facility] place to live 09/05/2023 Sex [...]
--- OUTSIDE RECORDS SUMMARY | 2024-08-04 13:11 | XMS_ITS | Clinical Summary ---
Author Organization [facility] Address [address] [place] [address] Care Team Providers Care Automobile Contract Clerk Name Role Phone Unavailable Primary Care Provider Unavailabl e Source Comments Patient records contain information from all sites at [facility]. For routine questions regarding patient records, call [phone] during business hours, M-F 8:00 AM - 5:00 PM Central Time. 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 06/23/2024 3:00 PM CDT External Outreach Division of Nephrology and Hypertension in [place], [place] [address] [place] [address] Kyle Daniel Jr., D.O. Hypertensive Chronic Kidney Disease With Stage 1 Through Stage 4 Chronic Kidney Disease, Or Unspecified Chronic Kidney Disease (Primary Dx); Diabetes Mellitus Type 2 With Diabetic Chronic Kidney Disease (HCC); Atrial Fibrillation Unspecified (HCC); Cardiomyopathy (HCC); Hyperparathyroidism Renal Secondary (HCC); Anemia from Last 3 Months Immunizations Name Administration [...] your living situation today? I have a [facility] place to live 09/05/2023 Sex and [...] 06/23/2024 3:01 PM CDT Plan of Treatment Health Maintenance [...] Td or Tdap) 04/06/2022 04/06/2012, 01/22/2006, 01/22/2006 Creatinine Level (Kidney Fun ction Test) 03/26/2023 03/26/2022, 07/17/2021, 07/13/2021, Additional history exists Depression Screening (Annual PHQ-2) 11/24/2023 Fall Risk Screen (Annual) 11/24/2023 COVID-19 Vaccine ( - 2022-2 4 season) 2024 Influenza Vaccine (#1) 2024 , 11/14/2020, 09/07/2017, Additional history exists Office Visit for Blood Press ure Check / Re-check 09/23/2024 06/23/2024 Abdominal Aortic Aneurysm (A AA) Screen Discontinued 03/14/2010 Pneumococcal vaccine (65+ years) Completed 09/18/20 21, 09/19/2020 Procedures Procedure Name Priority Date/Time Associated Diagnosis Comments ALBUMIN, RANDOM, U Routine 03/02/2020 BASIC METABOLIC PANEL, S/P Routine 03/02/2020 CT ABDOMEN PELVIS WITH IV CONTRAST Routine 03/14/2010 1:54 PM CDT from Last 3 Months or Most Recently Relevant to Health Maintenance Results * Albumin, Random, Urine (03/02/2020) EXT Microalbumin-Ra ndom, U 47 EXTERNAL NON-INTERFACED LAB Urine (Urine, Clean Catch) Historical Provider Ciaran LAB URINE ORDER ELIF Performing Organization Address [facility] Co de Phone Number EXTERNAL NON-INTERFACED LAB [address] [place] [address] * Basic Metabolic Panel (03/02/2020) EXT BUN (Blood Urea Nitrogen) 39 EXTERNAL NON-INTERFACED LAB EXT Creatinine 1.5 EXTER NAL NON-INTERFACED LAB EXT Glucose 111 EXTERNAL NON-INTERFACED LAB EXT Potassium 3.9 ACID PAINTER AL NON-INTERFACED LAB EXT Sodium 143 EXTERNAL NON-INTERFACED LAB Blood (Blood, Venous) Historical Provider Ciaran LAB BLOOD ADD-O N Performing Organization Address [facility] Co de Phone Number EXTERNAL NON-INTERFACED LAB [address] [place] [address] * CT Abdomen Pelvis with IV Contrast [...] Electronically signed by: ?? Karina Smiley MD [phone] ([id number]) 14-Mar-2010 15:49 ?Linh Sellers M.D. ??[phone] [...] [id number] Electronically signed by: Karina Smiley MD [phone] ([id number]) 14-Mar-2010 15:49 Linh Sellers M.D.[id number] 14-Mar-2010 15:49 Александр Novoa Jr., M.D. IMG CT [place] OCEDURES from Last 3 Months or Most Recently Relevant to Health Maintenance
--- OUTSIDE RECORDS SUMMARY | 2024-08-04 13:11 | XMS_ITS ---
Author Organization [facility] Address [address] [place] [address] Care Team Providers Care Jd Edwards Consultant Name Role Phone Unavailable Unavailable Unavailable Surgery Details Not on file Complications Check Surgery Details section. Procedure Estimated Blood Loss Check Surgery Details section. Procedure Findings Check Surgery Details section. Procedure Specimens Taken Check Surgery Details section.
--- OUTSIDE RECORDS SUMMARY | 2024-08-04 13:11 | XMS_ITS | Clinical Summary ---
Author Organization [facility] Address [place], [place] [address] Care Team Providers Care Scrap Drop Operator Name Role Phone Trung Tucker MD Primary Care Provider [phone] Allergies Active Allergy Reactions Criticality Noted Date [...] Comments Blood Pressure 110/70 01/22/2023 2:21 PM CABLE TESTER Pulse 70 01/22/2023 2:21 PM CABLE TESTER Temperature 36.2 ??C (97.2 ??F) 07/13/2021 3:30 PM CD T Respiratory Rate 18 07/13/2021 3:30 PM CDT Oxygen Saturation 94% 01/22/2023 2:21 PM CABLE TESTER Inhaled Oxygen Concentration - - Weight 146.5 kg (323 lb) 01/22/2023 2:21 PM CABLE TESTER Height 177.8 cm (5' 10) 01/22/2023 2:21 PM CABLE TESTER Body Mass Index 46.35 01/22/2023 2:21 PM CABLE TESTER Plan of Treatment Upcoming Encounters Date Type Department Care Team (Late st Contact Info) Description 08/10/2024 Cardiac Device Check [facility] [phone] 08/11/2024 4:00 PM CDT Office Visit [facility] [address] [place] [address] Baldo Cristina MD [address] [place] [address] Health Maintenance Due Date Last Done Comments [...] 06/20/2022 06/20/2021, 06/18/2021, 06/16/2021, Additional history exists BMI (ht and wt on same day) for age 18+ 01/23/2024 01/22/2023, 03/26/2022, 10/10/2021, Additional history exists COVID-19 vaccine series ( - 2022- season) 2024 Influenza for age 65+ 07/25/2024 Advance Directives [...] 11:17 AM 03/03/2019 11:17 AM Care Teams Scrap Drop Operator Relationship Specialty Start Date End Date Trung Tucker MD [address] [place] [address] PCP - General 12/22/18
--- OUTSIDE RECORDS SUMMARY | 2024-08-04 13:11 | XMS_ITS | Encounter Summary ---
Author Organization [facility] Address [address] [place] [address] Care Team Providers Care Medical Device Assembler Name Role Phone Unavailable Primary Care Provider Unavailabl e Reason for Visit * Appointment Request (Routine) - Closed Specialty Diagnoses / Procedures Referred By Keila rey Referred To Contact Nephrology and Hypertension Referral ID Status Reason Start Date Expiration Date Visits Re quested Visits Authorized [id number] Closed 05/07/2024 05/07/2025 1 1 Encounter Details Date Type Department Care Team (Latest Contact Info) Description 06/23/2024 3:00 PM CDT External Outreach Division of Nephrology and Hypertension in [place], [place] [address] [place] [address] Kyle Daniel Jr., D.O. [address] [place] [address] Hypertensive Chronic Kidney Disease With Stage 1 Through Stage 4 Chronic Kidney Disease, Or Unspecified Chronic Kidney Disease (Primary Dx); Diabetes Mellitus Type 2 With Diabetic Chronic Kidney Disease (HCC); Atrial Fibrillation Unspecified (HCC); Cardiomyopathy (HCC); Hyperparathyroidism Renal Secondary (HCC); Anemia Social History Tobacco Use Types Packs/Day Years [...] your living situation today? I have a [facility] place to live 09/05/2023 Sex and Gender Information Value Date Recorded Sex Assigned at Male 09/05/2023 2:59 PM CDT Gender Identity Male 09/05/2023 2:59 PM CDT Sexual Orientation Straight 09/05/2023 2: 59 PM CDT documented as of this encounter Last Filed Vital Signs Vital Sign Reading Time Taken Comments Blood Pressure 150/81 06/23/2024 3:01 PM CDT Pulse 62 06/23/2024 3:01 PM CDT Temperature - - Respiratory Rate - - Oxygen Saturation - - Inhaled Oxygen Concentration - - Weight 138 kg (303 lb 5.7 oz) 06/23/2024 3:01 PM CDT Height 176.5 cm (5' 9.49) 06/23/2024 3:01 PM CD T Body Mass Index 44.17 06/23/2024 3:01 PM CDT documented in this encounter Progress Notes * Kyle Daniel Jr., D.O. - 06/23/2024 3:00 PM CDT Referring Provider: DR Bardales SUBJECTIVE REASON FOR VISIT [place] out [facility] Follow-up regards CKD, hypertension, diabetes mellitus HISTORY OF PRESENT ILLNESS Mr. Forte is a 73 y.o. male who presents with lower extremity venous insufficiency, CKD stage 3, with diabetic hypertensive and ischemic nephrosclerosis. Since our last visit he overall has been doing fairly well. There have been some issues with respect to his urinary outlet, for which she is now using a new alpha agonist, which has helped a bit withhis urine flow. He is developing urinary incontinence which has been a major problem for him. He has been drinking more liquids lately and we talked about timing of his liquid intake. He believes he had an episode of gout in his right ankle which improved quite quickly with the colchicine. He is looking forward to getting some compressive garments for his lower extremities which are to arise very soon. His glycemic control has been reasonable lately with a hemoglobin A1c of 8.1%, his glucose ranges have been between 136 and 187 with a glucose monitor. Blood pressures have been reasonable, he has had no orthostatic issues no severe swelling, althoughhe does have blister formation at times on his skin. No past medical history on file. Current [...] systems reviewed and are negative. OBJECTIVE BP 150/81 Pulse 62 Ht 176.5 cm Wt (!) 138 kg BMI 44.17 kg/m?? PHYSICAL EXAMINATION General: Awake alert oriented HEENT: BETH, EOMI, Mucous membranes moist, no oral lesions Neck: No Masses, No Bruits Lungs: Clear to ascultation Heart: Regular Rate and Rhythm, No ectopy Murmurs or rubs Abdomen: Soft, Non-tender Extremities: No cyanosis, No clubbing: Nonpitting lower extremity bilateral edema right greater than left Neuro: Cranial Nerves intact, Gait is antalgic, strength: He has difficulties arising out of the exam chair, walks with a cane Skin: no suspicious lesions identified Psychiatric: Normal affect DIAGNOSTICS Labs from today largely pending, most recent serum creatinine in March was 1.1, I appreciate his hemoglobin is normal from today. Hemoglobin A1c 8.1% from April 12, 2024 ASSESSMENT / PLAN #1 Hypertensive Chronic Kidney Disease With Stage 1 Through Stage 4 Chronic Kidney Disease, Or Unspecified Chronic Kidney Disease His CKD superimposed on diabetic hypertensive and ischemic nephrosclerosis. Going forward: 1. Goal blood pressure less than 130s over 80s 2. Goal glycosylated hemoglobin less than 8% 3. No NSAIDs or Corrigan 2 inhibitors 4. I will have him back to Nephrology Clinic in 6 months 5. Agree with the vascular compressive devices, rather than accelerated diuretic use. #2 Diabetes Mellitus Type 2 With Diabetic Chronic Kidney Disease (HCC) Glycemic control seems fair, I wonder he if he may not be an excellent candidate for a SG LT 2 inhibitor going forward, we have looked into this in the past and this was unaffordable. #3 Atrial Fibrillation Unspecified (HCC) He is anticoagulated and rate controlled. #4 Cardiomyopathy (HCC) He has diastolic disease, he is doing well from this perspective and seems reasonably compensated. #5 Hyperparathyroidism Renal Secondary (HCC) Calcium phosphorus albumin acceptable. #6 Anemia This has resolved Total time: 30 minutes Counseling Time: 25 minutes Trino Garay Jr..O. documented in this encounter Plan of Treatment Not on file documented as of this encounter Visit Diagnoses Diagnosis Hypertensive Chronic Kidney Disease With Stage 1 Through Stage 4 Chronic Kidney Disease, Or Unspecified Chronic Kidney Disease- Primary Diabetes Mellitus Type 2 With Diabetic Chronic Kidney Disease (HCC) Atrial Fibrillation Unspecified (HCC) Cardiomyopathy (HCC) Hyperparathyroidism Renal Secondary (HCC) Anemia documented in this encounter
--- OUTSIDE RECORDS SUMMARY | 2024-08-04 13:11 | XMS_ITS | Continuity of Care Document ---
Author Organization [facility] Address [address] [place] [address] [place] [address] Phone Care Team Providers Care Low Voltage Technician Name Role Phone Will Jase HAWK Unavailable Unavailabl e Medications Medication Instructions Dosage Effective Dates (start - stop) Status Comments Eliquis 2.5 mg tablet take 1 tablet by o ral route 2 times every day 2.5 MG - Active Procedures Procedure Date OFFICE/OUTPATIENT VISIT, [facility] Advance Directives Directive Yes / No Effective Date File Name No Information Encounters Encounter Description Practice Location Reason(s) For Visit Diagnoses Date Provider Providers Copied on Encounter [facility], [address] [place] [address], [id number], [place] tel:[phone] [facility] No Information b- 2 Will Jase. [address] [facility] [place], [place], [id number] , [place]. tel:[phone] [facility], [address] [place] [address], [id number], [place] tel:[phone] [facility] My[facility], other site Dec- [address] [facility] [facility] [address], [place], [id number] , [place]. tel:[phone] OFFICE/OUTPAT IENT VISIT, [facility], [address] [place] [address] [place], [id number], [place] tel:[phone] [facility] [place] Widespread pain (chief complaint) Chronic pain syndromePain in right kneePain in left kneePain in right shoulder [address], [place], [id number] , [place]. tel:[phone] Referring Provider: Jase Ackerman, [address] [facility] [address] [place], [address] . tel:[phone] Family History Family Member Type Diagnosis Age At Onset No Information Payers Payer name Insurance type Covered alliance party ID Authoriza lizzette(s) Medicare [id number] Social History Type Description Quantity Date Captured [...] a surgical candidate for knee replacement by [facility] recently. However, he is constantly [...] be trialling an injection later today at [facility]. Imaging was last completed at [facility].He is currently manged gabapentin 300mg [...]
--- OUTSIDE RECORDS SUMMARY | 2024-08-04 13:12 | XMS_ITS | Clinical Summary ---
Author Organization [facility] Address [address] [place], [place] [address]. [place] [address] Care Team Providers Care Orthopedics Teacher Name Role Phone Trung Tucker MD Primary Care Provider [phone] Allergies Active Allergy Reactions Criticality Noted Date [...] Administration Dates Next Due Influenza (High Dose) Trivalent,PF (Fluzone) TDAP Vaccine (Adacel) 04/06/2012 Family History Medical [...] Comments Blood Pressure 188/107 11/14/2021 1:10 PM FLOOR INSPECTOR Pulse 67 11/14/2021 1:10 PM FLOOR INSPECTOR Temperature 36.6 ??C (97.8 ??F) 11/14/2021 1:10 PM CS T Respiratory Rate 20 10/03/2021 10:02 AM FLOOR INSPECTOR Oxygen Saturation 100% 11/18/2017 12:52 PM FLOOR INSPECTOR Inhaled Oxygen Concentration - - Weight 114.8 kg (253 lb) 11/18/2017 12:52 PM FLOOR INSPECTOR pt reported Height 173.4 cm (5' 8.25) 11/18/2017 12:[address] pt reported Body Mass Index 38.19 11/18/2017 12:52 PM FLOOR INSPECTOR Plan of Treatment Health Maintenance Due Date Last Done Comments ADVANCE CARE PLANNING 1949 ANNUAL REVIEW OF HM ORDERS [address] COLONOGRAPHY 1949 FIT 1949 FLEX SIG 1949 GLUCOSE 1949 LIPID 1949 MICROALBUMIN 1949 sDNA (Cologuard) 1949 URINALYSIS 1950 COLONOSCOPY 1959 COLORECTAL CANCER SCREENING 1959 HEPATITIS C SCREENING 1967 LUNG CANCER SCREENING 1999 ZOSTER IMMUNIZATION (1 of 2) 1999 RSV VACCINE (1 - Risk 60-74 years 1-dose series) 2009 MEDICARE ANNUAL WELLNESS VISIT 2014 FALL RISK ASSESSMENT 11/13/2018 11/13/2017 DTAP/TDAP/TD IMMUNIZATION (2 - Td or Tdap) 04/06/2022 04/06/2012, 01/22/2006 PHQ-2 (once per calendar year) 2023 11/13/2017 COVID-19 Vaccine (2022-2 4 season) 2024 INFLUENZA VACCINE (#1) 2024 0, 09/07/2017 Pneumococcal [...] age to complete this topic Care Teams Orthopedics Teacher Relationship Specialty Start Date End Date Trung Tucker MD PCP - General Family Practice 11/13/17
--- OUTSIDE RECORDS SUMMARY | 2024-08-04 13:12 | XMS_ITS | Encounter Summary ---
Author Organization [facility] Address [facility] [place] [address] Care Team Providers Care Geotechnical Operating Engineer Name Role Phone Trung Tucker MD Primary Care Provider [phone] Reason for Visit * Reason Onset Date Comments WOUND CARE 09/27/2021 Encounter Details Date Type Department Care Team (Late st Contact Info) Description 09/27/2021 Telephone [facility] [place] [address] [place] [phone] Byron Garrett MD [address] [place] [address] WOUND CARE Social History Tobacco [...] on filedocumented in this encounter Care Teams Geotechnical Operating Engineer Relationship Specialty Start Date End Date Trung Tucker MD PCP - General Family Practice 11/13/17 documented as of this encounter
--- OUTSIDE RECORDS SUMMARY | 2024-08-04 13:12 | XMS_ITS | Referral Summary ---
Author Organization [place] Address [facility] [place] [address] Care Team Providers Care Complaint Adjuster Name Role Phone Trung Tucker MD Primary Care Provider [phone] Allergies Active Allergy Reactions Criticality Noted Date [...] Dose) Trivalent,PF (Fluzone) TDAP Vaccine (Adacel) 04/06/2012 Social History Tobacco [...] Comments Blood Pressure 188/107 11/14/2021 1:10 PM DESIGN ENGINEERING MANAGER Pulse 67 11/14/2021 1:10 PM DESIGN ENGINEERING MANAGER Temperature 36.6 ??C (97.8 ??F) 11/14/2021 1:10 PM CS T Respiratory Rate 20 10/03/2021 10:02 AM DESIGN ENGINEERING MANAGER Oxygen Saturation 100% 11/18/2017 12:52 PM DESIGN ENGINEERING MANAGER Inhaled Oxygen Concentration - - Weight 114.8 kg (253 lb) 11/18/2017 12:52 PM DESIGN ENGINEERING MANAGER pt reported Height 173.4 cm (5' 8.25) 11/18/2017 12:[address] pt reported Body Mass Index 38.19 11/18/2017 12:52 PM DESIGN ENGINEERING MANAGER Plan of Treatment Not on file Care Teams Complaint Adjuster Relationship Specialty Start Date End Date Trung Tucker MD PCP - General Family Practice 11/13/17
--- OUTSIDE RECORDS SUMMARY | 2024-08-04 13:12 | XMS_ITS | Clinical Summary ---
Author Organization [facility] Address [address] [place] [address] Care Team Providers Care Geophysical Computer Name Role Phone Whitney Gil MD Primary Care Provider [phone] Source Comments You are receiving this document as you are listed as the primary care provider,follow-up provider, or the patient has been referred to you for consultation.This is in compliance with the Medicare and[facility] EHR Incentive Program,which states Providers who transition their patient to another setting of careor provider of care or refers their patient to another provider of care shouldprovide summary care record for each transition of care or referral. ePantry Allergies Active Allergy Reactions Criticality Noted Date [...] Diagnosed Date Osteoarthrosis involving lower leg 12/31/2011 Overview (07/16/2017): Osteoarthrosis, unspecified whether generalized or localized, lower [...] COVID-19 Vaccine (1 - 2022-2 4 season) 2024 Influenza (#1) 2024 11/14/2020, 09/07/2017 HepA Aged [...] age to complete this topic Care Teams Geophysical Computer Relationship Specialty Start Date End Date Whitney Gil MD [address] [place] [address] PCP - General 12/06/11
--- OUTSIDE RECORDS SUMMARY | 2024-08-04 13:12 | XMS_ITS | Encounter Summary ---
Author Organization [place] Address [facility] [place] [address] Care Team Providers Care Collection Technician Name Role Phone Trung Tucker MD Primary Care Provider [phone] Reason for Visit * Reason Onset Date Comments WOUND CARE 09/20/2021 Encounter Details Date Type Department Care Team (Late st Contact Info) Description 09/20/2021 Telephone [facility] [place] [address] [place] [phone] Byron Garrett MD [address] [place] [address] WOUND CARE Social History Tobacco [...] on filedocumented in this encounter Care Teams Collection Technician Relationship Specialty Start Date End Date Trung Tucker MD PCP - General Family Practice 11/13/17 documented as of this encounter
--- OUTSIDE RECORDS SUMMARY | 2024-08-04 13:12 | XMS_ITS | Encounter Summary ---
Author Organization [place] Address [facility] [place] [address] Care Team Providers Care Windows Administrator Name Role Phone Trung Tucker MD Primary Care Provider [phone] Reason for Visit * Reason Onset Date Comments WOUND CARE 09/12/2021 Encounter Details Date Type Department Care Team (Late st Contact Info) Description 09/12/2021 Telephone [facility] [place] [address] [place] [phone] Byron Garrett MD [address] [place] [address] WOUND CARE Social History Tobacco [...] AM CDT Home care referral faxed to [facility]. * Telephone Encounter - Karmen Gallegos - 09/12/2021 10:11 AM CDT Service at [facility], unable to fulfill request for home care documented in this encounter Plan of Treatment Not on file documented as of this encounter Visit Diagnoses Not on filedocumented in this encounter Care Teams Windows Administrator Relationship Specialty Start Date End Date Trung Tucker MD PCP - General Family Practice 11/13/17 documented as of this encounter
== END 2024-08-04 13:08 | disposition home or self-care (01) ==
LOC: WOUND 13:08
PROVIDERS: PCP Family Medicine; Visit Provider Surgery
DX: S81.802A Unspecified open wound, left lower leg, initial encounter (principal); E11.40 Type 2 diabetes mellitus with diabetic neuropathy, unspecified; I48.91 Unspecified atrial fibrillation; Z79.01 Long term (current) use of anticoagulants; Z86.711 Personal history of pulmonary embolism; Z95.0 Presence of cardiac pacemaker; Z79.84 Long term (current) use of oral hypoglycemic drugs
CPT/HCPCS: G0463

== ENCOUNTER 2024-08-10 12:56 | Outpatient (CLI) | payer MEDICARE, BC, SELFPAY ==
--- OUTSIDE RECORDS SUMMARY | 2024-08-10 12:58 | XMS_ITS | Encounter Summary ---
Author Organization [facility] Address [address] [place] [address] Care Team Providers Care Construction Driller Name Role Phone Unavailable Primary Care Provider Unavailabl e Encounter Details Date Type Department Care Team (Late st Contact Info) Description 07/07/2024 Clinical Communication Department of Urology in [place], [place] [address] [address] Jacque Marino APRN, C.N.P. [address] [address] Social History Tobacco Use Types [...] your living situation today? I have a [facility] place to live 09/05/2023 Sex and [...]
--- OUTSIDE RECORDS SUMMARY | 2024-08-10 12:58 | XMS_ITS | Continuity of Care Document ---
Author Organization [facility] Address [address] [place] [address] [place] [address] Phone Care Team Providers Care Pneumatic System Conveyor Operator Name Role Phone Will Jase HAWK Unavailable [...] Diagnoses Date Provider Providers Copied on Encounter [facility], [address] [place] [address], [id number], [place] tel:[phone] [facility] No Information b- 2 Will Jase. [address] [facility] [place], [place], [id number] , [place]. tel:[phone] [facility], [address] [place] [address], [id number], [place] tel:[phone] [facility] Myalgia, other site Dec- [address] [facility], [place], [id number] , [place]. tel:[phone] OFFICE/OUTPAT IENT VISIT, [facility], [address] [place] [address] [place], [id number], [place] tel:[phone] [facility] [place] Widespread pain (chief complaint) Chronic pain syndromePain in right kneePain in left kneePain in right shoulder [address], [place], [id number] , [place]. tel:[phone] Referring Provider: Jase Ackerman, [address] [facility] [address] [place], [address] . tel:[phone] Family History Family Member Type Diagnosis Age At Onset No Information Payers Payer name Insurance type Covered libertarian ID Authoriza lizzette(s) Medicare [id number] Social History Type Description Quantity Date Captured [...] a surgical candidate for knee replacement by [facility] recently. However, he is constantly in [...] [facility] Imaging was last completed at [facility].He is currently manged gabapentin 300mg four [...]
--- OUTSIDE RECORDS SUMMARY | 2024-08-10 12:58 | XMS_ITS | Clinical Summary ---
Author Organization [facility] Address [place], [place] [address] Care Team Providers Care Systems Integration Engineer Name Role Phone Trung Tucker MD Primary Care Provider [phone] Allergies Active Allergy Reactions Criticality Noted Date [...] Comments Blood Pressure 110/70 01/22/2023 2:21 PM STEREOPTICIAN Pulse 70 01/22/2023 2:21 PM STEREOPTICIAN Temperature 36.2 ??C (97.2 ??F) 07/13/2021 3:30 PM CD T Respiratory Rate 18 07/13/2021 3:30 PM CDT Oxygen Saturation 94% 01/22/2023 2:21 PM STEREOPTICIAN Inhaled Oxygen Concentration - - Weight 146.5 kg (323 lb) 01/22/2023 2:21 PM STEREOPTICIAN Height 177.8 cm (5' 10) 01/22/2023 2:21 PM STEREOPTICIAN Body Mass Index 46.35 01/22/2023 2:21 PM STEREOPTICIAN Plan of Treatment Upcoming Encounters Date Type Department Care Team (Late st Contact Info) Description 08/11/2024 4:00 PM CDT Office Visit [facility] [address] [place] [address] Baldo Cristina MD [address] [place] [address] 12/13/2024 [facility] [phone] Health Maintenance Due Date Last Done Comments [...] 10/10/2021, Additional history exists COVID-19 vaccine series (2022- season) 2024 Influenza for age 65+ 07/25/2024 [...] 11:17 AM 03/03/2019 11:17 AM Care Teams Systems Integration Engineer Relationship Specialty Start Date End Date Trung Tucker MD [address] [place] [address] PCP - General 12/22/18
--- OUTSIDE RECORDS SUMMARY | 2024-08-10 12:58 | XMS_ITS | Referral Summary ---
Author Organization [facility] Address [address] [place] [address] Care Team Providers Care Bobbin Presser Name Role Phone Unavailable Primary Care Provider Unavailabl e Source Comments Patient records contain information from all sites at [facility]. For routine questions regarding patient records, call [phone] during business hours, M-F 8:00 AM - 5:00 PM Central Time. Record requests for emergency care only can be directed to [phone] at any time.[facility] Encounters Date Type Department Care Team Description 07/07/2024 Clinical Communication Department of Urology in [place], [place] [address] [place] [address] Jacque Marino, EDI, C.N.P. 06/23/2024 3:00 PM CDT External Outreach Division of Nephrology and Hypertension in [place], [place] [address] [place] [address] Kyle Daniel Jr., D.O. Hypertensive Chronic Kidney [...] 2023 Other Pruritus 2023 Morbid Obesity 2023 Commercial Stripper (Current) Anticoagulant Treatment 08/24 Gout 2023 Gastroesophageal [...] Results * Albumin, Random, Urine (03/02/2020) Pathologist [facility] EXT Microalbumin-Ra ndom, U 47 EXTERNAL NON-INTERFACED LAB Urine (Urine, Clean Catch) Historical Provider Ciaran LAB URINE ORDER ELIF Performing Organization Address [facility] de Phone Number EXTERNAL NON-INTERFACED LAB [address] [place] [address] * Basic Metabolic Panel (03/02/2020) EXT BUN (Blood Urea Nitrogen) 39 EXTERNAL NON-INTERFACED LAB EXT Creatinine 1.5 EXTER NAL NON-INTERFACED LAB EXT Glucose 111 EXTERNAL NON-INTERFACED LAB EXT Potassium 3.9 CONTINUOUS PILLOWCASE CUTTER AL NON-INTERFACED LAB EXT Sodium 143 EXTERNAL NON-INTERFACED LAB Blood (Blood, Venous) Historical Provider MMaria M LAB BLOOD ADD-O N Performing Organization Address [facility] de Phone Number EXTERNAL NON-INTERFACED LAB [address] [place] [address] * CT Abdomen Pelvis with IV Contrast [...] Electronically signed by: ?? Karina Smiley MD [id number] ([id number]) 14-Mar-2010 15:49 ?Linh Sellers M.D. ??[phone] [phone] [...] [id number] Electronically signed by: Karina Smiley MD [phone] ([id number]) 14-Mar-2010 15:49 Linh Sellers M.D.14-Mar-2010 15:49 Александр Novoa Jr., M.D. IMG CT [place] OCEDURES from Last 3 Months or Most Recently Relevant to Health Maintenance
--- OUTSIDE RECORDS SUMMARY | 2024-08-10 12:58 | XMS_ITS ---
Author Organization [facility] Address [address] [place] [address] Care Team Providers Care Philosophy Specialist Name Role Phone Unavailable Unavailable Unavailable Surgery Details Not on file Complications Check Surgery Details section. Procedure Estimated Blood Loss Check Surgery Details section. Procedure Findings Check Surgery Details section. Procedure Specimens Taken Check Surgery Details section.
--- OUTSIDE RECORDS SUMMARY | 2024-08-10 12:58 | XMS_ITS | Clinical Summary ---
Author Organization [facility] Address [address] [place] [address] Care Team Providers Care Medical Imaging Technician Name Role Phone Whitney Gil MD Primary Care Provider [phone] Source Comments You are receiving this document as you are listed as the primary care provider,follow-up provider, or the patient has been referred to you for consultation.This is in compliance with the Medicare and[facility] EHR Incentive Program,which states Providers who transition their patient to another setting of careor provider of care or refers their patient to another provider of care shouldprovide summary care record for each transition of care or referral. [employer] Allergies Active Allergy Reactions Criticality Noted Date [...] Tdap) 04/06/2022 04/06/20 12, 01/22/2006 COVID-19 Vaccine ( - 2023-2 5 season) 2024 Influenza (#1) 2024 11/14/2020, 09/07/2017 RSV (1 - 1-dose 75+ series) 2024 HepA Aged Out No longer eligi ble [...] age to complete this topic Care Teams Medical Imaging Technician Relationship Specialty Start Date End Date Whitney Gil MD [address] [place] [address] PCP - General 12/06/11
--- OUTSIDE RECORDS SUMMARY | 2024-08-10 12:58 | XMS_ITS | Encounter Summary ---
Author Organization [facility] Address [address] [place] [address] Care Team Providers Care Automotive Welder Name Role Phone Unavailable Primary Care Provider Unavailabl e Reason for Visit * Appointment Request (Routine) - Closed Specialty Diagnoses / Procedures Referred By Keila rey Referred To Contact Nephrology and Hypertension Referral ID Status Reason Start Date Expiration Date Visits Re quested Visits Authorized [id number] Closed 05/07/2024 05/07/2025 1 1 Encounter Details Date Type Department Care Team (Latest Contact Info) Description 06/23/2024 3:00 PM CDT External Outreach Division of Nephrology and Hypertension in [place], [place] [address] [place] [address] Kyle Daniel Jr., D.O. [address] [place] [address] Hypertensive Chronic Kidney Disease With Stage 1 [...] your living situation today? I have a [facility] place to live 09/05/2023 Sex and [...] Provider: DR Bardales SUBJECTIVE REASON FOR VISIT [place] out reach CKD Clinic Follow-up regards CKD, [...]
--- OUTSIDE RECORDS SUMMARY | 2024-08-10 12:58 | XMS_ITS | Clinical Summary ---
Author Organization [facility] Address [address] [place] [address] Care Team Providers Care Gaming Commissioner Name Role Phone Unavailable Primary Care Provider Unavailabl e Source Comments Patient records contain information from all sites at [facility]. For routine questions regarding patient records, call [phone] during business hours, M-F 8:00 AM - 5:00 PM Central Time. Record requests for emergency care only can be directed to [phone] at any time.[facility] Allergies Active Allergy Reactions Criticality Noted Date [...] 2023 Other Pruritus 2023 Morbid Obesity 2023 Eye Physician (Current) Anticoagulant Treatment 08/24 Gout 2023 Gastroesophageal [...] 07/07/2024 Clinical Communication Department of Urology in [place], [place] [address] [place] [address] Jacque Marino, EDI, C.N.P. 06/23/2024 3:00 PM CDT External Outreach Division of Nephrology and Hypertension in [place], [place] [address] [place] [address] Kyle Daniel Jr., D.O. Hypertensive Chronic Kidney [...] your living situation today? I have a [facility] place to live 09/05/2023 Sex and [...] LAB URINE ORDER ELIF Performing Organization Address [facility] Co de Phone Number EXTERNAL NON-INTERFACED LAB [address] [place] [address] * Basic Metabolic Panel (03/02/2020) EXT BUN (Blood Urea Nitrogen) 39 EXTERNAL NON-INTERFACED LAB EXT Creatinine 1.5 EXTER NAL NON-INTERFACED LAB EXT Glucose 111 EXTERNAL NON-INTERFACED LAB EXT Potassium 3.9 NEWSPAPER PUBLISHER AL NON-INTERFACED LAB EXT Sodium 143 EXTERNAL NON-INTERFACED LAB Blood (Blood, Venous) Historical Provider Ciaran LAB BLOOD ADD-O N Performing Organization Address [facility] Co de Phone Number EXTERNAL NON-INTERFACED LAB [address] [place] [address] * CT Abdomen Pelvis with IV Contrast [...] Electronically signed by: ?? Karina Smiley MD [phone] ([id number]) 14-Mar-2010 15:49 ?Linh Sellers M.D. ??[phone] [...] [id number] Electronically signed by: Karina Smiley MD [phone] ([id number]) 14-Mar-2010 15:49 Linh Sellers M.D.[id number] 14-Mar-2010 15:49 Александр Novoa Jr., M.D. IMG CT [place] OCEDURES from Last 3 Months or Most Recently Relevant to Health Maintenance
--- OUTSIDE RECORDS SUMMARY | 2024-08-10 12:59 | XMS_ITS | Clinical Summary ---
Author Organization [place] Address [address] [place], [place] [address]. [place] [address] Care Team Providers Care Light Coil Winder Name Role Phone Trung Tucker MD Primary Care Provider [phone] Allergies Active Allergy Reactions Criticality Noted Date [...] Blood Pressure 188/107 11/14/2021 1:10 PM SUPERVISOR HIDE HOUSE Pulse 67 11/14/2021 1:10 PM SUPERVISOR HIDE HOUSE Temperature 36.6 ??C (97.8 ??F) 11/14/2021 1:10 PM CS T Respiratory Rate 20 10/03/2021 10:02 AM SUPERVISOR HIDE HOUSE Oxygen Saturation 100% 11/18/2017 12:52 PM SUPERVISOR HIDE HOUSE Inhaled Oxygen Concentration - - Weight 114.8 kg (253 lb) 11/18/2017 12:52 PM SUPERVISOR HIDE HOUSE pt reported Height 173.4 cm (5' 8.25) 11/18/2017 12:[address] pt reported Body Mass Index 38.19 11/18/2017 12:52 PM SUPERVISOR HIDE HOUSE Plan of Treatment Health Maintenance Due Date [...] per calendar year) 2023 11/13/2017 COVID-19 Vaccine (2023-2 5 season) 2024 INFLUENZA VACCINE (#1) 2024 0, [...] age to complete this topic Care Teams Light Coil Winder Relationship Specialty Start Date End Date Trung Tucker MD PCP - General Family Practice 11/13/17
--- OUTSIDE RECORDS SUMMARY | 2024-08-10 12:59 | XMS_ITS | Encounter Summary ---
Author Organization [place] Address [facility] [place] [address] Care Team Providers Care Wire Sawyer Name Role Phone Trung Tucker MD Primary Care Provider [phone] Reason for Visit * Reason Onset Date Comments WOUND CARE 09/12/2021 Encounter Details Date Type Department Care Team (Late st Contact Info) Description 09/12/[address] [facility]ound [facility] [place] [address] [place] [phone] Byron Garrett MD [address] [place] [address] WOUND CARE Social History Tobacco [...] AM CDT Home care referral faxed to [facility]. * Telephone Encounter - Karmen Gallegos - 09/12/2021 10:11 AM CDT Service at [facility], unable to fulfill request for home care documented in this encounter Plan of Treatment Not on file documented as of this encounter Visit Diagnoses Not on filedocumented in this encounter Care Teams Wire Sawyer Relationship Specialty Start Date End Date Trung Tucker MD PCP - General Family Practice 11/13/17 documented as of this encounter
--- OUTSIDE RECORDS SUMMARY | 2024-08-10 12:59 | XMS_ITS | Referral Summary ---
Author Organization [place] Address [facility] [place] [address] Care Team Providers Care Meter Calibrator Name Role Phone Trung Tucker MD Primary Care Provider [phone] Allergies Active Allergy Reactions Criticality Noted Date [...] Comments Blood Pressure 188/107 11/14/2021 1:10 PM BREAKER TABLE WORKER Pulse 67 11/14/2021 1:10 PM BREAKER TABLE WORKER Temperature 36.6 ??C (97.8 ??F) 11/14/2021 1:10 PM CS T Respiratory Rate 20 10/03/2021 10:02 AM BREAKER TABLE WORKER Oxygen Saturation 100% 11/18/2017 12:52 PM BREAKER TABLE WORKER Inhaled Oxygen Concentration - - Weight 114.8 kg (253 lb) 11/18/2017 12:52 PM BREAKER TABLE WORKER pt reported Height 173.4 cm (5' 8.25) 11/18/2017 12:[address] pt reported Body Mass Index 38.19 11/18/2017 12:52 PM BREAKER TABLE WORKER Plan of Treatment Not on file Care Teams Meter Calibrator Relationship Specialty Start Date End Date Trung Tucker MD PCP - General Family Practice 11/13/17
--- OUTSIDE RECORDS SUMMARY | 2024-08-10 12:59 | XMS_ITS | Encounter Summary ---
Author Organization [place] Address [facility] [place] [address] Care Team Providers Care Shank Paperer Name Role Phone Trung Tucker MD Primary Care Provider [phone] Reason for Visit * Reason Onset Date Comments WOUND CARE 09/27/2021 Encounter Details Date Type Department Care Team (Late st Contact Info) Description 09/27/2021 Telephone [facility] [place] [address] [place] [phone] Byron Garrett MD [address] [place] [address] WOUND CARE Social History Tobacco [...] on filedocumented in this encounter Care Teams Shank Paperer Relationship Specialty Start Date End Date Trung Tucker MD PCP - General Family Practice 11/13/17 documented as of this encounter
--- OUTSIDE RECORDS SUMMARY | 2024-08-10 12:59 | XMS_ITS | Encounter Summary ---
Author Organization [place] Address [facility] [place] [address] Care Team Providers Care Service Porter Name Role Phone Trung Tucker MD Primary Care Provider [phone] Reason for Visit * Reason Onset Date Comments WOUND CARE 09/20/2021 Encounter Details Date Type Department Care Team (Late st Contact Info) Description 09/20/2021 Telephone [facility] [place] [address] [place] [phone] Byron Garrett MD [address] [place] [address] WOUND CARE Social History Tobacco [...] on filedocumented in this encounter Care Teams Service Porter Relationship Specialty Start Date End Date Trung Tucker MD PCP - General Family Practice 11/13/17 documented as of this encounter
== END 2024-08-10 12:57 | disposition home or self-care (01) ==
LOC: WOUND 12:56
PROVIDERS: PCP Family Medicine; Visit Provider Nurse Practitioner Family
DX: I87.312 Chronic venous hypertension (idiopathic) with ulcer of left lower extremity (principal); L97.828 Non-pressure chronic ulcer of other part of left lower leg with other specified severity; I89.0 Lymphedema, not elsewhere classified; E11.40 Type 2 diabetes mellitus with diabetic neuropathy, unspecified; Z79.84 Long term (current) use of oral hypoglycemic drugs
CPT/HCPCS: 97602

== ENCOUNTER 2024-08-18 15:27 | Outpatient (CLI) | payer MEDICARE, BC, SELFPAY ==
--- OUTSIDE RECORDS SUMMARY | 2024-08-18 15:29 | XMS_ITS | Encounter Summary ---
Author Organization [place] Address [facility] [place] [address] Care Team Providers Care Leather Grader Name Role Phone Trung Tucker MD Primary Care Provider [phone] Reason for Visit * Reason Onset Date Comments WOUND CARE 09/20/2021 Encounter Details Date Type Department Care Team (Late st Contact Info) Description 09/20/[address] [facility] W[facility] [place] [address] [place] [phone] Byron Garrett MD [address] [place] [address] WOUND CARE Social History Tobacco [...] on filedocumented in this encounter Care Teams Leather Grader Relationship Specialty Start Date End Date Trung Tucker MD PCP - General Family Practice 11/13/17 documented as of this encounter
--- OUTSIDE RECORDS SUMMARY | 2024-08-18 15:29 | XMS_ITS | Referral Summary ---
Author Organization [place] Address [facility] [place] [address] Care Team Providers Care Athletic Equipment Manager Name Role Phone Trung Tucker MD Primary Care Provider [phone] Allergies Active Allergy Reactions Criticality Noted Date [...] Comments Blood Pressure 188/107 11/14/2021 1:10 PM BICYCLE TAXI DRIVER Pulse 67 11/14/2021 1:10 PM BICYCLE TAXI DRIVER Temperature 36.6 ??C (97.8 ??F) 11/14/2021 1:10 PM CS T Respiratory Rate 20 10/03/2021 10:02 AM BICYCLE TAXI DRIVER Oxygen Saturation 100% 11/18/2017 12:52 PM BICYCLE TAXI DRIVER Inhaled Oxygen Concentration - - Weight 114.8 kg (253 lb) 11/18/2017 12:52 PM BICYCLE TAXI DRIVER pt reported Height 173.4 cm (5' 8.25) 11/18/2017 12:[address] pt reported Body Mass Index 38.19 11/18/2017 12:52 PM BICYCLE TAXI DRIVER Plan of Treatment Not on file Care Teams Athletic Equipment Manager Relationship Specialty Start Date End Date Trung Tucker MD PCP - General Family Practice 11/13/17
--- OUTSIDE RECORDS SUMMARY | 2024-08-18 15:29 | XMS_ITS | Encounter Summary ---
Author Organization [facility] Address [address] [place] [address] Care Team Providers Care Motor Vehicle Technician Name Role Phone Unavailable Primary Care Provider Unavailabl e Encounter Details Date Type Department Care Team (Late st Contact Info) Description 07/07/2024 Clinical Communication Department of Urology in [place], [place] [address] [address] Jacque Marino APRN, C.N.P. [address] [address] Social History Tobacco Use Types [...] your living situation today? I have a [facility] place to live 09/05/2023 Sex [...]
--- OUTSIDE RECORDS SUMMARY | 2024-08-18 15:29 | XMS_ITS ---
Author Organization [facility] Address [address] [place] [address] Care Team Providers Care Camera Machinist Name Role Phone Unavailable Unavailable Unavailable Surgery Details Not on file Complications Check Surgery Details section. Procedure Estimated Blood Loss Check Surgery Details section. Procedure Findings Check Surgery Details section. Procedure Specimens Taken Check Surgery Details section.
--- OUTSIDE RECORDS SUMMARY | 2024-08-18 15:29 | XMS_ITS | Encounter Summary ---
Author Organization [facility] Address [address] [place] [address] Care Team Providers Care Music Critic Name Role Phone Unavailable Primary Care Provider Unavailabl e Reason for Visit * Appointment Request (Routine) - Closed Specialty Diagnoses / Procedures Referred By Keila rey Referred To Contact Nephrology and Hypertension Referral ID Status Reason Start Date Expiration Date Visits Re quested Visits Authorized [id number] Closed 05/07/2024 05/07/2025 1 1 Encounter Details Date Type Department Care Team (Latest Contact Info) Description 06/23/2024 3:00 PM CDT External Outreach Division of Nephrology and Hypertension in [place], [place] [address] [place] [address] yKle Daniel Jr., D.O. [address] [place] [address] Hypertensive Chronic Kidney Disease With Stage 1 [...] your living situation today? I have a [facility] place to live 09/05/2023 Sex and [...] Provider: DR Bardales SUBJECTIVE REASON FOR VISIT [place] [facility] Follow-up regards CKD, [...]
--- OUTSIDE RECORDS SUMMARY | 2024-08-18 15:29 | XMS_ITS | Encounter Summary ---
Author Organization [place] Address [facility] [place] [address] Care Team Providers Care Printed Circuit Board Pcb Designer Name Role Phone Trung Tucker MD Primary Care Provider [phone] Reason for Visit * Reason Onset Date Comments WOUND CARE 09/12/2021 Encounter Details Date Type Department Care Team (Late st Contact Info) Description 09/12/2021 Telephone [facility] [place] [address] [place] [phone] Byron Garrett MD [address] [place] [address] WOUND CARE Social History Tobacco [...] AM CDT Home care referral faxed to [facility]. * Telephone Encounter - Karmen Gallgeos - 09/12/2021 10:11 AM CDT Service at [facility], unable to fulfill request for home care documented in this encounter Plan of Treatment Not on file documented as of this encounter Visit Diagnoses Not on filedocumented in this encounter Care Teams Printed Circuit Board Pcb Designer Relationship Specialty Start Date End Date Trung Tucker MD PCP - General Family Practice 11/13/17 documented as of this encounter
--- OUTSIDE RECORDS SUMMARY | 2024-08-18 15:29 | XMS_ITS | Referral Summary ---
Author Organization [facility] Address [address] [place] [address] Care Team Providers Care Char Dust Cleaner And Salvager Name Role Phone Unavailable Primary Care Provider Unavailabl e Source Comments Patient records contain information from all sites at [facility]. For routine questions regarding patient records, call [phone] during business hours, M-F 8:00 AM - 5:00 PM Central Time. Record requests for emergency care only can be directed to [phone] at any time.[facility] Encounters Date Type Department Care Team Description 07/07/2024 Clinical Communication Department of Urology in [place], [place] [address] [place] [address] Jacque Marino, EDI, C.N.P. 06/23/2024 3:00 PM CDT External Outreach Division of Nephrology and Hypertension in [place], [place] [address] [place] [address] Kyle Daniel Jr., D.O. Hypertensive Chronic Kidney [...] 2023 Other Pruritus 2023 Morbid Obesity 2023 Carburetor Specialist (Current) Anticoagulant Treatment 08/24 Gout 2023 [...] your living situation today? I have a [facility] place to live 09/05/2023 Sex and [...] * Albumin, Random, Urine (03/02/2020) Pathologist [facility] EXT Microalbumin-Ra ndom, U 47 EXTERNAL NON-INTERFACED LAB Urine (Urine, Clean Catch) Historical Provider Ciaran LAB URINE ORDER ELIF Performing Organization Address [facility] de Phone Number EXTERNAL NON-INTERFACED LAB [address] [place] [address] * Basic Metabolic Panel (03/02/2020) EXT BUN (Blood Urea Nitrogen) 39 EXTERNAL NON-INTERFACED LAB EXT Creatinine 1.5 EXTER NAL NON-INTERFACED LAB EXT Glucose 111 EXTERNAL NON-INTERFACED LAB EXT Potassium 3.9 LIGHTOUT EXAMINER AL NON-INTERFACED LAB EXT Sodium 143 EXTERNAL NON-INTERFACED LAB Blood (Blood, Venous) Historical Provider MMaria M LAB BLOOD ADD-O N Performing Organization Address [facility] de Phone Number EXTERNAL NON-INTERFACED LAB 200 [place] [address] * CT Abdomen Pelvis with IV Contrast [...] Electronically signed by: ?? Karina Smiley MD [phone] ([id number]) 14-Mar-2010 15:49 ?Linh Sellers M.D. ??[phone] [...] [id number] Electronically signed by: Karina Smiley MD [phone] ([id number]) 14-Mar-2010 15:49 Linh Sellers M.D.14-Mar-2010 15:49 Александр Novoa Jr., M.D. IMG CT [place] OCEDURES from Last 3 Months or Most Recently Relevant to Health Maintenance
--- OUTSIDE RECORDS SUMMARY | 2024-08-18 15:29 | XMS_ITS | Clinical Summary ---
Author Organization [facility] Address [address] [place] [address] Care Team Providers Care Golf Course Mechanic Name Role Phone Unavailable Primary Care Provider Unavailabl e Source Comments Patient records contain information from all sites at [facility]. For routine questions regarding patient records, call [phone] during business hours, M-F 8:00 AM - 5:00 PM Central Time. Record requests for emergency care only can be directed to [phone] at any time.[facility] Allergies Active Allergy Reactions Criticality Noted [...] 2023 Other Pruritus 2023 Morbid Obesity 2023 T Rail Turner (Current) Anticoagulant Treatment 08/24 Gout 2023 Gastroesophageal [...] 07/07/2024 Clinical Communication Department of Urology in [place], [place] [address] [place] [address] Jacque Marino, EDI, C.N.P. 06/23/2024 3:00 PM CDT External Outreach Division of Nephrology and Hypertension in [place], [place] [address] [place] [address] Kyle Daniel Jr., D.O. Hypertensive Chronic Kidney [...] your living situation today? I have a [facility] place to live 09/05/2023 Sex and [...] Fall Risk Screen (Annual) 11/24/2023 COVID-19 Vaccine (1 - 2023-2 5 season) 2024 Influenza Vaccine (#1) 2024 , [...] LAB URINE ORDER ELIF Performing Organization Address [facility] Co de Phone Number EXTERNAL NON-INTERFACED LAB 200 [place] [address] * Basic Metabolic Panel (03/02/2020) EXT BUN (Blood Urea Nitrogen) 39 EXTERNAL NON-INTERFACED LAB EXT Creatinine 1.5 EXTER NAL NON-INTERFACED LAB EXT Glucose 111 EXTERNAL NON-INTERFACED LAB EXT Potassium 3.9 BAKER DOUGHNUT AL NON-INTERFACED LAB EXT Sodium 143 EXTERNAL NON-INTERFACED LAB Blood (Blood, Venous) Historical Provider Ciaran LAB BLOOD ADD-O N Performing Organization Address [facility] Co de Phone Number EXTERNAL NON-INTERFACED LAB [address] [place] [address] * CT Abdomen Pelvis with IV Contrast [...] Electronically signed by: ?? Karina Smiley MD [phone] ([id number]) 14-Mar-2010 15:49 ?Linh Sellers M.D. ??[phone] [...] [id number] Electronically signed by: Karina Smiley MD [phone] ([id number]) 14-Mar-2010 15:49 Linh Sellers M.D.8-9000 14-Mar-2010 15:49 Александр Novoa Jr., M.D. IMG CT [place] OCEDURES from Last 3 Months or Most Recently Relevant to Health Maintenance
--- OUTSIDE RECORDS SUMMARY | 2024-08-18 15:29 | XMS_ITS | Clinical Summary ---
Author Organization [place] Address [address] [place], [place] [address]e. [place] [address] Care Team Providers Care Director Business Management Name Role Phone Trung Tucker MD Primary Care Provider [phone] Allergies Active Allergy Reactions Criticality Noted Date [...] Comments Blood Pressure 188/107 11/14/2021 1:10 PM BIOFUELS PLANT OPERATIONS ENGINEER Pulse 67 11/14/2021 1:10 PM BIOFUELS PLANT OPERATIONS ENGINEER Temperature 36.6 ??C (97.8 ??F) 11/14/2021 1:10 PM CS T Respiratory Rate 20 10/03/2021 10:02 AM BIOFUELS PLANT OPERATIONS ENGINEER Oxygen Saturation 100% 11/18/2017 12:52 PM BIOFUELS PLANT OPERATIONS ENGINEER Inhaled Oxygen Concentration - - Weight 114.8 kg (253 lb) 11/18/2017 12:52 PM BIOFUELS PLANT OPERATIONS ENGINEER pt reported Height 173.4 cm (5' 8.25) 11/18/2017 12:[address] pt reported Body Mass Index 38.19 11/18/2017 12:52 PM BIOFUELS PLANT OPERATIONS ENGINEER Plan of Treatment Health Maintenance Due Date [...] age to complete this topic Care Teams Director Business Management Relationship Specialty Start Date End Date Trung Tucker MD PCP - General Family Practice 11/13/17
--- OUTSIDE RECORDS SUMMARY | 2024-08-18 15:29 | XMS_ITS | Clinical Summary ---
Author Organization [facility] Address [address] [place] [address] Care Team Providers Care Carbon Cleaner Name Role Phone Whitney Gil MD Primary Care Provider [phone] Source Comments You are receiving this document as you are listed as the primary care provider,follow-up provider, or the patient has been referred to you for consultation.This is in compliance with the Medicare and[facility] Hospital[facility] EHR Incentive Program,which states Providers who transition their patient to another setting of careor provider of care or refers their patient to another provider of care shouldprovide summary care record for each transition of care or referral. [employer] Allergies Active Allergy Reactions Criticality Noted Date [...] age to complete this topic Care Teams Carbon Cleaner Relationship Specialty Start Date End Date Whitney Gil MD [address] [place] [address] PCP - General 12/06/11
--- OUTSIDE RECORDS SUMMARY | 2024-08-18 15:29 | XMS_ITS | Clinical Summary ---
Author Organization [facility] Address [place], [place] [address] Care Team Providers Care Vertical Roll Operator Name Role Phone Trung Tucker MD Primary Care Provider [phone] Allergies Active Allergy Reactions Criticality Noted Date [...] dose: 4000mg in 24 hrs. 8 Tablet 1 Active allopurinoL (ZYLOPRIM) 100 mg tablet 1 Active triamterene-hydrochl orothiazide, 37.5-25 mg, (MAXZIDE-25) 37.5-25 mg tabletIndications:HT N (hypertension) Take 1 Tablet by mouth 2 times daily. 90 Tablet 3 2 Active omeprazole (PRILOSEC) 20 mg Delayed-Release capsule TAKE 1 CAPSULE BY MOUTH DAILY NEEDED 3 Active apixaban (ELIQUIS) 5 mg tabletIndications:pr event thromboembolism in chronic atrial fibrillation Take 1 Tablet (5 mg) by mouth two times daily. 60 Tablet 11 4 Active sotaloL (BETAPACE) 80 mg tabletIndications:Pa roxysmal atrial fibrillation (HC) Take 1 Tablet (80 mg) by mouth every 24 hours. 90 Tablet 3 4 Active sotaloL (BETAPACE) 80 mg tabletIndications:Pa roxysmal atrial fibrillation (HC) Take 1 Tablet (80 mg) by mouth every 24 hours. 90 Tablet 2 2 08/11/20 24 Discontinu ed(Reorder (E-cancel not sent)) apixaban (ELIQUIS) 5 mg tabletIndications:pr event thromboembolism in chronic atrial fibrillation Take 1 Tablet (5 mg) by mouth 2 times daily. 60 tablet. 8 2 08/11/20 24 Discontinu ed(Reorder (E-cancel not sent)) Active Problems Problem Noted Date Diagnosed Date Shortness of breath 06/16/2021 Anemia 06/16/2021 CKD (chronic kidney disease) 06/16/2021 Syncope 06/16/2021 Atrial fibrillation with rapid ventricular respo nse 06/16/2021 Elevated brain natriuretic peptide (BNP) level 0 06/16/2021 Atrial fibrillation Resolved Problems Problem Noted Date Diagnosed Date Resolved Date CATHERINE (acute kidney injury) 06/16/2021 Encounters Date Type Department Care Team Description 08/11/2024 4:00 PM CDT Office Visit [facility] [address] [facility] [address] [place] [address] Baldo Cristina MD CV Electrophysiology Est (PATIENT ARRIVING /AT 1:00 /OVERDUE /FOLLOW UP /DX: LAINEZ /Remote Check Prior ///Trung Tucker MD) 08/11/2024 Travel from Last 3 Months Family History Medical History Relation Name Comments [...] Sign Reading Time Taken Comments Blood Pressure 132/68 08/11/2024 12:46 PM CDT Pulse 65 08/11/2024 12:46 PM CDT Temperature 36.2 ??C (97.2 ??F) 07/13/2021 3:30 PM CD T Respiratory Rate 18 07/13/2021 3:30 PM CDT Oxygen Saturation 95% 08/11/2024 12:46 PM CDT Inhaled Oxygen Concentration - - Weight 140.6 kg (310 lb) 08/11/2024 12:46 PM CDT Height 177.8 cm (5' 10) 08/11/2024 12:46 PM CDT Body Mass Index 44.48 08/11/2024 12:46 PM CDT Plan of Treatment Upcoming Encounters Date Type Department Care Team (Late st Contact Info) Description 12/13/2024 Cardiac Device Check [facility] [phone] Health Maintenance Due Date Last Done Comments Tdap 1960 Hepatitis C screening for ag e 18-79 1967 Tetanus booster 1969 Colonoscopy through age 75 1994 Lipids for age 45-75 1994 Zoster (shingles) series for age 50+ (1 of 2) 1999 AAA screening age 65-74 2014 Medicare Wellness for age 65+ 2014 Pneumococcal series for age 65+ (1 of 1 - PCV) 2014 Depression screening for age 12+ 06/20/2022 06/20/2021, 06/18/2021, 06/16/2021, Additional history exists COVID-19 vaccine series ( - season) 2024 Influenza for age 65+ 07/25/2024 BMI (ht and wt on same day) for age 18+ 08/11/2025 08/11/2024, 01/22/2023, 03/26/2022, Additional history exists Procedures Procedure Name Priority Date/Time Associated Diagnosis Comments EKG 12 LEAD Routine 08/11/2024 Paroxysmal atrial fibrillation (HC) from Last 3 Months Results * EKG 12 LEAD (08/11/2024) Baldo Cristina MD EKG ORD from Last 3 Months Advance Directives * Full Code (Latest Code [...] 11:17 AM 03/03/2019 11:17 AM Care Teams Vertical Roll Operator Relationship Specialty Start Date End Date Trung Tucker MD [address] [place] [address] PCP - General 12/22/18
--- OUTSIDE RECORDS SUMMARY | 2024-08-18 15:29 | XMS_ITS | Encounter Summary ---
Author Organization [place] Address [facility] [place] [address] Care Team Providers Care Heavy Antiarmor Weapons Infantryman Name Role Phone Trung Tucker MD Primary Care Provider Reason for Visit * Reason Onset Date Comments WOUND CARE 09/27/2021 Encounter Details Date Type Department Care Team (Late st Contact Info) Description 09/27/2021 Telephone [facility] [place] [address] [place] [phone] Byron Garrett MD [address] [place] [address] WOUND CARE Social History Tobacco [...] or concerns. * Telephone Encounter - Karmen Glalegos - 09/27/2021 3:45 PM CDT Needs some clarification on the supplements he is supposed to be taking. He is having trouble finding them. documented in this encounter Plan of Treatment Not on file documented as of this encounter Visit Diagnoses Not on filedocumented in this encounter Care Teams Heavy Antiarmor Weapons Infantryman Relationship Specialty Start Date End Date Trung Tucker MD PCP - General Family Practice 11/13/17 documented as of this encounter
== END 2024-08-18 15:28 | disposition home or self-care (01) ==
LOC: WOUND 15:27
PROVIDERS: PCP Family Medicine; Visit Provider Surgery
DX: I87.312 Chronic venous hypertension (idiopathic) with ulcer of left lower extremity (principal); I89.0 Lymphedema, not elsewhere classified; L97.828 Non-pressure chronic ulcer of other part of left lower leg with other specified severity; E11.40 Type 2 diabetes mellitus with diabetic neuropathy, unspecified
CPT/HCPCS: G0463

== ENCOUNTER 2024-08-25 13:12 | Outpatient (CLI) | payer MEDICARE, BC, SELFPAY ==
--- OUTSIDE RECORDS SUMMARY | 2024-08-25 13:19 | XMS_ITS | Continuity of Care Document ---
Author Organization [facility] Address [address] [place] [address] [place] [address] Phone Care Team Providers Care Electrician Locomotive Name Role Phone Will Jase HAWK Unavailable Unavailabl e Medications Medication Instructions Dosage Effective Dates (start - stop) Status Comments Eliquis 2.5 mg tablet take 1 tablet by o ral route 2 times every day 2.5 MG - Active Procedures Procedure Date OFFICE/OUTPATIENT VISIT, [facility] Advance Directives Directive Yes / No Effective Date File Name No Information Encounters Encounter Description Practice Location Reason(s) For Visit Diagnoses Date Provider Providers Copied on Encounter [facility], [address] [place] [address], [id number], [place] tel:[phone] [facility] No Information b- 2 Will Jase. [address] [facility] [place], [place], [id number] , [place]. tel:[phone] [facility], [address] [place] [address], [id number], [place] tel:[phone] [facility] Myalgia, other site Dec- [address] [facility], [place], [id number] , [place]. tel:[phone] OFFICE/OUTPAT IENT VISIT, [facility], [address] [place] [address] [place], [id number], [place] tel:[phone] [facility] [place] Widespread pain (chief complaint) Chronic pain syndromePain in right kneePain in left kneePain in right shoulder [address], [place], [id number] , [place]. tel:[phone] Referring Provider: Jase Ackerman, [address] [facility] [address] [place], [address] . tel:[phone] Family History Family Member Type Diagnosis Age At Onset No Information Payers Payer name Insurance type Covered alliance party ID Authoriza lizzette(s) Medicare [id number] Social History Type Description Quantity Date Captured [...] a surgical candidate for knee replacement by [facility] recently. However, he is constantly in [...] trialling an injection later today at [facility]. Imaging was last completed at [facility].He is currently manged gabapentin 300mg four [...]
--- OUTSIDE RECORDS SUMMARY | 2024-08-25 13:19 | XMS_ITS | Clinical Summary ---
Author Organization [facility] Address [address] [place] [address] Care Team Providers Care Automotive Lube Technician Name Role Phone Unavailable Primary Care Provider Unavailabl e Source Comments Patient records contain information from all sites at [facility]. For routine questions regarding patient records, call [phone] during business hours, M-F 8:00 AM - 5:00 PM Central Time. Record requests for emergency care only can be directed to [phone] at any time.[facility] Allergies Active Allergy Reactions Criticality [...] 2023 Other Pruritus 2023 Morbid Obesity 2023 Residential (Current) Anticoagulant Treatment 08/24 Gout 2023 Gastroesophageal [...] 07/07/2024 Clinical Communication Department of Urology in [place], [place] [address] [place] [address] Jacque Marino, EDI, C.N.P. 06/23/2024 3:00 PM CDT External Outreach Division of Nephrology and Hypertension in [place], [place] [address] [place] [address] Kyle Daniel Jr., D.O. Hypertensive Chronic Kidney [...] your living situation today? I have a [facility] place to live 09/05/2023 Sex and [...] LAB URINE ORDER ELIF Performing Organization Address [facility] Co de Phone Number EXTERNAL NON-INTERFACED LAB [address] [place] [address] * Basic Metabolic Panel (03/02/2020) EXT BUN (Blood Urea Nitrogen) 39 EXTERNAL NON-INTERFACED LAB EXT Creatinine 1.5 EXTER NAL NON-INTERFACED LAB EXT Glucose 111 EXTERNAL NON-INTERFACED LAB EXT Potassium 3.9 SILK SCREEN PRINTER HELPER AL NON-INTERFACED LAB EXT Sodium 143 EXTERNAL NON-INTERFACED LAB Blood (Blood, Venous) Historical Provider Ciaran LAB BLOOD ADD-O N Performing Organization Address [facility] Co de Phone Number EXTERNAL NON-INTERFACED LAB [address] [place] [address] * CT Abdomen Pelvis with IV Contrast [...] Electronically signed by: ?? Karina Smiley MD [phone] ([id number]) 14-Mar-2010 15:49 ?Linh Sellers M.D. ??[phone] [...] [id number] Electronically signed by: Karina Smiley MD [phone] ([id number]) 14-Mar-2010 15:49 Linh Sellers M.D.[id number] 14-Mar-2010 15:49 Александр Novoa Jr., M.D. IMG CT [place] OCEDURES from Last 3 Months or Most Recently Relevant to Health Maintenance
--- OUTSIDE RECORDS SUMMARY | 2024-08-25 13:20 | XMS_ITS | Encounter Summary ---
Author Organization [place] Address [facility] [place] [address] Care Team Providers Care General Pediatrician Name Role Phone Trung Tucker MD Primary Care Provider [phone] Reason for Visit * Reason Onset Date Comments WOUND CARE 09/20/2021 Encounter Details Date Type Department Care Team (Late st Contact Info) Description 09/20/2021 Telephone [facility] [place] [address] [place] [phone] Byron Garrett MD [address] [place] [address] WOUND CARE Social History Tobacco [...] on filedocumented in this encounter Care Teams General Pediatrician Relationship Specialty Start Date End Date Trung Tucker MD PCP - General Family Practice 11/13/17 documented as of this encounter
--- OUTSIDE RECORDS SUMMARY | 2024-08-25 13:20 | XMS_ITS | Encounter Summary ---
Author Organization [place] Address [facility] [place] [address] Care Team Providers Care Homebound Teacher Name Role Phone Trung Tucker MD Primary Care Provider [phone] Reason for Visit * Reason Onset Date Comments WOUND CARE 09/27/2021 Encounter Details Date Type Department Care Team (Late st Contact Info) Description 09/27/2021 Telephone [facility] [place] [address] [place] [phone] Byron Garrett MD [address] [place] [address] WOUND CARE Social History Tobacco [...] on filedocumented in this encounter Care Teams Homebound Teacher Relationship Specialty Start Date End Date Trung Tucker MD PCP - General Family Practice 11/13/17 documented as of this encounter
--- OUTSIDE RECORDS SUMMARY | 2024-08-25 13:20 | XMS_ITS | Clinical Summary ---
Author Organization [place] Address [address] [place], [place] [address]. [place] [address] Care Team Providers Care Tobacco Primer Machine Operator Name Role Phone Trung Tucker MD Primary Care Provider [phone] Allergies Active Allergy Reactions Criticality Noted Date [...] Comments Blood Pressure 188/107 11/14/2021 1:10 PM TEMPLER HEAD Pulse 67 11/14/2021 1:10 PM TEMPLER HEAD Temperature 36.6 ??C (97.8 ??F) 11/14/2021 1:10 PM CS T Respiratory Rate 20 10/03/2021 10:02 AM TEMPLER HEAD Oxygen Saturation 100% 11/18/2017 12:52 PM TEMPLER HEAD Inhaled Oxygen Concentration - - Weight 114.8 kg (253 lb) 11/18/2017 12:52 PM TEMPLER HEAD pt reported Height 173.4 cm (5' 8.25) 11/18/2017 12:[address] pt reported Body Mass Index 38.19 11/18/2017 12:52 PM TEMPLER HEAD Plan of Treatment Health Maintenance Due Date [...] age to complete this topic Care Teams Tobacco Primer Machine Operator Relationship Specialty Start Date End Date Trung Tucker MD PCP - General Family Practice 11/13/17
--- OUTSIDE RECORDS SUMMARY | 2024-08-25 13:20 | XMS_ITS | Clinical Summary ---
Author Organization [facility] Address [address] [place] [address] Care Team Providers Care Attending Ambulatory Care Name Role Phone Whitney Gil MD Primary Care Provider [phone] Source Comments You are receiving this document as you are listed as the primary care provider,follow-up provider, or the patient has been referred to you for consultation.This is in compliance with the Medicare and[facility] EHR Incentive Program,which states Providers who transition their patient to another setting of careor provider of care or refers their patient to another provider of care shouldprovide summary care record for each transition of care or referral. Crowd Analyzer Allergies Active Allergy Reactions Criticality Noted Date [...] on patient's age to complete this topic Infant RSV Aged Out No longer eligi ble based on patient's age to complete this topic MCV4 Aged Out No longer eligi ble based on patient's age to complete this topic Care Teams Attending Ambulatory Care Relationship Specialty Start Date End Date Whitney Gil MD [address] [place] [address] PCP - General 12/06/11
--- OUTSIDE RECORDS SUMMARY | 2024-08-25 13:20 | XMS_ITS | Encounter Summary ---
Author Organization [facility] Address [address] [place] [address] Care Team Providers Care Insurance Executive Name Role Phone Unavailable Primary Care Provider Unavailabl e Reason for Visit * Appointment Request (Routine) - Closed Specialty Diagnoses / Procedures Referred By Keila rey Referred To Contact Nephrology and Hypertension Referral ID Status Reason Start Date Expiration Date Visits Re quested Visits Authorized [id number] Closed 05/07/2024 05/07/2025 1 1 Encounter Details Date Type Department Care Team (Latest Contact Info) Description 06/23/2024 3:00 PM CDT External Outreach Division of Nephrology and Hypertension in [place], [place] [address] [place] [address] Kyle Daniel Jr., D.O. [address] [place] [address] Hypertensive Chronic Kidney Disease With Stage 1 [...] your living situation today? I have a [facility] place to live 09/05/2023 Sex and [...] Provider: DR Bardales SUBJECTIVE REASON FOR VISIT [place] out reach CKD Clinic Follow-up regards CKD, [...]
--- OUTSIDE RECORDS SUMMARY | 2024-08-25 13:20 | XMS_ITS | Encounter Summary ---
Author Organization [facility] Address [facility] [place] [address] Care Team Providers Care Civil Engineering Design Draftsperson Name Role Phone Trung Tucker MD Primary Care Provider [phone] Reason for Visit * Reason Onset Date Comments WOUND CARE 09/12/2021 Encounter Details Date Type Department Care Team (Late st Contact Info) Description 09/12/2021 Telephone [facility] [place] [facility] [place] [address] [place] [phone] Byron Garrett MD [address] [place] [address] WOUND CARE Social History Tobacco [...] AM CDT Home care referral faxed to [facility]. * Telephone Encounter - Karmen Gallegos - 09/12/2021 10:11 AM CDT Service at [facility], unable to fulfill request for home care documented in this encounter Plan of Treatment Not on file documented as of this encounter Visit Diagnoses Not on filedocumented in this encounter Care Teams Civil Engineering Design Draftsperson Relationship Specialty Start Date End Date Trung Tucker MD PCP - General Family Practice 11/13/17 documented as of this encounter
--- OUTSIDE RECORDS SUMMARY | 2024-08-25 13:20 | XMS_ITS | Encounter Summary ---
Author Organization [facility] Address [address] [place] [address] Care Team Providers Care Oracle Database Architect Name Role Phone Unavailable Primary Care Provider Unavailabl e Encounter Details Date Type Department Care Team (Late st Contact Info) Description 07/07/2024 Clinical Communication Department of Urology in [place], [place] [address] [address] Jacque Marino APRN, C.N.P. [address] [address] Social History Tobacco Use Types [...] your living situation today? I have a [facility] place to live 09/05/2023 Sex and [...]
--- OUTSIDE RECORDS SUMMARY | 2024-08-25 13:20 | XMS_ITS | Referral Summary ---
Author Organization [facility] Address [address] [place] [address] Care Team Providers Care Aoc Director Combat Operations Officer Name Role Phone Unavailable Primary Care Provider Unavailabl e Source Comments Patient records contain information from all sites at [facility]. For routine questions regarding patient records, call [phone] during business hours, M-F 8:00 AM - 5:00 PM Central Time. Record requests for emergency care only can be directed to [phone] at any time.[facility] Encounters Date Type Department Care Team Description 07/07/2024 Clinical Communication Department of Urology in [place], [place] [address] [place] [address] Jacque Marino, EDI, C.N.P. 06/23/2024 3:00 PM CDT External Outreach Division of Nephrology and Hypertension in [place], [place] [address] [place] [address] Kyle Daniel Jr., D.O. 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 I have a [facility] place to live 09/05/2023 Sex and [...] LAB URINE ORDER ELIF Performing Organization Address [facility] de Phone Number EXTERNAL NON-INTERFACED LAB 200 [place] [address] * Basic Metabolic Panel (03/02/2020) EXT BUN (Blood Urea Nitrogen) 39 EXTERNAL NON-INTERFACED LAB EXT Creatinine 1.5 EXTER NAL NON-INTERFACED LAB EXT Glucose 111 EXTERNAL NON-INTERFACED LAB EXT Potassium 3.9 REFRIGERATION ENGINEER AL NON-INTERFACED LAB EXT Sodium 143 EXTERNAL NON-INTERFACED LAB Blood (Blood, Venous) Historical Provider MMaria M LAB BLOOD ADD-O N Performing Organization Address [facility] de Phone Number EXTERNAL NON-INTERFACED LAB 200 [place] [address] * CT Abdomen Pelvis with IV Contrast [...] Electronically signed by: ?? Karina Smiley MD [phone] ([id number]) 14-Mar-2010 15:49 ?Linh Sellers M.D. ??[phone]- [phone] [...] [id number] Electronically signed by: Karina Smiley MD [phone] ([id number]) 14-Mar-2010 15:49 Linh Sellers M.D.14-Mar-2010 15:49 Александр Novoa Jr., M.D. IMG CT [place] OCEDURES from Last 3 Months or Most Recently Relevant to Health Maintenance
--- OUTSIDE RECORDS SUMMARY | 2024-08-25 13:20 | XMS_ITS | Referral Summary ---
Author Organization [facility] Address [address] [place], [place] [address]. [place] [address] Care Team Providers Care Pharmaceutical Scientist Name Role Phone Trung Tucker MD Primary Care Provider [phone] Allergies Active Allergy Reactions Criticality Noted Date [...] Blood Pressure 188/107 11/14/2021 1:10 PM SUPERVISOR FIBER LOCKING Pulse 67 11/14/2021 1:10 PM SUPERVISOR FIBER LOCKING Temperature 36.6 ??C (97.8 ??F) 11/14/2021 1:10 PM CS T Respiratory Rate 20 10/03/2021 10:02 AM SUPERVISOR FIBER LOCKING Oxygen Saturation 100% 11/18/2017 12:52 PM SUPERVISOR FIBER LOCKING Inhaled Oxygen Concentration - - Weight 114.8 kg (253 lb) 11/18/2017 12:52 PM SUPERVISOR FIBER LOCKING pt reported Height 173.4 cm (5' 8.25) 11/18/2017 12:[address] pt reported Body Mass Index 38.19 11/18/2017 12:52 PM SUPERVISOR FIBER LOCKING Plan of Treatment Not on file Care Teams Pharmaceutical Scientist Relationship Specialty Start Date End Date Trung Tucker MD PCP - General Family Practice 11/13/17
--- OUTSIDE RECORDS SUMMARY | 2024-08-25 13:20 | XMS_ITS | Clinical Summary ---
Author Organization [facility] Address [place], [place] [address] Care Team Providers Care Mushroom Grower Name Role Phone Trung Tucker MD Primary Care Provider [phone] Allergies Active Allergy Reactions Criticality Noted Date [...] Description 08/11/2024 4:00 PM CDT Office Visit [facility] [address] [facility] [address] [place] [address] Baldo Cristina MD CV Electrophysiology Est (PATIENT [...] Contact Info) Description 12/13/2024 Cardiac Device Check [facility] [phone] Health Maintenance Due Date Last Done Comments [...] 11:17 AM 03/03/2019 11:17 AM Care Teams Mushroom Grower Relationship Specialty Start Date End Date Trung Tucker MD [address] [place] [address] PCP - General 12/22/18
--- OUTSIDE RECORDS SUMMARY | 2024-08-25 13:20 | XMS_ITS ---
Author Organization [facility] Address [address] [place] [address] Care Team Providers Care Tar Distillation Supervisor Name Role Phone Unavailable Unavailable Unavailable Surgery Details Not on file Complications Check Surgery Details section. Procedure Estimated Blood Loss Check Surgery Details section. Procedure Findings Check Surgery Details section. Procedure Specimens Taken Check Surgery Details section.
== END 2024-08-25 13:13 | disposition home or self-care (01) ==
LOC: WOUND 13:13
PROVIDERS: PCP Family Medicine; Visit Provider Surgery
DX: I87.312 Chronic venous hypertension (idiopathic) with ulcer of left lower extremity (principal); I89.0 Lymphedema, not elsewhere classified; E11.40 Type 2 diabetes mellitus with diabetic neuropathy, unspecified; L97.828 Non-pressure chronic ulcer of other part of left lower leg with other specified severity
CPT/HCPCS: 97597

== ENCOUNTER 2024-09-01 14:52 | Outpatient (CLI) | payer MEDICARE, BC, SELFPAY ==
--- OUTSIDE RECORDS SUMMARY | 2024-09-01 14:54 | XMS_ITS | Continuity of Care Document ---
Author Organization [facility] Address [address] [place] [address] [place] [address] Phone Care Team Providers Care Mortuary Operations Manager Name Role Phone Will Jase HAWK Unavailable Unavailabl e Medications Medication Instructions Dosage Effective Dates (start - stop) Status Comments Eliquis 2.5 mg tablet take 1 tablet by o ral route 2 times every day 2.5 MG - Active Procedures Procedure Date OFFICE/OUTPATIENT VISIT, [facility] Advance Directives Directive Yes / No Effective Date File Name No Information Encounters Encounter Description Practice Location Reason(s) For Visit Diagnoses Date Provider Providers Copied on Encounter [facility], [address] [place] [address], [id number], [place] tel:[phone] [facility] No Information b- 2 Will Jase. [address] [facility] [address] [place], [place], [id number] , [place]. tel:[phone] [facility], [address] [place] [address], [id number], [place] tel:[phone] [facility] Myalgia, other site Dec- [address] [facility], [place], [id number] , [place]. tel:[phone] OFFICE/OUTPAT IENT VISIT, [facility], [address] [place] [address] [place], [id number], [place] tel:[phone] [facility] [place] Widespread pain (chief complaint) Chronic pain syndromePain in right kneePain in left kneePain in right shoulder [address], [place], [id number] , [place]. tel:[phone] Referring Provider: Jase Ackerman, [address] [facility] [address] [place] [place], [address] . tel:[phone] Family History Family Member Type Diagnosis Age At Onset No Information Payers Payer name Insurance type Covered democrat ID Authoriza lizzette(s) Medicare [id number] Social History Type Description Quantity Date Captured [...] be trialling an injection later today at [facility]. Imaging was last completed at [facility] [...]
--- OUTSIDE RECORDS SUMMARY | 2024-09-01 14:54 | XMS_ITS | Encounter Summary ---
Author Organization [facility] Address [address] [place] [address] Care Team Providers Care Neonatal Social Worker Name Role Phone Unavailable Primary Care Provider Unavailabl e Reason for Visit * Appointment Request (Routine) - Closed Specialty Diagnoses / Procedures Referred By Keila rey Referred To Contact Nephrology and Hypertension Referral ID Status Reason Start Date Expiration Date Visits Re quested Visits Authorized [id number] Closed 05/07/2024 05/07/2025 1 1 Encounter Details Date Type Department Care Team (Latest Contact Info) Description 06/23/2024 3:00 PM CDT External Outreach Division of Nephrology and Hypertension in [place], [place] [address] [place] [address] Kyle Daniel Jr., D.O. [address] [place] [address] Hypertensive Chronic Kidney Disease With Stage 1 [...] your living situation today? I have a [facility] place to live 09/05/2023 Sex [...] Provider: DR Bardales SUBJECTIVE REASON FOR VISIT [place] [facility] CKD [facility] Follow-up regards CKD, [...]
--- OUTSIDE RECORDS SUMMARY | 2024-09-01 14:54 | XMS_ITS | Clinical Summary ---
Author Organization [facility] Address [address] [place] [address] Care Team Providers Care Fishing Rod Mechanic Name Role Phone Unavailable Primary Care Provider Unavailabl e Source Comments Patient records contain information from all sites at [facility]. For routine questions regarding patient records, call [phone] during business hours, M-F 8:00 AM - 5:00 PM Central Time. 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 06/23/2024 3:00 PM CDT External Outreach Division of Nephrology and Hypertension in [place], [place] [address] [place] [address] Kyle Daniel Jr., D.O. Hypertensive Chronic Kidney [...] your living situation today? I have a [facility] place to live 09/05/2023 Sex and [...] LAB URINE ORDER ELIF Performing Organization Address [facility] Co de Phone Number EXTERNAL NON-INTERFACED LAB 200 [place] [address] * Basic Metabolic Panel (03/02/2020) EXT BUN (Blood Urea Nitrogen) 39 EXTERNAL NON-INTERFACED LAB EXT Creatinine 1.5 EXTER NAL NON-INTERFACED LAB EXT Glucose 111 EXTERNAL NON-INTERFACED LAB EXT Potassium 3.9 DRAIN TILE MACHINE OPERATOR AL NON-INTERFACED LAB EXT Sodium 143 EXTERNAL NON-INTERFACED LAB Blood (Blood, Venous) Historical Provider Ciaran LAB BLOOD ADD-O N Performing Organization Address [facility] Co de Phone Number EXTERNAL NON-INTERFACED LAB [address] [place] [address] * CT Abdomen Pelvis with IV Contrast [...] Electronically signed by: ?? Karina Smiley MD [phone] ([id number]) 14-Mar-2010 15:49 ?Linh Sellers M.D. ??[phone] [...] [id number] Electronically signed by: Karina Smiley MD [phone] ([id number]) 14-Mar-2010 15:49 Linh Sellers M.D.[id number] 14-Mar-2010 15:49 Александр Novoa Jr., M.D. IMG CT [place] OCEDURES from Last 3 Months or Most Recently Relevant to Health Maintenance
--- OUTSIDE RECORDS SUMMARY | 2024-09-01 14:54 | XMS_ITS ---
Author Organization [facility] Address [address] [place] [address] Care Team Providers Care Web Coordinator Name Role Phone Unavailable Unavailable Unavailable Surgery Details Not on file Complications Check Surgery Details section. Procedure Estimated Blood Loss Check Surgery Details section. Procedure Findings Check Surgery Details section. Procedure Specimens Taken Check Surgery Details section.
--- OUTSIDE RECORDS SUMMARY | 2024-09-01 14:54 | XMS_ITS | Clinical Summary ---
Author Organization [facility] Address [address] [place], [place] [address]. [place] [address] Care Team Providers Care Stretching Machine Tender Frame Name Role Phone Trung Tucker MD Primary Care Provider [phone] Allergies Active Allergy Reactions Criticality Noted Date [...] Comments Blood Pressure 188/107 11/14/2021 1:10 PM NEUROLOGY HOSPITALIST Pulse 67 11/14/2021 1:10 PM NEUROLOGY HOSPITALIST Temperature 36.6 ??C (97.8 ??F) 11/14/2021 1:10 PM CS T Respiratory Rate 20 10/03/2021 10:02 AM NEUROLOGY HOSPITALIST Oxygen Saturation 100% 11/18/2017 12:52 PM NEUROLOGY HOSPITALIST Inhaled Oxygen Concentration - - Weight 114.8 kg (253 lb) 11/18/2017 12:52 PM NEUROLOGY HOSPITALIST pt reported Height 173.4 cm (5' 8.25) 11/18/2017 12:[address] pt reported Body Mass Index 38.19 11/18/2017 12:52 PM NEUROLOGY HOSPITALIST Plan of Treatment Health Maintenance Due Date [...] age to complete this topic Care Teams Stretching Machine Tender Frame Relationship Specialty Start Date End Date Trung Tucker MD PCP - General Family Practice 11/13/17
--- OUTSIDE RECORDS SUMMARY | 2024-09-01 14:54 | XMS_ITS | Clinical Summary ---
Author Organization [facility] Address [address] [place] [address] Care Team Providers Care Dog Boarder Name Role Phone Whitney Gil MD Primary Care Provider [phone] Source Comments You are receiving this document as you are listed as the primary care provider,follow-up provider, or the patient has been referred to you for consultation.This is in compliance with the Medicare and[facility] EHR Incentive Program,which states Providers who transition their patient to another setting of careor provider of care or refers their patient to another provider of care shouldprovide summary care record for each transition of care or referral. [facility] Allergies Active Allergy Reactions Criticality Noted Date [...] age to complete this topic Care Teams Dog Boarder Relationship Specialty Start Date End Date Whitney Gil MD [address] [place] [id number] PCP - General 12/06/11
--- OUTSIDE RECORDS SUMMARY | 2024-09-01 14:54 | XMS_ITS | Encounter Summary ---
Author Organization [facility] Address [address] [place] [address] Care Team Providers Care Precision Lens Polisher Name Role Phone Unavailable Primary Care Provider Unavailabl e Encounter Details Date Type Department Care Team (Late st Contact Info) Description 07/07/2024 Clinical Communication Department of Urology in [place], [place] [address] [address] Jacque Marino APRN, C.N.P. [address] [address] Social History Tobacco Use Types [...] living situation today? I have a [facility] place to live 09/05/2023 Sex [...]
--- OUTSIDE RECORDS SUMMARY | 2024-09-01 14:54 | XMS_ITS | Referral Summary ---
Author Organization [facility] Address [address] [place] [address] Care Team Providers Care Street Photographer Name Role Phone Unavailable Primary Care Provider Unavailabl e Source Comments Patient records contain information from all sites at [facility]. For routine questions regarding patient records, call [phone] during business hours, M-F 8:00 AM - 5:00 PM Central Time. Record requests for emergency care only can be directed to [phone] at any time.[facility] Encounters Date Type Department Care Team Description 07/07/2024 Clinical Communication Department of Urology in [place], [place] [address] [place] [address] Jacque Marino, EDI, C.N.P. 06/23/2024 3:00 PM CDT External Outreach Division of Nephrology and Hypertension in [place], [place] [address] [place] [address] Kyle Daniel Jr., D.O. 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 I have a [facility] place to live 09/05/2023 Sex and [...] LAB URINE ORDER ELIF Performing Organization Address [facility] de Phone Number EXTERNAL NON-INTERFACED LAB [address] [place] [address] * Basic Metabolic Panel (03/02/2020) EXT BUN (Blood Urea Nitrogen) 39 EXTERNAL NON-INTERFACED LAB EXT Creatinine 1.5 EXTER NAL NON-INTERFACED LAB EXT Glucose 111 EXTERNAL NON-INTERFACED LAB EXT Potassium 3.9 DISTRIBUTION SALES REPRESENTATIVE AL NON-INTERFACED LAB EXT Sodium 143 EXTERNAL NON-INTERFACED LAB Blood (Blood, Venous) Historical Provider MMaria M LAB BLOOD ADD-O N Performing Organization Address [facility] de Phone Number EXTERNAL NON-INTERFACED LAB [address] [place] [address] * CT Abdomen Pelvis with IV Contrast [...] Electronically signed by: ?? Karina Smiley MD [phone] ([id number]) 14-Mar-2010 15:49 ?Linh Sellers M.D. ??[phone] [...] [id number] Electronically signed by: Karina Smiley MD [phone] ([id number]) 14-Mar-2010 15:49 Linh Sellers M.D.14-Mar-2010 15:49 Александр Novoa Jr., M.D. IMG CT [place] OCEDURES from Last 3 Months or Most Recently Relevant to Health Maintenance
--- OUTSIDE RECORDS SUMMARY | 2024-09-01 14:55 | XMS_ITS | Encounter Summary ---
Author Organization [facility] Address [facility] [place] [address] Care Team Providers Care Senior Vice President And Chief Information Officer Name Role Phone Trung Tucker MD Primary Care Provider [phone] Reason for Visit * Reason Onset Date Comments WOUND CARE 09/20/2021 Encounter Details Date Type Department Care Team (Late st Contact Info) Description 09/20/2021 Telephone [facility] [place] [address] [place] [phone] Byron Garrett MD [address] [place] [address] WOUND CARE Social History Tobacco [...] his employees. * Telephone Encounter - Karmen aGllegos - 09/20/2021 3:21 PM CDT Patient called back, still has questions and concerns on the condition of his legs. documented in this encounter Plan of Treatment Not on file documented as of this encounter Visit Diagnoses Not on filedocumented in this encounter Care Teams Senior Vice President And Chief Information Officer Relationship Specialty Start Date End Date Trung Tucker MD PCP - General Family Practice 11/13/17 documented as of this encounter
--- OUTSIDE RECORDS SUMMARY | 2024-09-01 14:55 | XMS_ITS | Encounter Summary ---
Author Organization [facility] Address [facility] [place] [address] Care Team Providers Care Optical Effects Camera Operator Name Role Phone Trung Tucker MD Primary Care Provider Reason for Visit * Reason Onset Date Comments WOUND CARE 09/12/2021 Encounter Details Date Type Department Care Team (Late st Contact Info) Description 09/12/2021 Telephone [facility] [place] [facility] [place] [address] [place] [phone] Byron Garrett MD [address] [place] [address] WOUND CARE Social History Tobacco [...] AM CDT Home care referral faxed to [employer] [facility]. * Telephone Encounter - Karmen Gallegos - 09/12/2021 10:11 AM CDT Service at [facility], unable to fulfill request for home care documented in this encounter Plan of Treatment Not on file documented as of this encounter Visit Diagnoses Not on filedocumented in this encounter Care Teams Optical Effects Camera Operator Relationship Specialty Start Date End Date Trung Tucker MD PCP - General Family Practice 11/13/17 documented as of this encounter
--- OUTSIDE RECORDS SUMMARY | 2024-09-01 14:55 | XMS_ITS | Referral Summary ---
Author Organization [facility] Address [address] [place], [place] [address]. [place] [address] Care Team Providers Care Installation Helper Name Role Phone Trung Tucker MD Primary Care Provider [phone] Allergies Active Allergy Reactions Criticality Noted Date [...] Comments Blood Pressure 188/107 11/14/2021 1:10 PM TRANSPLANTER Pulse 67 11/14/2021 1:10 PM TRANSPLANTER Temperature 36.6 ??C (97.8 ??F) 11/14/2021 1:10 PM CS T Respiratory Rate 20 10/03/2021 10:02 AM TRANSPLANTER Oxygen Saturation 100% 11/18/2017 12:52 PM TRANSPLANTER Inhaled Oxygen Concentration - - Weight 114.8 kg (253 lb) 11/18/2017 12:52 PM TRANSPLANTER pt reported Height 173.4 cm (5' 8.25) 11/18/2017 12:[address] pt reported Body Mass Index 38.19 11/18/2017 12:52 PM TRANSPLANTER Plan of Treatment Not on file Care Teams Installation Helper Relationship Specialty Start Date End Date Trung Tucker MD PCP - General Family Practice 11/13/17
--- OUTSIDE RECORDS SUMMARY | 2024-09-01 14:55 | XMS_ITS | Encounter Summary ---
Author Organization [place] Address [facility] [facility] [place] [place] [address] Care Team Providers Care Manager Publishing Name Role Phone Trung Tucker MD Primary Care Provider [phone] Reason for Visit * Reason Onset Date Comments WOUND CARE 09/27/2021 Encounter Details Date Type Department Care Team (Late st Contact Info) Description 09/27/2021 Telephone [facility] [place] [address] [place] [phone] Byron Garrett MD [address] [place] [address] WOUND CARE Social History Tobacco [...] on filedocumented in this encounter Care Teams Manager Publishing Relationship Specialty Start Date End Date Trung Tucker MD PCP - General Family Practice 11/13/17 documented as of this encounter
== END 2024-09-01 14:53 | disposition home or self-care (01) ==
LOC: WOUND 14:53
PROVIDERS: PCP Family Medicine; Visit Provider Surgery
DX: I89.0 Lymphedema, not elsewhere classified (principal); E11.40 Type 2 diabetes mellitus with diabetic neuropathy, unspecified; Z79.84 Long term (current) use of oral hypoglycemic drugs
CPT/HCPCS: G0463

== ENCOUNTER 2024-09-30 13:31 | Outpatient (CLI) | payer MEDICARE, BC, SELFPAY ==
--- OUTSIDE RECORDS SUMMARY | 2024-10-04 21:09 | XMS_ITS | Clinical Summary ---
Author Organization [facility] Address [address] [place] [address] Care Team Providers Care Court Recording Monitor Name Role Phone Unavailable Primary Care Provider Unavailabl e Source Comments Patient records contain information from all sites at [facility]. For routine questions regarding patient records, call [phone] during business hours, M-F 8:00 AM - 5:00 PM Central Time. Record requests for emergency care only can be directed to [phone] at any time.[facility] Allergies Active Allergy Reactions Criticality Noted Date Comments Adhesive Tape-Silicones Rash 07/16/2021 Foam tape used for pressure wrap after the pacemaker procedure Lisinopril Cough 11/13/2017 Cough Cough Cough Medications triamterene-hyd roCHLOROthiazid e (DYAZIDE) 37.5-25 mg per capsule Take 1 capsule by mouth 2 (two) times a day. 180 capsule 3 0 Active biotin 300 mcg tablet Take 300 mcg by mouth daily. Active irbesartan (AVAPRO) 150 mg tablet Take 1 tablet (150 mg total) by mouth daily. 90 tablet 3 1 Active allopurinoL (ZYLOPRIM) 100 mg tablet Take 1 tablet (100 mg total) by mouth daily. 90 tablet 3 1 Active docosahexaenoic acid-epa 120-180 mg capsule Take 1 g by mouth. 7 Active omeprazole (PriLOSEC) [address] capsule 2 Active oxyCODONE-aceta minophen (PERCOCET) 5-325 mg per tablet 2 Active pravastatin (PRAVACHOL) 20 mg tablet Take 20 mg by mouth daily. 0 Active sotaloL (BETAPACE) 80 mg tablet Take 80 mg by mouth daily. 2 Active pregabalin (LYRICA) 100 mg capsule Take 100 mg by mouth 3 (three) times a day. 2 Active colchicine (COLCRYS) 0.6 mg tablet Take 1 tablet (0.6 mg total) by mouth 2 (two) times a day. When having gout 30 tablet 3 3 Active Additional Information Patient taking differently:0.6 mg oral2 times daily PRN, muscle/joint pain, When having gout, Reported on 2023 apixaban (ELIQUIS) 5 mg tablet Take 1 tablet (5 mg total) by mouth 2 (two) times a day. 180 tablet 3 3 Active metFORMIN XR (GLUCOPHAGE-XR) 500 mg 24 hr tablet Take 500 mg by mouth every evening. 3 Active fesoterodine (Toviaz) 4 mg 24 hr tablet Take 1 tablet (4 mg total) by mouth daily. 90 tablet 3 4 Active Active Problems Problem Noted Date Diagnosed Date Hypokalemia 02/24/2024 Cellulitis 12/16/2023 Venous Insufficiency Chronic Peripheral 09/10/20 23 Rash 2023 Pain Knee Right 2023 Pain Arm Right 2023 Other Pruritus 2023 Morbid Obesity 2023 Guest Experience Specialist (Current) Anticoagulant Treatment 08/24 Gout 2023 [...] 07/07/2024 Clinical Communication Department of Urology in [place], [place] [address], [place] [phone] Jacque Marino, EDI, C.N.P. from Last 3 Months Immunizations Name Administration [...] the money to buy more. Never true 10/13/20 23 Within the past 12 months, t [...] living? No 09/05/2023 Nutrition Answer Date Recorded On average, how many serving s of [...] living situation today? 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 Gender Identity Male 09/05/2023 2:59 PM CDT [...] Cancer Screening 1950 Diabetic Office Visit with Foot Exam 1949 Dilated Eye Exam 1949 FIT 1949 Hemoglobin A1C 1949 Hepatitis C Screening 1949 Lipid (Cholesterol) Screening 1949 Zoster Vaccines (1 of 2) 1999 Hepatitis B Vaccines (1 of 3 - Risk 3-dose series) 2009 Urine Albumin 03/02/2021 03/02/2020 DTaP,Tdap,and Td Vaccines (2 - Td or Tdap) 04/06/2022 04/06/2012, 01/22/2006, 01/22/2006 Creatinine Level (Kidney Function Test) 03/26/2023 03/26/2022, 07/17/2021, 07/13/2021, Additional history exists Depression Screening (Annual PHQ-2) 11/24/2023 Fall Risk Screen (Annual) 11/24/2023 COVID-19 Vaccine ( - season) 2024 Influenza Vaccine (#1) 2024 , 11/14/2020, 09/07/2017, Additional history exists RSV vaccine - (32-36 weeks) or 60+ years (1 - 1-dose 75+ series) 2024 Office Visit for Blood Pressure Check / Re-check 09/23/2024 06/23/2024 Abdominal Aortic Aneurysm (AAA) Screen Discontinued 03/14/2010 Pneumococcal vaccine (65+ years) Completed 09/18/2021, 09/19/2020 IPV Vaccines Aged Out No longer eligi ble based on patient's age to complete this topic Procedures Procedure Name Priority Date/Time Associated Diagnosis [...] Catch) Historical Provider Ciaran LAB URINE ORDERABLES Fi nal Result Performing Organization Address [facility]/ZIP Co de Phone Number EXTERNAL NON-INTERFACED LAB [address] [place] [address] * Basic Metabolic Panel (03/02/2020) EXT BUN (Blood Urea Nitrogen) 39 EXTERNAL NON-INTERFACED LAB EXT Creatinine 1.5 EXTER NAL NON-INTERFACED LAB EXT Glucose 111 EXTERNAL NON-INTERFACED LAB EXT Potassium 3.9 PARKING METER MECHANIC AL NON-INTERFACED LAB EXT Sodium 143 EXTERNAL NON-INTERFACED LAB Blood (Blood, Venous) Historical Provider Ciaran LAB BLOOD ADD-ON Final Result Performing Organization Address [facility] Co de Phone Number EXTERNAL NON-INTERFACED LAB [address] [place] [address] * CT Abdomen Pelvis with IV Contrast [...] Electronically signed by: ?? Karina Smiley MD [phone] ([id number]) 14-Mar-2010 15:49 ?Linh Sellers M.D. ??8- [...] [id number] Electronically signed by: Karina Smiley MD [phone] ([id number]) 14-Mar-2010 15:49 Linh Sellers M.D.[id number] 14-Mar-2010 15:49 Александр Novoa Jr., M.D. IMG CT PROCEDURES Final Result from Last 3 Months or Most Recently Relevant to Health Maintenance Insurance [facility] MEDICARE
--- OUTSIDE RECORDS SUMMARY | 2024-10-04 21:09 | XMS_ITS | Continuity of Care Document ---
Author Organization [facility] Address [address] [place] [address] [place] [address] Phone Care Team Providers Care Industrial Technology Education Teacher Name Role Phone Will Jase HAWK Unavailable Unavailabl e Medications Medication Instructions Dosage Effective Dates (start - stop) Status Comments Eliquis 2.5 mg tablet take 1 tablet by o ral route 2 times every day 2.5 MG - Active Procedures Procedure Date OFFICE/OUTPATIENT VISIT, [facility] Advance Directives Directive Yes / No Effective Date File Name No Information Encounters Encounter Description Practice Location Reason(s) For Visit Diagnoses Date Provider Providers Copied on Encounter [facility], [address] [place] [address], [id number], [place] tel:[phone] [facility] No Information b- 2 Will Jase. [address] [facility] [address] [place], [place], [id number] , [place]. tel:[phone] [facility], [address] [place] [address], [id number], [place] tel:[phone] [facility] Myalgia, other site [address] [facility], [place], [id number] , [place]. tel:[phone] OFFICE/OUTPAT IENT VISIT, [facility], [address] [place] [address] [place], [id number], [place] tel:[phone] [facility] [place] Widespread pain (chief complaint) Chronic pain syndromePain in right kneePain in left kneePain in right shoulder [address], [place], [id number] , [place]. tel:[phone] Referring Provider: Jase Ackerman, [address] [facility] [address] [place], [address] . tel:[phone] Family History Family Member Type Diagnosis Age At Onset No Information Payers Payer name Insurance type Covered republican ID Authoriza tipema(s) Medicare [id number] Social History Type Description Quantity Date Captured [...] be trialling an injection later today at [facility]. [facility]
--- OUTSIDE RECORDS SUMMARY | 2024-10-04 21:10 | XMS_ITS | Encounter Summary ---
Author Organization [facility] Address [address] [place] [address] Care Team Providers Care Staking Technician Name Role Phone Trung Tucker MD Primary Care Provider [phone] Reason for Visit * Reason Onset Date Comments WOUND CARE 09/27/2021 Encounter Details Date Type Department Care Team (Late st Contact Info) Description 09/27/2021 Telephone [facility] [place] [address] [place] [phone] Byron Garrett MD [address] [place] [address] WOUND CARE Social History Tobacco Use Types Packs/Day Years Used Date Smoking Tobacco: Former Cigars Smokeless Tobacco: Never Alcohol Use Standard Drinks/Week Comments No 0 (1 standard drink = 0.6 oz pur e alcohol) PHQ-2 Answer Date Recorded PHQ-2 Score 0 12/01/2018 Sex and Gender Information Value Date Recorded Sex Assigned at Not on file Legal Sex 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
--- OUTSIDE RECORDS SUMMARY | 2024-10-04 21:10 | XMS_ITS ---
Author Organization [facility] Address [address] [place] [address] Care Team Providers Care Harness Mender Name Role Phone Unavailable Unavailable Unavailable Surgery Details Not on file Complications Check Surgery Details section. Procedure Estimated Blood Loss Check Surgery Details section. Procedure Findings Check Surgery Details section. Procedure Specimens Taken Check Surgery Details section.
--- OUTSIDE RECORDS SUMMARY | 2024-10-04 21:10 | XMS_ITS | Encounter Summary ---
Author Organization [facility] Address [address] [place] [address] Care Team Providers Care [place] Tender Restoration Labor Name Role Phone Trung Tucker MD Primary Care Provider [phone] Reason for Visit * Reason Onset Date Comments WOUND CARE 09/20/2021 Encounter Details Date Type Department Care Team (Late st Contact Info) Description 09/20/2021 Telephone [facility] [place] [address] [place] [phone] Byron Garrett MD [address] [place] [address] WOUND CARE Social History Tobacco Use Types Packs/Day Years Used Date Smoking Tobacco: Former Cigars Smokeless Tobacco: Never Alcohol Use Standard Drinks/Week Comments No 0 (1 standard drink = 0.6 oz pur e alcohol) PHQ-2 Answer Date Recorded PHQ-2 Score 0 12/01/2018 Sex and Gender Information Value Date Recorded Sex Assigned at Not on file Legal Sex Male 3:38 AM RETAIL EVENT ASSISTANT Gender Identity Not on file Sexual [...] on filedocumented in this encounter Care Teams [place] Tender Restoration Labor Relationship Specialty Start Date End Date Trung Tucker MD PCP - General Family Practice 11/13/17 documented as of this encounter
--- OUTSIDE RECORDS SUMMARY | 2024-10-04 21:10 | XMS_ITS | Referral Summary ---
Author Organization [place] Address [facility] [place] [address] Care Team Providers Care Drywall Professional Name Role Phone Trung Tucker MD Primary Care Provider [phone] Allergies Active Allergy Reactions Criticality Noted Date Comments Adhesive Tape Rash Low 07/16/2021 Foam tape used for pressure wrap after the pacemaker procedure Lisinopril Cough 11/13/2017 Cough Cough Losartan 11/13/2017 cough Medications rivaroxaban ANTICOAGULANT (XARELTO) 20 MG TABS tablet Take 1 tablet (20 mg) by mouth daily (with dinner) 11/13/20 17 Active triamterene-hydro chlorothiazide (DYAZIDE) 37.5-25 MG per capsule Take 1-2 capsules by mouth daily 90 capsule 3 11/13/20 17 Active aspirin 81 MG tablet Take by mouth daily 30 tablet 11/13/20 17 Active cloNIDine (CATAPRES) 0.2 MG tablet Take 2 tablets (0.4 mg) by mouth 2 times daily 180 tablet 3 11/13/20 17 Active omega 3 1000 MG CAPS Take 1 g by mouth daily 90 capsule 11/13/20 17 Active ELIQUIS ANTICOAGULANT 5 MG tablet Take 5 mg by mouth 2 times daily 08/10/20 21 Active gabapentin (NEURONTIN) 300 MG capsule 600 mg 05/17/20 21 Active furosemide (LASIX) 20 MG tablet TAKE 1 TABLET BY MOUTH TWICE DAILY NEEDED 03/05/20 21 Active omeprazole (PRILOSEC) [address] capsule TK 1 C PO D PRN 09/19/20 20 Active pravastatin (PRAVACHOL) 20 MG tablet TK 1 T PO HS 10/27/20 20 Active sotalol (BETAPACE) 80 MG tablet Take 80 mg by mouth 07/13/20 Active tamsulosin (FLOMAX) 0.4 MG capsule Take 0.4 mg by mouth daily 07/06/20 Active irbesartan (AVAPRO) 150 MG tablet Take 150 mg by mouth daily 07/03/20 Active betamethasone dipropionate (DIPROSONE) 0.05 % external ointmentIndicatio ns:Lymphedema of both lower extremities Apply topically daily 45 g 3 09/11/20 Active oxyCODONE-acetami nophen (PERCOCET) 5-325 MG tablet TAKE 1 TO 2 TABLETS BY MOUTH THREE TIMES DAILY NEEDED 09/18/20 Active Dermatological Products, Misc. (EPICERAM) EMULIndications:L ymphedema of both lower extremities Externally apply 1 Applicatorful topically daily 450 g 11 10/03/20 Active Active Problems Problem Noted Date Diagnosed [...] tendinitis 12/31/2011 Osteoarthrosis involving lower leg 12/31/2011 Overview (09/11/2021): Osteoarthrosis, unspecified whether generalized or localized, lower [...] on file Legal Sex Male 3:38 AM VALIDATION ENGINEER Gender Identity Not on file Sexual Orientation Not on file Last Filed Vital Signs Vital Sign Reading Time Taken Comments Blood Pressure 188/107 11/14/2021 1:10 PM VALIDATION ENGINEER Pulse 67 11/14/2021 1:10 PM VALIDATION ENGINEER Temperature 36.6 ??C (97.8 ??F) 11/14/2021 1:10 PM CS T Respiratory Rate 20 10/03/2021 10:02 AM VALIDATION ENGINEER Oxygen Saturation 100% 11/18/2017 12:52 PM VALIDATION ENGINEER Inhaled Oxygen Concentration - - Weight 114.8 kg (253 lb) 11/18/2017 12:52 PM VALIDATION ENGINEER pt reported Height 173.4 cm (5' 8.25) 11/18/2017 12:[address] pt reported Body Mass Index 38.19 11/18/2017 12:52 PM VALIDATION ENGINEER Plan of Treatment Not on file Insurance [facility] MEDICARE Care Teams Drywall Professional Relationship Specialty Start Date End Date Trung Tucker MD PCP - General Family Practice 11/13/17
--- OUTSIDE RECORDS SUMMARY | 2024-10-04 21:10 | XMS_ITS | Clinical Summary ---
Author Organization [place] Address [facility] [place] [address] Care Team Providers Care Product Picker Name Role Phone Trung Tucker MD Primary Care Provider [phone] Allergies Active Allergy Reactions Criticality Noted Date [...] Apply topically daily 45 g 3 09/11/20 21 Active oxyCODONE-acetami nophen (PERCOCET) 5-325 MG tablet [...] on file Legal Sex Male 3:38 AM FIRST AID DIRECTOR Gender Identity Not on file Sexual Orientation Not on file Last Filed Vital Signs Vital Sign Reading Time Taken Comments Blood Pressure 188/107 11/14/2021 1:10 PM FIRST AID DIRECTOR Pulse 67 11/14/2021 1:10 PM FIRST AID DIRECTOR Temperature 36.6 ??C (97.8 ??F) 11/14/2021 1:10 PM CS T Respiratory Rate 20 10/03/2021 10:02 AM FIRST AID DIRECTOR Oxygen Saturation 100% 11/18/2017 12:52 PM FIRST AID DIRECTOR Inhaled Oxygen Concentration - - Weight 114.8 kg (253 lb) 11/18/2017 12:52 PM FIRST AID DIRECTOR pt reported Height 173.4 cm (5' 8.25) 11/18/2017 12:[address] pt reported Body Mass Index 38.19 11/18/2017 12:52 PM FIRST AID DIRECTOR Plan of Treatment Health Maintenance Due Date Last Done Comments ADVANCE CARE PLANNING 1950 ANNUAL REVIEW OF HM ORDERS [address] COLONOGRAPHY 1949 FIT 1949 FLEX SIG 1949 GLUCOSE 1949 LIPID 1949 MICROALBUMIN 1949 sDNA (Cologuard) 1949 URINALYSIS 1950 COLONOSCOPY 1959 COLORECTAL CANCER SCREENING 1959 HEPATITIS C SCREENING 1967 LUNG CANCER SCREENING 1999 ZOSTER IMMUNIZATION (1 of 2) 1999 MEDICARE ANNUAL WELLNESS VISIT 2014 FALL RISK ASSESSMENT 11/13/2018 11/13/2017 DTAP/TDAP/TD IMMUNIZATION (2 - Td or Tdap) 04/06/2022 04/06/2012, 01/22/2006 PHQ-2 (once per calendar year) 2023 11/13/2017 COVID-19 Vaccine (1 - 2023-2 5 season) 2024 INFLUENZA VACCINE (#1) 2024 0, 09/07/2017 RSV VACCINE (1 - 1-dose 75+ series) 2024 Pneumococcal Vaccine: 65+ Years Completed 09/18/2021, 09/19/2020 HPV IMMUNIZATION Aged Out No longer e ligible based on patient's age to complete this topic MENINGITIS IMMUNIZATION Aged Out No l onger eligible based on patient's age to complete this topic RSV MONOCLONAL ANTIBODY Aged Out No l onger eligible based on patient's age to complete this topic Insurance [facility] MEDICARE Care Teams Product Picker Relationship Specialty Start Date End Date Trung Tucker MD PCP - General Family Practice 11/13/17
--- OUTSIDE RECORDS SUMMARY | 2024-10-04 21:10 | XMS_ITS | Encounter Summary ---
Author Organization [facility] Address [address] [place] [address] Care Team Providers Care Coffee Shop Manager Name Role Phone Unavailable Primary Care Provider Unavailabl e Encounter Details Date Type Department Care Team (Late st Contact Info) Description 07/07/2024 Clinical Communication Department of Urology in [place], [place] [address] [phone] Jacque Marino APRN, C.N.P. [address] [phone] Social History Tobacco Use Types [...] your living situation today? I have a [facility] place to live 09/05/2023 Sex and Gender Information Value Date Recorded Sex Assigned at Male 09/05/2023 2:59 PM CDT Legal Sex Male 9:24 AM LOGISTICS/SHIPPER Gender Identity Male 09/05/2023 2:59 PM CDT Sexual Orientation Straight 09/05/2023 2: 59 PM CDT documented as of this encounter Plan of Treatment Not on file documented as of this encounter Visit Diagnoses Not on filedocumented in this encounter
--- OUTSIDE RECORDS SUMMARY | 2024-10-04 21:10 | XMS_ITS | Clinical Summary ---
Author Organization [facility] Address [address] [place] [address] Care Team Providers Care Drawer Upfitter Name Role Phone Whitney Gil MD Primary Care Provider [phone] Source Comments You are receiving this document as you are listed as the primary care provider,follow-up provider, or the patient has been referred to you for consultation.This is in compliance with the Medicare and[facility] EHR Incentive Program,which states Providers who transition their patient to another setting of careor provider of care or refers their patient to another provider of care shouldprovide summary care record for each transition of care or referral. [place] Allergies Active Allergy Reactions Criticality Noted Date [...] Services) 1950 Medicare Annual Wellness Visit 1950 Zoster/Shingles (1 of 2) 1999 Pneumococcal 65+ [...] patient's age to complete this topic RSV Aged Out No longer eligi ble based on patient's age to complete this topic MCV4 Aged Out No longer eligi ble based on patient's age to complete this topic Care Teams Drawer Upfitter Relationship Specialty Start Date End Date Whitney Gil MD [address] [place] [address] PCP - General 12/06/11
--- OUTSIDE RECORDS SUMMARY | 2024-10-04 21:10 | XMS_ITS | Encounter Summary ---
Author Organization [facility] Address [address] [place] [address] Care Team Providers Care Science Teacher Name Role Phone Trung Tucker MD Primary Care Provider [phone] Reason for Visit * Reason Onset Date Comments WOUND CARE 09/12/2021 Encounter Details Date Type Department Care Team (Late st Contact Info) Description 09/12/[address] 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 * Telephone Encounter - Karmen Gallegos - 09/12/2021 10:11 AM CDT Service at [facility], unable to fulfill request for home care documented in this encounter Plan of Treatment Not on file documented as of this encounter Visit Diagnoses Not on filedocumented in this encounter Care Teams Science Teacher Relationship Specialty Start Date End Date Trung Tucker MD PCP - General Family Practice 11/13/17 documented as of this encounter
--- OUTSIDE RECORDS SUMMARY | 2024-10-04 21:10 | XMS_ITS | Clinical Summary ---
Author Organization [facility] Address [place], [place] [address] Care Team Providers Care Tailor Fitter Name Role Phone Trung Tucker MD Primary Care Provider [phone] Allergies Active Allergy Reactions Criticality Noted Date [...] 150 mg by mouth once daily. Active oxyCODONE-acetaminoph en (PERCOCET) 5-325 mg per tabletIndications:Sta tus post placement of cardiac pacemaker Take 1 Tablet by mouth every 6 hours if needed for Moderate to Severe pain. Max acetaminophen dose: 4000mg in 24 hrs. 8 Tablet 07/13/2021 Active allopurinoL (ZYLOPRIM) 100 mg tablet 10/02/2021 Active triamterene-hydrochlo rothiazide, 37.5-25 mg, (MAXZIDE-25) 37.5-25 mg tabletIndications:HTN (hypertension) Take 1 Tablet by mouth 2 times daily. 90 Tablet 3 03/26/2022 Active omeprazole (PRILOSEC) 20 mg Delayed-Release capsule TAKE 1 CAPSULE BY MOUTH DAILY NEEDED 12/17/2022 Active apixaban (ELIQUIS) 5 mg tabletIndications:pre vent thromboembolism in chronic atrial fibrillation Take 1 Tablet (5 mg) by mouth two times daily. 60 Tablet 11 08/11/2024 Active sotaloL (BETAPACE) 80 mg tabletIndications:Par oxysmal atrial fibrillation (HC) Take 1 Tablet (80 mg) by mouth every 24 hours. 90 Tablet 3 08/11/2024 Active Active Problems Problem Noted Date Diagnosed [...] Description 08/11/2024 4:00 PM CDT Office Visit [address] [place] [address] Baldo Cristina MD CV Electrophysiology Est (PATIENT [...] Contact Info) Description 12/13/2024 Cardiac Device Check [facility] [phone] 07/04/2025 3:00 PM CDT Office Visit [facility] [address] [place] [address] Sandra Booth PA [address] [place] [address] Health Maintenance Due Date Last Done Comments [...] season) 2024 Influenza for age 65+ 07/25/2024 RSV vaccine for adults or (1 - 1-dose 75+ series) 2024 BMI (ht and wt on same day) [...] 11:17 AM 03/03/2019 11:17 AM Care Teams Tailor Fitter Relationship Specialty Start Date End Date Trung Tucker MD [address] [facility] [place] [address] [facility] - General 12/22/18
--- OUTSIDE RECORDS SUMMARY | 2024-10-04 21:10 | XMS_ITS | Referral Summary ---
Author Organization [facility] Address [address] [place] [address] Care Team Providers Care Cracking Unit Operator Name Role Phone Unavailable Primary Care Provider Unavailabl e Source Comments Patient records contain information from all sites at [facility]. For routine questions regarding patient records, call [phone] during business hours, M-F 8:00 AM - 5:00 PM Central Time. Record requests for emergency care only can be directed to [phone] at any time.[facility] Encounters Date Type Department Care Team Description 07/07/2024 Clinical Communication Department of Urology in [place], [place] [address] [place] [phone] Jacque Marino, EDI, C.N.P. 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 I have a [facility] place to live 09/05/2023 Sex and Gender Information Value Date Recorded Sex Assigned at Male 09/05/2023 2:59 PM CDT Legal Sex Male 9:24 AM FUNERAL DIRECTOR/EMBALMER Gender Identity Male 09/05/2023 2:59 PM CDT [...] Results * Albumin, Random, Urine (03/02/2020) Pathologist [facility] EXT Microalbumin-Ra ndom, U 47 EXTERNAL NON-INTERFACED LAB Urine (Urine, Clean Catch) Historical Provider M.G[facility] LAB URINE ORDERABLES Fi nal Result Performing Organization Address [facility] de Phone Number EXTERNAL NON-INTERFACED LAB [address] [place] [address] * Basic Metabolic Panel (03/02/2020) Pathologist [facility] EXT BUN (Blood Urea Nitrogen) 39 EXTERNAL NON-INTERFACED LAB EXT Creatinine 1.5 EXTER NAL NON-INTERFACED LAB EXT Glucose 111 EXTERNAL NON-INTERFACED LAB EXT Potassium 3.9 SUPERVISOR CORE DRILLING AL NON-INTERFACED LAB EXT Sodium 143 EXTERNAL NON-INTERFACED LAB Blood (Blood, Venous) [facility] Provider MMaria M LAB BLOOD ADD-ON Final Result Performing Organization Address [facility] de Phone Number EXTERNAL NON-INTERFACED LAB [address] [place] [address] * CT Abdomen Pelvis with IV Contrast [...] Electronically signed by: ?? Karina Smiley MD [phone] ([id number]) 14-Mar-2010 15:49 ?Linh Sellers M.D. ??8- [...] [id number] Electronically signed by: Karina Smiley MD [phone] ([id number]) 14-Mar-2010 15:49 Linh Sellers M.D.[id number] 14-Mar-2010 15:49 Александр Novoa Jr., M.D. IMG CT PROCEDURES Final Result from Last 3 Months or Most Recently Relevant to Health Maintenance Insurance [facility]
== END 2024-09-30 13:32 | disposition home or self-care (01) ==
LOC: NFLDREF 10-04 21:08
PROVIDERS: PCP Family Medicine; Referring Provider Family Medicine; Visit Provider Family Medicine
DX: Z13.220 Encounter for screening for lipoid disorders (principal); E11.65 Type 2 diabetes mellitus with hyperglycemia
CPT/HCPCS: 80053; 80061; 82043; 82570

== ENCOUNTER 2024-10-12 13:00 | Outpatient (RCR) | payer MEDICARE, BC, SELFPAY ==
--- NOTE | 2023-10-28 19:07 | OT.OPLE ---
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 He is familiar to this OTR, and he was seen for 17 visits of OT for this between 03/18/23 - 08/04/23. He was seen at [place] this fall for venous insufficiency work up. No artery involvement noted in [place]. No stress test completed. Was referred for further OT for management of his lymphedema and he is choosing to work with us here, locally. No [place] report available at the time of this report. He has been doing well to wear his velcro compression binders more since his [place] visit and his girth has reduced further . He is struggling to bend his knees far enough to self db his compression layers, taking 8/10 effort x 30 minutes to apply. Leaves them on for 2 days at a time to save his energy Medical History Medical History DVT,Obesity,Heart Disease, Cellulitis/Infection,Slow Healing Wound,DM,HTN,CVI Medical History Comments On Eliquis anticoagulation per DVT history. A1c improved to 7.5 with some weight loss at well. Living Situation Current Living Situation Private Home/Apartment (Alone) Current Living Situation Comments Lives with his Jeri in [place]. Adding a stair lift system to his 3-4 level home. Patient Difficulties Difficulties With Any Of The Following Walking,Dressing,Reaching Feet & Toes Exercise History Does Patient Exercise Regularly No Exercise Comments Knee pain limits walking/ fitness to 150 feet at a time. Short 15 minute grocery trips leaning firmly cart to complete. Still able to drive. ABthes, dresses (i), but taking more effort. Pain Pain Yes Loss of Function/Strength/Mobility Loss Of Function/Strength/Mobility 90-95* B knee flexion ( of 120 Comments ) Previous Treatment Previous Treatment For Swelling/ MLD,Compression Garment, Lymphedema Elevation,Self Massage Previous Treatment/Current Home Program Has velcro based compression pump system, describes [employer] system with trunk component B LE sleeves). Not able to self db. Does basic lymph node releases /massage and pumping exercises x 2-3 days per week at axillas, subclavian, cistern of chylli and groin, trunk twists. Compression History Does Patient Currently Wear Compression Yes During Daytime Compression During Daytime Comments Sigvaris Compreflex with 10- 155 mmHG liners toes to below knees. Good skin care with Eucerin. WEaring daily, at times keeping them in place 2 days at at tiff to save his energy. Current Swelling (Location/Pitting/Texture) Pitting Scale: 0 = No pitting 1+ Tissue returns to normal almost immediately 2+ Tissue returns after 15-30 seconds 3+ Tissue returns after 1-1/2 minutes 4+ Tissue returns after 2-3 minutes N/A Tissue no longer pits due to induration Tissue texture: Soft or indurated Clinical Presentation Area B LE medial thighs to toes. Clinical Presentation Pitting 1+ Clinical Presentation Texture Waxy fibrous skin texture that is mobile at dermal, subdermal but not deep tissue layers at ankles/feet. Lymphedema/Lipedema/CVI reticular varocosities at B feet and varicose veins at popliteal areas. Triggering Event & Start Date of gradual insidious onset since Swelling/Lymphedema his R knee TKA 15 yrs ago. Has had history of wound care clinic, addressing slow healing wounds with lymphorrhea Sep 2022 then OT March 16 to Jul 2023. Type of Swelling Secondary,Post Surgery/ Traumatic Edema Swelling Comments squaring of toes. Good vascular capillary brisk refill. Staging Staging Stage 2 Positive Stemmer's Sign Yes Circumferential Measurements Lower Extremity Left Lower Extremity Great Toe 10.2 MPT 24.3 Arch 25.8 Calcaneous 36 10cm 28 20cm 36.6 30cm 45.3 40cm 44.5 50cm 51 Total 301.7 Right Lower Extremity Great Toe 9.8 MPT 24.5 Arch 26.7 Calcaneous 36.5 10cm 29.8 20cm 38.8 30cm 49 40cm 46.3 50cm 57 Total 318.4 Assessment Assessment Pt's B LE lymphedema girth is stable and managing well with his current compression binders and 10-15 mmHG stockings, but he is having greater difficulty donning per daily,persistent heavy knee pain 8/10 and difficulty with knee flexion limiting his ability to self db his compression layers. Skin integrity is looking so much better than prior bout of OT. Impairments Impairments Loss of Mobility,Difficulties With ADLs,Limb Heaviness,Poor Clothing Fit Problem List Problem List Does Not Have Appropriate Compression Garments For LT Management,Presents With Impaired Mobility/ROM Problem List Comments Needing equipment adaptations, possibly new compression garments for making donning compression easier with his knee ROM loss/chronic pain. Patient Goals Predatory Game Hunter Goals (# of Weeks) 6 Click To Default Predatory Game Hunter Goals Standard Goals Intermediate Goals Goal 1-- Patient will be independent with donning and doffing of compression garments which will enable regular daily garment wear using adapted equipment and or modifications of compression layers. Goal 2--Patient will be independent with HEP for increased knee flexion to help make compression donning easier. Goal 3-- Pt will have decreased fibrosis of skin tissue, improved deep tissue mobility at ankles/feet to support improved skin integrity. Treatment Plan Treatment Plan Evaluation,Edema Control,Joint Mobilization,Manual Therapy, Therapeutic Exercise,Self-Care /Home Management,Education Expected Frequency 1-2x Week Expected Duration 4-6 Weeks Certification Certification I Certify That: Therapy Services Provided, Therapy Plan Established, Therapy Plan Reviewed Recertification Information Recertification Information Initial Certification Date 10/28/23 Recertification Due Date 01/26/24 Provider Signature Shows Agreement With POC & Medical Necessity Physician Comment/Change Comment or Changes Physician NPI Number #
--- NOTE | 2024-05-04 17:14 | OT.OPLDN ---
OT Outpatient Lymphedema Daily Note OT Outpatient Lymphedema Daily Note Start: 10/28/23 18:33 Freq: Status: Active Protocol: Document 05/04/24 16:43 LCN (Rec: 05/04/24 17:14 LCN [id number]) E-signed By Faith Hurst, OTR/L, CLT OT OP Lymphedema Daily/Progress Note Note Type Note Type Daily,Note To MD,Recert/ Progress Note Insurance Authorized Visits 16 Insurance Information Insurance Information Medicare B Current Condition/Medical Diagnosis Referring Provider Trung Tucker Treatment Diagnosis B LE lymphedema, difficulty self managing per B knee pain Subjective Subjective Pt is weighing 315# this week and is working with DM erp project manager at [facility]. ( Emphasizing lower carb 30 g / meal level, smaller protein portion sizes) Pt having a lot of R knee pain 9/10 after missing a step yesterday, briefly tearful in session. No bruising, edema is stable, both legs have mild warmth but no pain, skin sensitivity or redness. and B LE general pain, kinesiotaping and MLD is very helpful. Pt has tried using an advanced lymph pump system/ [employer] Flexitouch and the lower leg sleeves have separate ankle to rodriguez zipper that he is not able to self db/ manage. Open to ordering another model from [facility] with longer continuous zippers. Knows he needs to do something more for his R knee pain and does have good reduction of BLE pain for 3-4 hours after OT sessions. Is doing well self donning his stockings and velcro leg binders and is wearing for days consistently. Does have small 2-3 mm lymphoceles that are closed 3- 4 on both anterior shins. Kinesio taping helpful, softening his fibrotic rodriguez areas, les side is ligth coca brown and 3/4 mobile. R shinstill having medium pink raised texture areas. 14 cm x 10cm R, 8x12 cm L areas with larger skin flakes. Has been consistent w using his new 10-15 mmHG transition liners with Compreflex large Tall compression binders. Still thinking about getting new pumps that he can self db, has yet to find the devices/info he had before. Herson Forte is a pleasant 73 y/o male who has been working hard to self manage his B LE lymphedema and B knee pain ( that is so far inoperable per consults at [facility] and [facility])\. He is familiar to this OTR, and he was seen for 17 visits of OT for this between 03/18/23 - 08/04/23. He was seen at [facility] this fall for venous insufficiency work up. No artery involvement noted in DION. No stress test completed. Was referred for further OT for management of his lymphedema and he is choosing to work with us here, locally. No [facility] report available at the time of this report. He has been doing well to wear his velcro compression binders more since his [facility] visit and his girth has reduced further . He is struggling to bend his knees far enough to self db his compression layers, taking 8/10 effort x 30 minutes to apply. Leaves them on for 2 days at a time to save his energy Home Program Home Program Specifics 11/07/23-- Ordering Sigvaris Compreflex BK 20-50 mmHG for BLE ( Black, size XL Tall per measurements below) and 10- 15mmHG transition liners ( Black size XL) x 4 additional pair, via [facility] to home, billing via new Medicare coverage in November 2023. Pt prefers Sigvaris brand. RX faxed to . 01/08/24-- [facility] delivered above , good fit. New set due in June 2024. Circumferential Measurements Lower Extremity Left Lower Extremity Great Toe 10.0 MPT 24.3 Arch 26.5 Calcaneous 34.5 10cm 28.3 20cm 39.0 30cm 46.5 40cm 45 50cm 50.8 Total 304.9 Right Lower Extremity Great Toe 9.6 MPT 23.3 Arch 25.7 Calcaneous 36.0 10cm 30.7 20cm 40.7 30cm 50.0 40cm 48.5 50cm 53 Total 317.5 Treatment Manual Therapy OTR completes MLD sequence (as needed for increased tissue mobility, ROM and decreased lymph girth) with LN facilitation at TDL, terminus, suboccipital to SCM lines, with lymph sweeping distal to proximal x 5-7 strokes each plane, with 2-3 sets at congested areas. Cont LN facilitation at abd with diaphragmatic breath, 4 abd quadrants, beltline, lateral trunk and ING > AX?to support watershed flow. Segmental decongestive MLD at lateral hip,?lateral thigh bundles, middle thigh, TFL to lateral trunk and calf in 3 segments, foot and ankle areas with toe web space facilitation, x 10 reps each area. MFR to spongy edema at lateral thigh, hip areas. Finishing lymph sweep from distal LE to proximal? trunk, AX and TN areas. Pumping exercises with gluteal squeezes. Held kinesiotaping per new lymphoceles. Reapplied compression binders and 10-15 mmHG transitional stockings to BK height per below. Eucerin to skin. Manual Therapy Minutes (minutes) 64 Assessment Pt progressing steadily with reduced fibrosis at B shins and improved girth reduction total across carlos points toes to mid thigh since his December reading; down 9.7cm in RL LE and 6.9 cm in L LE. Left upper 2/3 of rodriguez is soft , mobile, visibly smaller than R side. R rodriguez has more dense fibrosis than continues to benefit from deep tissue, scar mobilization techniques. Pt doing well managing with his current compression binders and 10-15 mmHG stockings. Impairments Loss of Mobility,Difficulties With ADLs,Limb Heaviness,Poor Clothing Fit Problem List Does Not Have Appropriate Compression Garments For LT Management,Presents With Impaired Mobility/ROM Problem List Comments Needing equipment adaptations, possibly new compression garments for making donning compression easier with his knee ROM loss/chronic pain. Patient Goals Keno Attendant Goals (# of Weeks) 6 [facility] Goals Goal 1-- Patient will be independent with donning and doffing of compression garments which will enable regular daily garment wear using adapted equipment and or modifications of compression layers. (GOAL MET 03/24/24.) Goal 2--Patient will be independent with HEP for increased knee flexion to help make compression donning easier. (GOAL MET-- Doing regular SROM heel slides with leg solar electric/photovoltaic installer device. Still really struggling with knee pain and stiffness) Goal 3-- Pt will have decreased fibrosis of skin tissue, improved deep tissue mobility at ankles/feet to support improved skin integrity. (GOAL CONTINUED-- 05/04/24-- Responds well to continued kinesiotaping at B rodriguez areas of fibrosis, but having some patches of 2-3 mm lymphoceles) Mcfp Goals Comments 01/08/24-- Increase POC to 6 more visits per infection/ edema exacerbation Cont OT 1 visit/week x every 2 -3 weeks to set up Bio Tab lymphatic pump. Treatment Plan Treatment Plan Evaluation,Edema Control,Joint Mobilization,Manual Therapy, Therapeutic Exercise,Self-Care /Home Management,Education Expected Frequency 1-2x Week Expected Duration 4-6 Weeks Daily Plan of Care Change POC (See Comment) Treatment Minutes Timed Treatment Minutes 58 Total Timed Treatment Minutes 58 Occupational Therapy Billing Units Billing Units Manual Therapy 4 Self Care/Home Management 1 Certification Certification I Certify That: Therapy Services Provided, Therapy Plan Established, Therapy Plan Reviewed Recertification Information Recertification Information Initial Certification Date 10/28/23 Recertification Start Date 05/04/24 Recertification Due Date 08/02/24 Reasons to Continue Skilled Therapy Pt continues to struggle with R knee pain, impacting ability /speed timing of donning compression. Since last cert , pt has had reduction edema girth in B shins.,continued fibrosis, more R knee pain and is working on some weight loss strategies with erp project manager now 315#). Continues to benefit from OT to support reducing fibrosis and improving self management. Would benefit from using a pneumatic pump with zipper style for easy donning. Rehabilitation Potential Good for stated goals. Continued Plan of Care and Interventions Cont plan of care above, 1x/ week every 2-3 weeks for 8 more visits. Provider Signature Shows Agreement With POC & Medical Necessity Physician Comment/Change Comment or Changes Physician NPI Number #
== END 2025-02-09 23:59 | disposition home or self-care (01) ==
PROVIDERS: PCP Family Medicine; Visit Provider Family Medicine
DX: R60.0 Localized edema (principal); M25.562 Pain in left knee; M25.561 Pain in right knee; Z51.89 Encounter for other specified aftercare
CPT/HCPCS: 97140; 97165; 97535; G0463

== ENCOUNTER 2024-12-16 15:04 | Outpatient (CLI) | payer MEDICARE, BC, SELFPAY | END 2024-12-16 15:05 | disposition home or self-care (01) | LOC: NFLDREF 12-26 23:32 | PROVIDERS: PCP Family Medicine; Referring Provider Family Medicine; Visit Provider Internal Medicine Nephrology | DX: N18.31 Chronic kidney disease, stage 3a (principal); D64.9 Anemia, unspecified; E78.5 Hyperlipidemia, unspecified | CPT/HCPCS: 80061; 80069; 82043; 82570; 82728; 83540; 83550; 83970; 84550; 86140 ==

== ENCOUNTER 2024-12-27 14:42 | Outpatient (CLI) | payer MEDICARE, BC, SELFPAY | END 2024-12-27 14:43 | disposition home or self-care (01) | LOC: NFLDREF 12-29 00:54 | PROVIDERS: PCP Family Medicine; Referring Provider Internal Medicine Nephrology; Visit Provider Internal Medicine Nephrology | DX: N18.9 Chronic kidney disease, unspecified (principal); E11.9 Type 2 diabetes mellitus without complications; M10.9 Gout, unspecified; G89.29 Other chronic pain | CPT/HCPCS: 82043; 82570 ==

== ENCOUNTER 2025-03-16 14:09 | Outpatient (CLI) | payer MEDICARE, BC, SELFPAY | END 2025-03-16 14:10 | disposition home or self-care (01) | LOC: NFLDREF 03-17 22:57 | PROVIDERS: PCP Family Medicine; Referring Provider Family Medicine; Visit Provider Internal Medicine Nephrology | DX: E11.9 Type 2 diabetes mellitus without complications (principal); I10 Essential (primary) hypertension; N18.30 Chronic kidney disease, stage 3 unspecified; R35.0 Frequency of micturition; E66.01 Morbid (severe) obesity due to excess calories; D64.9 Anemia, unspecified; E78.5 Hyperlipidemia, unspecified; M10.9 Gout, unspecified; R60.0 Localized edema; Z79.01 Long term (current) use of anticoagulants | CPT/HCPCS: 80061; 80069; 82043; 82570; 82728; 83540; 83550; 84450; 84460; 84550 ==

== ENCOUNTER 2025-06-09 11:49 | Outpatient (CLI) | payer MEDICARE, BC, SELFPAY | END 2025-06-09 11:50 | disposition home or self-care (01) | LOC: NFLDREF 06-11 08:16 | PROVIDERS: PCP Family Medicine; Referring Provider Family Medicine; Visit Provider Internal Medicine Nephrology | DX: E11.22 Type 2 diabetes mellitus with diabetic chronic kidney disease (principal); I12.9 Hypertensive chronic kidney disease with stage 1 through stage 4 chronic kidney disease, or unspecified chronic kidney disease; N18.31 Chronic kidney disease, stage 3a; M10.9 Gout, unspecified | CPT/HCPCS: 80069; 82043; 82570; 84550; 86140 ==

== ENCOUNTER 2025-09-13 13:48 | Outpatient (CLI) | payer MEDICARE, BC, SELFPAY | END 2025-09-13 13:49 | disposition home or self-care (01) | LOC: NFLDREF 09-17 15:05 | PROVIDERS: PCP Family Medicine; Referring Provider Family Medicine; Visit Provider Internal Medicine Nephrology | DX: M10.9 Gout, unspecified (principal); I12.9 Hypertensive chronic kidney disease with stage 1 through stage 4 chronic kidney disease, or unspecified chronic kidney disease; E11.22 Type 2 diabetes mellitus with diabetic chronic kidney disease; N18.9 Chronic kidney disease, unspecified | CPT/HCPCS: 80053; 80061; 80069; 82043; 82570; 82728; 83540; 83550; 83970; 84100; 84450; 84460; 84550; 86140 ==

== ENCOUNTER 2025-10-25 10:22 | Outpatient (CLI) | payer MEDICARE, BC, SELFPAY | END 2025-10-25 10:23 | disposition home or self-care (01) | LOC: NFLDREF 10-29 23:13 | PROVIDERS: PCP Family Medicine; Referring Provider Family Medicine; Visit Provider Family Medicine | DX: R30.0 Dysuria (principal); R35.0 Frequency of micturition | CPT/HCPCS: 80048; 87086 ==

== ENCOUNTER 2025-11-10 13:48 | Outpatient (CLI) | payer MEDICARE, BC, SELFPAY | END 2025-11-10 13:49 | disposition home or self-care (01) | LOC: AMB 11-13 18:49 | PROVIDERS: PCP Family Medicine; Visit Provider Family Medicine | DX: R07.89 Other chest pain (principal); R41.82 Altered mental status, unspecified; R42 Dizziness and giddiness | CPT/HCPCS: A0425; A0427 ==

== ENCOUNTER 2025-11-10 14:21 | Observation (INO) | payer MEDICARE, BC, SELFPAY ==
--- OUTSIDE RECORDS SUMMARY | 2025-09-26 13:30 | XMS_ITS | Encounter Summary ---
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 [address] [place] [address] Phone: tel: fax: [facility] Referral IDStatusReasonStart DateExpiration DateVisits RequestedVisits [id number]/3/20255/ ESS LINE OPERATOR * Outpatient (Routine) - ClosedSpecialtyDiagnoses / ProceduresReferred By ContactReferred To ContactUrology Kyle Daniel Jr., D.O. [address] [place] [address] Phone: tel: fax: Michael King M.D. [address] [place] [phone] Phone: tel: fax: Referral IDStatusJay DateExpiration DateVisits RequestedVisits [id number]/3/20255/ ESS LINE OPERATOR Reason for Visit * Appointment Request (Routine) - ClosedSpecialtyDiagnoses / ProceduresReferred By ContactReferred To ContactNephrology and Hypertension Referral IDStatusJay DateExpiration DateVisits RequestedVisits [id number]/26/202512/ Encounter Details DateTypeDepartmentCare Team (Latest Contact Info)Ujltsisjspa74/03/2025 1:30 PM CSTExternal Outreach Division of Nephrology and Hypertension in [place], [place] [address] [place] [address] Kyle Daniel Jr., D.O. [address] [place] [address] Chronic Kidney Disease (CKD), Stage 3a Glomerular Filtration Rate (GFR) 45 To 59 (HCC) (Primary Dx); Diabetes Mellitus Type 2 With Diabetic Chronic Kidney Disease (HCC); Hypertensive Chronic Kidney Disease With Stage 1 Through Stage 4 Chronic Kidney Disease, Or Unspecified Chronic Kidney Disease; Gout; Hyperparathyroidism Renal Secondary (HCC); Research Coordinator (Current) Anticoagulant Treatment; Venous Insufficiency Chronic Peripheral; Incontinence Urinary Social History Tobacco UseTypesPacks/DayYears UsedDateSmoking Tobacco: NeverSmokeless Tobacco: NeverHunger Vital SignAnswerDate RecordedWithin the past 12 months, you worried that your food would run out before you got the money to buymore.Never true 09/05/2023Within the past 12 months, the food you bought just didn't last and you didn't have money to get more.Never true09/05/2023RAPARE - Transportation AnswerDate RecordedIn the past 12 months, has lack of transportation kept you from medical appointments or from getting medications?No09/05/2023In the past 12 months, has lack of transportation kept you from meetings, work, or from getting things needed for daily living?No09/05/2023Housing StabilityAnswerDate Recorded What is your living situation today?I have a steady place to live09/05/2023Sex and Gender InformationValueDate RecordedSex Assigned at AzjamHzah14/13/2023 2:59 PM CDTLegal XplQskj1312/27/2016 9:24 AM CSTGender EwbqrckdAwjt98/13/2023 2:59 PM CDTSexual DftoyhysnjyAwipupli76/13/2023 2:59 PM CDTdocumented as of this encounter Last Filed Vital Signs Vital SignReadingTime TakenCommentsBlood Ivczlxjm143/8209/26/2025 1:41 PM PROCESS LINE OPERATOR Rzkmm984309/26/2025 1:41 PM CSTTemperature--Respiratory Rate--Oxygen Saturation-- Inhaled Oxygen Concentration--Woqlla588 kg (291 lb 7.2 oz)09/26/2025 1:41 PM PROCESS LINE OPERATOR Ccxvpz897.2 cm (5' 8.98)09/26/2025 1:41 PM CSTBody Mass Index43.0709/26/2025 1:41 PM CSTdocumented in this encounter Progress Notes * Kyle Daniel Jr., D.O. - 09/26/2025 1:30 PM CST Referring Provider:DR Bardales SUBJECTIVE REASON FOR VISIT [place] Follow-up regards CKD HISTORY OF PRESENT ILLNESS Mr. Forte is a 75 y.o. male who presents with diabetic and hypertensive nephrosclerosis Congratulated him on his excellent hemoglobin A1c at 7.2%, he had loss now regained some weight, some of this is on the background of lower extremity swelling. He has had no shortness of breath no chest pain no constitutional complaints, but is struggling severely with 2 major issues: Severe bilateral knee pain, right slightly worse than left, he saw , and surgery was notfelt to be helpful. He is using a topical THC cream, and oxycodone, in his severely disabled by thepain. Lower urinary tract symptoms with incontinence, this has been life altering for him he is quite embarrassed in his wearing pads, he had been following with our Urology team who is in the midst of trialing different approaches and then was lost to follow-up. He has changed his diet slightly, he does not use any extra salt, has cut back on fluids, but is not paying terrific attention to the amount of sodium in foods. No weeping blisters, I note his weight is actually slightly increased from his last visit despite initiating the Ozempic. His urine protein has increased slightly, blood pressures has been very well controlled recently. Medical History[1] Current Medications[2] REVIEW OF SYSTEMS All other systems reviewed and are negative. OBJECTIVE BP 136/82 Pulse 62 Ht 175.2 cm Wt 132 kg BMI 43.07 kg/m?? PHYSICAL EXAMINATION General: Awake, alert, oriented. HEENT: BETH, EOMI, mucous membranes moist, no oral lesions. Neck: No masses, no bruits. Lungs: Clear to auscultation. Heart: Regular rate and rhythm. No ectopy, murmurs, or rubs. Abdomen: Soft, non-tender. Extremities:Massive lower extremity swelling which is tight and nonpitting, shiny skin Neuro: Cranial nerves intact. Gait is antalgic strength grossly normal. Skin: No suspicious lesions identified. Psychiatric: Normal affect. DIAGNOSTICS Creatinine within normal range normal hemoglobin, microalbumin to creatinine ratio elevated at 1000milligram/gram, hemoglobin A1c 7.2% ASSESSMENT / PLAN #1 Chronic Kidney Disease (CKD), Stage 3a Glomerular Filtration Rate (GFR) 45 To 59 (HCC) Fortunately his renal function remains gratifyingly stable, blood pressure and diabetes control areour focus. He needs to avoid NSAIDs. Going forward: Goal blood pressures less than 130s Goal glycosylated hemoglobin less than 8%, achieved Cardiorenal approach, he is using a combination thiazide potassium-sparing diuretic, asked him to limit his sodium to 2 g per day, continues on SG LT 2 inhibition and GLP 1 antagonism, along with sotalol, and rate control. I will have him back to clinic in 2 months #2 Diabetes Mellitus Type 2 With Diabetic Chronic Kidney Disease (HCC) Finally had some improvement with respect to his hemoglobin A1c I congratulated him. We will continue with the Ozempic we could slightly increase the dose however he is noticing some 2day nausea vomiting and diarrhea. Therefore we will stay at 5 mg subq for now Continue with his metformin at 750 mg orally twice daily Continue with his Jardiance 10 mg per day He has changed his diet and in his being more mindful. #3 Hypertensive Chronic Kidney Disease With Stage 1 Through Stage 4 Chronic Kidney Disease, Or Unspecified Chronic Kidney Disease Goal blood pressures achieved please see above discussion #4 Gout We will increase his allopurinol 300 mg orally daily. #5 Hyperparathyroidism Renal Secondary (HCC) Calcium phosphorus acceptable. #6 Jail (Current) Anticoagulant Treatment He continues on his DOAC no complications for now. #7 Venous Insufficiency Chronic Peripheral Severe bilateral venous insufficiency, we are balancing as above needing compression, elevation, low-sodium diet, and modest fine tuning of his diuretics to avoid decreased effective arterial circulating volume. I also suspect his venous insufficiency is causing some of his knee pain. #8 Incontinence Urinary I will have him back to our Urology team to see if there further investigations or therapies which could be initiated. 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 # 9. Severe bilateral knee pain with DJD I will have him visit with our behavioral health assistant regards possible next steps including potential injections or Synvisc, versus whether surgical options should be considered. Total time: 45 minutes Counseling Time: 40 minutes Kyle Daniel Jr., D.OAnna [1] No past medical history on file. [2] Current Outpatient Medications: allopurinoL (Zyloprim) 300 mg tablet, Take 1 tablet (300 mg total) by mouth daily., Disp: 90 tablet, Rfl: 3 apixaban (ELIQUIS) 5 mg tablet, Take 1 tablet (5 mg total) by mouth 2 (two) times a day., Disp: 180tablet, Rfl: 3 apixaban (Eliquis) 5 mg tablet, Take 1 tablet by mouth 2 (two) times a day., Disp: , Rfl: ascorbic acid (ASCOR IV), , Disp: , Rfl: biotin 300 mcg tablet, Take 300 mcg by mouth daily., Disp: , Rfl: colchicine (Colcrys) 0.6 mg tablet, Take 1 tablet (0.6 mg total) by mouth 2 (two) times a day. Whenhaving gout, Disp: 30 tablet, Rfl: 3 empagliflozin (Jardiance) 10 mg tablet, Take 1 tablet (10 mg total) by mouth daily before morning meal., Disp: 30 tablet, Rfl: 11 fesoterodine (Toviaz) 4 mg 24 hr tablet, Take 1 tablet (4 mg total) by mouth daily., Disp: 90 tablet, Rfl: 3 irbesartan (AVAPRO) 150 mg tablet, Take 1 tablet (150 mg total) by mouth daily., Disp: 90 tablet, Rfl: 3 metFORMIN XR (Glucophage-XR) 750 mg 24 hr tablet, Take 1 tablet (750 mg total) by mouth daily with morning meal., Disp: 90 tablet, Rfl: 3 omeprazole (PriLOSEC) [address] capsule, , Disp: , Rfl: oxyCODONE-acetaminophen (PERCOCET) 5-325 mg per tablet, , Disp: , Rfl: pravastatin (PRAVACHOL) 20 mg tablet, Take 20 mg by mouth daily. (Patient not taking: Reported on 02/02/2025), Disp: , Rfl: pregabalin (LYRICA) 100 mg capsule, Take 100 mg by mouth 3 (three) times a day., Disp: , Rfl: semaglutide (Ozempic) 0.25 mg or 0.5 mg (2 mg/3 mL) injection, Inject 0.25 mg under the skin every 7 (seven) days for 28 days, THEN inject 0.5 mg every 7 (seven) days., Disp: 3 mL, Rfl: 11 sotaloL (BETAPACE) 80 mg tablet, Take 80 mg by mouth daily., Disp: , Rfl: tamsulosin (Flomax) 0.4 mg 24 hr capsule, Take 1 capsule (0.4 mg total) by mouth daily., Disp: 90 capsule, Rfl: 3 triamterene-hydroCHLOROthiazide (DYAZIDE) 37.5-25 mg per capsule, Take 1 capsule by mouth 2 (two) times a day., Disp: 180 capsule, Rfl: 3 VITAMIN B COMPLEX ORAL, Take by mouth., Disp: , Rfl: ESS LINE OPERATOR documented in this encounter Plan of Treatment DateTypeDepartmentCare Team (Latest Contact Info)Cstwzhuwvch77/10/2026 12:45 PM CDTProcedure visit Department of Urology in [place], [place] [address] [place] [address] Michael King M.D. [facility] [place] [address] Discharge Disposition: Home or Self Care01/31/2026 1:15 PM CDTOffice Visit Department of Urology in [place], [place] [address] [place] [address] Amanda Espinosa M.D. [address] [place] [address] Discharge Disposition: Home or Self CareNameTypePriorityAssociated Diagnoses Order ScheduleReturn to provider in another specialtyOutpatient ReferralRoutine Expected: 09/26/2025, Expires: 12/27/2026Pediatric Physical Medicine and Rehabilitation - General consult (clinic)Outpatient ReferralRoutine Chronic Kidney Disease (CKD), Stage 3a Glomerular Filtration Rate (GFR) 45 To 59 (HCC) Diabetes Mellitus Type 2 With Diabetic Chronic Kidney Disease (HCC) Hypertensive Chronic Kidney Disease With Stage 1 Through Stage 4 Chronic Kidney Disease, Or Unspecified Chronic Kidney Disease Gout Hyperparathyroidism Renal Secondary (HCC) Research Coordinator (Current) Anticoagulant Treatment Venous Insufficiency Chronic Peripheral Incontinence Urinary Expected: 09/26/2025 (Approximate), Expires: 12/27/2026documented as of this encounter Visit Diagnoses Diagnosis Chronic Kidney Disease (CKD), Stage 3a Glomerular Filtration Rate (GFR) 45 To 59 (HCC)- Primary Diabetes Mellitus Type 2 With Diabetic Chronic Kidney Disease (HCC) Hypertensive Chronic Kidney Disease With Stage 1 Through Stage 4 Chronic Kidney Disease, Or Unspecified Chronic Kidney Disease Gout Hyperparathyroidism Renal Secondary (HCC) Research Coordinator (Current) Anticoagulant Treatment Venous Insufficiency Chronic Peripheral Incontinence Urinary documented in this encounter
--- OUTSIDE RECORDS SUMMARY | 2025-11-09 13:30 | XMS_ITS | Encounter Summary ---
Author Organization [facility] Address [address] [place] [address] Care Team Providers Care Biostatistics Manager Name Role Phone Unavailable Primary Care Provider Unavailabl e Reason for Referral * Outpatient (Routine) - AuthorizedSpecialtyDiagnoses / ProceduresReferred By ContactReferred To Contact Diagnoses Overactive Bladder Benign Prostatic Hyperplasia With Lower Urinary Tract Symptom Procedures URO Uroflow Michael King M.D. [address] [place] [phone] Phone: tel: fax: [facility] Referral IDStatusReasonStart DateExpiration DateVisits RequestedVisits [id number]/17/20253/ TH SCIENCES DEPARTMENT CHAIR * Outpatient (Routine) - AuthorizedSpecialtyDiagnoses / ProceduresReferred By ContactReferred To ContactUrology Michael King M.D. [address] [place] [phone] Phone: tel: fax: Amanda Espinosa M.D. [address] [place] [phone] Phone: tel: fax: Referral IDStatusReasonStart DateExpiration DateVisits RequestedVisits [id number]/17/20256/ TH SCIENCES DEPARTMENT CHAIR Reason for Visit * ReasonCommentsFollow-upUrinary frequency and urgency, OAB * Outpatient (Routine) - ClosedSpecialtyDiagnoses / ProceduresReferred By ContactReferred To ContactUrology Kyle Daniel Jr., D.O. [address] [place] [address] Phone: tel: fax: Michael King M.D. [address] [place] [address] Phone: tel: fax: Referral IDStatusReasonStart DateExpiration DateVisits RequestedVisits [id number]/3/20255/ Encounter Details DateTypeDepartmentCare Team (Latest Contact Info)Pgiauujaqag24/17/2025 1:30 PM CSTOffice Visit Department of Urology in [place], [place] [address] [place] [address] Michael Knig M.D. [address] [place] [phone] Overactive Bladder; Benign Prostatic Hyperplasia With Lower Urinary Tract Symptom Discharge Disposition: Home or Self Care Social History Tobacco UseTypesPacks/DayYears UsedDateSmoking Tobacco: NeverSmokeless [...] live09/05/2023Sex and Gender InformationValueDate RecordedSex Assigned at RquklFzlp34/13/2023 2:59 PM CDTLegal ZneJezu3212/27/2016 9:24 AM CSTGender XratuetuIdfy57/13/2023 2:59 PM CDTSexual VnzjtglgwjpQllspodm88/13/2023 2:59 PM CDTdocumented as of this encounter Patient Instructions * Patient Instructions* Michael King M.D. - 11/09/2025 1:30 PM HEALTH SCIENCES DEPARTMENT CHAIR Schedule Uroflow and office visit with Dr. Espinosa TH SCIENCES DEPARTMENT CHAIR documented in this encounter Plan of Treatment DateTypeDepartmentCare Team (Latest Contact Info)Ohtgwcffeoy49/10/2026 12:45 PM CDTProcedure visit Department of Urology in [address] [phone] Michael King M.D. [address] [place] [address] Discharge Disposition: Home or Self Care01/31/2026 1:15 PM CDTOffice Visit Department of Urology in [address] [address] Amanda Espinosa M.D. [address] [place] [address] Discharge Disposition: Home or Self CareNameTypePriorityAssociated Diagnoses Order ScheduleURO UroflowGU ProcedureRoutine Overactive Bladder Benign Prostatic Hyperplasia With Lower Urinary Tract Symptom Expected: 11/09/2025 (Approximate), Expires: 02/07/2027NameTypePriority Associated DiagnosesOrder ScheduleUrology office visit (clinic)Outpatient ReferralRoutineExpected: 11/09/2025 (Approximate), Expires: 02/07/2027documented as of this encounter Visit Diagnoses Diagnosis Overactive Bladder Benign Prostatic Hyperplasia With Lower Urinary Tract Symptom documented in this encounter
[2025-11-10] VITALS (47 sets, daily range): BP systolic 127–166; BP diastolic 62–90; PULSE 59–84; RESP 10–37; TEMP 35.9–36.8; O2SAT 89–97; BMI 40.6
--- OUTSIDE RECORDS SUMMARY | 2025-11-10 14:27 | XMS_ITS | Encounter Summary ---
Author Organization [facility] Address [address] [place] [address] Care Team Providers Care Narrow Gauge Brakeman Name Role Phone Unavailable Primary Care Provider Unavailabl e Encounter Details DateTypeDepartmentCare Team (Latest Contact Info)Hjzoarpftye79/01/2025Clinical Communication Department of Urology in [place], [place] [address] [place] [address] Michael King M.D. [address] [place] [address] Social History Tobacco UseTypesPacks/DayYears UsedDateSmoking Tobacco: NeverSmokeless [...] live09/05/2023Sex and Gender InformationValueDate RecordedSex Assigned at LjkxfZbcr94/13/2023 2:59 PM CDTLegal AqkNwje2612/27/2016 9:24 AM CSTGender XnoxgpimHnsi05/13/2023 2:59 PM CDTSexual IyoprlpgukpQdwdyaqt50/13/2023 2:59 PM CDTdocumented as of this encounter Plan of Treatment DateTypeDepartmentCare Team (Latest Contact Info)Tatzcwtegcs30/10/2026 12:45 PM CDTProcedure visit Department of Urology in [place] [address] [place] [address] Michael King M.D. [address] [place] [phone] Discharge Disposition: Home or Self Care01/31/2026 1:15 PM CDTOffice Visit Department of Urology in [address] [phone] Amanda Espinosa M.D. [address] [place] [phone] Discharge Disposition: Home or Self Caredocumented as of this encounter Visit Diagnoses Not on filedocumented in this encounter
--- OUTSIDE RECORDS SUMMARY | 2025-11-10 14:27 | XMS_ITS | Clinical Summary ---
Author Organization [facility] Address [facility] [place] [address] Care Team Providers Care Budget Accountant Name Role Phone Trung Tucker MD Primary Care Provider [phone] Allergies Active AllergyReactionsCriticalityNoted DateCommentsAdhesive TapeRashLow 07/16/2021 Foam tape used for pressure wrap after the pacemaker procedure MneubvezynXgivv66/21/2017 Cough Cough Pqtdposj65/21/2017 cough Medications MedicationSigDispense QuantityRefillsLast FilledStart DateEnd DateStatus rivaroxaban ANTICOAGULANT (XARELTO) 20 MG TABS tablet Take 1 tablet (20 mg) by mouth daily (with dinner)11/13/2017Active triamterene-hydrochlorothiazide (DYAZIDE) 37.5-25 MG per capsule Take 1-2 capsules by mouth daily 90 capsule Active aspirin 81 MG tablet Take by mouth daily 30 tablet 11/13/2017Active cloNIDine (CATAPRES) 0.2 MG tablet Take 2 tablets (0.4 mg) by mouth 2 times daily 180 tablet Active omega 3 1000 MG CAPS Take 1 g by mouth daily 90 capsule 11/13/2017Active ELIQUIS ANTICOAGULANT 5 MG tablet Take 5 mg by mouth 2 times daily08/10/2021ctive gabapentin (NEURONTIN) 300 MG capsule 600 mg05/17/2021ctive furosemide (LASIX) 20 MG tablet TAKE 1 TABLET BY MOUTH TWICE DAILY QLHANA4803/05/2021ctive omeprazole (PRILOSEC) [address] capsule TK 1 C PO D PRN1Active pravastatin (PRAVACHOL) 20 MG tablet TK 1 T PO HS09/19/2020Active sotalol (BETAPACE) 80 MG tablet Take 80 mg by mouth07/13/2021ctive tamsulosin (FLOMAX) 0.4 MG capsule Take 0.4 mg by mouth daily07/06/2021ctive irbesartan (AVAPRO) 150 MG tablet Take 150 mg by mouth daily07/03/2021ctive betamethasone dipropionate (DIPROSONE) 0.05 % external ointment Indications:Lymphedema of both lower extremitiesApply topically daily 45 g ctive oxyCODONE-acetaminophen (PERCOCET) 5-325 MG tablet TAKE 1 TO 2 TABLETS BY MOUTH THREE TIMES DAILY MHVOFM0709/18/2021ctive Dermatological Products, Misc. (EPICERAM) EMUL Indications:Lymphedema of both lower extremitiesExternally apply 1 Applicatorful topically daily 450 g ctive Active Problems ProblemNoted DateDiagnosed DateLymphedema of both lower kehbnnycbzl90/19/2021 Fimnjq4506/16/2021trial fibrillation with rapid ventricular gktgzbuy60/24/2021 Elevated brain natriuretic peptide (BNP) level06/16/2021KD (chronic kidney disease)06/16/2021hortness of wdhbhw7406/16/20219290Yrpdnxz54/24/2021History of pulmonary embolism - 2451x3511/13/2017History of blood clots ( PE in 2001, DVT 2014) on Xarelto since HTN, goal below 140/9011/13/2017Renal cyst, right 13.8 CT Liver cyst11/13/2017Achilles nlxsakowff91/07/2012 Osteoarthrosis involving lower leg12/31/2011 Overview (09/11/2021): Osteoarthrosis, unspecified whether generalized or localized, lower leg Immunizations ImmunizationAdministration DatesNext DueInfluenza (High Dose) Trivalent,PF (Fluzone)09/07/2017TDAP Vaccine (Adacel)04/06/2012 Family History Medical HistoryRelationCommentsDeep Vein ThrombosisBrotherMultiple-on Xarelto Family History NegativeMotherDeep Vein ThrombosisSisterMultiple-on Xarelto RelationStatusCommentsBrotherAliveFatherDeceased (Age 48)Maternal Grandfather DeceasedMaternal GrandmotherDeceasedMotherDeceasedPaternal GrandfatherDeceased Paternal GrandmotherDeceasedSisterAlive Social History Tobacco UseTypesPacks/DayYears UsedDateSmoking Tobacco: FormerCigarsSmokeless Tobacco: Never Tobacco Cessation:Counseling Given: Yes Alcohol UseStandard Drinks/WeekCommentsNo0 (1 standard drink = 0.6 oz pure alcohol)PHQ-2AnswerDate RecordedPHQ-2 Zudzq939Adolescent EducationAnswer Date RecordedGetting School Help NeededNot on file08/30/2023Sex and Gender InformationValueDate RecordedSex Assigned at BirthNot on fileLegal SexMale 09/27/2012 3:38 AM CSTGender IdentityNot on fileSexual OrientationNot on file Last Filed Vital Signs Vital SignReadingTime TakenCommentsBlood Iympkaxd478/9927511/14/2021 1:10 PM CANAL EQUIPMENT MECHANIC Ubypg938011/14/2021 1:10 PM THLNpibixbvkzh96.6 ??C (97.8 ??F)11/14/2021 1:10 PM CSTRespiratory Hvbf8309 10:02 AM CSTOxygen Pdzlqesria316%11/18/2017 12:52 PM CSTInhaled Oxygen Concentration--Eoevhi213.8 kg (253 lb)11/18/2017 12:52 PM CSTpt wosmfnfnHikhrb768.4 cm (5' 8.25)11/18/2017 12:52 PM CSTpt reportedBody Mass Index38.19101/19/2017 12:52 PM CANAL EQUIPMENT MECHANIC Plan of Treatment Not on file Insurance * Guarantor: Herson Forte TypeRelation to PatientDate of BirthPhone Billing AddressPersonal/FidpvrZbir[address] [place] [address] Care Teams Team MemberRelationshipSpecialtyStart DateEnd Date Trung Tucker MD PCP - GeneralFamily Cfhfyiwl07/21/17
--- OUTSIDE RECORDS SUMMARY | 2025-11-10 14:27 | XMS_ITS | Clinical Summary ---
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 [facility] HospitalFamily-[facility] Allergies Active AllergyReactionsCriticalityNoted QzceEkpxbkbsPxuwgoklou40/21/2017 Cough Medications MedicationSigDispense QuantityRefillsLast FilledStart DateEnd DateStatus LISINOPRIL-HCTZ (AKA PRINZIDE;ZESTORETIC) 20-25 MG tablet Take 1 tablet by mouth daily (every 24 hours).12/31/2011ctive traMADol (AKA ULTRAM) 50 MG tablet Take 50 mg by mouth every 6 hours as needed.12/31/2011ctive aspirin EC 81 MG enteric coated tablet Take 81 mg by mouth daily (every 24 hours).12/31/2011ctive furosemide (AKA LASIX) 20 MG tablet Take 20 mg by mouth daily (every 24 hours).12/31/2011ctive cloNIDine (AKA CATAPRES) 0.2 MG tablet Take 0.4 mg by mouth nightly.12/31/2011ctive LOSARTAN POTASSIUM OR 25 mg daily.Active rivaroxaban (XARELTO) 20 MG tablet Take 20 mg by mouth.11/13/2017Active multivitamin with minerals (THERA M PLUS) tablet Take 1 Tablet by mouth.11/13/2017Active triamterene-hydrochlorothiazide (DYAZIDE) 37.5-25 MG capsule Take 1-2 Capsules by mouth.11/13/2017Active Active Problems ProblemNoted DateDiagnosed DateOsteoarthrosis involving lower leg12/31/2011 Overview (07/16/2017): Osteoarthrosis, unspecified whether generalized or localized, lower leg Achilles usuvqjvvgi40/07/2012 Social History Tobacco UseTypesPacks/DayYears UsedDateSmoking Tobacco: FormerSmokeless Tobacco: NeverAlcohol UseStandard Drinks/WeekCommentsNo0 (1 standard drink = 0.6 oz pure alcohol)Sex and Gender InformationValueDate RecordedSex Assigned at BirthNot on fileLegal KkrKhtm1403/11/2015 4:04 AM CDTGender IdentityNot on fileSexual OrientationNot on file Last Filed Vital Signs Vital SignReadingTime TakenCommentsBlood Geklzjgz687/8609/07/2018 11:21 AM CDT Tfhdq034609/07/2018 11:21 AM CDTTemperature--Respiratory Rate--Oxygen Saturation-- Inhaled Oxygen Concentration--Cocpdj854.8 kg (284 lb)03/30/2014 10:59 AM CDT Afkzpp264.7 cm (5' 8)03/30/2014 10:59 AM CDTBody Mass Index43.18003/30/2014 10:59 AM CDT Plan of Treatment Health MaintenanceDue DateLast DoneCommentsHep C Screening (Preventive Services) 1950Medicare Annual Wellness Visit1950Zoster/Shingles Vaccine (1 of 2)1999Pneumococcal Vaccine 50+ Yrs (2 of 2 - PCV20 or PCV21)09/19/2021 09/19/2020DTaP/Tdap/Td Vaccine (2 - Tdap), 01/22/2006RSV Vaccine (1 - 1-dose 75+ series)4COVID-19 Vaccine (1 - 2024- season) 2025Influenza Vaccine (#1), 09/07/2017HepA VaccineAged OutNo longer eligible based on patient's age to complete this topicHepB Vaccine Aged OutNo longer eligible based on patient's age to complete this topicHib VaccineAged OutNo longer eligible based on patient's age to complete this topic IPV (Polio) VaccineAged OutNo longer eligible based on patient's age to complete this topicMCV4 VaccineAged OutNo longer eligible based on patient's age to complete this topicMeningococcal B VaccineAged OutNo longer eligible based on patient's age to complete this topic Insurance * Guarantor: Herson Forte TypeRelation to PatientDate of BirthPhone Billing AddressPersonal/BnbdfpTray1950 [address] [place] [address] * Guarantor: Herson Forte TypeRelation to PatientDate of BirthPhone Billing AddressPersonal/CyfycnLjfp1950 [address] [place] [address] Care Teams Team MemberRelationshipSpecialtyStart DateEnd Whitney Gil MD [address] [place] [address] [facility]12/06/11
--- OUTSIDE RECORDS SUMMARY | 2025-11-10 14:27 | XMS_ITS | Clinical Summary ---
Author Organization [facility] Address [address] [place] [address] Care Team Providers Care Habilitation Specialist Name Role Phone Unavailable Primary Care Provider Unavailabl e Source Comments Patient records contain information from all sites at [facility]. For routine questions regarding patient records, call [phone] during business hours, M-F 8:00 AM - 5:00 PM Central Time. Record requests for emergency care only can be directed to [phone] at any time.[facility] Allergies Active AllergyReactionsCriticalityNoted DateCommentsAdhesive Tape-SiliconesRash 07/16/2021 Foam tape used for pressure wrap after the pacemaker procedure ZjwbthyiebRyjlb45/21/2017 Cough Cough Cough Medications MedicationSigDispense QuantityRefillsLast FilledStart DateEnd DateStatus triamterene-hydroCHLOROthiazide (DYAZIDE) 37.5-25 mg per capsule Take 1 capsule by mouth 2 (two) times a day. 180 capsule Active biotin 300 mcg tablet Take 300 mcg by mouth daily.Active irbesartan (AVAPRO) 150 mg tablet Take 1 tablet (150 mg total) by mouth daily. 90 tablet ctive omeprazole (PriLOSEC) [address] capsule 04/19/2022ctive oxyCODONE-acetaminophen (PERCOCET) 5-325 mg per tablet 04/25/2022ctive pravastatin (PRAVACHOL) 20 mg tablet Take 20 mg by mouth daily.09/19/2020Active sotaloL (BETAPACE) 80 mg tablet Take 80 mg by mouth daily.03/02/2022ctive pregabalin (LYRICA) 100 mg capsule Take 100 mg by mouth 3 (three) times a day.06/26/2022ctive apixaban (ELIQUIS) 5 mg tablet Take 1 tablet (5 mg total) by mouth 2 (two) times a day. 180 tablet 3Active metFORMIN XR (Glucophage-XR) 750 mg 24 hr tablet Take 1 tablet (750 mg total) by mouth daily with morning meal. 90 tablet 301/538793/6Active apixaban (Eliquis) 5 mg tablet Take 1 tablet by mouth 2 (two) times a day.4Active ascorbic acid (ASCOR IV) Active VITAMIN B COMPLEX ORAL Take by mouth.Active empagliflozin (Jardiance) 10 mg tablet Take 1 tablet (10 mg total) by mouth daily before morning meal. 30 tablet 1106Active colchicine (Colcrys) 0.6 mg tablet Take 1 tablet (0.6 mg total) by mouth 2 (two) times a day. When having gout 30 tablet 304//6Active semaglutide (Ozempic) 0.25 mg or 0.5 mg (2 mg/3 mL) injection Indications:Chronic Kidney Disease (CKD), Stage 3a Glomerular Filtration Rate (GFR) 45 To 59 (HCC),Diabetes Mellitus Type 2 With Diabetic Chronic Kidney Disease (HCC),Hypertensive Chronic Kidney Disease With Stage 1 Through Stage 4 Chronic Kidney Disease, Or Unspecified Chronic Kidney Disease,Cyst Of Kidney Acquired,Atrial Fibrillation Unspecified (HCC),Other Pulmonary Embolism Without Acute Cor Pulmonale (HCC)Inject 0.25 mg under the skin every 7 (seven) days for 28 days, THEN inject 0.5 mg every 7 (seven) days. 3 mL 5Active allopurinoL (Zyloprim) 300 mg tablet Take 1 tablet (300 mg total) by mouth daily. 90 tablet 6Active sulfamethoxazole-trimethoprim (Bactrim DS) 800-160 mg per tablet Take 1 tablet by mouth 2 (two) times a day.5Active tamsulosin (Flomax) 0.4 mg 24 hr capsule Indications:Overactive Bladder,Benign Prostatic Hyperplasia With Lower Urinary Tract SymptomTake 1 capsule (0.4 mg total) by mouth 2 (two) times a day. 180 capsule 5Active fesoterodine (Toviaz) 4 mg 24 hr tablet Take 1 tablet (4 mg total) by mouth daily. 90 tablet Discontinued(Therapy Ineffective) tamsulosin (Flomax) 0.4 mg 24 hr capsule Indications:Overactive Bladder,Benign Prostatic Hyperplasia With Lower Urinary Tract SymptomTake 1 capsule (0.4 mg total) by mouth daily. 90 capsule Discontinued(Reorder) Active Problems ProblemNoted DateDiagnosed DateIncontinence Mwdetjk7709/26/2025Hypokalemia 02/24/20244459Tvcydgdnrx51/23/2024Venous Insufficiency Chronic Rkfecpztgr75/18/2023 Rash2023ain Knee Right2023ain Arm Right2023Other Pruritus 2023Morbid Vwinwkz6609/10/2023Long Term (Current) Anticoagulant Treatment 2023Gout2023astroesophageal Reflux Disease NOS2023 Qaluywwwmebn19/18/2023ervical Disc Disorder With Radiculopathy Unspecified Cervical Dvgqha8109/10/2023bdominal Aortic Aneurysm Without Rupture Unspecified 2023Neuropathy Cpjzcqklgf89/18/2023Overactive Hnzjtvn9909/10/2023 Atherosclerosis Arteriosclerosis Obliterans Lower Extremity With Claudication 06/02/2023iabetes Mellitus Type Hyperparathyroidism Renal Secondary 07/30/20221818Dzjoxqnsgs21/19/2558Yipmtkj44/24/2021hortness Of Irszbd3606/16/2021 Other Specified Abnormal Findings Of Blood Uihwaxmni05/24/2021iabetes Mellitus Type 2 With Diabetic Chronic Kidney Zbanoyj91/24/7022Wyxmjj27/24/2021Anasarca 03/07/2020Chronic Kidney Disease (CKD), Stage 3a Glomerular Filtration Rate (GFR) 45 To 59012/22/2019Osteodystrophy Renal12/22/2019Hypertensive Chronic Kidney Disease With Stage 1 Through Stage 4 Chronic Kidney Disease, Or Unspecif ied Chronic Kidney Qsdpnnr7212/22/2019Atrial Fibrillation Axesltboclh22/29/2020 Other Specified Diseases Of Liver12/21/2017Tendinitis Achilles Left12/31/2011 Other Pulmonary Embolism Without Acute Cor Slelowajs72/10/2010Cyst Of Kidney Vkvjoroo98/10/2010 Resolved Problems ProblemNoted DateDiagnosed DateResolved DateFailure Heart/ Gyfamzjsmnkcgv09/18/202304/ Encounters DateTypeDepartmentCare LpqfMnqulqwrerm78/17/2025 1:30 PM CSTOffice Visit Department of Urology in [place], [place] [address] [place] [address] Michael [place] M.D. Overactive Bladder; Benign Prostatic Hyperplasia With Lower Urinary Tract Symptom Discharge Disposition: Home or Self Care10/24/2025linical Communication Department of Urology in [place] [address] [place] [address] Michael [place] M.D. 09/26/2025 1:30 PM CSTExternal Outreach Division of Nephrology and Hypertension in [place], [place] [address] [place] [address] Kyle Daniel Jr., D.O. Chronic Kidney Disease (CKD), Stage 3a Glomerular Filtration Rate (GFR) 45 To 59 (HCC) (Primary Dx); Diabetes Mellitus Type 2 With Diabetic Chronic Kidney Disease (HCC); Hypertensive Chronic Kidney Disease With Stage 1 Through Stage 4 Chronic Kidney Disease, Or Unspecified Chronic Kidney Disease; Gout; Hyperparathyroidism Renal Secondary (HCC); [facility] (Current) Anticoagulant Treatment; Venous Insufficiency Chronic Peripheral; Incontinence Rpbeykt3609/13/2025Orders Only Division of Nephrology and Hypertension in [place], [place] [address] [place] [address] Cora, Ordering ProviderCiaran 09/13/2025Orders Only Division of Nephrology and Hypertension in [place], [place] [address] [place] [address] Cora, Ordering ProviderCiaran 09/13/2025Orders Only Division of Nephrology and Hypertension in [place], [place] [address] [place] [address] Cora, Ordering ProviderCiaran from Last 3 Months Immunizations ImmunizationAdministration DatesNext DueInfluenza high dose QV(65 years or older) (PF)11/14/20202017JYA6640/27/5586VUTE6598/26/2021Td (Adult), adsorbed 01/22/2006Td, (Adult) Wfxtatzujbo62/01/4603Pqkf25/14/2012influenza trivalent high dose (HD)(PF)09/07/2017influenza vaccine quad (FLUZONE/FLUARIX) (6 months and older)(PF)09/07/2017 Social History Tobacco UseTypesPacks/DayYears UsedDateSmoking Tobacco: NeverSmokeless Tobacco: Never Tobacco Cessation:Counseling Given: Not Answered Hunger Vital SignAnswerDate RecordedWithin the past 12 months, you worried that your food would run out before you got the money to buymore.Never true09/05/2023 Within the past 12 months, the food you bought just didn't last and you didn't have money to get more.Never true09/05/2023RAPARE - TransportationAnswerDate RecordedIn the past 12 months, has lack of transportation kept you from medical appointments or from getting medications?No09/05/2023In the past 12 months, has lack of transportation kept you from meetings, work, or from getting things needed for daily living?No09/05/2023Housing StabilityAnswerDate RecordedWhat is your living situation today?I have a steady place to live09/05/2023Sex and Gender InformationValueDate RecordedSex Assigned at MmzuhSprf65/13/2023 2:59 PM CDTLegal GlpGckp9312/27/2016 9:24 AM CSTGender UzyctqoxBtsg93/13/2023 2:59 PM CDT Sexual QqixirasetpPkzqulhg15/13/2023 2:59 PM CDT Last Filed Vital Signs Vital SignReadingTime TakenCommentsBlood Lvwejufs760/8211 1:41 PM 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 [address] [place] [phone] Discharge Disposition: Home or Self Care01/31/2026 1:15 PM CDTOffice Visit Department of Urology in [place] [address] [place] [phone] Amanda Espinosa M.D. [address] [place] [phone] Discharge Disposition: Home or Self CareHealth MaintenanceDue DateLast Done CommentsDiabetic Eye Exam1949Diabetic Office Visit with Foot Exam 1949Hepatitis C Qircgrgjg1949Office Visit for Blood Pressure Check / Re-check1949Zoster Vaccines (1 of 2)1999Hepatitis B Vaccines (1 of 3 - Risk 3-dose series)2009DTaP,Tdap,and Td Vaccines (2 - Td or Tdap) /, 01/22/2006, 01/22/2006RSV vaccine - (32-36 weeks) or 50+ years (1 - 1-dose 75+ series)4Depression Screening (Annual PHQ-2)11/24/2024Fall Risk Screen (Annual)5COVID-19 Vaccine (1 - 2024- season)2025Influenza Vaccine (#1)511/04/2023, 11/14/2020, 09/07/2017, Additional history existsHemoglobin A1C507/, 03/16/2025, 5Creatinine Level (Kidney Function Test)06/09/2026 06/09/2025, 03/16/2025, 12/16/2024, Additional history existsPotassium Level /, 03/16/2025, 12/16/2024, Additional history existsSodium Level/, 03/16/2025, 12/16/2024, Additional history exists Urine Lnusdmb28, 03/16/2025, 03/02/2020Abdominal Aortic Aneurysm (AAA) OkyqbhFmkrxssnjljz98/21/2010Pneumococcal vaccine (50+ years) Rwjgfxgkk24/26/2021, 09/19/2020IPV VaccinesAged OutNo longer eligible based on patient's age to complete this topic Procedures Procedure NamePriorityDate/TimeAssociated DiagnosisCommentsIRON AND TOT IRON- BINDING CAPACITY, S/OPxzxldc34/21/2025 1:55 PM CDT PARATHYROID HORMONE (PTH), PYeadiog63/21/2025 1:55 PM CDT FERRITIN, ZClickyo93/21/2025 1:55 PM CDT C-REACTIVE PROTEIN (CRP), S/BPepasqv69/21/2025 1:55 PM CDT PHOSPHORUS (INORGANIC), ZNrhrvfk60/21/2025 1:55 PM CDT URIC ACID, S/HAgehohb40/21/2025 1:55 PM CDT EXTP URINALYSIS WITH MICROSCOPY, ZHXUMIrmdnvo38/21/2025 1:55 PM CDT CBC WITH DIFFERENTIAL, CElyksdq71/21/2025 1:55 PM CDT ALBUMIN, RANDOM, PSxrwebv94/17/2025 11:52 AM CDT HEMOGLOBIN A1C, ZHlpjrbb91/17/2025 11:49 AM CDT RENAL FUNCTION PANEL, VNjgzcol07/17/2025 11:[address] ABDOMEN PELVIS WITH IV CAAJCCESDpxruae60/21/2010 1:54 PM CDT from Last 3 Months or Most Recently Relevant to Health Maintenance Results * (ABNORMAL) EXT Urinalysis with Microscopy, Urine (09/13/2025 1:55 PM CDT) ComponentValueRef RangeTest MethodAnalysis TimePerformed AtPathologist SignatureEXT ColorYellowYelEssentia Health LABORATORYEXT Appearance, UrineClearClearSLEEPY EYE MEDICAL [facility] LABORATORYEXT Glucose Qualitative, Urine2+ (A)[facility] LABORATORYEXT Bilirubin, UrineNegativeNegative [facility] Ketones, POCT, UrineNegativeNegative [facility] Specific [place], POCT, Urine1.0251.000 - 1.030[facility]EXT Blood, UrineNegprovidence kodiak island medical centerNegVencor Hospital LABORATORYEXT pH, Random, Urine7.05.0 - 8.5[facility] Protein, Urine3+(A)[facility] LABORATORYEXT Urobilinogen, Urine0.20.2 - 1.0[facility] Nitrite, UrineNegativeNegVencor Hospital LABORATORYEXT Leukocyte Esterase, UrineNegativeNegVencor Hospital LABORATORYEXT Red Blood Cells, U0-20 - 2NMAYO [facility] LABORATORYEXT White Blood Cells, U0-20 - 5[facility]OR[facility]EXT Squamous CellsKaiser Foundation Hospital LABORATORYEXT BacteriaCoalinga Regional Medical Center LABORATORYSpecimen (Source) Anatomical Location / LateralityCollection Method / VolumeCollection Time Received Time09/13/2025 1:55 PM CDT Narrative [facility] - 09/13/2025 3:24 PM CDT Source result document attached to Order Number [id number] (CBC WITH DIFFERENTIAL, B) dated 09/13/2025. External results verified in Extract by Mary Moore on 09/13/2025 at 03:21 PM. Authorizing ProviderResult TypeResult StatusOrdering Provider Cora WagonerLAB URINE ORDERABLESFinal ResultPerforming OrganizationAddressCity/State/ZIP Code Phone Number [facility] [address] [place] [address], [facility] [phone] * Iron and Total Iron-Binding Capacity (09/13/2025 1:55 PM CDT)ComponentValueRef RangeTest MethodAnalysis TimePerformed AtPathologist SignatureEXT Gpux9460 - 181 ug/dLSLEEPY EYE MEDICAL CENTER LABORATORYEXT Total Iron Binding Lctxqqjv364236 - 462 ug/dLSLEEPY EYE MEDICAL CENTER LABORATORYSpecimen (Source)Anatomical Location / LateralityCollection Method / VolumeCollection TimeReceived Time09/13/2025 1:55 PM CDT Narrative [facility] - 09/14/2025 7:36 AM CDT External results verified in Extract by Mary Moore on 09/14/2025 at 07:35 AM. Authorizing ProviderResult TypeResult StatusOrdering Provider Cora WagonerLAB BLOOD ADD-ONFinal ResultPerforming OrganizationAddressCity/State/ZIP CodePhone Number [facility] [address] [place] [id number], [facility] [phone] * CBC with Differential, Blood (09/13/2025 1:55 PM CDT)ComponentValueRef Range Test MethodAnalysis TimePerformed AtPathologist SignatureEXT Leukocytes6.86 4.50 - 11.00 K/uLSLEEPY EYE MEDICAL CENTER LABORATORYEXT RBC5.154.30 - 5.90 m/uL [facility]ORATORYEXT Gmnujgrijn97.813.5 - 17.5 gm/dLSLEEPY EYE MEDICAL CENTER LABORATORYEXT Qfaesmslva34.437.0 - 53.0 %[facility] LABORATORYEXT AWZ9945 - 100 fLSLEEPY EYE MEDICAL CENTER LABORATORYEXT Platelet Count 823587 - 440 K/[facility] LABORATORYSpecimen (Source)Anatomical Location / LateralityCollection Method / VolumeCollection TimeReceived Time 09/13/2025 1:55 PM CDT Narrative [facility] - 09/13/2025 3:24 PM CDT External results verified in Extract by Mary Moore on 09/13/2025 at 03:21 PM. Authorizing ProviderResult TypeResult StatusOrdering Provider Cora WagonerLAB BLOOD ADD-ONFinal ResultPerforming OrganizationAddressCity/State/ZIP CodePhone Number [facility] [address] [phone] * (ABNORMAL) CRP (C-Reactive Protein) (09/13/2025 1:55 PM CDT)ComponentValueRef RangeTest MethodAnalysis TimePerformed AtPathologist SignatureEXT C-Reactive Protein Quantative1.6(H)0.5 - 1.0 mg/dLSLEEPY EYE MEDICAL CENTER LABORATORYSpecimen (Source)Anatomical Location / LateralityCollection Method / VolumeCollection TimeReceived Time09/13/2025 1:55 PM CDT Narrative [facility] BioTherapeuticsRAWLINS [facility] - 09/14/2025 7:04 AM CDT Source result document attached to Order Number [id number] (URIC ACID, S/P) dated 09/13/2025. External results verified in Extract by Mary Moore on 09/14/2025 at 07:02 AM. Authorizing ProviderResult TypeResult StatusOrdering Provider External CiaranLAB BLOOD ADD-ONFinal ResultPerforming OrganizationAddressCity/State/ZIP CodePhone Number [employer] RST [facility] NA [facility] [address] [place] [address], [facility] [phone] * Uric Acid (09/13/2025 1:55 PM CDT)ComponentValueRef RangeTest MethodAnalysis TimePerformed AtPathologist SignatureEXT Uric Acid, S7.22.2 - 8.4 mg/dL [facility] LABORATORYSpecimen (Source)Anatomical Location / LateralityCollection Method / VolumeCollection TimeReceived Time09/13/2025 1:55 PM CDT Narrative [facility] - 09/14/2025 7:04 AM CDT External results verified in Extract by Mary Moore on 09/14/2025 at 07:02 AM. Authorizing ProviderResult TypeResult StatusOrdering Provider Cora WagonerLAB BLOOD ADD-ONFinal ResultPerforming OrganizationAddressCity/State/ZIP CodePhone [facility]ORATORY [address] [place] [phone] [phone] * Phosphorus Inorganic (09/13/2025 1:55 PM CDT)ComponentValueRef RangeTest MethodAnalysis TimePerformed AtPathologist SignatureEXT Phosphorus (Inorganic), S3.42.5 - 4.5 mg/dLSLEEPY EYE MEDICAL CENTER LABORATORYSpecimen (Source)Anatomical Location / LateralityCollection Method / VolumeCollection TimeReceived Time09/13/2025 1:55 PM CDT Narrative [facility] SystemsT [facility] - 09/14/2025 7:04 AM CDT Source result document attached to Order Number [id number] (URIC ACID, S/P) dated 09/13/2025. External results verified in Extract by Mary Moore on 09/14/2025 at 07:02 AM. Authorizing ProviderResult TypeResult StatusOrdering Provider Cora WagonerLAB BLOOD ADD-ONFinal ResultPerforming OrganizationAddressty/State/ZIP CodePhone Number Wutsat SystemsT [facility] [address] [place], [place] [address] [phone] * Parathyroid Hormone (PTH) (09/13/2025 1:55 PM CDT)ComponentValueRef RangeTest MethodAnalysis TimePerformed AtPathologist SignatureParathyroid Hormone (PTH) 29.814.2 - 75.2 pg/mLNMAYO CLINIC HOSPITAL LABORATORYSpecimen (Source)Anatomical Location / LateralityCollection Method / VolumeCollection TimeReceived Time 09/13/2025 1:55 PM CDT Narrative [employer] RST [facility] - 09/14/2025 7:04 AM CDT Source result document attached to Order Number [id number] (URIC ACID, S/P) dated 09/13/2025. External results verified in Extract by Mary Moore on 09/14/2025 at 07:02 AM. Authorizing ProviderResult TypeResult StatusOrdering Provider External CiaranLAB BLOOD ADD-ONFinal ResultPerforming OrganizationAddressCity/State/ZIP CodePhone Number Wuts[facility] SystemsRICHMOND [facility] [address] [place], [place] [address] [phone] * Ferritin (09/13/2025 1:55 PM CDT)ComponentValueRef RangeTest MethodAnalysis TimePerformed AtPathologist SignatureEXT Ferritin, S27.017.9 - 464.0 ng/mL [facility] LABORATORYSpecimen (Source)Anatomical Location / LateralityCollection Method / VolumeCollection TimeReceived Time09/13/2025 1:55 PM CDT Narrative [facility] - 09/14/2025 7:04 AM CDT Source result document attached to Order Number [id number] (URIC ACID, S/P) dated 09/13/2025. External results verified in Extract by Mary Moore on 09/14/2025 at 07:02 AM. Authorizing ProviderResult TypeResult StatusOrdering Provider External CiaranLAB BLOOD ADD-ONFinal ResultPerforming OrganizationAddressCity/State/ZIP CodePhone Number Wutsat SystemsRICHMOND [facility] [address] [place], [place] [address] [phone] * (ABNORMAL) Albumin, Random, Urine (06/09/2025 11:52 AM CDT)ComponentValueRef RangeTest MethodAnalysis TimePerformed AtPathologist SignatureEXT Microalbumin-Random, U80mg/dLSLEEPY EYE MEDICAL CENTER LABORATORYEXT Albumin/Creatinine Ratio1,160(H)0 - 30S[facility] LABORATORYEXT Creatinine, Urine68.8mg/dLSLEEPY EYE MEDICAL CENTER LABORATORYSpecimen (Source) Anatomical Location / LateralityCollection Method / VolumeCollection Time Received Time06/09/2025 11:52 AM CDT Narrative JOSE LOTT [facility] - 06/10/2025 7:30 AM CDT Source result document attached to Order Number [id number] ([id number]) dated 06/09/2025. External results verified in Extract by Mary Moore on 06/10/2025 at 07:18 AM. Authorizing ProviderResult TypeResult StatusOrdering Provider External M.DAnnaLAB URINE ORDERABLESFinal ResultPerforming OrganizationAddressCity/State/ZIP Code Phone Number [facility] [address] [phone] * (ABNORMAL) Renal Function Panel (06/09/2025 11:49 AM CDT)ComponentValueRef RangeTest MethodAnalysis TimePerformed AtPathologist SignatureEXT Uihsqb637701 - 149 mmol/[facility] LABORATORYEXT Potassium4.13.6 - 5.1 mmol/L [facility]ORATORYEXT Wjycblsy29243 - 114 mmol/[facility] LABORATORYEXT LD76207 - 32 mmol/[facility] LABORATORYEXT Anion Gap87 - 15 mEq/[facility] LABORATORYEXT BUN (Blood Urea Nitrogen)53(H)7 - 30 mg/dLSLEEPY EYE MEDICAL C[facility] LABORATORYEXT Creatinine1.50.5 - 1.5 mg/dLSLEEPY EYE MEDICAL CENTER LABORATORYEXT Estimated GFR (eGFR)48ml/min [facility]AT[facility]EXT Calcium, Total9.18.4 - 10.6 mg/dLSLEEPY EYE MEDICAL CENTER LABORATORYEXT Jtulxur746(H)60 - 115 mg/dLSLEEPY EYE MEDICAL CENTER LABORATORYEXT Albumin3.73.3 - 5.0 g/dLSLEEPY EYE MEDICAL [facility]ENTER LABORATORYEXT Phosphorus (Inorganic), S3.32.5 - 4.5 mg/dLSLEEPY EYE MEDICAL [facility] Specimen (Source)Anatomical Location / LateralityCollection Method / Volume Collection TimeReceived Time06/09/2025 11:49 AM CDT Narrative [facility] - 06/10/2025 7:30 AM CDT External results verified in Extract by Mary Moore on 06/10/2025 at 07:18 AM. Authorizing ProviderResult TypeResult StatusOrdering Provider External CiaranLAB BLOOD ADD-ONFinal ResultPerforming OrganizationAddressCity/State/ZIP CodePhone Number [facility] [address] [place] [address], [facility] [phone] * (ABNORMAL) Hemoglobin A1c (06/09/2025 11:49 AM CDT)ComponentValueRef RangeTest MethodAnalysis TimePerformed AtPathologist SignatureEXT Hemoglobin A1c, B9.1 (H)0 - 5.6 %[facility] LABORATORYSpecimen (Source)Anatomical Location / LateralityCollection Method / VolumeCollection TimeReceived Time06/09/2025 11:49 AM CDT Narrative [employer] [facility] - 06/09/2025 1:25 PM CDT Source result document attached to Order Number [id number] ([id number]) dated 06/09/2025. External results verified in Extract by Mary Moore on 06/09/2025 at 01:23 PM. Authorizing ProviderResult TypeResult StatusOrdering Provider External CiaranLAB BLOOD ADD-ONFinal ResultPerforming OrganizationAddressCity/State/ZIP CodePhone Number [employer] RST [facility] [address] [place], [place] [address] [phone] * CT Abdomen Pelvis with IV Contrast (03/14/2010 1:54 PM CDT)Anatomical Region LateralityModalityAbdomen, PelvisN/AComputed TomographySpecimen (Source) Anatomical Location / LateralityCollection Method / VolumeCollection Time Received Time03/14/2010 1:54 PM CDT Impressions 03/14/2010 3:49 PM CDT No findings to explain the patient's symptoms. FINDINGS: Bilateral renal cysts, the largest of which is located within the upper pole of the rightkidney measuring approximately 14 cm in greatest diameter. Scattered bone islands in the spine. Abdomen and pelvis are otherwise negative. ?? [id number] Electronically signed by: ?? Karina Smiley MD [phone] ([id number]) 14-Mar-2010 15:49 ?Linh Sellers M.D. ??8- [id number] 14-Mar-2010 15:49 Narrative 03/14/2010 3:49 PM CDT 14-Mar-2010 13:54:00 Exam: CT ABDOMEN w & [...] [id number] Electronically signed by: Karina Smiley MD [phone] ([id number]) 14-Mar-2010 15:49 Linh Sellers M.D.8-9000 14-Mar-2010 15:49 Authorizing ProviderResult TypeResult StatusVinmylene Novoa Jr., M.D.[facility] PROCEDURESFinal Result from Last 3 Months or Most Recently Relevant to Health Maintenance Insurance * Guarantor: Kasey CurrieAccount TypeRelation to PatientDate of BirthPhone Billing AddressPersonal/LnqojpWwnb1949 [address] , [address] [place] [address]
--- OUTSIDE RECORDS SUMMARY | 2025-11-10 14:27 | XMS_ITS | Clinical Summary ---
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 Name Role Phone Trung Tucker MD Primary Care Provider [phone] Allergies Active AllergyReactionsCriticalityNoted DateCommentsAdhesive Tape-SiliconesRash 07/16/2021 Foam tape used for pressure wrap after the pacemaker procedure XfzuybksgjIkxty45/04/2695FjsbjlfkpaGfqzx45/21/2017 Cough Medications MedicationSigDispense QuantityRefillsLast FilledStart DateEnd DateStatus clonidine HCl (CLONIDINE ORAL) Take 0.2 mg by mouth 2 times daily.Active irbesartan (AVAPRO) 150 mg tablet Take 150 mg by mouth once daily.Active oxyCODONE-acetaminophen (PERCOCET) 5-325 mg per tablet Indications:Status post placement of cardiac pacemakerTake 1 Tablet by mouth every 6 hours if needed for Moderate to Severe pain. Max acetaminophen dose: 4000mg in 24 hrs. 8 Tablet 07/13/2021 2:50 PM CDT07/13/2021ctive allopurinoL (ZYLOPRIM) 100 mg tablet 10/02/2021ctive triamterene-hydrochlorothiazide, 37.5-25 mg, (MAXZIDE-25) 37.5-25 mg tablet Indications:HTN (hypertension)Take 1 Tablet by mouth 2 times daily. 90 Tablet ctive omeprazole (PRILOSEC) 20 mg Delayed-Release capsule TAKE 1 CAPSULE BY MOUTH DAILY [id number] colchicine 0.6 mg tablet TAKE ONE TABLET BY MOUTH TWICE A DAY WHEN HAVING GOUT5Active Jardiance 10 mg tablet TAKE ONE TABLET BY MOUTH EVERY DAY BEFORE MORNING MEALActive metFORMIN (GLUCOPHAGE XR) 750 mg Extended-Release tablet Take 750 mg by mouth once daily.Active pregabalin (LYRICA) 100 mg capsule Take 100 mg by mouth three times daily.Active Ozempic 0.25 mg or 0.5 mg (2 mg/3 mL) subcutaneous pen INJECT 0.25 MG UNDER THE SKIN EVERY 7 DAYS FOR 28 DAYS, THEN 0.5 MG EVERY 7 DAYS.Active tamsulosin 0.4 mg capsule Take 0.4 mg by mouth.Active fesoterodine (TOVIAZ) 4 mg Tb24 Extended-Release tablet Take 4 mg by mouth.5Active apixaban (ELIQUIS) 5 mg tablet Indications:prevent thromboembolism in chronic atrial fibrillationTake 1 Tablet (5 mg) by mouth two times daily. 180 Tablet 5Active sotaloL (BETAPACE) 80 mg tablet Indications:Paroxysmal atrial fibrillation (HC)Take 1 Tablet (80 mg) by mouth every 24 hours. 90 Tablet 5Active Active Problems ProblemNoted DateDiagnosed DateShortness of exhagh5506/16/20217310Skekic53/24/2021KD (chronic kidney disease)06/16/20211805Bfqynsf45/24/2021trial fibrillation with rapid ventricular /24/2021levated brain natriuretic peptide (BNP) level06/16/2021trial fibrillation Resolved Problems ProblemNoted DateDiagnosed DateResolved DateAKI (acute kidney injury)06/16/2021 06/16/2021 Encounters DateTypeDepartmentCare NqyiInfuystknqt15/18/2025Telephone [facility] [address] [facility] [address] [place] [address] Baldo Cristina MD Questionsfrom Last 3 Months Family History Medical HistoryRelationNameCommentsNo Known ProblemsMotherRelationNameStatus CommentsMother Social History Tobacco UseTypesPacks/DayYears UsedDateSmoking Tobacco: UfghvtPibqwildnu9Glst: 08/24/2019Smokeless Tobacco: NeverAlcohol UseStandard Drinks/WeekCommentsNot Currently0 (1 standard drink = 0.6 oz pure alcohol)PHQ-2AnswerDate RecordedPHQ-2 TOTAL [id number] Resource StrainAnswerDate RecordedDifficulty of Paying Living ExpensesNot on file2Difficulty of Paying Living Expenses Not on file2Sex and Gender InformationValueDate RecordedSex Assigned at BirthNot on fileLegal WzaZeau2512/07/2012 8:16 AM CSTGender IdentityNot on file Sexual OrientationNot on file Last Filed Vital Signs Vital SignReadingTime TakenCommentsBlood Exrxgcey541/80008/10/2025 1:31 PM CDT Uzwoy6246/17/2025 1:31 PM OLTRvfhumotxlf41.2 ??C (97.2 ??F)07/13/2021 3:30 PM CDTRespiratory Sxsc447907/13/2021 3:30 PM CDTOxygen Jglirdjhld51%08/10/2025 1:31 PM CDTInhaled Oxygen Concentration--Gcyxnk301.7 kg (297 lb)08/10/2025 1:31 PM VEZGelfjy113.8 cm (5' 10)08/10/2025 1:31 PM CDTBody Mass Index42.62008/10/2025 1:31 PM CDT Plan of Treatment DateTypeDepartmentCare Team (Latest Contact Info)Rqfaovsgddg78/16/2026Cardiac Device Check [facility] [phone] 08/09/2026 1:00 PM CDTCardiac Device Check [facility] [address] [place] [phone] 08/09/2026 1:30 PM CDTOffice Visit [facility] [address] [place] [phone] Baldo Cristina MD [address] [place], [place] [id number] Health MaintenanceDue DateLast DoneCommentsTetanus wffkexd63/18/1960Hepatitis C screening for age 18-7909/10/1967Pneumococcal series for age 50+ (1 of 2 - PCV) 1968Zoster (shingles) series for age 50+ (1 of 2)1999Medicare Wellness for age 65+2014Depression screening for age 12+06/20/2022 06/20/2021, 06/18/2021, 06/16/2021, Additional history existsRSV vaccine for adults or (1 - 1-dose 75+ series)2024OVID-19 vaccine series ( - 2024- season)2025Influenza Vaccine (#1)5BMI (ht and wt on same day) for age 18+/, 08/11/2024, 01/22/2023, Additional history existsHepatitis B series for 19+Aged OutNo longer eligible based on patient's age to complete this topic Insurance Advance Directives * Full Code (Latest Code Status on File) Date ActivatedDate InactivatedComments07/13/2021 10:01 AM07/13/2021 8:44 PM QuestionAnswerCommentsCode Status Discussion:* Per Advance Care Plan * Full Code Date ActivatedDate InactivatedComments06/16/2021 3:29 PM06/17/2021 3:49 PMQuestion AnswerCommentsCode Status Discussion:* Discussed * Full Code Date ActivatedDate KdxylvpsghgRrxxhkxc91/4/2019 1:51 PM09/28/2019 4:16 PM * Full Code Date ActivatedDate InactivatedComments03/03/2019 11:17 AM03/03/2019 6:10 PM * Full Code Date ActivatedDate InactivatedComments03/03/2019 11:17 AM03/03/2019 11:17 AM Care Teams Team MemberRelationshipSpecialtyStart DateEnd Date Trung Tucker MD [address] [place] [phone] [facility]12/22/18
--- NOTE | 2025-11-10 14:40 | ED.GENADULT ---
HPI - General Adult General Date Seen: 11/10/25 <Christina Castellano MD - Last Filed: 11/10/25 16:52> Chief complaint: Shortness of Breath/Dyspnea <Christina Castellano MD - Last Filed: 11/10/25 16:52> Stated complaint: ill <Christina Castellano MD - Last Filed: 11/10/25 16:52> Time Seen by Provider: 11/10/25 14:40 <Christina Castellano MD - Last Filed: 11/10/25 16:52> Source: patient, RN notes reviewed and old records reviewed <Christina Castellano MD - Last Filed: 11/10/25 16:52> Mode of arrival: ambulatory <Christina Castellano MD - Last Filed: 11/10/25 16:52> Limitations: no limitations <Christina Castellano MD - Last Filed: 11/10/25 16:52> History of Present Illness HPI narrative: Patient is very pleasant 75-year-old male with history of chronic anticoagulation secondary to DVT, venous insufficiency, hypertension, chronic kidney disease, cardiomyopathy, who comes to the [facility] emergency room after experiencing chest tightness, dizziness, shortness of breath and weakness while walking around at a store. EMS notes that he was hypoxic in the upper 80s, improved with oxygen. Patient did received 324 mg of aspirin. His symptoms have since resolved upon his arrival here. He denies any recent fever cough cold congestion abdominal pain. He does endorse nausea with his symptoms earlier today. Denies loss of bowel or bladder control. Denies dysuria hematuria. He does wear compression braces on his lower extremities and notes that he has not seen an excessive amount of swelling. He is adamant that he is making his Eliquis as prescribed. <Christina Castellano MD - Last Filed: 11/10/25 16:52> Related Data Home medications: Home Medications ?Medication ?Instructions ?Recorded ?Confirmed ascorbic acid (vitamin C) 500 mg mg PO BID 06/26/22 11/04/25 capsule biotin 2,500 mcg capsule 1,000 mcg PO QDAY 04/09/23 11/10/25 fesoterodine 4 mg tablet,extended 4 mg PO QDAY 05/18/24 11/10/25 release 24 hr semaglutide 0.25 mg or 0.5 mg (2 0.25 mg subcut QWEEK 06/13/25 11/10/25 mg/3 mL) subcutaneous pen injector (Ozempic) coenzyme Q10 100 mg capsule 100 mg PO QDAY 08/01/25 11/10/25 (CoQ-10) tamsulosin 0.4 mg capsule 0.4 mg PO DAILY 10/24/25 11/10/25 Previous Rx's ?Medication ?Instructions ?Recorded blood sugar diagnostic (Contour #100 ea 07/05/25 Test Strips) lancets 28 gauge #100 ea 07/05/25 oxycodone-acetaminophen 5 mg-325 1 - 2 tab PO TID PRN pain #30 tabs 09/12/25 mg tablet Walker- 4 Wheels #1 ea 09/15/25 allopurinol 100 mg tablet 100 mg PO DAILY #90 tabs 09/15/25 apixaban 5 mg tablet (Eliquis) 5 mg PO BID #180 tabs 09/15/25 empagliflozin 10 mg tablet 10 mg PO QDAY #90 tabs 09/15/25 (Jardiance) irbesartan 150 mg tablet 150 mg PO DAILY #90 tabs 09/15/25 metformin 750 mg tablet,extended 750 mg PO QDAY #90 tabs 09/15/25 release 24 hr omeprazole 20 mg capsule,delayed See Rx Instructions .Route 09/15/25 release .COMPLEX #90 caps pravastatin 20 mg tablet 20 mg PO .Bedtime #90 tabs 09/15/25 pregabalin 100 mg capsule 100 mg PO BID-TID #270 caps 09/15/25 sotalol 80 mg tablet 80 mg PO DAILY #90 tabs 09/15/25 triamterene 37.5 1 cap PO BID #180 caps 09/15/25 mg-hydrochlorothiazide 25 mg capsule <Christina Castellano MD - Last Filed: 11/10/25 16:52> Allergies/adverse reactions: Allergies Allergy/AdvReac Type Severity Reaction Status Date / Time adhesive Allergy Mild Tear skin, Verified 11/10/25 21:53 wheeping <Christina Castellano MD - Last Filed: 11/10/25 16:52> [facility] Medical History: Medical History (Updated 11/10/25 @ 21:46 by Lucy Richardson MD) CKD stage 3a, GFR 45-59 ml/min ?N18.31 - Chronic kidney disease, stage 3a (ICD-10) <Christina Castellano MD - Last Filed: 11/10/25 16:52> Surgical History: Surgical History History of arthroscopy of right knee (07/20/10) ?Z98.890 - Other specified postprocedural states (ICD-10) Status post placement of cardiac pacemaker ?Z95.0 - Presence of cardiac pacemaker (ICD-10) <Christina Castellano MD - Last Filed: 11/10/25 16:52> Social History: Social History (Updated 09/15/25 @ 07:27 by Mahnaz Garrison~[facility], [employer]) Narrative: SOCIAL HISTORY: He is . 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 Exercise is limited due to chronic pain with ambulation. HABITS: No tobacco, alcohol, recreational drug use. What is your current living situation?: I presently have a place to live Problems where you live: no known problems In the past 12 months, utilities in danger of being shut off: no In past 12 months, lack of transportation kept you from medical appts, meetings, work, or getting things needed for daily living: no In the past 12 mos, have been you worried that your food would run out before you had money to buy more?: never true In the past 12 mos, the food you bought just didn't last and you didn't have money to buy more?: never true Highest level of school completed/degree received: Bachelor's degree Smoking Status: Never smoker How often do you have a drink containing alcohol: never AUDIT-C Alcohol total score: 0 Non-prescribed substance use: denies use Caffeine: No How often does anyone, including family, friends and others, physically hurt you: never How often does anyone, including family, friends and others, insult or talk down to you: never How often does anyone, including family, friends and others, threaten you with harm: never How often does anyone, including family, friends and others, scream or curse at you: never service: No <Christina Castellano MD - Last Filed: 11/10/25 16:52> Exam Narrative: Exam Narrative: Alert and oriented. Obese gentleman No acute distress. External ears eyes nose clear. Mentation and speech is normal. Neck is supple. Heart with a regular rate, mostly regular rhythm with occasional skipped beats. Heart with clear lungs bilaterally. Abdomen soft nontender. No pulsating mass. Lower extremities with 1+ peripheral edema. Moving extremities. <Christina Castellano MD - Last Filed: 11/10/25 16:52> Const: Vital Signs, click to edit/add: Vital Signs - 24 hr 11/10/25 14:33 11/10/25 14:34 11/10/25 14:35 Temperature 96.7 F L Pulse Rate 60 60 Pulse Rate [Pulse Oximeter] 60 Respiratory Rate 12 26 H 20 Blood Pressure 127/62 Blood Pressure [Le ft Upper Arm] 127/62 Pulse Oximetry 95 95 96 Oxygen Delivery Me thod Nasal Cannula Oxygen Flow Rate 2 11/10/25 14:45 11/10/25 15:00 11/10/25 15:08 Temperature Pulse Rate 60 60 62 Pulse Rate [Pulse Oximeter] Respiratory Rate 14 Blood Pressure 141/74 H Blood Pressure [Le ft Upper Arm] Pulse Oximetry 95 97 93 Oxygen Delivery Me thod Nasal Cannula Oxygen Flow Rate 1 11/10/25 15:15 11/10/25 15:30 11/10/25 15:32 Temperature Pulse Rate 59 L 60 60 Pulse Rate [Pulse Oximeter] Respiratory Rate 10 L 16 17 Blood Pressure 142/77 H Blood Pressure [Le ft Upper Arm] Pulse Oximetry 97 97 97 Oxygen Delivery Me thod Nasal Cannula Nasal Cannula Oxygen Flow Rate 1 1 11/10/25 15:32 11/10/25 15:32 11/10/25 15:45 Temperature Pulse Rate 60 60 60 Pulse Rate [Pulse Oximeter] Respiratory Rate 17 17 15 Blood Pressure 142/77 H 142/77 H Blood Pressure [Le ft Upper Arm] Pulse Oximetry 97 97 94 Oxygen Delivery Me thod Oxygen Flow Rate 11/10/25 16:00 11/10/25 16:02 11/10/25 16:15 Temperature Pulse Rate 60 60 61 Pulse Rate [Pulse Oximeter] Respiratory Rate 37 H 13 12 Blood Pressure 154/78 H Blood Pressure [Le ft Upper Arm] Pulse Oximetry 97 95 97 Oxygen Delivery Me thod Oxygen Flow Rate 11/10/25 16:30 11/10/25 16:32 11/10/25 16:33 Temperature Pulse Rate 60 60 60 Pulse Rate [Pulse Oximeter] Respiratory Rate 13 16 16 Blood Pressure 152/80 H Blood Pressure [Le ft Upper Arm] Pulse Oximetry 94 94 95 Oxygen Delivery Me thod Oxygen Flow Rate 11/10/25 16:45 11/10/25 17:00 11/10/25 17:02 Temperature Pulse Rate 59 L 60 60 Pulse Rate [Pulse Oximeter] Respiratory Rate 13 15 13 Blood Pressure 146/79 H Blood Pressure [Le ft Upper Arm] Pulse Oximetry 95 95 94 Oxygen Delivery Me thod Oxygen Flow Rate 11/10/25 17:15 11/10/25 17:31 11/10/25 17:32 Temperature Pulse Rate 60 61 63 Pulse Rate [Pulse Oximeter] Respiratory Rate 16 17 16 Blood Pressure 151/86 H Blood Pressure [Le ft Upper Arm] Pulse Oximetry 95 94 Oxygen Delivery Me thod Oxygen Flow Rate 11/10/25 17:41 11/10/25 17:45 11/10/25 18:00 Temperature Pulse Rate 60 60 Pulse Rate [Pulse Oximeter] Respiratory Rate 22 19 Blood Pressure Blood Pressure [Le ft Upper Arm] Pulse Oximetry 94 89 96 Oxygen Delivery Me thod Room Air Oxygen Flow Rate 11/10/25 18:02 11/10/25 18:22 11/10/25 18:30 Temperature Pulse Rate 60 84 61 Pulse Rate [Pulse Oximeter] Respiratory Rate 18 20 Blood Pressure 146/81 H Blood Pressure [Le ft Upper Arm] Pulse Oximetry 91 91 95 Oxygen Delivery Me thod Oxygen Flow Rate 11/10/25 18:32 11/10/25 18:45 11/10/25 19:00 Temperature Pulse Rate 60 60 60 Pulse Rate [Pulse Oximeter] Respiratory Rate 20 27 H 20 Blood Pressure 137/79 Blood Pressure [Le ft Upper Arm] Pulse Oximetry 96 96 92 Oxygen Delivery Me thod Oxygen Flow Rate 11/10/25 19:02 11/10/25 19:15 11/10/25 19:30 Temperature Pulse Rate 60 60 61 Pulse Rate [Pulse Oximeter] Respiratory Rate 16 21 10 L Blood Pressure 150/77 H Blood Pressure [Le ft Upper Arm] Pulse Oximetry 94 95 94 Oxygen Delivery Me thod Oxygen Flow Rate 11/10/25 19:32 11/10/25 19:45 11/10/25 20:00 Temperature Pulse Rate 62 60 60 Pulse Rate [Pulse Oximeter] Respiratory Rate 17 18 15 Blood Pressure 155/81 H Blood Pressure [Le ft Upper Arm] Pulse Oximetry 96 96 91 Oxygen Delivery Me thod Oxygen Flow Rate 11/10/25 20:02 11/10/25 20:15 11/10/25 20:30 Temperature Pulse Rate 60 60 61 Pulse Rate [Pulse Oximeter] Respiratory Rate 16 16 10 L Blood Pressure 140/78 H Blood Pressure [Le ft Upper Arm] Pulse Oximetry 92 94 92 Oxygen Delivery Me thod Oxygen Flow Rate 11/10/25 20:32 11/10/25 20:45 11/10/25 21:00 Temperature Pulse Rate 60 61 60 Pulse Rate [Pulse Oximeter] Respiratory Rate 16 18 14 Blood Pressure 139/70 Blood Pressure [Le ft Upper Arm] Pulse Oximetry 94 91 92 Oxygen Delivery Me thod Oxygen Flow Rate 11/10/25 21:02 11/10/25 21:15 Temperature Pulse Rate 60 60 Pulse Rate [Pulse Oximeter] Respiratory Rate 15 16 Blood Pressure 146/73 H Blood Pressure [Le ft Upper Arm] Pulse Oximetry 93 Oxygen Delivery Me thod Oxygen Flow Rate <Christina Castellano MD - Last Filed: 11/10/25 16:52> Vital Signs, click to edit/add: Vital Signs - 24 hr 11/10/25 14:33 11/10/25 14:34 11/10/25 14:35 Temperature 96.7 F L Pulse Rate 60 60 Pulse Rate [Pulse Oximeter] 60 Respiratory Rate 12 26 H 20 Blood Pressure 127/62 Blood Pressure [Le ft Upper Arm] 127/62 Pulse Oximetry 95 95 96 Oxygen Delivery Me thod Nasal Cannula Oxygen Flow Rate 2 11/10/25 14:45 11/10/25 15:00 11/10/25 15:08 Temperature Pulse Rate 60 60 62 Pulse Rate [Pulse Oximeter] Respiratory Rate 14 Blood Pressure 141/74 H Blood Pressure [Le ft Upper Arm] Pulse Oximetry 95 97 93 Oxygen Delivery Me thod Nasal Cannula Oxygen Flow Rate 1 11/10/25 15:15 11/10/25 15:30 11/10/25 15:32 Temperature Pulse Rate 59 L 60 60 Pulse Rate [Pulse Oximeter] Respiratory Rate 10 L 16 17 Blood Pressure 142/77 H Blood Pressure [Le ft Upper Arm] Pulse Oximetry 97 97 97 Oxygen Delivery Me thod Nasal Cannula Nasal Cannula Oxygen Flow Rate 1 1 11/10/25 15:32 11/10/25 15:32 11/10/25 15:45 Temperature Pulse Rate 60 60 60 Pulse Rate [Pulse Oximeter] Respiratory Rate 17 17 15 Blood Pressure 142/77 H 142/77 H Blood Pressure [Le ft Upper Arm] Pulse Oximetry 97 97 94 Oxygen Delivery Me thod Oxygen Flow Rate 11/10/25 16:00 11/10/25 16:02 11/10/25 16:15 Temperature Pulse Rate 60 60 61 Pulse Rate [Pulse Oximeter] Respiratory Rate 37 H 13 12 Blood Pressure 154/78 H Blood Pressure [Le ft Upper Arm] Pulse Oximetry 97 95 97 Oxygen Delivery Me thod Oxygen Flow Rate 11/10/25 16:30 11/10/25 16:32 11/10/25 16:33 Temperature Pulse Rate 60 60 60 Pulse Rate [Pulse Oximeter] Respiratory Rate 13 16 16 Blood Pressure 152/80 H Blood Pressure [Le ft Upper Arm] Pulse Oximetry 94 94 95 Oxygen Delivery Me thod Oxygen Flow Rate 11/10/25 16:45 11/10/25 17:00 11/10/25 17:02 Temperature Pulse Rate 59 L 60 60 Pulse Rate [Pulse Oximeter] Respiratory Rate 13 15 13 Blood Pressure 146/79 H Blood Pressure [Le ft Upper Arm] Pulse Oximetry 95 95 94 Oxygen Delivery Me thod Oxygen Flow Rate 11/10/25 17:15 11/10/25 17:31 11/10/25 17:32 Temperature Pulse Rate 60 61 63 Pulse Rate [Pulse Oximeter] Respiratory Rate 16 17 16 Blood Pressure 151/86 H Blood Pressure [Le ft Upper Arm] Pulse Oximetry 95 94 Oxygen Delivery Me thod Oxygen Flow Rate 11/10/25 17:41 11/10/25 17:45 11/10/25 18:00 Temperature Pulse Rate 60 60 Pulse Rate [Pulse Oximeter] Respiratory Rate 22 19 Blood Pressure Blood Pressure [Le ft Upper Arm] Pulse Oximetry 94 89 96 Oxygen Delivery Me thod Room Air Oxygen Flow Rate 11/10/25 18:02 11/10/25 18:22 11/10/25 18:30 Temperature Pulse Rate 60 84 61 Pulse Rate [Pulse Oximeter] Respiratory Rate 18 20 Blood Pressure 146/81 H Blood Pressure [Le ft Upper Arm] Pulse Oximetry 91 91 95 Oxygen Delivery Me thod Oxygen Flow Rate 11/10/25 18:32 11/10/25 18:45 11/10/25 19:00 Temperature Pulse Rate 60 60 60 Pulse Rate [Pulse Oximeter] Respiratory Rate 20 27 H 20 Blood Pressure 137/79 Blood Pressure [Le ft Upper Arm] Pulse Oximetry 96 96 92 Oxygen Delivery Me thod Oxygen Flow Rate 11/10/25 19:02 11/10/25 19:15 11/10/25 19:30 Temperature Pulse Rate 60 60 61 Pulse Rate [Pulse Oximeter] Respiratory Rate 16 21 10 L Blood Pressure 150/77 H Blood Pressure [Le ft Upper Arm] Pulse Oximetry 94 95 94 Oxygen Delivery Me thod Oxygen Flow Rate 11/10/25 19:32 11/10/25 19:45 11/10/25 20:00 Temperature Pulse Rate 62 60 60 Pulse Rate [Pulse Oximeter] Respiratory Rate 17 18 15 Blood Pressure 155/81 H Blood Pressure [Le ft Upper Arm] Pulse Oximetry 96 96 91 Oxygen Delivery Me thod Oxygen Flow Rate 11/10/25 20:02 11/10/25 20:15 11/10/25 20:30 Temperature Pulse Rate 60 60 61 Pulse Rate [Pulse Oximeter] Respiratory Rate 16 16 10 L Blood Pressure 140/78 H Blood Pressure [Le ft Upper Arm] Pulse Oximetry 92 94 92 Oxygen Delivery Me thod Oxygen Flow Rate 11/10/25 20:32 11/10/25 20:45 11/10/25 21:00 Temperature Pulse Rate 60 61 60 Pulse Rate [Pulse Oximeter] Respiratory Rate 16 18 14 Blood Pressure 139/70 Blood Pressure [Le ft Upper Arm] Pulse Oximetry 94 91 92 Oxygen Delivery Me thod Oxygen Flow Rate 11/10/25 21:02 11/10/25 21:15 Temperature Pulse Rate 60 60 Pulse Rate [Pulse Oximeter] Respiratory Rate 15 16 Blood Pressure 146/73 H Blood Pressure [Le ft Upper Arm] Pulse Oximetry 93 Oxygen Delivery Me thod Oxygen Flow Rate <Carlos Youngblood MD - Last Filed: 11/10/25 22:23> Documenting provider has reviewed patient's vital signs: yes <Christina Castellano MD - Last Filed: 11/10/25 16:52> Course Course ED Course: Differential diagnosis includes but is not limited to acute coronary event, angina, pacer malfunction, PE, electrolyte abnormality. At this time will place IV draw labs include CBC, comprehensive, troponin, chest x-ray cardiac monitoring, oximetry <Christina Castellano MD - Last Filed: 11/10/25 16:52> Reevaluation(s) Reevaluation #1: Nursing notes that patient had just completed 2 week course of Bactrim. Will need to investigate reason for this. <Christina Castellano MD - Last Filed: 11/10/25 16:52> Vital Signs Vital signs: Initial Vital Signs Pulse Rate 60 11/10/25 14:33 Respiratory Rate 12 11/10/25 14:33 Blood Pressure 127/62 11/10/25 14:33 Blood Pressure Mean 83 11/10/25 14:33 Pulse Oximetry 95 11/10/25 14:33 Vital Signs Pulse Rate 60 11/10/25 14:33 Respiratory Rate 12 11/10/25 14:33 Blood Pressure 127/62 11/10/25 14:33 Pulse Oximetry 95 11/10/25 14:33 Temperature 98.3 F 11/10/25 21:38 Pulse Rate 71 11/10/25 21:38 Respiratory Rate 18 11/10/25 21:38 Blood Pressure 163/90 H 11/10/25 21:38 Pulse Oximetry 96 11/10/25 21:38 Oxygen Delivery Method Room Air 11/10/25 21:38 Oxygen Flow Rate 1 11/10/25 15:30 <Christina Castellano MD - Last Filed: 11/10/25 16:52> Initial Vital Signs Pulse Rate 60 11/10/25 14:33 Respiratory Rate 12 11/10/25 14:33 Blood Pressure 127/62 11/10/25 14:33 Blood Pressure Mean 83 11/10/25 14:33 Pulse Oximetry 95 11/10/25 14:33 Vital Signs Pulse Rate 60 11/10/25 14:33 Respiratory Rate 12 11/10/25 14:33 Blood Pressure 127/62 11/10/25 14:33 Pulse Oximetry 95 11/10/25 14:33 Temperature 98.3 F 11/10/25 21:38 Pulse Rate 71 11/10/25 21:38 Respiratory Rate 18 11/10/25 21:38 Blood Pressure 163/90 H 11/10/25 21:38 Pulse Oximetry 96 11/10/25 21:38 Oxygen Delivery Method Room Air 11/10/25 21:38 Oxygen Flow Rate 1 11/10/25 15:30 <Carlos Youngblood MD - Last Filed: 11/10/25 22:23> Medications Administered Medications: Discontinued Medications Generic Name Dose Route Start Last Admin Trade Name Freq PRN Reason Stop Dose Admin Sodium Chloride 500 mls @ 500 mls/hr 11/10/25 16:48 11/10/25 18:51 0.9 % Sodium Chloride 500 Ml IV 11/10/25 17:47 Infused .Q1H ONE Infusion <Christina Castellano MD - Last Filed: 11/10/25 16:52> Discontinued Medications Generic Name Dose Route Start Last Admin Trade Name Freq PRN Reason Stop Dose Admin Sodium Chloride 500 mls @ 500 mls/hr 11/10/25 16:48 11/10/25 18:51 0.9 % Sodium Chloride 500 Ml IV 11/10/25 17:47 Infused .Q1H ONE Infusion <Carlos Youngblood MD - Last Filed: 11/10/25 22:23> Medical Decision Making MDM Narrative Medical decision making narrative: 1. Chest tightness-associated with nausea, lightheadedness as well as shortness of breath lasting 10 minutes while walking around at [employer]. Initial troponin negative. Second troponin scheduled for 1705 hours. Cardiac risk factors include morbid obesity, type 2 diabetes, hypertension, dyslipidemia, cardiomyopathy. Patient has been pain-free since he has been here at the emergency room. Receive aspirin 324 from EMS. EKG here in the ER does not show ST changes in [address] configuration in V3 on both of our ER EKG is but not exactly fitting Wellens criteria. However EKGs from EMS show a change in rhythm to reflect a narrow to wide QRS complex. 2. History of DVT-patient notes some discomfort in his left leg. Previous DVT on the right. He is on anticoagulation and has no skip doses of his Eliquis. Have ordered bilateral lower extremity Dopplers. 3. Hypoxia-improved and now at 95%. Chest x-ray without any acute infiltrates. My plan was to do a PE study of the chest is but patient has noted to have an elevated creatinine of 2.1. It is noted that patient has not been on Bactrim for UTI like symptoms. Likely her because of the elevated creatinine. 4. Acute on chronic renal insufficiency-and 2.1 today with previous values of 1.6 and 1.4. Likely secondary to Bactrim for UTI type symptoms that could possibly represent true UTI versus prostatitis according to note from his primary. Micro from that time shows less than 86874 g negative rods that have grown out along with less than 50,000 units of mixed Gram-positive. Will have him discontinue Bactrim at this time. 4. Disposition-patient will be signed out to my colleague Dr. Youngblood for review of ultrasounds lower extremities, cardiac consultation and further evaluation. <Christina Castellano MD - Last Filed: 11/10/25 16:52> 1. Chest tightness-associated with nausea, lightheadedness as well as shortness of breath lasting 10 minutes while walking around at [employer]. Initial troponin negative. Second troponin scheduled for 1705 hours. Cardiac risk factors include morbid obesity, type 2 diabetes, hypertension, dyslipidemia, cardiomyopathy. Patient has been pain-free since he has been here at the emergency room. Receive aspirin 324 from EMS. EKG here in the ER does not show ST changes in [address] configuration in V3 on both of our ER EKG is but not exactly fitting Wellens criteria. However EKGs from EMS show a change in rhythm to reflect a narrow to wide QRS complex. Repeat EKG done at 5:00 p.m. shows an atrial paced rhythm with prolonged AV conduction. Rate is 60. WI interval is 260 Normal QRS axis and normal QRS duration. No left bundle branch more complete fall eg. No ST segment elevation. Nonspecific T-wave flattening in the inferior leads as well as in V1-V2. Previous biphasic lead that have been noted only on 1 beat in V3 on his 1st EKG is not present. I think that may have been artifact. QT is 430, QTC is 430 2. History of DVT-patient notes some discomfort in his left leg. Previous DVT on the right. He is on anticoagulation and has no skip doses of his Eliquis. Have ordered bilateral lower extremity Dopplers. 3. Hypoxia-improved and now at 95%. Chest x-ray without any acute infiltrates. My plan was to do a PE study of the chest is but patient has noted to have an elevated creatinine of 2.1. It is noted that patient has not been on Bactrim for UTI like symptoms. 4. Acute on chronic renal insufficiency-and 2.1 today with previous values of 1.6 and 1.4. Likely secondary to Bactrim for UTI type symptoms that could possibly represent true UTI versus prostatitis according to note from his primary. Micro from that time shows less than 39860 g negative rods that have grown out along with less than 50,000 units of mixed Gram-positive. Will have him discontinue Bactrim at this time. 4. Disposition-patient will be signed out to my colleague Dr. Youngblood for review of ultrasounds lower extremities, cardiac consultation and further evaluation. Patient signed out to Dr. Youngblood at shift [phone] on 11/10/2025. 1. Patient has a history of DVT and is on chronic Eliquis anticoagulation. Also has a history of an atrial pacemaker (unclear indication). He had an episode of chest pain, shortness of breath, dizziness while walking at a local store that last about 10 minutes. He was hypoxic when EMS picked him up with sats in the 80s in sets of subsequently come up into the 90s without treatment. He is feeling better now. Initial EKG per EMS showed a what appeared to be a sinus rhythm (no atrial spikes noted on the EMS EKG. However in route the patient's QRS morphology changed per EMS and he developed a wide complex QRS complex that was temporarily present and then reverted back to a normal narrow QRS complex upon arrival here to the ER. EKG here in the ER does show an atrial paced rhythm. First EKG shows nonspecific T-wave flattening in leads V1-V3. Of note 1 of the 2 QRS complex/T-wave complexes in lead V3 appears to be biphasic but the other 1 appears to be more just flat. No ST segment elevation or depression to clearly indicate ischemia. Second EKG here in the ER shows nonspecific ST elevation less than 1 box in lead 3. Initial troponin is normal at 5.3. Repeat troponin drawn at 2:00 a.m. is 4.2, not rising and reassuring. I ordered a repeat EKG for this patient. He is currently feeling better. With his history of venous thromboembolic disease and is episode of chest pain or shortness of breath concern would be for possible PE. He has been having some left leg pain that developed after he arrived here in the ER. Dr. Musa has ordered a DVT ultrasound. It resulted as negative. Venous ultrasound bilateral lower extremity IMPRESSION: No deep vein thrombosis in either lower extremity. Although he has an acute kidney injury, GFR is greater than 30 which means that contrast could be acceptable and pose low enough risk for kidney function that the benefit of CT imaging to look for PE or other chest abnormality, would outweigh the benefit. Chest CT is negative for PE. It does show dilation of the cardiac chambers and main pulmonary artery as well as a nonspecific right hilar lymph node that is nonspecific. CT scan does not show pulmonary edema, pleural effusions, or other signs of CHF or fluid overload. IMPRESSION: 1. No pulmonary embolism. 2. Deeply expiratory appearance of the airway and lungs without any acute pulmonary parenchymal findings. 3. Dilated cardiac chambers. Dilated main pulmonary artery. 4. Enlarged right hilar lymph node is nonspecific. There are not any other enlarged or abnormal appearing thoracic lymph nodes. No reported cough or fever. COVID/FLU/RSV neg. Discussed his presentation with incoming freight clerk from [facility], Dr. Sanchez. He was able to add the patient did have an echo last February that showed mildly dilated cardiac chambers but normal EF. He feels that with stable vital signs, normalized oxygen the patient should be safe to stay here. It would be reasonable to get a follow-up echo. Potentially even as an outpatient were not for the other comorbidities such as the renal injury. 2. He has a recent diagnosis of UTI or possible prostatitis, diagnosed a couple weeks or through his primary clinic. Urine culture actually grew less than 10,000 colony-forming units without any clear pathogen. Was put on Bactrim for this infection but unfortunately has only been taking the Bactrim DS once per day rather than the prescribed frequency of twice per day. He is not having any symptoms of UTI anymore. Dr. Musa recommends discontinuing the antibiotic because of acute kidney injury 3. He does have an acute kidney injury. Baseline creatinine is 1.6 and has gone up to 2.1. No clear signs of fluid overload or pulmonary edema or hyperkalemia. Suspect this is probably related to Bactrim, possibly also some component of dehydration. We ordered a gentle IV fluid bolus of [address] abdomen pelvis does show nonspecific renal cystic lesion. Outpatient follow-up MRI is recommended. Discussed with the patient. IMPRESSION: 1. No acute findings in the abdomen or pelvis. 2. There are a couple of indeterminate renal lesions and 1 cystic lesion with some calcifications. Recommend MR abdomen without and with IV contrast renal mass protocol for better characterization. This does not need to be performed urgently. 5. Discussed with our hospitalist, Dr. Richardson. She agrees to accept the patient for observation. She will come to the ER to evaluate. She evaluated the patient is concerned that he had his episode of confusion that could have been a TIA. She requests TIA workup. We did obtain a noncontrast head CT. CT head IMPRESSION: Scattered white matter hypodensities generally seen as a sequela of chronic small-vessel disease in a patient this age. No acute appearing findings. We cannot obtain CT angiogram of his head neck today because of his renal insufficiency and he has already received a dye load with his previous CT. Discussed with stroke neurology from [facility], Dr. Goodrich. Based on our conversation Dr. Goodrich has fairly low suspicion this was a TIA and would suspect more likely was an encephalopathy related to hypoxia wears acute kidney injury. In any case the patient is already on Eliquis which would most likely be his maximum anticoagulant. He would agree that if there is ongoing concern that we could get vascular imaging with either CTA or MRA tomorrow. No need for emergent vascular imaging tonight or transfer to [facility]. <Carlos Youngblood MD - Last Filed: 11/10/25 22:23> Medical Records Medical records reviewed: Yes I reviewed the patient's medical records <Christina Castellano MD - Last Filed: 11/10/25 16:52> Medical records narrative: Recent note from primary MD on 10/24/2025 <Christina Castellano MD - Last Filed: 11/10/25 16:52> Lab Data Lab results reviewed: Yes I reviewed the patient's lab results <Christina Castellano MD - Last Filed: 11/10/25 16:52> Labs: Lab Results 11/10/25 11/10/25 11/10/25 Range/Units 14:45 15:05 16:54 WBC 7.41 (4.50-11.00) K/uL RBC 4.48 (4.30-5.90) m/uL Hgb 12.7 L (13.5-17.5) gm/dL Hct 42.2 (37.0-53.0) % MCV 94 (80-100) fL MCH 28 (26-34) pg MCHC 30 L (32-36) gm/dL RDW Coeff of Delonte 16.6 H (11.5-15.5) % Plt Count 237 (140-440) K/uL Neut % (Auto) 88.9 H (42.0-72.0) % Lymph % (Auto) 6.2 L (20-44) % [place] % (Auto) 4.2 (0.0-11.0) % Eos % (Auto) 0.3 (0.0-7.0) % Baso % (Auto) 0.1 (0.0-3.0) % Neut # (Auto) 6.60 (1.7-7.0) K/uL Lymph # (Auto) 0.50 L (0.90-2.90) K/uL [place] # (Auto) 0.30 (0.00-0.90) K/UL Eos # (Auto) 0.02 (0.00-0.50) K/uL Baso # (Auto) 0.01 (0.00-0.30) K/uL Abs Immat Gran (auto) 0.02 (0.00-0.30) K/uL Imm/Tot Granulo (auto) 0.3 % Sodium 139 (135-149) mmol/L Potassium 4.0 (3.6-5.1) mmol/L Chloride 103 (96-114) mmol/L Carbon Dioxide 30 (20-32) mmol/L Anion Gap 6 L (7-15) mEq/L BUN 43 H (7-30) mg/dL Creatinine 2.1 H (0.5-1.5) mg/dL Estimated Creat Clear 30.90 Estimated GFR 32 ml/min Glucose 168 H (60-115) mg/dL Calcium 9.5 (8.4-10.6) mg/dL Total Bilirubin 0.7 (0.1-1.5) mg/dL AST 24 (12-35) U/L ALT 27 (4-50) U/L Alkaline Phosphatase 91 (40-150) U/L POC Troponin I High Sensi 5.2 (2.9-28.0) pg/mL Total Protein 7.1 (6.0-8.3) g/dL Albumin 3.9 (3.3-5.0) g/dL SARS-CoV-2 (PCR) Negative SARS-CoV-2 (Negative) Influenza Type A (PCR) Negative PCR FLU A (Negative) Influenza Type B (PCR) Negative PCR FLU B (Negative) RSV (PCR) Negative PCR RSV (Negative) 11/10/25 Range/Units 17:05 WBC (4.50-11.00) K/uL RBC (4.30-5.90) m/uL Hgb (13.5-17.5) gm/dL Hct (37.0-53.0) % MCV (80-100) fL MCH (26-34) pg MCHC (32-36) gm/dL RDW Coeff of Delonte (11.5-15.5) % Plt Count (140-440) K/uL Neut % (Auto) (42.0-72.0) % Lymph % (Auto) (20-44) % [place] % (Auto) (0.0-11.0) % Eos % (Auto) (0.0-7.0) % Baso % (Auto) (0.0-3.0) % Neut # (Auto) (1.7-7.0) K/uL Lymph # (Auto) (0.90-2.90) K/uL [place] # (Auto) (0.00-0.90) K/UL Eos # (Auto) (0.00-0.50) K/uL Baso # (Auto) (0.00-0.30) K/uL Abs Immat Gran (auto) (0.00-0.30) K/uL Imm/Tot Granulo (auto) % Sodium (135-149) mmol/L Potassium (3.6-5.1) mmol/L Chloride (96-114) mmol/L Carbon Dioxide (20-32) mmol/L Anion Gap (7-15) mEq/L BUN (7-30) mg/dL Creatinine (0.5-1.5) mg/dL Estimated Creat Clear Estimated GFR ml/min Glucose (60-115) mg/dL Calcium (8.4-10.6) mg/dL Total Bilirubin (0.1-1.5) mg/dL AST (12-35) U/L ALT (4-50) U/L Alkaline Phosphatase (40-150) U/L POC Troponin I High Sensi 4.2 (2.9-28.0) pg/mL Total Protein (6.0-8.3) g/dL Albumin (3.3-5.0) g/dL SARS-CoV-2 (PCR) (Negative) Influenza Type A (PCR) (Negative) Influenza Type B (PCR) (Negative) RSV (PCR) (Negative) <Christina Castellano MD - Last Filed: 11/10/25 16:52> Lab Results 11/10/25 11/10/25 11/10/25 Range/Units 14:45 15:05 16:54 WBC 7.41 (4.50-11.00) K/uL RBC 4.48 (4.30-5.90) m/uL Hgb 12.7 L (13.5-17.5) gm/dL Hct 42.2 (37.0-53.0) % MCV 94 (80-100) fL MCH 28 (26-34) pg MCHC 30 L (32-36) gm/dL RDW Coeff of Delonte 16.6 H (11.5-15.5) % Plt Count 237 (140-440) K/uL Neut % (Auto) 88.9 H (42.0-72.0) % Lymph % (Auto) 6.2 L (20-44) % [place] % (Auto) 4.2 (0.0-11.0) % Eos % (Auto) 0.3 (0.0-7.0) % Baso % (Auto) 0.1 (0.0-3.0) % Neut # (Auto) 6.60 (1.7-7.0) K/uL Lymph # (Auto) 0.50 L (0.90-2.90) K/uL [place] # (Auto) 0.30 (0.00-0.90) K/UL Eos # (Auto) 0.02 (0.00-0.50) K/uL Baso # (Auto) 0.01 (0.00-0.30) K/uL Abs Immat Gran (auto) 0.02 (0.00-0.30) K/uL Imm/Tot Granulo (auto) 0.3 % Sodium 139 (135-149) mmol/L Potassium 4.0 (3.6-5.1) mmol/L Chloride 103 (96-114) mmol/L Carbon Dioxide 30 (20-32) mmol/L Anion Gap 6 L (7-15) mEq/L BUN 43 H (7-30) mg/dL Creatinine 2.1 H (0.5-1.5) mg/dL Estimated Creat Clear 30.90 Estimated GFR 32 ml/min Glucose 168 H (60-115) mg/dL Calcium 9.5 (8.4-10.6) mg/dL Total Bilirubin 0.7 (0.1-1.5) mg/dL AST 24 (12-35) U/L ALT 27 (4-50) U/L Alkaline Phosphatase 91 (40-150) U/L POC Troponin I High Sensi 5.2 (2.9-28.0) pg/mL Total Protein 7.1 (6.0-8.3) g/dL Albumin 3.9 (3.3-5.0) g/dL SARS-CoV-2 (PCR) Negative SARS-CoV-2 (Negative) Influenza Type A (PCR) Negative PCR FLU A (Negative) Influenza Type B (PCR) Negative PCR FLU B (Negative) RSV (PCR) Negative PCR RSV (Negative) 11/10/25 Range/Units 17:05 WBC (4.50-11.00) K/uL RBC (4.30-5.90) m/uL Hgb (13.5-17.5) gm/dL Hct (37.0-53.0) % MCV (80-100) fL MCH (26-34) pg MCHC (32-36) gm/dL RDW Coeff of Delonte (11.5-15.5) % Plt Count (140-440) K/uL Neut % (Auto) (42.0-72.0) % Lymph % (Auto) (20-44) % [place] % (Auto) (0.0-11.0) % Eos % (Auto) (0.0-7.0) % Baso % (Auto) (0.0-3.0) % Neut # (Auto) (1.7-7.0) K/uL Lymph # (Auto) (0.90-2.90) K/uL [place] # (Auto) (0.00-0.90) K/UL Eos # (Auto) (0.00-0.50) K/uL Baso # (Auto) (0.00-0.30) K/uL Abs Immat Gran (auto) (0.00-0.30) K/uL Imm/Tot Granulo (auto) % Sodium (135-149) mmol/L Potassium (3.6-5.1) mmol/L Chloride (96-114) mmol/L Carbon Dioxide (20-32) mmol/L Anion Gap (7-15) mEq/L BUN (7-30) mg/dL Creatinine (0.5-1.5) mg/dL Estimated Creat Clear Estimated GFR ml/min Glucose (60-115) mg/dL Calcium (8.4-10.6) mg/dL Total Bilirubin (0.1-1.5) mg/dL AST (12-35) U/L ALT (4-50) U/L Alkaline Phosphatase (40-150) U/L POC Troponin I High Sensi 4.2 (2.9-28.0) pg/mL Total Protein (6.0-8.3) g/dL Albumin (3.3-5.0) g/dL SARS-CoV-2 (PCR) (Negative) Influenza Type A (PCR) (Negative) Influenza Type B (PCR) (Negative) RSV (PCR) (Negative) <Carlos Youngblood MD - Last Filed: 11/10/25 22:23> Imaging Data Chest x-ray: Attestation: I have reviewed the pertinent imaging results. <Christina Castellano MD - Last Filed: 11/10/25 16:52> My impression: I do not note any acute infiltrates. Heart does appear to be enlarged. <Christina Castellano MD - Last Filed: 11/10/25 16:52> Radiologist's impression: Cardiac silhouette is enlarged. Tortuosity of the aorta. No infiltrate or edema. No effusion or pneumothorax. No fracture. IMPRESSION: No acute findings. <Christina Castellano MD - Last Filed: 11/10/25 16:52> ECG Data Attestation: I personally reviewed and interpreted this ECG as follows: <Christina Castellano MD - Last Filed: 11/10/25 16:52> Interpretation: EKG by my read shows atrial paced rhythm. QRS complexes are narrow. WI interval within normal limits. I do not note any significant ST or T-wave changes. Unusual T-wave configuration V3 is isolated. Second EKG does show atrial paced rhythm with flattening of the to questionable ST elevation V3. monitoring manager shows atrial paced rhythm. Note EKG from EMS initially shows narrow QRS complex. I cannot CS pacer spike. A 2nd EKG however shows sudden widening of the QRS complex especially V1 through V4. <Christina Castellano MD - Last Filed: 11/10/25 16:52> Discharge Plan Discharge Clinical Impression: Hypoxia, Chest pain, Dizziness, Acute kidney injury, Kidney mass <Christina Castellano MD - Last Filed: 11/10/25 16:52>
--- NOTE | 2025-11-10 14:45 | CRLHL7_ITS ---
For Patients: As a result of the Century Cures Act, medical imaging exams and procedure reports are released immediately into your electronic medical record. You may view this report before your referring provider. If you have questions, please contact your health care provider. INDICATION: CHEST TIGHTNESS TECHNIQUE: Chest 1 view COMPARISON: 05/30/2021 FINDINGS: Cardiac silhouette is enlarged. Tortuosity of the aorta. No infiltrate or edema. No effusion or pneumothorax. No fracture. IMPRESSION: No acute findings. Dictated by Gordo Knight MD @ 11/10/2025 3:05:39 PM (Electronically Signed)
[2025-11-10 15:27] LABS: Hematocrit* 42.2 % (37.0-53.0); Hemoglobin* 12.7 gm/dL (13.5-17.5); Immature Granulocytes Abs Auto 0.02 K/uL (0.00-0.30); Immature Granulocytes Pct Auto 0.3 %; Mean Corpuscular HGB Conc 30 gm/dL (32-36); Mean Corpuscular Hemoglobin 28 pg (26-34); Mean Corpuscular Volume 94 fL (80-100); RDW Coefficient of Variation % 16.6 % (11.5-15.5); Red Blood Count* 4.48 m/uL (4.30-5.90); White Blood Count* 7.41 K/uL (4.50-11.00)
[2025-11-10 15:37] LABS: Lymphocytes Absolute Auto 0.50 K/uL (0.90-2.90); Slide Review Reflex No
[2025-11-10 15:40] LABS: Albumin* 3.9 g/dL (3.3-5.0); Chloride* 103 mmol/L (96-114); Potassium* 4.0 mmol/L (3.6-5.1); Sodium* 139 mmol/L (135-149)
[2025-11-10 15:43] LABS: Alanine Aminotransferase* 27 U/L (4-50); Alkaline Phosphatase* 91 U/L (40-150); Anion Gap 6 mEq/L (7-15); Aspartate Amino Transferase* 24 U/L (12-35); Bilirubin Total* 0.7 mg/dL (0.1-1.5); Blood Urea Nitrogen* 43 mg/dL (7-30); Carbon Dioxide* 30 mmol/L (20-32); Creatinine* 2.1 mg/dL (0.5-1.5); Est. Creatinine Clearance* 30.90; Estimated Glomerular Filt Rate 32 ml/min; Total Protein* 7.1 g/dL (6.0-8.3)
[2025-11-10 15:44] LABS: Calcium* 9.5 mg/dL (8.4-10.6); Glucose* 168 mg/dL (60-115)
--- NOTE | 2025-11-10 15:55 | CRLHL7_ITS ---
For Patients: As a result of the Cures Act, medical imaging exams and procedure reports are released immediately into your electronic medical record. You may view this report before your referring provider. If you have questions, please contact your health care provider. INDICATION: History of DVT, dyspnea, bilateral leg swelling. Bilateral greater saphenous vein stripping/ablation. COMPARISON: None. TECHNIQUE: Milner-scale, color, and spectral Doppler imaging of the bilateral lower extremity veins. Compression and augmentation attempted where anatomically and clinically feasible. FINDINGS: Laterality: Bilateral Examined veins: Common femoral, proximal deep femoral, superficial femoral, popliteal, peroneal, posterior tibial Proximal greater saphenous Greater saphenous veins are occluded and not well seen due to the prior intervention. Otherwise, the examined veins are patent with normal grayscale appearance and normal compressibility where anatomically feasible. Normal color Doppler flow. Normal venous waveforms on duplex Doppler ultrasound with normal augmentation. 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 IMPRESSION: No deep vein thrombosis in either lower extremity. Dictated by Arline Kaiser MD @ 11/10/2025 5:18:47 PM (Electronically Signed)
--- NOTE | 2025-11-10 16:49 | CRLHL7_ITS ---
For Patients: As a result of the Century Cures Act, medical imaging exams and procedure reports are released immediately into your electronic medical record. You may view this report before your referring provider. If you have questions, please contact your health care provider. INDICATION: Short of breath, dizzy, hypoxia, chest pain. COMPARISON: 11/10/2025 chest radiograph and abdomen pelvis CT TECHNIQUE: CT angiogram chest with contrast, pulmonary embolism protocol. Multiplanar axial, coronal, and sagittal reformats are included. MIP images to improve detection of pulmonary emboli are included. Intravenous contrast: 95 mL Isovue 370. FINDINGS: PE: Well-timed contrast bolus. No pulmonary emboli. Dilated 4 cm main pulmonary artery. Dilated right heart chambers. No reflux of contrast below the diaphragm. Airway: Deeply expiratory appearance of the airway. Lungs: Bilateral atelectasis. Expiratory appearance of the lung. No nodules or masses. No consolidations. Normal appearance of the pulmonary interstitium. Pleura: No pleural effusion. No pneumothorax. Lymph nodes: Enlarged right hilar lymph node measures 2.0 x 2.2 cm on series 5, image 70. There are not any other enlarged or abnormal appearing mediastinal lymph nodes.. Mediastinum: No pneumomediastinum. No mass. No hematoma. Heart and great vessels: No pericardial effusion. Dilated cardiac chambers. Right subclavian pacemaker leads in the right atrium and right ventricle. Scattered atherosclerotic plaques. No aortic aneurysm. Chest wall: Normal. No masses. Upper abdomen: Please see same day CT of the abdomen and pelvis. Bones: Several old left posterolateral rib fractures. The 8th fracture is not completely united. No acute fractures. No focal bone lesions. IMPRESSION: 1. No pulmonary embolism. 2. Deeply expiratory appearance of the airway and lungs without any acute pulmonary parenchymal findings. 3. Dilated cardiac chambers. Dilated main pulmonary artery. 4. Enlarged right hilar lymph node is nonspecific. There are not any other enlarged or abnormal appearing thoracic lymph nodes. Please note that all CT scans at this facility use dose modulation, iterative reconstruction, and/or weight-based dosing when appropriate to reduce radiation dose to as low as reasonably achievable. Dictated by Arline Kaiser MD @ 11/10/2025 6:18:34 PM (Electronically Signed)
--- NOTE | 2025-11-10 16:50 | CRLHL7_ITS ---
For Patients: As a result of the Century Cures Act, medical imaging exams and procedure reports are released immediately into your electronic medical record. You may view this report before your referring provider. If you have questions, please contact your health care provider. INDICATION: Abdominal pain. COMPARISON: Same day CT chest TECHNIQUE: CT of the abdomen and pelvis with intravenous contrast. Multiplanar axial, coronal, and sagittal reformats were reconstructed. Contrast: 95 mL Isovue 370. FINDINGS: Lung bases: Mild atelectasis. Liver: Normal. No mass. Gallbladder and bile ducts: Gallbladder is contracted. No bile duct dilation. Pancreas: Normal. Spleen: Normal. Adrenal glands: Normal. Kidneys: Numerous bilateral renal cysts. This includes a large right upper pole renal cyst that measures 11.7 x 10.5 x 12.6 cm. There is a left lower pole cyst that measures 5.7 x 4.6 x 4.7 cm. It has peripheral discontinuous thin linear calcification. There is an exophytic left renal lesion that measures 1.9 x 2.0 cm on series 2, image 59 with indeterminate Hounsfield units. No calculi. No urinary tract dilation. Urinary bladder: Normal. Pelvis: No cyst or mass. Vessels: Mild atherosclerosis. No pelvic DVT or IVC thrombus. Bowel: Ingested food in the stomach. Normal appendix. Mild stool burden. Lymph nodes: No adenopathy. Peritoneum: No ascites. Abdominal wall: Prior umbilical hernia repair. Bones: There are some old left rib fractures including an ununited fracture of the 8th rib. Large bone island in L5. No focal worrisome bone lesions. IMPRESSION: 1. No acute findings in the abdomen or pelvis. 2. There are a couple of indeterminate renal lesions and 1 cystic lesion with some calcifications. Recommend MR abdomen without and with IV contrast renal mass protocol for better characterization. This does not need to be performed urgently. Please note that all CT scans at this facility use dose modulation, iterative reconstruction, and/or weight-based dosing when appropriate to reduce radiation dose to as low as reasonably achievable. Dictated by Arline Kaiser MD @ 11/10/2025 6:13:33 PM (Electronically Signed)
[2025-11-10 17:38] LABS: PCR FLU A Negative PCR FLU A (Negative); PCR FLU B Negative PCR FLU B (Negative); PCR RSV Negative PCR RSV (Negative); SARS PCR* Negative SARS-CoV-2 (Negative)
[2025-11-10] MEDS: 0.9 % SODIUM CHLORIDE 500 ML 500 ML IV (17:40)
--- NOTE | 2025-11-10 19:11 | CRLHL7_ITS ---
For Patients: As a result of the Century Cures Act, medical imaging exams and procedure reports are released immediately into your electronic medical record. You may view this report before your referring provider. If you have questions, please contact your health care provider. INDICATION: Episode of confusion, possible TIA. COMPARISON: None. TECHNIQUE: CT of the brain / head without intravenous contrast. Multiplanar axial, coronal, and sagittal reformats were reconstructed. FINDINGS: No intracranial hemorrhage. Parenchymal volume is relatively well preserved for age. No acute or subacute cortically based infarct. Scattered white matter hypodensities may be related to chronic microvascular ischemia. No mass or mass effect. Normal ventricles. No skull fractures. No worrisome focal bone lesion. IMPRESSION: Scattered white matter hypodensities generally seen as a sequela of chronic small-vessel disease in a patient this age. No acute appearing findings. Please note that all CT scans at this facility use dose modulation, iterative reconstruction, and/or weight-based dosing when appropriate to reduce radiation dose to as low as reasonably achievable. Dictated by Arline Kaiser MD @ 11/10/2025 7:40:31 PM (Electronically Signed)
--- NOTE | 2025-11-10 21:27 | P.IMHP_ITS ---
Assessment and Plan Assessment and plan (1) Altered mental status: Problem comment: -A brief episode of confusion that resolved within less than an hour in the context of hypoxia. -Likely secondary to hypoxia but could be a TIA. -ED Dr discussed his presentation with plating machine operator from [facility], Dr. Sanchez. He was able to add the patient did have an echo last February that showed mildly dilated cardiac chambers but normal EF. He feels that with stable vital signs, normalized oxygen the patient should be safe to stay here. It would be reasonable to get a follow-up echo. -Echo ordered -CT head did not show any acute changes. ED provider contacted Neurology team who who thought that his confusion might be related to hypoxia, but he cannot exclude TIA as the cause of his confusion. He suggested doing a head and neck CTA tomorrow or a head and neck MRI if his GFR would not allow a CTA. He added that if the neck imaging shows internal carotid occlusion as a cause of this AMS episode, then surgery might be needed. -will decide in the morning after checking kidney function which imaging and to proceed with. Status: Suspected (2) Hypoxia: Problem comment: A brief episode of sudden hypoxia Currently patient is not hypoxic and is not requiring oxygen CTA chest negative Unremarkable EKG Troponin POC negative twice Echo ordered Status: Resolved (3) Acute kidney injury: Problem comment: Patient has creatinine baseline of 1.6, CKD stage IIIA He presented with creatinine of 2.1 likely secondary to recent use of Bactrim .Patient received 500 mL IV fluid at the ED. Will not give more fluids as patient has history of cardiomyopathy Status: Acute (4) Cardiomyopathy: Problem comment: -patient used to have a significant reduction in his ejection fraction in the past, but his echo from February showed normal ejection fraction. -ordered an echo as per Cardiology recommendation from [place] Status: Acute (5) Pacemaker: Problem comment: Atrial pacing as patient used to have severe reduction in his ejection fraction Status: Acute (6) Diabetes mellitus, type II: Problem comment: A1c 9.1% on 06/09/2025. On metformin and GLP 1 agonist Status: Acute (7) Pulmonary embolus: Problem comment: On Eliquis Status: Chronic (8) half-way current use of anticoagulant therapy: Problem comment: On Eliquis for both atrial fibrillation and history of PE/DVT Status: Acute (9) Atrial flutter: Problem comment: On Eliquis Status: Acute (10) CKD stage 3a, GFR 45-59 ml/min: Status: Acute Total Time Spent Total Time Spent: Time spent: Today I spent 75 minutes seeing the patient, discussing the patient with ER staff, reviewing [facility] and EPIC notes/diagnostics, discussing the care plan with our care time that includes social work, PT/OT, pharmacy, RT, care home and documenting my impressions and plan in the medical record. Hospitalist- H&P: HPI History of Present Illness Date Seen: 11/10/25 Chief complaint: ill Narrative: Herson Forte is a 75 year old male patient with past medical history of hyper tension, hyperlipidemia, DM, AFib on Eliquis, history of PE, cardiomyopathy, history of permanent pacemaker, CKD & gout who presents to the ED after a sudden episode of SOB and confusion while he was shopping. Patient described feeling chest tightness, dizziness, shortness of breath and weakness while walking around at a store. he described it as being in a cloud because he said he was confused and he did not even know where he is and what he was doing. He does not know exactly for how long he had this episode but it is less than 1 hour. EMS notes that he was hypoxic in the upper 80s, improved with oxygen. Patient did received 324 mg of aspirin. His symptoms have since resolved upon his arrival to our hospital ED. patient denied recent illnesses, fevers or chills. At the ED, patient was hemodynamically stable. His labs are unremarkable except for creatinine of 2.1, is baseline is around 1.6. But patient mentioned that he was on Bactrim recently for UTI symptoms. troponin POC was negative twice. EKG at the ED showed atrial paced rhythm, but did not show acute ischemic changes. EKGs from EMS showed some QRS complex duration changes. ED provider ordered a CTA chest though creatinine was elevated because patient has history of PE. His CTA did not show pulmonary embolism this time. ED Dr discussed his presentation with plating machine operator from [facility], Dr. Dami nye. He was able to add the patient did have an echo last February that showed mildly dilated cardiac chambers but normal EF. He feels that with stable vital signs, normalized oxygen the patient should be safe to stay here. It would be reasonable to get a follow-up echo. in addition, due to his sudden confusion that resolved in less than an hour TIA is suspected. CT head did not show any acute changes. ED provider contacted Neurology team who who thought that his confusion might be related to hypoxia, but he cannot exclude TIA as the cause of his confusion. He suggested doing a head and neck CTA tomorrow or a head and neck MRI if his GFR would not allow a CTA. He added that if the neck imaging shows internal carotid occlusion as a cause of this AMS episode, then surgery might be needed. *Note that the patient used to have a significant reduction in his ejection fraction in the past, but his echo from February showed normal ejection fraction. Review of Systems Status of ROS: Reports: 6 or more systems reviewed and unremarkable except as noted in History and below Medical Decision Making Medical Decision Making Has patient completed a Health Care Directive: Yes PFSH [facility] Medical History (Updated 11/10/25 @ 21:46 by Lucy Richardson MD) CKD stage 3a, GFR 45-59 ml/min ?N18.31 - Chronic kidney disease, stage 3a (ICD-10) Surgical History History of arthroscopy of right knee (07/20/10) ?Z98.890 - Other specified postprocedural states (ICD-10) Status post placement of cardiac pacemaker ?Z95.0 - Presence of cardiac pacemaker (ICD-10) Social History (Updated 09/15/25 @ 07:27 by Mahnaz Garrison~[facility], [facility]) Narrative: SOCIAL HISTORY: He is . 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 Exercise is limited due to chronic pain with ambulation. HABITS: No tobacco, alcohol, recreational drug use. What is your current living situation?: I presently have a place to live Problems where you live: no known problems In the past 12 months, utilities in danger of being shut off: no In past 12 months, lack of transportation kept you from medical appts, meetings, work, or getting things needed for daily living: no In the past 12 mos, have been you worried that your food would run out before yo u had money to buy more?: never true In the past 12 mos, the food you bought just didn't last and you didn't have money to buy more?: never true Smoking Status: Former smoker How often does anyone, including family, friends and others, physically hurt you : never How often does anyone, including family, friends and others, insult or talk down to you: never How often does anyone, including family, friends and others, threaten you with harm: never How often does anyone, including family, friends and others, scream or curse at you: never Meds Home Medications and Allergies Home Medications ?Medication ?Instructions ?Recorded ?Confirmed ?Type ascorbic acid (vitamin C) 500 mg mg PO BID 06/26/22 History capsule biotin 2,500 mcg capsule 1,000 mcg PO QDAY 04/09/23 1 01/11/25 History fesoterodine 4 mg tablet,extended 4 mg PO QDAY 4 11/10/25 History release 24 hr semaglutide 0.25 mg or 0.5 mg (2 0.25 mg subcut QWEEK 06/13/25 11/10/25 History mg/3 mL) subcutaneous pen injector (Nubisio) blood sugar diagnostic (Contour #100 ea 07/05/2511/04 Rx Test Strips) lancets 28 gauge #100 ea 07/05/25 11/04/25 Rx coenzyme Q10 100 mg capsule 100 mg PO QDAY 08/01/25 History (CoQ-10) oxycodone-acetaminophen 5 mg-325 1 - 2 tab PO TID PRN pain #30 tabs 09/12/25 11/04/25 Rx mg tablet Walker- 4 Wheels #1 ea 09/15/25 11/04/25 Rx allopurinol 100 mg tablet 100 mg PO DAILY #90 tabs 11/10/25 Rx apixaban 5 mg tablet (Eliquis) 5 mg PO BID #180 tabs 1 11/10/25 Rx empagliflozin 10 mg tablet 10 mg PO QDAY #90 tabs 10/02/1511/10/25 Rx (Jardiance) irbesartan 150 mg tablet 150 mg PO DAILY #90 tabs 11/10/25 Rx metformin 750 mg tablet,extended 750 mg PO QDAY #90 ta bs 09/15/25 11/04/25 Rx release 24 hr omeprazole 20 mg capsule,delayed See Rx Instructions . Route 09/15/25 11/10/25 Rx release .COMPLEX #90 caps pravastatin 20 mg tablet 20 mg PO .Bedtime #90 tabs 1 11/04/25 Rx pregabalin 100 mg capsule 100 mg PO BID-TID #270 caps 09/15/25 11/10/25 Rx sotalol 80 mg tablet 80 mg PO DAILY #90 tabs 08/2511/10/25 Rx triamterene 37.5 1 cap PO BID #180 caps 09/1511/10/25 Rx mg-hydrochlorothiazide 25 mg capsule tamsulosin 0.4 mg capsule 0.4 mg PO DAILY 10/24/25 History Allergies Allergy/AdvReac Type Severity Reaction Status Date / Time adhesive Allergy Mild Tear skin, Verified 11/10/25 17:25 wheeping Exam Narrative: Exam Narrative: Physical exam GENERAL: Comfortable, no acute distress. HEAD AND NECK: Atraumatic, normocephalic CARDIOVASCULAR: RRR. Normal S1, S2. No murmurs. RESPIRATORY: Clear to auscultation B/L. Good air entry B/L. No wheezes or rhonchi. NEUROLOGY: Alert, awake, oriented X 3. Normal speech. PSYCH: Normal mood, normal affect. Const: Vital Signs, click to edit/add: Vital Signs - 24 hr 11/10/25 14:33 11/10/25 14:34 11/10/25 14:35 Temperature 96.7 F L Pulse Rate 60 60 Pulse Rate [Pulse Oximeter] 60 Respiratory Rate 12 26 H 20 Blood Pressure 127/62 Blood Pressure [Le ft Upper Arm] 127/62 Pulse Oximetry 95 95 96 Oxygen Delivery Me thod Nasal Cannula Oxygen Flow Rate 2 11/10/25 14:45 11/10/25 15:00 11/10/25 15:08 Temperature Pulse Rate 60 60 62 Pulse Rate [Pulse Oximeter] Respiratory Rate 14 Blood Pressure 141/74 H Blood Pressure [Le ft Upper Arm] Pulse Oximetry 95 97 93 Oxygen Delivery Me thod Nasal Cannula Oxygen Flow Rate 1 11/10/25 15:15 11/10/25 15:30 11/10/25 15:32 Temperature Pulse Rate 59 L 60 60 Pulse Rate [Pulse Oximeter] Respiratory Rate 10 L 16 17 Blood Pressure 142/77 H Blood Pressure [Le ft Upper Arm] Pulse Oximetry 97 97 97 Oxygen Delivery Me thod Nasal Cannula Nasal Cannula Oxygen Flow Rate 1 1 11/10/25 15:32 11/10/25 15:32 11/10/25 15:45 Temperature Pulse Rate 60 60 60 Pulse Rate [Pulse Oximeter] Respiratory Rate 17 17 15 Blood Pressure 142/77 H 142/77 H Blood Pressure [Le ft Upper Arm] Pulse Oximetry 97 97 94 Oxygen Delivery Me thod Oxygen Flow Rate 11/10/25 16:00 11/10/25 16:02 11/10/25 16:15 Temperature Pulse Rate 60 60 61 Pulse Rate [Pulse Oximeter] Respiratory Rate 37 H 13 12 Blood Pressure 154/78 H Blood Pressure [Le ft Upper Arm] Pulse Oximetry 97 95 97 Oxygen Delivery Me thod Oxygen Flow Rate 11/10/25 16:30 11/10/25 16:32 11/10/25 16:33 Temperature Pulse Rate 60 60 60 Pulse Rate [Pulse Oximeter] Respiratory Rate 13 16 16 Blood Pressure 152/80 H Blood Pressure [Le ft Upper Arm] Pulse Oximetry 94 94 95 Oxygen Delivery Me thod Oxygen Flow Rate 11/10/25 16:45 11/10/25 17:00 11/10/25 17:02 Temperature Pulse Rate 59 L 60 60 Pulse Rate [Pulse Oximeter] Respiratory Rate 13 15 13 Blood Pressure 146/79 H Blood Pressure [Le ft Upper Arm] Pulse Oximetry 95 95 94 Oxygen Delivery Me thod Oxygen Flow Rate 11/10/25 17:15 11/10/25 17:31 11/10/25 17:32 Temperature Pulse Rate 60 61 63 Pulse Rate [Pulse Oximeter] Respiratory Rate 16 17 16 Blood Pressure 151/86 H Blood Pressure [Le ft Upper Arm] Pulse Oximetry 95 94 Oxygen Delivery Me thod Oxygen Flow Rate 11/10/25 17:41 11/10/25 17:45 11/10/25 18:00 Temperature Pulse Rate 60 60 Pulse Rate [Pulse Oximeter] Respiratory Rate 22 19 Blood Pressure Blood Pressure [Le ft Upper Arm] Pulse Oximetry 94 89 96 Oxygen Delivery Me thod Room Air Oxygen Flow Rate 11/10/25 18:02 11/10/25 18:22 11/10/25 18:30 Temperature Pulse Rate 60 84 61 Pulse Rate [Pulse Oximeter] Respiratory Rate 18 20 Blood Pressure 146/81 H Blood Pressure [Le ft Upper Arm] Pulse Oximetry 91 91 95 Oxygen Delivery Me thod Oxygen Flow Rate 11/10/25 18:32 11/10/25 18:45 11/10/25 19:00 Temperature Pulse Rate 60 60 60 Pulse Rate [Pulse Oximeter] Respiratory Rate 20 27 H 20 Blood Pressure 137/79 Blood Pressure [Le ft Upper Arm] Pulse Oximetry 96 96 92 Oxygen Delivery Me thod Oxygen Flow Rate 11/10/25 19:02 11/10/25 19:15 11/10/25 19:30 Temperature Pulse Rate 60 60 61 Pulse Rate [Pulse Oximeter] Respiratory Rate 16 21 10 L Blood Pressure 150/77 H Blood Pressure [Le ft Upper Arm] Pulse Oximetry 94 95 94 Oxygen Delivery Me thod Oxygen Flow Rate 11/10/25 19:32 11/10/25 19:45 11/10/25 20:00 Temperature Pulse Rate 62 60 60 Pulse Rate [Pulse Oximeter] Respiratory Rate 17 18 15 Blood Pressure 155/81 H Blood Pressure [Le ft Upper Arm] Pulse Oximetry 96 96 91 Oxygen Delivery Me thod Oxygen Flow Rate 11/10/25 20:02 11/10/25 20:15 11/10/25 20:30 Temperature Pulse Rate 60 60 61 Pulse Rate [Pulse Oximeter] Respiratory Rate 16 16 10 L Blood Pressure 140/78 H Blood Pressure [Le ft Upper Arm] Pulse Oximetry 92 94 92 Oxygen Delivery Me thod Oxygen Flow Rate 11/10/25 20:32 11/10/25 20:45 11/10/25 21:00 Temperature Pulse Rate 60 61 60 Pulse Rate [Pulse Oximeter] Respiratory Rate 16 18 14 Blood Pressure 139/70 Blood Pressure [Le ft Upper Arm] Pulse Oximetry 94 91 92 Oxygen Delivery Me thod Oxygen Flow Rate 11/10/25 21:02 11/10/25 21:15 Temperature Pulse Rate 60 60 Pulse Rate [Pulse Oximeter] Respiratory Rate 15 16 Blood Pressure 146/73 H Blood Pressure [Le ft Upper Arm] Pulse Oximetry 93 Oxygen Delivery Me thod Oxygen Flow Rate Hospitalist - H&P: Result Labs Labs: Short CBC 11/10/25 Range/Units 15:05 WBC 7.41 (4.50-11.00) K/uL Hgb 12.7 L (13.5-17.5) gm/dL Hct 42.2 (37.0-53.0) % Plt Count 237 (140-440) K/uL BMP 11/10/25 15:05 Sodium 139 Potassium 4.0 Chloride 103 Carbon Dioxide 30 BUN 43 H Creatinine 2.1 H Glucose 168 H Calcium 9.5 Liver Function 11/10/25 Range/Units 15:05 Total Bilirubin 0.7 (0.1-1.5) mg/dL AST 24 (12-35) U/L ALT 27 (4-50) U/L Alkaline Phosphatase 91 (40-150) U/L Albumin 3.9 (3.3-5.0) g/dL ECG Attestation: I personally reviewed and interpreted this ECG as follows: ECG interpretation date: 11/10/25 Interpretation: Atrial paced rhythm, nonspecific is S-T segment/T-wave abnormalities, no acute ischemic changes. Imaging CT scan - chest: Radiologist's impression: INDICATION: Abdominal pain. COMPARISON: Same day CT chest TECHNIQUE: CT of the abdomen and pelvis with intravenous contrast. Multiplanar axial, coronal, and sagittal reformats were reconstructed. Contrast: 95 mL Isovue 370. FINDINGS: Lung bases: Mild atelectasis. Liver: Normal. No mass. Gallbladder and bile ducts: Gallbladder is contracted. No bile duct dilation. Pancreas: Normal. Spleen: Normal. Adrenal glands: Normal. Kidneys: Numerous bilateral renal cysts. This includes a large right upper pole renal cyst that measures 11.7 x 10.5 x 12.6 cm. There is a left lower pole cyst that measures 5.7 x 4.6 x 4.7 cm. It has peripheral discontinuous thin linear calcification. There is an exophytic left renal lesion that measures 1.9 x 2.0 cm on series 2, image 59 with indeterminate Hounsfield units. No calculi. No urinary tract dilation. Urinary bladder: Normal. Pelvis: No cyst or mass. Vessels: Mild atherosclerosis. No pelvic DVT or IVC thrombus. Bowel: Ingested food in the stomach. Normal appendix. Mild stool burden. Lymph nodes: No adenopathy. Peritoneum: No ascites. Abdominal wall: Prior umbilical hernia repair. Bones: There are some old left rib fractures including an ununited fracture of the 8th rib. Large bone island in L5. No focal worrisome bone lesions. IMPRESSION: 1. No acute findings in the abdomen or pelvis. 2. There are a couple of indeterminate renal lesions and 1 cystic lesion with some calcifications. Recommend MR abdomen without and with IV contrast renal mass protocol for better characterization. This does not need to be performed urgently. Please note that all CT scans at this facility use dose modulation, iterative reconstruction, and/or weight-based dosing when appropriate to reduce radiation dose to as low as reasonably achievable. Dictated by Arline Kaiser MD @ 11/10/2025 6:13:33 PM (Electronically Signed) CT scan - head: Attestation: I have reviewed the pertinent imaging results. Radiologist's impression: INDICATION: Episode of confusion, possible TIA. COMPARISON: None. TECHNIQUE: CT of the brain / head without intravenous contrast. Multiplanar axial, coronal, and sagittal reformats were reconstructed. FINDINGS: No intracranial hemorrhage. Parenchymal volume is relatively well preserved for age. No acute or subacute cortically based infarct. Scattered white matter hypodensities may be related to chronic microvascular ischemia. No mass or mass effect. Normal ventricles. No skull fractures. No worrisome focal bone lesion. IMPRESSION: Scattered white matter hypodensities generally seen as a sequela of chronic small-vessel disease in a patient this age. No acute appearing findings. Please note that all CT scans at this facility use dose modulation, iterative reconstruction, and/or weight-based dosing when appropriate to reduce radiation dose to as low as reasonably achievable. Dictated by Arline Kaiser MD @ 11/10/2025 7:40:31 PM
[2025-11-10] MEDS: EMPAGLIFLOZIN 10 MG TABLET PO (23:14)
[2025-11-10] MEDS: APIXABAN 5 MG TABLET PO (23:14)
[2025-11-11 03:00] VITALS: BP 153/74; PULSE 60; RESP 18; TEMP 36.7; O2SAT 94
[2025-11-11 06:46] LABS: Hematocrit* 38.9 % (37.0-53.0); Hemoglobin* 11.8 gm/dL (13.5-17.5); Mean Corpuscular HGB Conc 30 gm/dL (32-36); Mean Corpuscular Hemoglobin 28 pg (26-34); Mean Corpuscular Volume 94 fL (80-100); Red Blood Count* 4.15 m/uL (4.30-5.90); White Blood Count* 5.08 K/uL (4.50-11.00)
[2025-11-11 06:55] LABS: Slide Review Reflex No
[2025-11-11 06:57] LABS: Albumin* 3.4 g/dL (3.3-5.0); Chloride* 106 mmol/L (96-114); Sodium* 138 mmol/L (135-149)
[2025-11-11 06:58] LABS: Potassium* 3.9 mmol/L (3.6-5.1)
[2025-11-11 07:00] VITALS: BP 134/70; PULSE 60; RESP 16; TEMP 36.7; O2SAT 96
[2025-11-11 07:00] LABS: Alanine Aminotransferase* 21 U/L (4-50); Alkaline Phosphatase* 81 U/L (40-150); Anion Gap 7 mEq/L (7-15); Aspartate Amino Transferase* 19 U/L (12-35); Bilirubin Total* 0.6 mg/dL (0.1-1.5); Blood Urea Nitrogen* 39 mg/dL (7-30); Carbon Dioxide* 25 mmol/L (20-32); Creatinine* 1.6 mg/dL (0.5-1.5); Est. Creatinine Clearance* 40.56; Estimated Glomerular Filt Rate 44 ml/min; Total Protein* 6.0 g/dL (6.0-8.3)
[2025-11-11 07:01] LABS: Calcium* 9.2 mg/dL (8.4-10.6); Glucose* 115 mg/dL (60-115)
--- NOTE | 2025-11-11 08:37 | CT_ITS ---
Patient: KASEY CURRIE Facility:?[facility] Patient ID:?[id number] Site Patient ID:?[id number]. Site :?[id number] Study:?CT-Head Angio W/ 95CC ISOVUE 370 NON ACUTE-11/11/2025 10:43:47 AM Ordering Physician:Mirna Paige Final Report: DATE: 11/11/2025 CLINICAL HISTORY: Patient with altered mental status. TECHNIQUE: Standard helical CT image acquisition through the head and neck was performed after intravenous contrast bolus enhancement. 2D and 3D MIP images for post- processing were performed and interpreted on an independent workstation and 3D images were permanently archived. COMPARISON: CT same day. FINDINGS: The origins of the great vessels from the aortic arch are patent. The origin of the right vertebral artery is occluded with distal reconstitution via retrograde flow from the vertebrobasilar junction. The origin of the left vertebral artery is patent. The common carotid arteries are patent There is no stenosis at the origin of the right internal carotid artery. There is no stenosis at the origin of the left internal carotid artery. The rest of the cervical segments of the internal carotid arteries are patent up to their intracranial segments. The intracranial segments of the internal carotid arteries are patent. The left vertebral artery is dominant. The cervical segments of the vertebral arteries are patent. The intracranial segments of the vertebral arteries are patent. The middle cerebral arteries demonstrate mild narrowing on the right. The anterior cerebral arteries are normal without aneurysm or proximal occlusion identified. The anterior communicating artery is well visualized and appears normal. The basilar artery is normal without aneurysm or occlusion. The posterior cerebral arteries are normal without aneurysm or proximal occlusion. The visualized lung apices are unremarkable The thyroid gland is unremarkable. The soft tissues of the neck are unremarkable. There are degenerative changes in the cervical spine. IMPRESSION: 1. No proximal intracranial large vessel occlusion. 2. Intracranial atherosclerosis with mild narrowing in the right M1 segment. 3. Patent cervical vasculature. Please note that all CT scans at this facility use dose modulation, iterative reconstruction, and/or weight-based dosing when appropriate to reduce radiation dose to as low as reasonably achievable. Dictated by Jacquie Farrar MD @ 11/11/2025 10:25:47 PM (Electronic Signature)
--- NOTE | 2025-11-11 08:37 | CT_ITS ---
Patient: KASEY CURRIE Facility:?[facility] Patient ID:?[id number] Site Patient ID:?[id number]. Site :?[id number] Study:?CT-Neck Angio W/ 95CC ISOVUE 370 NON ACUTE-11/11/2025 10:43:41 AM Ordering Physician:Mirna Paige Final Report: DATE: 11/11/2025 CLINICAL HISTORY: Patient with altered mental status. TECHNIQUE: Standard helical CT image acquisition through the head and neck was performed after intravenous contrast bolus enhancement. 2D and 3D MIP images for post- processing were performed and interpreted on an independent workstation and 3D images were permanently archived. COMPARISON: CT same day. FINDINGS: The origins of the great vessels from the aortic arch are patent. The origin of the right vertebral artery is occluded with distal reconstitution via retrograde flow from the vertebrobasilar junction. The origin of the left vertebral artery is patent. The common carotid arteries are patent There is no stenosis at the origin of the right internal carotid artery. There is no stenosis at the origin of the left internal carotid artery. The rest of the cervical segments of the internal carotid arteries are patent up to their intracranial segments. The intracranial segments of the internal carotid arteries are patent. The left vertebral artery is dominant. The cervical segments of the vertebral arteries are patent. The intracranial segments of the vertebral arteries are patent. The middle cerebral arteries demonstrate mild narrowing on the right. The anterior cerebral arteries are normal without aneurysm or proximal occlusion identified. The anterior communicating artery is well visualized and appears normal. The basilar artery is normal without aneurysm or occlusion. The posterior cerebral arteries are normal without aneurysm or proximal occlusion. The visualized lung apices are unremarkable The thyroid gland is unremarkable. The soft tissues of the neck are unremarkable. There are degenerative changes in the cervical spine. IMPRESSION: 1. No proximal intracranial large vessel occlusion. 2. Intracranial atherosclerosis with mild narrowing in the right M1 segment. 3. Patent cervical vasculature. Please note that all CT scans at this facility use dose modulation, iterative reconstruction, and/or weight-based dosing when appropriate to reduce radiation dose to as low as reasonably achievable. Dictated by Jacquie Farrar MD @ 11/11/2025 10:25:13 PM (Electronic Signature)
[2025-11-11 08:43] VITALS: BP 157/85; BP 158/83; BP 159/86; PULSE 64; PULSE 71; PULSE 72
[2025-11-11] MEDS: APIXABAN 5 MG TABLET PO (09:11)
[2025-11-11] MEDS: EMPAGLIFLOZIN 10 MG TABLET PO (09:11)
[2025-11-11] MEDS: SOTALOL HCL 80 MG TABLET PO (09:11)
[2025-11-11] MEDS: TAMSULOSIN HCL 0.4 MG CAPSULE PO (09:11)
[2025-11-11] MEDS: SODIUM CHLORIDE 0.9 % (FLUSH) 10 ML SYRINGE 5 ML IVF (09:13)
[2025-11-11 11:00] VITALS: BP 161/81; PULSE 61; RESP 18; TEMP 36.8; O2SAT 98
--- NOTE | 2025-11-11 12:24 | PM.DS1 ---
DS: Providers Provider Date Seen: 11/11/25 Date of admission: 11/10/25 21:23 Primary care physician: Trung Tucker MD Admitting Clinician: Lucy Richardson MD Attending Physician on discharge: Cedric Chow MD Date of Discharge: 11/11/25 DS: Diagnosis Discharge Diagnosis (1) Chest pain: Status: Acute Problem details: Episode of chest pain while walking through a store shopping, associated with dyspnea. Resolved by the time he arrived in the emergency department. Chest CTA, troponins are normal. No recurrent episodes. Repeat echo pending (2) Hypoxia: Status: Resolved Problem details: Brief episode of dyspnea with chest pain and apparent hypoxia according to paramedics. Resolved since coming to the hospital without specific therapy. (3) Dizziness: Status: Acute Problem details: Dizziness described primarily as lightheadedness during an episode of shortness of breath and chest pain also resolved by arrival in the hospital (4) Altered mental status: Status: Suspected Problem details: Brief episode of confusion associated with chest pain, dyspnea, lightheadedness and hypoxia while shopping. No loss of consciousness. No focal neurologic symptoms. He reports that it felt like his head was in a fog. Resolved on arrival emergency department. (5) Renal lesion: Status: Acute Problem details: CT from 11/11/2025: There are a couple of indeterminate renal lesions and 1 cystic lesion with some calcifications. Recommend outpatient MR abdomen without and with IV contrast renal mass protocol for better characterization. (6) LVH (left ventricular hypertrophy): Status: Acute Problem details: Echocardiogram from 08/04/2025: Final Impressions: 1. Mildly enlarged left atrium. 2. Normal LV size, moderately increased wall thickness, normal global systolic function with an estimated EF of 55 - 60%. 3. Right ventricular cavity size is normal, global systolic RV function is normal. 4. Dilated sinus of Valsalva, diameter of 4.3 cm (upper limit of normal for age, sex, and BSA is 4.2 cm*), Height Index 2.46 cm/m. 5. No pericardial effusion. 6. Given significant LVH, cardiac MRI/PYP scan could be conisdered to rule out cardiac amyloidosis Repeat echo today (7) Acute kidney injury: Status: Acute Problem details: Patient had elevated creatinine on admission at 2.1 compared to baseline of 1.6. Creatinine returned to 1.6 without specific intervention. Notably he was recently put on Bactrim DS for possible prostatitis. (8) Benign prostatic hyperplasia: Status: Acute Problem details: Ongoing problems with nocturia and frequency. Saw urologist 2 days ago who recommended restarting tamsulosin. Patient has now been on tamsulosin for about 5 days. (9) snf current use of anticoagulant therapy: Status: Acute Problem details: On Eliquis for both atrial fibrillation and history of PE/DVT (10) Pulmonary embolus: Status: Chronic Problem details: On Eliquis. No PE on chest CTA (11) Lymphedema: Status: Acute Problem details: Chronic longstanding problem (12) Diabetes mellitus, type II: Status: Acute Problem details: A1c 9.1% on 06/09/2025. On metformin and semaglutide. Hemoglobin A1c was 7.2 on 09/13/2025 (13) Morbid obesity: Status: Acute Problem details: Losing weight on semaglutide (14) Osteoarthritis of knees, bilateral: Status: Acute Problem details: Severe, [id number]. Poor surgical candidate. Pain is disabling. (15) Enlarged lymph node: Status: Acute Problem details: CT chest from 11/10/2025: Enlarged right hilar lymph node is nonspecific. There are not any other enlarged or abnormal appearing thoracic lymph nodes. DS: Summary Hospital Course Hospital Course: Herson Forte is a 75 year old male patient with past medical history of hypertension, hyperlipidemia, DM, AFib on Eliquis, history of PE, cardiomyopathy, history of permanent pacemaker, CKD & gout who presents to the ED after a sudden episode of SOB and confusion while he was shopping. Patient described feeling chest tightness, dizziness, shortness of breath and weakness while walking around at a store. he described it as being in a cloud because he said he was confused and he did not even know where he is and what he was doing. He does not know exactly for how long he had this episode but it is less than 1 hour. EMS notes that he was hypoxic in the upper 80s, improved with oxygen. Patient did received 324 mg of aspirin. His symptoms have since resolved upon his arrival to our hospital ED. patient denied recent illnesses, fevers or chills. At the ED, patient was hemodynamically stable. His labs are unremarkable except for creatinine of 2.1, is baseline is around 1.6. But patient mentioned that he was on Bactrim recently for UTI symptoms. troponin POC was negative twice. EKG at the ED showed atrial paced rhythm, but did not show acute ischemic changes. EKGs from EMS showed some QRS complex duration changes. ED provider ordered a CTA chest though creatinine was elevated because patient has history of PE. His CTA did not show pulmonary embolism this time. ED Dr discussed his presentation with hydraulic chair assembler from [facility], Dr. Sanchez. He was able to add the patient did have an echo last February that showed mildly dilated cardiac chambers but normal EF. He feels that with stable vital signs, normalized oxygen the patient should be safe to stay here. It would be reasonable to get a follow-up echo. in addition, due to his sudden confusion that resolved in less than an hour TIA is suspected. CT head did not show any acute changes. ED provider contacted Neurology team who who thought that his confusion might be related to hypoxia, but he cannot exclude TIA as the cause of his confusion. He suggested doing a head and neck CTA tomorrow or a head and neck MRI if his GFR would not allow a CTA. He added that if the neck imaging shows internal carotid occlusion as a cause of this AMS episode, then surgery might be needed. 11/11/2025: Patient reports feeling fine. He has no concerning symptoms, visual disturbance, numbness or weakness, lightheadedness or dizziness. He feels like his thinking is clear. No other symptoms of illness including fever or respiratory symptoms or gastrointestinal symptoms. He has ongoing urinary frequency which is a chronic problem for him. He reports a good appetite. Status at Discharge Functional status at discharge: uses cane/walker Overall status at discharge: patient is back to baseline Time Spent with Patient Time attestation: Total time spent providing and/or coordinating discharge services: 65 minutes Exam Narrative: Exam Narrative: He is alert and appears in no distress. He gives his own history. Oropharynx with small airway. Neck is supple without mass or adenopathy. There is no facial asymmetry. Pupils are equal round reactive to light. Extraocular movements are full. Respirations are clear to auscultation. Cardiovascular: S1, S2, regular rate and rhythm. Abdomen: Bowel sounds active. Abdomen is soft without tenderness or mass. He moves all 4 extremities well. Lower extremities with moderate lymphedema and brawny induration/chronic skin changes from lymphedema bilaterally. Const: Vital Signs, click to edit/add: Vital Signs - 24 hr 11/10/25 14:33 11/10/25 14:34 11/10/25 14:35 Temperature 35.9 C L Pulse Rate 60 60 Pulse Rate [Pulse Oximeter] 60 Respiratory Rate 12 26 H 20 Blood Pressure 127/62 Blood Pressure [Le ft Arm] Blood Pressure [Le ft Upper Arm] 127/62 Pulse Oximetry 95 95 96 Oxygen Delivery Me thod Nasal Cannula Oxygen Flow Rate 2 11/10/25 14:45 11/10/25 15:00 11/10/25 15:08 Temperature Pulse Rate 60 60 62 Pulse Rate [Pulse Oximeter] Respiratory Rate 14 Blood Pressure 141/74 H Blood Pressure [Le ft Arm] Blood Pressure [Le ft Upper Arm] Pulse Oximetry 95 97 93 Oxygen Delivery Me thod Nasal Cannula Oxygen Flow Rate 1 11/10/25 15:15 11/10/25 15:30 11/10/25 15:32 Temperature Pulse Rate 59 L 60 60 Pulse Rate [Pulse Oximeter] Respiratory Rate 10 L 16 17 Blood Pressure 142/77 H Blood Pressure [Le ft Arm] Blood Pressure [Le ft Upper Arm] Pulse Oximetry 97 97 97 Oxygen Delivery Me thod Nasal Cannula Nasal Cannula Oxygen Flow Rate 1 1 11/10/25 15:32 11/10/25 15:32 11/10/25 15:45 Temperature Pulse Rate 60 60 60 Pulse Rate [Pulse Oximeter] Respiratory Rate 17 17 15 Blood Pressure 142/77 H 142/77 H Blood Pressure [Le ft Arm] Blood Pressure [Le ft Upper Arm] Pulse Oximetry 97 97 94 Oxygen Delivery Me thod Oxygen Flow Rate 11/10/25 16:00 11/10/25 16:02 11/10/25 16:15 Temperature Pulse Rate 60 60 61 Pulse Rate [Pulse Oximeter] Respiratory Rate 37 H 13 12 Blood Pressure 154/78 H Blood Pressure [Le ft Arm] Blood Pressure [Le ft Upper Arm] Pulse Oximetry 97 95 97 Oxygen Delivery Me thod Oxygen Flow Rate 11/10/25 16:30 11/10/25 16:32 11/10/25 16:33 Temperature Pulse Rate 60 60 60 Pulse Rate [Pulse Oximeter] Respiratory Rate 13 16 16 Blood Pressure 152/80 H Blood Pressure [Le ft Arm] Blood Pressure [Le ft Upper Arm] Pulse Oximetry 94 94 95 Oxygen Delivery Me thod Oxygen Flow Rate 11/10/25 16:45 11/10/25 17:00 11/10/25 17:02 Temperature Pulse Rate 59 L 60 60 Pulse Rate [Pulse Oximeter] Respiratory Rate 13 15 13 Blood Pressure 146/79 H Blood Pressure [Le ft Arm] Blood Pressure [Le ft Upper Arm] Pulse Oximetry 95 95 94 Oxygen Delivery Me thod Oxygen Flow Rate 11/10/25 17:15 11/10/25 17:31 11/10/25 17:32 Temperature Pulse Rate 60 61 63 Pulse Rate [Pulse Oximeter] Respiratory Rate 16 17 16 Blood Pressure 151/86 H Blood Pressure [Le ft Arm] Blood Pressure [Le ft Upper Arm] Pulse Oximetry 95 94 Oxygen Delivery Me thod Oxygen Flow Rate 11/10/25 17:41 11/10/25 17:45 11/10/25 18:00 Temperature Pulse Rate 60 60 Pulse Rate [Pulse Oximeter] Respiratory Rate 22 19 Blood Pressure Blood Pressure [Le ft Arm] Blood Pressure [Le ft Upper Arm] Pulse Oximetry 94 89 96 Oxygen Delivery Me thod Room Air Oxygen Flow Rate 11/10/25 18:02 11/10/25 18:22 11/10/25 18:30 Temperature Pulse Rate 60 84 61 Pulse Rate [Pulse Oximeter] Respiratory Rate 18 20 Blood Pressure 146/81 H Blood Pressure [Le ft Arm] Blood Pressure [Le ft Upper Arm] Pulse Oximetry 91 91 95 Oxygen Delivery Me thod Oxygen Flow Rate 11/10/25 18:32 11/10/25 18:45 11/10/25 19:00 Temperature Pulse Rate 60 60 60 Pulse Rate [Pulse Oximeter] Respiratory Rate 20 27 H 20 Blood Pressure 137/79 Blood Pressure [Le ft Arm] Blood Pressure [Le ft Upper Arm] Pulse Oximetry 96 96 92 Oxygen Delivery Me thod Oxygen Flow Rate 11/10/25 19:02 11/10/25 19:15 11/10/25 19:30 Temperature Pulse Rate 60 60 61 Pulse Rate [Pulse Oximeter] Respiratory Rate 16 21 10 L Blood Pressure 150/77 H Blood Pressure [Le ft Arm] Blood Pressure [Le ft Upper Arm] Pulse Oximetry 94 95 94 Oxygen Delivery Me thod Oxygen Flow Rate 11/10/25 19:32 11/10/25 19:45 11/10/25 20:00 Temperature Pulse Rate 62 60 60 Pulse Rate [Pulse Oximeter] Respiratory Rate 17 18 15 Blood Pressure 155/81 H Blood Pressure [Le ft Arm] Blood Pressure [Le ft Upper Arm] Pulse Oximetry 96 96 91 Oxygen Delivery Me thod Oxygen Flow Rate 11/10/25 20:02 11/10/25 20:15 11/10/25 20:30 Temperature Pulse Rate 60 60 61 Pulse Rate [Pulse Oximeter] Respiratory Rate 16 16 10 L Blood Pressure 140/78 H Blood Pressure [Le ft Arm] Blood Pressure [Le ft Upper Arm] Pulse Oximetry 92 94 92 Oxygen Delivery Me thod Oxygen Flow Rate 11/10/25 20:32 11/10/25 20:45 11/10/25 21:00 Temperature Pulse Rate 60 61 60 Pulse Rate [Pulse Oximeter] Respiratory Rate 16 18 14 Blood Pressure 139/70 Blood Pressure [Le ft Arm] Blood Pressure [Le ft Upper Arm] Pulse Oximetry 94 91 92 Oxygen Delivery Me thod Oxygen Flow Rate 11/10/25 21:02 11/10/25 21:15 11/10/25 21:38 Temperature 36.8 C Pulse Rate 60 60 Pulse Rate [Pulse Oximeter] 71 Respiratory Rate 15 16 18 Blood Pressure 146/73 H Blood Pressure [Le ft Arm] 163/90 H Blood Pressure [Le ft Upper Arm] Pulse Oximetry 93 96 Oxygen Delivery Me thod Room Air Oxygen Flow Rate 11/10/25 21:38 11/10/25 23:00 11/10/25 23:00 Temperature 36.8 C Pulse Rate Pulse Rate [Pulse Oximeter] 61 61 Respiratory Rate 18 18 18 Blood Pressure Blood Pressure [Le ft Arm] 166/70 H Blood Pressure [Le ft Upper Arm] Pulse Oximetry 97 97 Oxygen Delivery Me thod Room Air Room Air Oxygen Flow Rate 1 11/10/25 23:00 11/11/25 03:00 11/11/25 07:00 Temperature 36.7 C Pulse Rate 60 60 Pulse Rate [Pulse Oximeter] 60 Respiratory Rate 18 Blood Pressure Blood Pressure [Le ft Arm] 153/74 H Blood Pressure [Le ft Upper Arm] Pulse Oximetry 94 Oxygen Delivery Me thod Room Air Oxygen Flow Rate 11/11/25 07:00 11/11/25 07:00 Temperature 36.7 C Pulse Rate Pulse Rate [Pulse Oximeter] 60 60 Respiratory Rate 16 16 Blood Pressure Blood Pressure [Le ft Arm] 134/70 Blood Pressure [Le ft Upper Arm] Pulse Oximetry 96 Oxygen Delivery Me thod Room Air Oxygen Flow Rate DS: Data Data Completed and Pending Labs on day of discharge: Labs from last 24 hours 11/11/25 11/10/25 11/10/25 06:02 17:05 16:54 WBC 5.08 RBC 4.15 L Hgb 11.8 L Hct 38.9 MCV 94 MCH 28 MCHC 30 L RDW Coeff of [place] Plt Count 221 Neut % (Auto) Lymph % (Auto) [place] % (Auto) Eos % (Auto) Baso % (Auto) Neut # (Auto) Lymph # (Auto) [place] # (Auto) Eos # (Auto) Baso # (Auto) Abs Immat Gran (auto) Imm/Tot Granulo (auto) Sodium 138 Potassium 3.9 Chloride 106 Carbon Dioxide 25 Anion Gap 7 BUN 39 H Creatinine 1.6 H Estimated Creat Clear 40.56 Estimated GFR 44 Glucose 115 Calcium 9.2 Total Bilirubin 0.6 AST 19 ALT 21 Alkaline Phosphatase 81 Troponin I < 0.01 POC Troponin I High Sensi 4.2 Total Protein 6.0 Albumin 3.4 SARS-CoV-2 (PCR) Negative SARS-CoV-2 Influenza Type A (PCR) Negative PCR FLU A Influenza Type B (PCR) Negative PCR FLU B RSV (PCR) Negative PCR RSV 11/10/25 11/10/25 15:05 14:45 WBC 7.41 RBC 4.48 Hgb 12.7 L Hct 42.2 MCV 94 MCH 28 MCHC 30 L RDW Coeff of [place] 16.6 H Plt Count 237 Neut % (Auto) 88.9 H Lymph % (Auto) 6.2 L [place] % (Auto) 4.2 Eos % (Auto) 0.3 Baso % (Auto) 0.1 Neut # (Auto) 6.60 Lymph # (Auto) 0.50 L [place] # (Auto) 0.30 Eos # (Auto) 0.02 Baso # (Auto) 0.01 Abs Immat Gran (auto) 0.02 Imm/Tot Granulo (auto) 0.3 Sodium 139 Potassium 4.0 Chloride 103 Carbon Dioxide 30 Anion Gap 6 L BUN 43 H Creatinine 2.1 H Estimated Creat Clear 30.90 Estimated GFR 32 Glucose 168 H Calcium 9.5 Total Bilirubin 0.7 AST 24 ALT 27 Alkaline Phosphatase 91 Troponin I POC Troponin I High Sensi 5.2 Total Protein 7.1 Albumin 3.9 SARS-CoV-2 (PCR) Influenza Type A (PCR) Influenza Type B (PCR) RSV (PCR) Imaging CTA head and neck preliminary report: Radiologist's impression: PRELIMINARY FINDINGS: 1. No findings to explain the clinical history altered mental status. 2. CTA HEAD: Negative. No LVO of the anterior or posterior circulation, flow limiting stenosis or aneurysm larger than 3mm. 3. CTA NECK: The pre-foraminal and proximal foraminal segments (V1/V2) of the right vertebral artery are not seen and presumed to be occluded at the origin of the right vertebral artery with retrograde filling of the right intradural, atl[place] and upper foraminal segments of the right vertebral artery (V4/V3/upper V2, respectively). Otherwise, no occlusion, flow limiting stenosis or signs of dissection. 4. Incidental findings: No significant incidental findings. THIS IS A PRELIMINARY REPORT. THE FINAL REPORT WILL BE ISSUED BY THE NEURORADIOLOGY SUBSPECIALITY SECTION OF THE DEPARTMENT. CT scan - abdomen: Radiologist's impression: INDICATION: Abdominal pain. COMPARISON: Same day CT chest TECHNIQUE: CT of the abdomen and pelvis with intravenous contrast. Multiplanar axial, coronal, and sagittal reformats were reconstructed. Contrast: 95 mL Isovue 370. FINDINGS: Lung bases: Mild atelectasis. Liver: Normal. No mass. Gallbladder and bile ducts: Gallbladder is contracted. No bile duct dilation. Pancreas: Normal. Spleen: Normal. Adrenal glands: Normal. Kidneys: Numerous bilateral renal cysts. This includes a large right upper pole renal cyst that measures 11.7 x 10.5 x 12.6 cm. There is a left lower pole cyst that measures 5.7 x 4.6 x 4.7 cm. It has peripheral discontinuous thin linear calcification. There is an exophytic left renal lesion that measures 1.9 x 2.0 cm on series 2, image 59 with indeterminate Hounsfield units. No calculi. No urinary tract dilation. Urinary bladder: Normal. Pelvis: No cyst or mass. Vessels: Mild atherosclerosis. No pelvic DVT or IVC thrombus. Bowel: Ingested food in the stomach. Normal appendix. Mild stool burden. Lymph nodes: No adenopathy. Peritoneum: No ascites. Abdominal wall: Prior umbilical hernia repair. Bones: There are some old left rib fractures including an ununited fracture of the 8th rib. Large bone island in L5. No focal worrisome bone lesions. IMPRESSION: 1. No acute findings in the abdomen or pelvis. 2. There are a couple of indeterminate renal lesions and 1 cystic lesion with some calcifications. Recommend MR abdomen without and with IV contrast renal mass protocol for better characterization. This does not need to be performed urgently. CT scan - chest: Radiologist's impression: INDICATION: Short of breath, dizzy, hypoxia, chest pain. COMPARISON: 11/10/2025 chest radiograph and abdomen pelvis CT TECHNIQUE: CT angiogram chest with contrast, pulmonary embolism protocol. Multiplanar axial, coronal, and sagittal reformats are included. MIP images to improve detection of pulmonary emboli are included. Intravenous contrast: 95 mL Isovue 370. FINDINGS: PE: Well-timed contrast bolus. No pulmonary emboli. Dilated 4 cm main pulmonary artery. Dilated right heart chambers. No reflux of contrast below the diaphragm. Airway: Deeply expiratory appearance of the airway. Lungs: Bilateral atelectasis. Expiratory appearance of the lung. No nodules or masses. No consolidations. Normal appearance of the pulmonary interstitium. Pleura: No pleural effusion. No pneumothorax. Lymph nodes: Enlarged right hilar lymph node measures 2.0 x 2.2 cm on series 5, image 70. There are not any other enlarged or abnormal appearing mediastinal lymph nodes.. Mediastinum: No pneumomediastinum. No mass. No hematoma. Heart and great vessels: No pericardial effusion. Dilated cardiac chambers. Right subclavian pacemaker leads in the right atrium and right ventricle. Scattered atherosclerotic plaques. No aortic aneurysm. Chest wall: Normal. No masses. Upper abdomen: Please see same day CT of the abdomen and pelvis. Bones: Several old left posterolateral rib fractures. The 8th fracture is not completely united. No acute fractures. No focal bone lesions. IMPRESSION: 1. No pulmonary embolism. 2. Deeply expiratory appearance of the airway and lungs without any acute pulmonary parenchymal findings. 3. Dilated cardiac chambers. Dilated main pulmonary artery. 4. Enlarged right hilar lymph node is nonspecific. There are not any other enlarged or abnormal appearing thoracic lymph nodes. CT scan - head: Radiologist's impression: INDICATION: Episode of confusion, possible TIA. COMPARISON: None. TECHNIQUE: CT of the brain / head without intravenous contrast. Multiplanar axial, coronal, and sagittal reformats were reconstructed. FINDINGS: No intracranial hemorrhage. Parenchymal volume is relatively well preserved for age. No acute or subacute cortically based infarct. Scattered white matter hypodensities may be related to chronic microvascular ischemia. No mass or mass effect. Normal ventricles. No skull fractures. No worrisome focal bone lesion. IMPRESSION: Scattered white matter hypodensities generally seen as a sequela of chronic small-vessel disease in a patient this age. No acute appearing findings. Venous US: Radiologist's impression: INDICATION: History of DVT, dyspnea, bilateral leg swelling. Bilateral greater saphenous vein stripping/ablation. COMPARISON: None. TECHNIQUE: Milner-scale, color, and spectral Doppler imaging of the bilateral lower extremity veins. Compression and augmentation attempted where anatomically and clinically feasible. FINDINGS: Laterality: Bilateral Examined veins: Common femoral, proximal deep femoral, superficial femoral, popliteal, peroneal, posterior tibial Proximal greater saphenous Greater saphenous veins are occluded and not well seen due to the prior intervention. Otherwise, the examined veins are patent with normal grayscale appearance and normal compressibility where anatomically feasible. Normal color Doppler flow. Normal venous waveforms on duplex Doppler ultrasound with normal augmentation. 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 IMPRESSION: No deep vein thrombosis in either lower extremity. Echo: Radiologist's impression: Preliminary echo is unchanged from July 2025 Discharge Plan Discharge Disposition: Home, Self-Care Date of Admission: 11/10/25 21:23 Attending Provider on Discharge: Royal Chow Primary Care Provider: Trung Tucker Condition: Improved Anticipated Discharge Date/Time: 11/11/25 15:00 Discharge Medications: Continued fesoterodine 4 mg tablet extended release 24 hr 4 mg PO DAILY Ozempic 0.25 mg or 0.5 mg (2 mg/3 mL) pen injector 0.25 mg subcut QWEEK Rx Instructions: for 4 weeks coenzyme Q10 [CoQ-10] 100 mg capsule 100 mg PO QDAY ascorbic acid (vitamin C) 500 mg capsule 500 mg PO BID biotin 2,500 mcg capsule 1,000 mcg PO QDAY Eliquis 5 mg tablet 5 mg PO BID Qty: 180 3RF allopurinol 100 mg tablet 100 mg PO DAILY Qty: 90 3RF irbesartan 150 mg tablet 150 mg PO DAILY Qty: 90 3RF omeprazole 20 mg capsule,delayed release(DR/EC) See Rx Instructions .ROUTE .COMPLEX Qty: 90 3RF Dose Instruction: TAKE 1 CAPSULE BY MOUTH DAILY NEEDED Rx Instructions: TAKE 1 CAPSULE BY MOUTH DAILY NEEDED pregabalin 100 mg capsule 100 mg PO BID-TID Qty: 270 3RF sotalol 80 mg tablet 80 mg PO DAILY Qty: 90 3RF triamterene-hydrochlorothiazid 37.5-25 mg capsule 1 cap PO BID Qty: 180 3RF (DME) Walker- 4 Wheels Misc See Rx Instructions .Route Qty: 1 0RF Rx Instructions: As directed tamsulosin 0.4 mg capsule 0.4 mg PO DAILY pravastatin 20 mg tablet 20 mg PO HS metformin 750 mg tablet extended release 24 hr 750 mg PO DAILY Jardiance 10 mg tablet 10 mg PO DAILY (DME) Contour Test Strips Strip See Rx Instructions .Route Qty: 100 3RF Rx Instructions: BID (DME) lancets 28 gauge misc See Rx Instructions .Route Qty: 100 3RF Rx Instructions: BID Discharge Orders: Discharge Order (Routine); Ordered 11/11/25 Ordered By: Royal Chow Activity Level: No Restrictions Discharge Diet: Heart Healthy (2 gm sodium, low fat) Follow Up Appointments: Trung Tucker MD [Primary Care Provider, Family Practice] Referral Note: 1-2 weeks Forms: [facility] Info Instructions
[2025-11-11] MEDS: PERFLUTREN LIPID MICROSPHERES 2 ML VIAL IVP (14:06)
[2025-11-11 15:00] VITALS: BP 158/88; PULSE 61; PULSE 63; RESP 18; TEMP 36.8; O2SAT 98
--- NOTE | 2025-11-11 15:07 | PC.NURSE ---
End of shift report [id number]: Pleasant and cooperative with cares. Denies any pain, chest pain or SOB. Head CTA completed and ECHO completed.
== END 2025-11-11 15:40 | disposition home or self-care (01) ==
LOC: ED 20:07 → MEDSURG 21:25
PROVIDERS: Family Medicine; Admitting Provider Student in an Organized Health Care Education/Training Program; Emergency Provider Emergency Medicine; PCP Family Medicine; Visit Provider Student in an Organized Health Care Education/Training Program
DX: R07.9 Chest pain, unspecified (principal); R09.02 Hypoxemia; E11.22 Type 2 diabetes mellitus with diabetic chronic kidney disease; N18.30 Chronic kidney disease, stage 3 unspecified; Z79.4 Long term (current) use of insulin; I42.9 Cardiomyopathy, unspecified; Z95.0 Presence of cardiac pacemaker; I48.92 Unspecified atrial flutter; Z79.01 Long term (current) use of anticoagulants; R41.82 Altered mental status, unspecified; I51.7 Cardiomegaly; R59.9 Enlarged lymph nodes, unspecified; M17.0 Bilateral primary osteoarthritis of knee; E66.01 Morbid (severe) obesity due to excess calories; I26.99 Other pulmonary embolism without acute cor pulmonale; N40.0 Benign prostatic hyperplasia without lower urinary tract symptoms
CPT/HCPCS: 36415; 51798; 70450; 70496; 70498; 71045; 71275; 74177; 80053; 82962; 84484; 85025; 85027; 87631; 93005; 93308; 93321; 93325; 93970; 94761; 96360; 99285; A9270; G0378; J7030; Q9957; Q9967